=== PATIENT | female | born 2005 ===

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

== ENCOUNTER 2025-06-18 17:18 | Emergency (ER) | payer BC, SELFPAY ==
--- OUTSIDE RECORDS SUMMARY | 2025-05-19 18:18 | XMS_ITS | Encounter Summary ---
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 Name Role Phone Elsewhere, Pcp Primary Care Provider Unavailabl e Reason for Visit * Reason Comments Abnormal Lab Hx of high triglycer ides and needing admission for insulin, [place] [address] today, was called by primary provider to come in for admission * Auth/Cert (Routine) Specialty Diagnoses / Procedures Referred By Contac t Referred To Contact Diagnoses Hypertriglyceridemia Abdominal Pain Procedures INPT Referral ID Status Reason Start Date Expiration Date Visits Re quested Visits Authorized [id number] 1 1 Encounter Details Date Type Department Care Team (Latest Contact Info) Description 05/19/2025 6:18 PM CDT - 05/26/2025 3:56 PM CDT Hospital Encounter [facility], Fourth Floor [address] [place] [address] Howard Corona M.D. [address] [place] [address] Leela Downey M.D. [address] [place] [address] Howard Valdivia M.D. [address] [place] [address] Chris Haynes M.B.BTeshaSTesha, MAbram [address] [place] [address] Abdominal Pain (Primary Dx); Hypertriglyceridemi a Discharge Disposition: Home or Self Care Social History Tobacco Use Types Packs/Day Years Used Date Smoking Tobacco: Never Humiliation, Afraid, Rape, and Kick questionnair e Answer Date Recorded Within the last year, have y ou been afraid of your partner or ex-partner? No 05/19/2025 Within the last year, have y ou been humiliated or emotionally abused in other ways by your partner or ex-partner? No Within the last year, have y ou been kicked, hit, slapped, or otherwise physically hurt by your partner or ex-partner? No 05/19/2025 Within the last year, have y ou been raped or forced to have any kind of sexual activity by your partner or ex-partner? No 05/19/2025 Hunger Vital Sign Answer Date Recorded Within the past 12 months, y ou worried that your food would run out before you got the money to buy more. Never true 05/19/20 25 Within the past 12 months, t he food you bought just didn't last and you didn't have money to get more. Never true 05/19/2025 PRAPARE - Transportation Answer Date Re corded In the past 12 months, has l ack of transportation kept you from medical appointments or from getting medications? No 04/29 In the past 12 months, has l ack of transportation kept you from meetings, work, or from getting things needed for daily living? No 05/19/2025 [facility] Utilities Answer Date Recorded In the past 12 months has [facility] [employer], gas, oil, or water [employer] threatened to shut off services in your home? No 05/19/2025 Housing Stability Answer Date Recorded What is your living situation today? [facility] 05/19/2025 Comments No Sex and Gender Information Value Date Recorded Sex Assigned at Female 10/12/2024 3:01 AM FINANCIAL SERVICES ASSOCIATE Legal Sex Female 7:17 AM FINANCIAL SERVICES ASSOCIATE Gender Identity Female 10/12/2024 3:01 AM FINANCIAL SERVICES ASSOCIATE Sexual Orientation Not on file documented as of this encounter Last Filed Vital Signs Vital Sign Reading Time Taken Comments Blood Pressure 133/91 05/26/2025 2:14 PM CDT Pulse 79 05/23/2025 10:27 AM CDT Temperature 36.2 C (97.2 F) 05/26/2025 2:14 PM CDT Respiratory Rate 17 05/26/2025 2:14 PM CDT Oxygen Saturation 100% 05/26/2025 2:14 PM CDT Inhaled Oxygen Concentration - - Weight 85.2 kg (187 lb 13.3 oz) 05/24/2025 5:23 AM CDT Height 157.5 cm (5' 2.01) 05/19/2025 1 0:41 PM CDT Body Mass Index 34.35 05/19/2025 10:41 PM CDT documented in this encounter Discharge Summaries * Chris Haynes M.B.B.S. MAnselmo. - 05/26/2025 12:02 PM CDT DISCHARGE SUMMARY BRIEF OVERVIEW Hospital: [facility] Discharge Provider: Chris Haynes M.B.B.S. Primary Team: BRET Garcia Primary Care Providers: Elsewhere, Pcp (General) No address on file Primary Care Provider Phone Number: None Primary Care Provider Fax Number: None Other Providers: None Admission Date: 05/19/2025 Discharge Date: 05/26/2025 PRINCIPAL DIAGNOSIS Abdominal Pain SECONDARY DIAGNOSES Principal Problem: Abdominal Pain Resolved Problems: * No resolved hospital problems. * DISCHARGE DISPOSITION Home or Self Care [1] ACTIVE ISSUES REQUIRING FOLLOW UP OUTPATIENT FOLLOW UP For appointment details refer to your Patient Appointment Guide. TEST RESULTS PENDING AT DISCHARGE Pending Labs None DETAILS OF HOSPITAL STAY REASON FOR ADMISSION Hypertriglyceridemia Abdominal Pain HOSPITAL COURSE Patient is 20-year-old female past medical history significant for familial hypertriglyceridemia, type 1 diabetes, HLD, history of recurrent pancreatitis who presented to the ED on 05/19/2025 with abdominal pain. Patient was admitted earlier in March to [facility] due to pancreatitis induced by hypertriglyceridemia. Since discharge patient reported being compliant with medications, however, she had noticed elevated blood glucose levels. Patient had continuous glucose monitor and insulin pump. Recently her meal dose insulin was switched (switched from 1u carb count to 5u due to concern of high dose of insulin). Prior to admission her blood glucose had been in the 300s for the last week. She had her triglycerides checked at her PCPs office on 05/13/2025 and was elevated to 10 thousands. Patient had intermittent epigastric discomfort. PCP instructed her to present to the emergency department for further evaluation. Patient was noted to have high anion gap metabolic acidosis. Patient was admitted to the PCU. Patient was started on insulin drip. Patient's triglycerides were closely monitored and although initially it lowered, triglycerides have now plateaued around 1600 despite being on IV insulin along with high-intensity atorvastatin, fenofibrate and fish oil. Patient's abdominal pain gradually improved and she was initially started on cl ear liquid diet. Diet was slowly advanced and patient is not tolerating solid food. I discussed in detail with patient and she stated that she recently saw her tyre retreader and has all of her diabetic medication supplies including insulin pump. certified adaptive physical educator also met with patient. CONSULTS ORDERED DURING THIS ADMISSION IP CONSULT TO CONCRETING SUPERVISOR IP CONSULT TO DIETITIAN CONDITION AT DISCHARGE stable Discharge instructions were provided to the patient and caregiver(s). Total time spent in discharge services today: 56 minutes. documented in this encounter Discharge Instructions * Attachments The following attachments cannot be sent through Care Everywhere. * Abdominal Wall Pain documented in this encounter Medications at Time of Discharge acetaminophen (TylenoL) 500 mg tablet Take 1,000 mg by mouth every 6 (six) hours as needed for pain. atorvastatin (Lipitor) 80 mg tablet Take 80 mg by mouth daily. 12/20/2016 fenofibrate (Lofibra) 160 mg tablet Take 160 mg by mouth daily. 12/23/2022 hydrOXYzine (Atarax) 25 mg tablet Take 1 tablet by mouth every 6 (six) hours as needed for anxiety. 05/07/2025 insulin aspart U-100 (NovoLOG FlexPen) 100 unit/mL (3 mL) pen Inject 12 Units under the skin 3 (three) times a day with meals. + correction scale (when NOT using pump) insulin aspart U-100 (NovoLOG) 100 unit/mL injection Inject up to 80 units into pump per day 01/03/2024 insulin glargine (Lantus Solostar U-100 Insulin) 100 unit/mL (3 mL) pen Inject 40 Units under the skin at bedtime. 05/13/2025 levothyroxine 100 mcg tablet Take 100 mcg by mouth daily before morning meal. omega-3 acid ethyl esters (Lovaza) 1 gram capsule Take 2 g by mouth 2 (two) times a day. 01/10/2025 omeprazole (PriLOSEC) [address] capsule Take 40 mg by mouth daily. before a meal 10/13/2024 pioglitazone (Actos) 15 mg tablet Take 15 mg by mouth daily. 09/04/2024 polyethylene glycol (Miralax) 17 gram powder packet Take 17 g by mouth daily as needed for constipation. Dissolve each 17 g dose in 240 mLs (8 ounces) of beverage. cholecalciferol (Vitamin D3) 125 mcg (5,000 Unit) tablet Take 1 tablet (125 mcg total) by mouth daily. 30 each 2 04/20/2025 ferrous sulfate 325 mg (65 mg iron) DR tablet Take 1 tablet (65 mg of iron total) by mouth every other day. 15 tablet 2 03/24/2025 glucagon (Gvoke Hypopen) 1 mg/0.2 mL auto-injector injection Inject 0.2 mL under the skin at bedtime as needed. 02/23/2024 traZODone (DesyreL) 50 mg tablet Take 50 mg by mouth at bedtime as needed for sleep. documented as of this encounter Progress Notes * Chris Haynes M.B.BTeshaSTesha, MAbram - 05/25/2025 2:28 PM CDT REASON FOR ADMISSION: Hypertriglyceridemia, chronic pancreatitis SUBJECTIVE Patient seen and examined at bedside today during morning rounds. Last night patient noted to have episode of emesis after eating daytime. This morning patient reports improvement in her abdominal pain and is no longer experiencing nausea/vomiting. CURRENT INPATIENT MEDICATIONS Current Medications[1] OBJECTIVE VITAL SIGNS Vitals: 05/25/25 1410 BP: 101/65 Pulse: Resp: 16 Temp: 36 ??C SpO2: 99% . PHYSICAL EXAMINATION General: Alert, awake, resting in bed Eyes: No scleral icterus Neck: Supple HENT: Normocephalic, moist mucous membranes Cardiac: Normal rate, regular rhythm Respiratory: Clear breath sounds bilaterally, nonlabored respiration Abdomen: Soft, mildly tender to deep palpation, no rigidity or guarding Neurological: Alert and oriented, following commands Extremities: No lower extremity edema present bilaterally Skin: Warm and dry Psych: Cooperative, appropriate mood and affect DIAGNOSTIC DATA LABS: Recent Results (from the past 24 hours) Glucose, POCT Collection Time: 05/24/25 4:01 PM Result Value Glucose, POCT, B 85 Basic Metabolic Panel Collection Time: 05/24/25 4:21 PM Result Value Potassium, P 3.9 Sodium, P 135 Chloride, P 104 Bicarbonate, P 21 (L) Anion Gap, P 10 BUN (Blood Urea Nitrogen), P <2 (L) Creatinine 0.38 (L) Estimated GFR (eGFR) >90 Calcium, Total, P 8.9 Glucose, P 95 Glucose, POCT Collection Time: 05/24/25 5:57 PM Result Value Glucose, POCT, B 101 Glucose, POCT Collection Time: 05/24/25 7:50 PM Result Value Glucose, POCT, B 113 Basic Metabolic Panel Collection Time: 05/24/25 7:51 PM Result Value Potassium, P 4.0 Sodium, P 136 Chloride, P 102 Bicarbonate, P 23 Anion Gap, P 11 BUN (Blood Urea Nitrogen), P <2 (L) Creatinine 0.49 (L) Estimated GFR (eGFR) >90 Calcium, Total, P 8.9 Glucose, P 112 Glucose, POCT Collection Time: 05/24/25 10:03 PM Result Value Glucose, POCT, B 98 Glucose, POCT Collection Time: 05/24/25 11:55 PM Result Value Glucose, POCT, B 117 Basic Metabolic Panel Collection Time: 05/25/25 12:50 AM Result Value Potassium, P 3.6 Sodium, P 135 Chloride, P 100 Bicarbonate, P 23 Anion Gap, P 12 BUN (Blood Urea Nitrogen), P <2 (L) Creatinine 0.49 (L) Estimated GFR (eGFR) >90 Calcium, Total, P 9.2 Glucose, P 98 Glucose, POCT Collection Time: 05/25/25 1:54 AM Result Value Glucose, POCT, B 112 Glucose, POCT Collection Time: 05/25/25 4:02 AM Result Value Glucose, POCT, B 121 Basic Metabolic Panel Collection Time: 05/25/25 4:50 AM Result Value Potassium, P 3.7 Sodium, P 136 Chloride, P 101 Bicarbonate, P 23 Anion Gap, P 12 BUN (Blood Urea Nitrogen), P <2 (L) Creatinine 0.52 (L) Estimated GFR (eGFR) >90 Calcium, Total, P 9.6 Glucose, P 102 Triglycerides Collection Time: 05/25/25 4:50 AM Result Value Triglycerides 1693 (H) Fasting (8 HR or more) Unknown Glucose, POCT Collection Time: 05/25/25 5:52 AM Result Value Glucose, POCT, B 114 Glucose, POCT Collection Time: 05/25/25 8:08 AM Result Value Glucose, POCT, B 94 Basic Metabolic Panel Collection Time: 05/25/25 9:04 AM Result Value Potassium, P 3.7 Sodium, P 137 Chloride, P 104 Bicarbonate, P 23 Anion Gap, P 10 BUN (Blood Urea Nitrogen), P <2 (L) Creatinine 0.45 (L) Estimated GFR (eGFR) >90 Calcium, Total, P 8.7 Glucose, P 110 Glucose, POCT Collection Time: 05/25/25 10:10 AM Result Value Glucose, POCT, B 121 Glucose, POCT Collection Time: 05/25/25 11:58 AM Result Value Glucose, POCT, B 124 Basic Metabolic Panel Collection Time: 05/25/25 12:01 PM Result Value Potassium, P SEE COMMENT Sodium, P 136 Chloride, P 103 Bicarbonate, P 19 (L) Anion Gap, P 14 BUN (Blood Urea Nitrogen), P <2 (L) Creatinine 0.41 (L) Estimated GFR (eGFR) >90 Calcium, Total, P 8.9 Glucose, P 125 Potassium Collection Time: 05/25/25 1:45 PM Result Value Potassium, P 4.0 IMAGING: No results found. ASSESSMENT / PLAN # Familial Hypertriglyceridemia # Presumed chronic pancreatitis # Uncontrolled type 1 diabetes mellitus with hyperglycemia # HAGMA, resolved # Hypokalemia # Hypomagnesemia - patient presented with abdominal pain, likely related to chronic pancreatitis, lipase normal - TG >4000 on presentation; appears to be plateauing and level this morning is 1693 - this episode could be triggered by uncontrolled DM; - due to risk of developing worsening pancreatitis, insulin drip was started - She recently ran out of CGM supply and took off insulin pump on Monday. Educated on importance ofmedication compliance Plan: - Continue with insulin drip for HyperTG until TG<1000 - Home medication resumed: Lovaza 2g bid, fenofibrate, atorvastatin - closely monitor serum triglyceride level - Diet advanced to regular yesterday - Trend BMP -closely monitor serum electrolytes and replace as indicated - Continue with pioglitazone - clinical systems educator consult done # Nausea/vomiting # Abdominal pain During hospitalization patient has had nausea and episode of emesis, noted to be improved this morning. - P.r.n. Zofran and Compazine - Abdominal pain has also improved - Currently on p.r.n. Tylenol, IV Dilaudid and IV Toradol, also added p.r.n. oxycodone - Capnography ordered # Hypothyroidism - TSH 1.58 one week ago - Continue with levothyroxine 100mcg daily Deep venous thrombosis prophylaxis: Subcu Lovenox. Code status: Full Code DISPOSITION PLAN Pending further evaluation and improvement. Pending improvement in triglyceride levels. Pending tolerance of oral intake. It is unsafe for Ms. Josemanuel Chauhan to be discharged from the hospital at this time. Potential risks and complications include incomplete treatment of acute on chronic pancreatitis, hypertriglyceridemia. Hoa Banks M.D. [1] Current Facility-Administered Medications: acetaminophen tablet 1,000 mg (TylenoL), 1,000 mg, oral, Q6H PRN, Leela Downey M.D., 1,000 mg at 05/21/25 2000 atorvastatin tablet 80 mg (Lipitor), 80 mg, oral, Daily, Leela Downey M.D., 80 mg at 05/25/25 0811 insulin regular 1 Unit/mL in NaCl 0.9% 100 mL infusion, 0-0.1 Units/kg/hr (Dosing Weight), intravenous, Continuous, Last Rate: 8.7 mL/hr at 05/25/25 1409, 0.1 Units/kg/hr at 05/25/25 1409 AND D10W infusion, 0-250 mL/hr, intravenous, As Directed PRN, Leela Downey M.D., Last Rate: 150 mL/hr at 05/25/25 1409, 150 mL/hr at 05/25/25 1409 enoxaparin injection 40 mg (Lovenox), 40 mg, subcutaneous, Q24H ZENIA, Leela Downey M.D. fenofibrate nanocrystallized tablet 145 mg (Tricor), 145 mg, oral, Daily, Leela Downey M.D., 145 mg at 05/25/25 0810 fish oil capsule 2,000 mg, 2,000 mg, oral, BID, Howard Valdivia M.D., 2,000 mg at 05/25/25 0810 HYDROmorphone injection 0.2 mg (Dilaudid), 0.2 mg, intravenous, Q4H PRN, Chris Haynes M.B.BCynthia Nowak, 0.2 mg at 05/24/25 0057 hydrOXYzine tablet 25 mg (Atarax), 25 mg, oral, Q6H PRN, Leela Downey M.D., 25 mg at 05/25/25 0129 Influenza trivalent (PF) (6 months & older) Vaccine 0.5 mL (Fluzone/Flulaval), 0.5 mL, intramuscular, Once, Epi Jaime P.A.-C., M.S. levothyroxine tablet 100 mcg, 100 mcg, oral, Daily before morning meal, Leela Downey M.D., 100 mcg at 05/25/25 0600 NaCl 0.9% infusion, 75 mL/hr, intravenous, Continuous, Leela Downey M.D., Last Rate: 75 mL/hr at 05/25/25 1202, 75 mL/hr at 05/25/25 1202 naloxone injection 0.2 mg, 0.2 mg, intravenous, PRN, Leela Downey M.D. omega-3 acid ethyl esters capsule 2 g (Lovaza), 2 g, oral, BID, Patricia Gomez Pharm.D., R.Ph. ondansetron (PF) injection 4 mg (Zofran), 4 mg, intravenous, Q8H PRN, Leela Downey M.D., 4 mg at 05/24/25 2300 oxyCODONE IR tablet 5 mg (Roxicodone), 5 mg, oral, Q4H PRN, IvyChris parada M.B.B.S., M.D., 5 mg at05/25/[address] tablet 40 mg (Protonix), 40 mg, oral, Daily before morning meal, Leela Downey M.D., 40 mg at 05/25/25 0600 pioglitazone tablet 15 mg (Actos), 15 mg, oral, Daily, Leela Downey M.D., 15 mg at 05/25/25 0811 prochlorperazine injection 5 mg (Compazine), 5 mg, intravenous, Q6H PRN, Chris Haynes M.B.B.S., M.D., 5 mg at 05/25/25 0109 sodium chloride 0.9 % injection 10 mL, 10 mL, intravenous, PRN, Leela Downey M.D. sodium chloride 0.9 % injection 3 mL, 3 mL, intravenous, PRN, Leela Downey M.D. sodium chloride 0.9 % injection 3 mL, 3 mL, intravenous, Q12H ZENIA, Leela Downey M.D., 3 mL at 05/25/25 0811 traZODone tablet 50 mg (DesyreL), 50 mg, oral, At bedtime PRN, Leela Downey M.D., 50 mg at 05/24/25 0057 * Chris Haynes M.B.B.S., M.D. - 05/24/2025 1:03 PM CDT REASON FOR ADMISSION: Hypertriglyceridemia, chronic pancreatitis SUBJECTIVE Patient seen and examined at bedside today during morning rounds.Patient denies any nausea or vomiting. Patient does report reduced appetite, is requesting solid food. CURRENT INPATIENT MEDICATIONS Current Medications[1] OBJECTIVE VITAL SIGNS Vitals: 05/24/25 1048 BP: (!) 115/93 Pulse: Resp: 15 Temp: 36.6 ??C SpO2: 99% . PHYSICAL EXAMINATION General: Alert, awake, resting in bed Eyes: No scleral icterus Neck: Supple HENT: Normocephalic, moist mucous membranes Cardiac: Normal rate, regular rhythm Respiratory: Clear breath sounds bilaterally, nonlabored respiration Abdomen: Soft, mildly tender to deep palpation, no rigidity or guarding Neurological: Alert and oriented, following commands Extremities: No lower extremity edema present bilaterally Skin: Warm and dry Psych: Cooperative, appropriate mood and affect DIAGNOSTIC DATA LABS: Recent Results (from the past 24 hours) Glucose, POCT Collection Time: 05/23/25 2:02 PM Result Value Glucose, POCT, B 124 Glucose, POCT Collection Time: 05/23/25 4:01 PM Result Value Glucose, POCT, B 108 Basic Metabolic Panel Collection Time: 05/23/25 4:12 PM Result Value Potassium, P 4.1 Sodium, P 136 Chloride, P 103 Bicarbonate, P 23 Anion Gap, P 10 BUN (Blood Urea Nitrogen), P <2 (L) Creatinine 0.39 (L) Estimated GFR (eGFR) >90 Calcium, Total, P 9.0 Glucose, P 96 Glucose, POCT Collection Time: 05/23/25 6:04 PM Result Value Glucose, POCT, B 84 Basic Metabolic Panel Collection Time: 05/23/25 7:46 PM Result Value Potassium, P SEE COMMENT Sodium, P 135 Chloride, P 102 Bicarbonate, P 22 Anion Gap, P 11 BUN (Blood Urea Nitrogen), P <2 (L) Creatinine 0.37 (L) Estimated GFR (eGFR) >90 Calcium, Total, P 8.9 Glucose, P 147 (H) Glucose, POCT Collection Time: 05/23/25 8:08 PM Result Value Glucose, POCT, B 158 (H) Glucose, POCT Collection Time: 05/23/25 10:12 PM Result Value Glucose, POCT, B 85 Glucose, POCT Collection Time: 05/24/25 12:26 AM Result Value Glucose, POCT, B 133 Glucose, POCT Collection Time: 05/24/25 2:04 AM Result Value Glucose, POCT, B 110 Glucose, POCT Collection Time: 05/24/25 4:08 AM Result Value Glucose, POCT, B 100 Triglycerides Collection Time: 05/24/25 6:15 AM Result Value Triglycerides 1449 (H) Fasting (8 HR or more) Unknown Basic Metabolic Panel Collection Time: 05/24/25 6:15 AM Result Value Potassium, P 3.5 (L) Sodium, P 136 Chloride, P 104 Bicarbonate, P 22 Anion Gap, P 10 BUN (Blood Urea Nitrogen), P <2 (L) Creatinine 0.37 (L) Estimated GFR (eGFR) >90 Calcium, Total, P 8.9 Glucose, P 86 Glucose, POCT Collection Time: 05/24/25 6:17 AM Result Value Glucose, POCT, B 84 Glucose, POCT Collection Time: 05/24/25 8:08 AM Result Value Glucose, POCT, B 127 Glucose, POCT Collection Time: 05/24/25 10:14 AM Result Value Glucose, POCT, B 89 Basic Metabolic Panel Collection Time: 05/24/25 11:48 AM Result Value Potassium, P 4.3 Sodium, P 137 Chloride, P 104 Bicarbonate, P 23 Anion Gap, P 10 BUN (Blood Urea Nitrogen), P <2 (L) Creatinine 0.44 (L) Estimated GFR (eGFR) >90 Calcium, Total, P 8.7 Glucose, P 114 Glucose, POCT Collection Time: 05/24/25 12:04 PM Result Value Glucose, POCT, B 124 IMAGING: No results found. ASSESSMENT / PLAN # Familial Hypertriglyceridemia # Presumed chronic pancreatitis # Uncontrolled type 1 diabetes mellitus with hyperglycemia # HAGMA, resolved # Hypokalemia # Hypomagnesemia - patient presented with abdominal pain, likely related to chronic pancreatitis, lipase normal - TG >4000 on presentation; continues to downtrended and level is 1449 this morning - this episode could be triggered by uncontrolled DM; - due to risk of developing worsening pancreatitis, insulin drip was started - She recently ran out of CGM supply and took off insulin pump on Monday. Educated on importance ofmedication compliance Plan: - Continue with insulin drip for HyperTG until TG<1000 - Home medication resumed: Lovaza 2g bid, fenofibrate, atorvastatin - closely monitor serum triglyceride level - Currently on 4 liquid diet, advance to regular - Trend BMP -closely monitor serum electrolytes and replace as indicated - Continue with pioglitazone - clinical systems educator consult # Nausea/vomiting # Abdominal pain During hospitalization patient has had nausea and episode of emesis, noted to be improved this morning. - P.r.n. Zofran and Compazine - Patient complaints of ongoing abdominal pain but says that it has improved - Currently on p.r.n. Tylenol, IV Dilaudid and IV Toradol, also added p.r.n. oxycodone - Capnography ordered # Hypothyroidism - TSH 1.58 one week ago - Continue with levothyroxine 100mcg daily Deep venous thrombosis prophylaxis: Subcu Lovenox. Code status: Full Code DISPOSITION PLAN Pending further evaluation and improvement. Pending improvement in triglyceride levels. Pending tolerance of oral intake. It is unsafe for Ms. Josemanuel Chauhan to be discharged from the hospital at this time. Potential risks and complications include incomplete treatment of acute on chronic pancreatitis, hypertriglyceridemia. Hoa Banks M.D. [1] Current Facility-Administered Medications: acetaminophen tablet 1,000 mg (TylenoL), 1,000 mg, oral, Q6H PRN, Leela Downey M.D., 1,000 mg at 05/21/251999 atorvastatin tablet 80 mg (Lipitor), 80 mg, oral, Daily, Leela Downey M.D., 80 mg at 05/24/25 08 insulin regular 1 Unit/mL in NaCl 0.9% 100 mL infusion, 0-0.1 Units/kg/hr (Dosing Weight), intravenous, Continuous, Last Rate: 8.7 mL/hr at 05/24/25 1204, 0.1 Units/kg/hr at 05/24/25 1204 AND D10W infusion, 0-250 mL/hr, intravenous, As Directed PRN, Leela Downey M.D., Last Rate: 150 mL/hr at 05/24/25 1204, 150 mL/hr at 05/24/25 1204 enoxaparin injection 40 mg (Lovenox), 40 mg, subcutaneous, Q24H ZENIA, Leela Downey M.D. fenofibrate nanocrystallized tablet 145 mg (Tricor), 145 mg, oral, Daily, Leela Downey M.D., 145 mg at 05/24/25 0811 fish oil capsule 2,000 mg, 2,000 mg, oral, BID, ValdiviaHoward reynoso M.D., 2,000 mg at 05/24/25 0811 HYDROmorphone injection 0.2 mg (Dilaudid), 0.2 mg, intravenous, Q4H PRN, Chris Haynes M.B.B.SCynthia Parkinson, 0.2 mg at 05/24/25 0057 hydrOXYzine tablet 25 mg (Atarax), 25 mg, oral, Q6H PRN, Leela Downey M.D., 25 mg at 05/21/25 2151 Influenza trivalent (PF) (6 months & older) Vaccine 0.5 mL (Fluzone/Flulaval), 0.5 mL, intramuscular, Once, Epi Jaime P.A.-C., M.S. levothyroxine tablet 100 mcg, 100 mcg, oral, Daily before morning meal, Leela Downey M.D., 100 mcg at 05/24/25 0620 NaCl 0.9% infusion, 75 mL/hr, intravenous, Continuous, Leela Downey M.D., Last Rate: 75 mL/hr at 05/24/25 1015, 75 mL/hr at 05/24/25 1015 naloxone injection 0.2 mg, 0.2 mg, intravenous, PRN, Leela Downey M.D. omega-3 acid ethyl esters capsule 2 g (Lovaza), 2 g, oral, BID, Patricia Gomez Pharm.D., R.Ph. ondansetron (PF) injection 4 mg (Zofran), 4 mg, intravenous, Q8H PRN, Leela Downey M.D., 4 mg at 05/22/25 1029 oxyCODONE IR tablet 5 mg (Roxicodone), 5 mg, oral, Q4H PRN, Chris Haynes M.B.B.SCynthia Parkinson, 5 mg at05/23/[address] tablet 40 mg (Protonix), 40 mg, oral, Daily before morning meal, Leela Downey M.D., 40 mg at 05/24/25 0620 pioglitazone tablet 15 mg (Actos), 15 mg, oral, Daily, Leela Downey M.D., 15 mg at 05/24/25 0811 prochlorperazine injection 5 mg (Compazine), 5 mg, intravenous, Q6H PRN, IvyChris M.B.B.S., M.D., 5 mg at 05/21/25 1316 sodium chloride 0.9 % injection 10 mL, 10 mL, intravenous, PRNShayan Bolun, M.D. sodium chloride 0.9 % injection 3 mL, 3 mL, intravenous, PRNShayan Bolun, M.D. sodium chloride 0.9 % injection 3 mL, 3 mL, intravenous, Q12H ZENIA, Leela Downey M.D., 3 mL at 05/24/25 0812 traZODone tablet 50 mg (DesyreL), 50 mg, oral, At bedtime PRNShayan Bolun, M.D., 50 mg at 05/24/25 0057 * Chris Haynes M.B.B.S., M.D. - 05/23/2025 12:17 PM CDT REASON FOR ADMISSION: Hypertriglyceridemia, chronic pancreatitis SUBJECTIVE Patient seen and examined at bedside today during morning rounds. Patient still reports some abdominal pain but states that it has improved. She denies any nausea or vomiting. Patient does report reduced appetite. CURRENT INPATIENT MEDICATIONS Current Medications[1] OBJECTIVE VITAL SIGNS Vitals: 05/23/25 1027 BP: 115/71 Pulse: 79 Resp: 20 Temp: 36.5 ??C SpO2: 100% . PHYSICAL EXAMINATION General: Alert, awake, resting in bed Eyes: No scleral icterus Neck: Supple HENT: Normocephalic, moist mucous membranes Cardiac: Normal rate, regular rhythm Respiratory: Clear breath sounds bilaterally, nonlabored respiration Abdomen: Soft, mildly tender to deep palpation, no rigidity or guarding Neurological: Alert and oriented, following commands Extremities: No lower extremity edema present bilaterally Skin: Warm and dry Psych: Cooperative, appropriate mood and affect DIAGNOSTIC DATA LABS: Recent Results (from the past 24 hours) Glucose, POCT Collection Time: 05/22/25 1:46 PM Result Value Glucose, POCT, B 107 Glucose, POCT Collection Time: 05/22/25 3:25 PM Result Value Glucose, POCT, B 99 Basic Metabolic Panel Collection Time: 05/22/25 3:53 PM Result Value Potassium, P 3.9 Sodium, P 136 Chloride, P 105 Bicarbonate, P 22 Anion Gap, P 9 BUN (Blood Urea Nitrogen), P <2 (L) Creatinine 0.39 (L) Estimated GFR (eGFR) >90 Calcium, Total, P 8.5 (L) Glucose, P 98 Triglycerides Collection Time: 05/22/25 3:53 PM Result Value Triglycerides 2031 (H) Fasting (8 HR or more) No Glucose, POCT Collection Time: 05/22/25 5:31 PM Result Value Glucose, POCT, B 147 (H) Glucose, POCT Collection Time: 05/22/25 7:33 PM Result Value Glucose, POCT, B 104 Basic Metabolic Panel Collection Time: 05/22/25 7:56 PM Result Value Potassium, P 4.2 Sodium, P 136 Chloride, P 104 Bicarbonate, P 22 Anion Gap, P 10 BUN (Blood Urea Nitrogen), P <2 (L) Creatinine 0.42 (L) Estimated GFR (eGFR) >90 Calcium, Total, P 8.8 Glucose, P 109 Glucose, POCT Collection Time: 05/22/25 9:44 PM Result Value Glucose, POCT, B 104 Basic Metabolic Panel Collection Time: 05/22/25 11:58 PM Result Value Potassium, P SEE COMMENT Sodium, P 137 Chloride, P 104 Bicarbonate, P 23 Anion Gap, P 10 BUN (Blood Urea Nitrogen), P <2 (L) Creatinine 0.42 (L) Estimated GFR (eGFR) >90 Calcium, Total, P 8.9 Glucose, P 93 Glucose, POCT Collection Time: 05/23/25 12:00 AM Result Value Glucose, POCT, B 94 Glucose, POCT Collection Time: 05/23/25 2:02 AM Result Value Glucose, POCT, B 120 Magnesium Collection Time: 05/23/25 4:04 AM Result Value Magnesium, P 1.7 Phosphorus Inorganic Collection Time: 05/23/25 4:04 AM Result Value Phosphorus (Inorganic), P 3.7 Basic Metabolic Panel Collection Time: 05/23/25 4:04 AM Result Value Potassium, P SEE COMMENT Sodium, P 135 Chloride, P 103 Bicarbonate, P 21 (L) Anion Gap, P 11 BUN (Blood Urea Nitrogen), P <2 (L) Creatinine 0.40 (L) Estimated GFR (eGFR) >90 Calcium, Total, P 8.9 Glucose, P 91 Glucose, POCT Collection Time: 05/23/25 4:05 AM Result Value Glucose, POCT, B 89 Potassium Collection Time: 05/23/25 4:57 AM Result Value Potassium, P 3.9 Triglycerides Collection Time: 05/23/25 4:57 AM Result Value Triglycerides 1752 (H) Fasting (8 HR or more) Unknown Glucose, POCT Collection Time: 05/23/25 6:11 AM Result Value Glucose, POCT, B 192 (H) Basic Metabolic Panel Collection Time: 05/23/25 7:57 AM Result Value Potassium, P 3.8 Sodium, P 135 Chloride, P 102 Bicarbonate, P 23 Anion Gap, P 10 BUN (Blood Urea Nitrogen), P <2 (L) Creatinine 0.36 (L) Estimated GFR (eGFR) >90 Calcium, Total, P 8.7 Glucose, P 120 Glucose, POCT Collection Time: 05/23/25 7:57 AM Result Value Glucose, POCT, B 114 Glucose, POCT Collection Time: 05/23/25 10:02 AM Result Value Glucose, POCT, B 108 Glucose, POCT Collection Time: 05/23/25 11:59 AM Result Value Glucose, POCT, B 93 IMAGING: No results found. ASSESSMENT / PLAN # Familial Hypertriglyceridemia # Presumed chronic pancreatitis # Uncontrolled type 1 diabetes mellitus with hyperglycemia # HAGMA, resolved # Hypokalemia # Hypomagnesemia - patient presented with abdominal pain, likely related to chronic pancreatitis, lipase normal - TG >4000 on presentation; continues to downtrended and level is 1752 this morning - this episode could be triggered by uncontrolled DM; - due to risk of developing worsening pancreatitis, insulin drip was started - She recently ran out of CGM supply and took off insulin pump on Monday. Educated on importance ofmedication compliance Plan: - Continue with insulin drip for HyperTG until TG<1000 - Home medication resumed: Lovaza 2g bid, fenofibrate, atorvastatin - closely monitor serum triglyceride level - Currently on clear liquid diet, advanced to full liquids - Trend BMP -closely monitor serum electrolytes and replace as indicated - Continue with pioglitazone - clinical systems educator consult # Nausea/vomiting # Abdominal pain During hospitalization patient has had nausea and episode of emesis, noted to be improved this morning. - P.r.n. Zofran and Compazine - Patient complaints of ongoing abdominal pain but says that it has improved - Currently on p.r.n. Tylenol, IV Dilaudid and IV Toradol, also added p.r.n. oxycodone - Capnography ordered # Hypothyroidism - TSH 1.58 one week ago - Continue with levothyroxine 100mcg daily Deep venous thrombosis prophylaxis: Subcu Lovenox. Code status: Full Code DISPOSITION PLAN Pending further evaluation and improvement. Pending improvement in triglyceride levels. Pending tolerance of oral intake. It is unsafe for Ms. Josemanuel Chauhan to be discharged from the hospital at this time. Potential risks and complications include incomplete treatment of acute on chronic pancreatitis, hypertriglyceridemia. Hoa Banks M.D. [1] Current Facility-Administered Medications: acetaminophen tablet 1,000 mg (TylenoL), 1,000 mg, oral, Q6H PRN, Leela Downey M.D., 1,000 mg at 05/21/251999 atorvastatin tablet 80 mg (Lipitor), 80 mg, oral, Daily, Leela oDwney M.D., 80 mg at 05/23/25 0824 insulin regular 1 Unit/mL in NaCl 0.9% 100 mL infusion, 0-0.1 Units/kg/hr (Dosing Weight), intravenous, Continuous, Last Rate: 4.35 mL/hr at 05/23/25 1159, 0.05 Units/kg/hr at 05/23/25 1159 AND D10W infusion, 0-250 mL/hr, intravenous, As Directed PRN, Leela Downey M.D., Last Rate: 200 mL/hr at 05/23/25 1200, 200 mL/hr at 05/23/25 1200 enoxaparin injection 40 mg (Lovenox), 40 mg, subcutaneous, Q24H ZENIA, Leela Downey M.D. fenofibrate nanocrystallized tablet 145 mg (Tricor), 145 mg, oral, Daily, Leela Downey M.D., 145 mg at 05/23/25 0824 fish oil capsule 2,000 mg, 2,000 mg, oral, BID, Howard Valdivia M.D., 2,000 mg at 05/23/25 0824 HYDROmorphone injection 0.4 mg (Dilaudid), 0.4 mg, intravenous, Q3H PRN, Chris Haynes M.B.B.S., M.D., 0.4 mg at 05/23/25 0636 hydrOXYzine tablet 25 mg (Atarax), 25 mg, oral, Q6H PRN, Leela Downey M.D., 25 mg at 05/21/25 2151 Influenza trivalent (PF) (6 months & older) Vaccine 0.5 mL (Fluzone/Flulaval), 0.5 mL, intramuscular, Once, Epi Jaime P.A.-Evon, M.STesha ketorolac injection 15 mg (ToradoL), 15 mg, intravenous, Q6H PRN, Leela Downey M.D. levothyroxine tablet 100 mcg, 100 mcg, oral, Daily before morning meal, Leela Downey M.D., 100 mcg at 05/23/25 0612 NaCl 0.9% infusion, 75 mL/hr, intravenous, Continuous, Leela Downey M.D., Last Rate: 75 mL/hr at 05/23/25 0716, 75 mL/hr at 05/23/25 0716 naloxone injection 0.2 mg, 0.2 mg, intravenous, PRN, Leela Downey M.D. omega-3 acid ethyl esters capsule 2 g (Lovaza), 2 g, oral, BID, Patricia Gomez Pharm.DTesha, R.Ph. ondansetron (PF) injection 4 mg (Zofran), 4 mg, intravenous, Q8H PRN, Leela Downey M.D., 4 mg at 05/22/25 1029 oxyCODONE IR tablet 5 mg (Roxicodone), 5 mg, oral, Q4H PRN, Chris Haynes M.B.B.S., M.D., 5 mg at05/22/[address] tablet 40 mg (Protonix), 40 mg, oral, Daily before morning meal, Leela Downey M.D., 40 mg at 05/23/25 0612 pioglitazone tablet 15 mg (Actos), 15 mg, oral, Daily, Leela Downey M.D., 15 mg at 05/23/25 0824 prochlorperazine injection 5 mg (Compazine), 5 mg, intravenous, Q6H PRN, Chris Haynes M.B.B.S., M.D., 5 mg at 05/21/25 1316 sodium chloride 0.9 % injection 10 mL, 10 mL, intravenous, PRN, Leela Downey M.D. sodium chloride 0.9 % injection 3 mL, 3 mL, intravenous, PRN, Leela Downey M.D. sodium chloride 0.9 % injection 3 mL, 3 mL, intravenous, Q12H ZENIA, Leela Downey M.D., 3 mL at 05/23/25 0825 traZODone tablet 50 mg (DesyreL), 50 mg, oral, At bedtime PRN, Leela Downey M.D., 50 mg at 05/22/25 2207 * Chris Haynes M.B.B.S., M.D. - 05/22/2025 12:42 PM CDT REASON FOR ADMISSION: Hypertriglyceridemia, chronic pancreatitis SUBJECTIVE Patient seen and examined at bedside today during morning rounds. This morning patient reports improvement in her abdominal pain compared to yesterday. Patient also had a bowel movement yesterday. CURRENT INPATIENT MEDICATIONS Current Medications[1] OBJECTIVE VITAL SIGNS Vitals: 05/22/25 1200 BP: 96/60 Pulse: Resp: Temp: 36.5 ??C SpO2: . PHYSICAL EXAMINATION General: Alert, awake, resting in bed Eyes: No scleral icterus Neck: Supple HENT: Normocephalic, moist mucous membranes Cardiac: Normal rate, regular rhythm Respiratory: Clear breath sounds bilaterally, nonlabored respiration Abdomen: Soft, mildly tender to deep palpation, no rigidity or guarding Neurological: Alert and oriented, following commands Extremities: No lower extremity edema present bilaterally Skin: Warm and dry Psych: Cooperative, appropriate mood and affect DIAGNOSTIC DATA LABS: Recent Results (from the past 24 hours) Glucose, POCT Collection Time: 05/21/25 3:02 PM Result Value Glucose, POCT, B 193 (H) Basic Metabolic Panel Collection Time: 05/21/25 4:01 PM Result Value Potassium, P 4.2 Sodium, P 133 (L) Chloride, P 102 Bicarbonate, P 18 (L) Anion Gap, P 13 BUN (Blood Urea Nitrogen), P <2 (L) Creatinine 0.37 (L) Estimated GFR (eGFR) >90 Calcium, Total, P 8.5 (L) Glucose, P 162 (H) Triglycerides Collection Time: 05/21/25 4:01 PM Result Value Triglycerides 2903 (H) Fasting (8 HR or more) No Glucose, POCT Collection Time: 05/21/25 4:20 PM Result Value Glucose, POCT, B 151 (H) Glucose, POCT Collection Time: 05/21/25 5:31 PM Result Value Glucose, POCT, B 130 Glucose, POCT Collection Time: 05/21/25 6:29 PM Result Value Glucose, POCT, B 140 Glucose, POCT Collection Time: 05/21/25 7:37 PM Result Value Glucose, POCT, B 104 Basic Metabolic Panel Collection Time: 05/21/25 8:21 PM Result Value Potassium, P 3.8 Sodium, P 132 (L) Chloride, P 101 Bicarbonate, P 20 (L) Anion Gap, P 11 BUN (Blood Urea Nitrogen), P <2 (L) Creatinine 0.38 (L) Estimated GFR (eGFR) >90 Calcium, Total, P 8.6 Glucose, P 112 Glucose, POCT Collection Time: 05/21/25 8:31 PM Result Value Glucose, POCT, B 115 Glucose, POCT Collection Time: 05/21/25 9:39 PM Result Value Glucose, POCT, B 119 Glucose, POCT Collection Time: 05/21/25 10:36 PM Result Value Glucose, POCT, B 144 (H) Glucose, POCT Collection Time: 05/21/25 11:22 PM Result Value Glucose, POCT, B 126 Glucose, POCT Collection Time: 05/22/25 12:27 AM Result Value Glucose, POCT, B 116 Basic Metabolic Panel Collection Time: 05/22/25 12:39 AM Result Value Potassium, P SEE COMMENT Sodium, P 133 (L) Chloride, P 103 Bicarbonate, P 20 (L) Anion Gap, P 10 BUN (Blood Urea Nitrogen), P <2 (L) Creatinine 0.34 (L) Estimated GFR (eGFR) >90 Calcium, Total, P 8.5 (L) Glucose, P 114 Glucose, POCT Collection Time: 05/22/25 1:29 AM Result Value Glucose, POCT, B 115 Glucose, POCT Collection Time: 05/22/25 2:40 AM Result Value Glucose, POCT, B 114 Glucose, POCT Collection Time: 05/22/25 3:35 AM Result Value Glucose, POCT, B 112 Basic Metabolic Panel Collection Time: 05/22/25 3:57 AM Result Value Potassium, P SEE COMMENT Sodium, P 135 Chloride, P 105 Bicarbonate, P 19 (L) Anion Gap, P 11 BUN (Blood Urea Nitrogen), P <2 (L) Creatinine 0.35 (L) Estimated GFR (eGFR) >90 Calcium, Total, P 8.4 (L) Glucose, P 109 Triglycerides Collection Time: 05/22/25 3:57 AM Result Value Triglycerides 2144 (H) Fasting (8 HR or more) Unknown Glucose, POCT Collection Time: 05/22/25 4:49 AM Result Value Glucose, POCT, B 107 Potassium Collection Time: 05/22/25 5:13 AM Result Value Potassium, P 3.5 (L) Glucose, POCT Collection Time: 05/22/25 5:25 AM Result Value Glucose, POCT, B 105 Glucose, POCT Collection Time: 05/22/25 6:47 AM Result Value Glucose, POCT, B 108 Glucose, POCT Collection Time: 05/22/25 7:53 AM Result Value Glucose, POCT, B 106 Basic Metabolic Panel Collection Time: 05/22/25 8:15 AM Result Value Potassium, P 3.6 Sodium, P 135 Chloride, P 104 Bicarbonate, P 19 (L) Anion Gap, P 12 BUN (Blood Urea Nitrogen), P <2 (L) Creatinine 0.38 (L) Estimated GFR (eGFR) >90 Calcium, Total, P 8.4 (L) Glucose, P 101 Glucose, POCT Collection Time: 05/22/25 9:22 AM Result Value Glucose, POCT, B 114 Glucose, POCT Collection Time: 05/22/25 11:19 AM Result Value Glucose, POCT, B 120 IMAGING: No results found. ASSESSMENT / PLAN # Familial Hypertriglyceridemia # Presumed chronic pancreatitis # Uncontrolled type 1 diabetes mellitus with hyperglycemia # HAGMA, resolved # Hypokalemia # Hypomagnesemia - patient presented with abdominal pain, likely related to chronic pancreatitis, lipase normal - TG >4000 on presentation; have decreased to 2144 this morning - this episode could be triggered by uncontrolled DM; - due to risk of developing worsening pancreatitis, insulin drip was started - She recently ran out of CGM supply and took off insulin pump on Monday. Educated on importance ofmedication compliance Plan: - Continue with insulin drip for HyperTG until TG<1000 - Home medication resumed: Lovaza 2g bid, fenofibrate, atorvastatin - closely monitor serum triglyceride level - Currently on clear liquid diet - Trend BMP -closely monitor serum electrolytes and replace as indicated - Continue with pioglitazone - clinical systems educator consult # Nausea/vomiting # Abdominal pain During hospitalization patient has had nausea and episode of emesis, noted to be improved this morning. - P.r.n. Zofran and Compazine - Patient complaints of ongoing abdominal pain but says that it has improved - Currently on p.r.n. Tylenol, IV Dilaudid and IV Toradol, also added p.r.n. oxycodone - Capnography ordered # Hypothyroidism - TSH 1.58 one week ago - Continue with levothyroxine 100mcg daily Deep venous thrombosis prophylaxis: Subcu Lovenox. Code status: Full Code DISPOSITION PLAN Pending further evaluation and improvement. Pending improvement in triglyceride levels. Pending tolerance of oral intake. It is unsafe for Ms. Josemanuel Chauhan to be discharged from the hospital at this time. Potential risks and complications include incomplete treatment of acute on chronic pancreatitis, hypertriglyceridemia. Hoa Banks M.D. [1] Current Facility-Administered Medications: acetaminophen tablet 1,000 mg (TylenoL), 1,000 mg, oral, Q6H PRN, Leela Downey M.D., 1,000 mg at 05/21/251999 atorvastatin tablet 80 mg (Lipitor), 80 mg, oral, Daily, Leela Downey M.D., 80 mg at 05/22/25 0937 insulin regular 1 Unit/mL in NaCl 0.9% 100 mL infusion, 0-0.1 Units/kg/hr (Dosing Weight), intravenous, Continuous, Last Rate: 8.7 mL/hr at 05/22/25 1121, 0.1 Units/kg/hr at 05/22/25 1121 AND D10W infusion, 0-250 mL/hr, intravenous, As Directed PRN, Leela Downey M.D., Last Rate: 150 mL/hr at 05/22/25 112, 150 mL/hr at 05/22/25 1121 enoxaparin injection 40 mg (Lovenox), 40 mg, subcutaneous, Q24H ZENIA, Leela Downey M.D. fenofibrate nanocrystallized tablet 145 mg (Tricor), 145 mg, oral, Daily, Leela Downey M.D., 145 mg at 05/22/25 0936 fish oil capsule 2,000 mg, 2,000 mg, oral, BID, Howard Valdivia M.D., 2,000 mg at 05/22/25 0937 HYDROmorphone injection 0.4 mg (Dilaudid), 0.4 mg, intravenous, Q3H PRN, Chris Haynes M.B.B.S., M.D. hydrOXYzine tablet 25 mg (Atarax), 25 mg, oral, Q6H PRN, Leela Downey M.D., 25 mg at 05/21/251 Influenza trivalent (PF) (6 months & older) Vaccine 0.5 mL (Fluzone/Flulaval), 0.5 mL, intramuscular, Once, Epi Jaime P.A.-C., M.STesha ketorolac injection 15 mg (ToradoL), 15 mg, intravenous, Q6H PRN, Leela Downey M.D. levothyroxine tablet 100 mcg, 100 mcg, oral, Daily before morning meal, Leela Downey M.D., 100 mcg at 05/22/25 0632 NaCl 0.9% infusion, 75 mL/hr, intravenous, Continuous, Leela Downey M.D., Last Rate: 75 mL/hr at 05/22/25 0651, 75 mL/hr at 05/22/25 0651 naloxone injection 0.2 mg, 0.2 mg, intravenous, PRN, Leela Downey M.D. omega-3 acid ethyl esters capsule 2 g (Lovaza), 2 g, oral, BID, Patricia Gomez Pharm.D., R.Ph. ondansetron (PF) injection 4 mg (Zofran), 4 mg, intravenous, Q8H PRN, Leela Downey M.D., 4 mg at 05/22/25 1029 oxyCODONE IR tablet 5 mg (Roxicodone), 5 mg, oral, Q4H PRN, Chris Haynes M.B.B.S., M.D., 5 mg at05/21/[address] tablet 40 mg (Protonix), 40 mg, oral, Daily before morning meal, Leela Downey M.D., 40 mg at 05/22/25 0632 pioglitazone tablet 15 mg (Actos), 15 mg, oral, Daily, Leela Downey M.D., 15 mg at 05/22/25 0937 prochlorperazine injection 5 mg (Compazine), 5 mg, intravenous, Q6H PRN, Chris Haynes M.B.B.S., M.D., 5 mg at 05/21/25 1316 sodium chloride 0.9 % injection 10 mL, 10 mL, intravenous, PRN, Leela Downey M.D. sodium chloride 0.9 % injection 3 mL, 3 mL, intravenous, PRN, Leela Downey M.D. sodium chloride 0.9 % injection 3 mL, 3 mL, intravenous, Q12H ZENIA, Leela Downey M.D., 3 mL at 05/22/25 1026 traZODone tablet 50 mg (DesyreL), 50 mg, oral, At bedtime PRN, Leela Downey M.D., 50 mg at 05/21/25 2151 * Ivy, ChrisHoa Hassan M.D. - 05/21/2025 1:38 PM CDT REASON FOR ADMISSION: Hypertriglyceridemia, chronic pancreatitis SUBJECTIVE Patient seen and examined at bedside today during morning rounds. She continues to complain of abdominal pain requiring frequent IV medication. Patient also endorses feeling nauseous. She does reports some improvement in her pain compared to yesterday CURRENT INPATIENT MEDICATIONS Current Medications[1] OBJECTIVE VITAL SIGNS Vitals: 05/21/25 0959 BP: (!) 97/53 Pulse: 81 Resp: 13 Temp: 36.3 ??C SpO2: 96% . PHYSICAL EXAMINATION General: Alert, awake, resting in bed Eyes: No scleral icterus Neck: Supple HENT: Normocephalic, moist mucous membranes Cardiac: Normal rate, regular rhythm Respiratory: Clear breath sounds bilaterally, nonlabored respiration Abdomen: Soft, mildly tender to deep palpation, no rigidity or guarding Neurological: Alert and oriented, following commands Extremities: No lower extremity edema present bilaterally Skin: Warm and dry Psych: Cooperative, appropriate mood and affect DIAGNOSTIC DATA LABS: Recent Results (from the past 24 hours) Glucose, POCT Collection Time: 05/20/25 1:59 PM Result Value Glucose, POCT, B 149 (H) Glucose, POCT Collection Time: 05/20/25 3:11 PM Result Value Glucose, POCT, B 154 (H) Glucose, POCT Collection Time: 05/20/25 3:58 PM Result Value Glucose, POCT, B 138 Basic Metabolic Panel Collection Time: 05/20/25 4:20 PM Result Value Potassium, P 3.8 Sodium, P 138 Chloride, P 106 Bicarbonate, P 20 (L) Anion Gap, P 12 BUN (Blood Urea Nitrogen), P 3 (L) Creatinine 0.38 (L) Estimated GFR (eGFR) >90 Calcium, Total, P 9.0 Glucose, P 145 (H) Triglycerides Collection Time: 05/20/25 4:21 PM Result Value Triglycerides >4425 (H) Fasting (8 HR or more) No Glucose, POCT Collection Time: 05/20/25 5:15 PM Result Value Glucose, POCT, B 145 (H) Glucose, POCT Collection Time: 05/20/25 5:33 PM Result Value Glucose, POCT, B 145 (H) Glucose, POCT Collection Time: 05/20/25 6:16 PM Result Value Glucose, POCT, B 145 (H) Glucose, POCT Collection Time: 05/20/25 7:01 PM Result Value Glucose, POCT, B 139 Basic Metabolic Panel Collection Time: 05/20/25 8:01 PM Result Value Potassium, P 3.8 Sodium, P 137 Chloride, P 104 Bicarbonate, P 19 (L) Anion Gap, P 14 BUN (Blood Urea Nitrogen), P 2 (L) Creatinine 0.38 (L) Estimated GFR (eGFR) >90 Calcium, Total, P 9.0 Glucose, P 149 (H) Glucose, POCT Collection Time: 05/20/25 8:16 PM Result Value Glucose, POCT, B 144 (H) Glucose, POCT Collection Time: 05/20/25 9:26 PM Result Value Glucose, POCT, B 147 (H) Glucose, POCT Collection Time: 05/20/25 10:15 PM Result Value Glucose, POCT, B 154 (H) Glucose, POCT Collection Time: 05/20/25 11:16 PM Result Value Glucose, POCT, B 135 Glucose, POCT Collection Time: 05/21/25 12:08 AM Result Value Glucose, POCT, B 146 (H) Basic Metabolic Panel Collection Time: 05/21/25 12:15 AM Result Value Potassium, P 4.0 Sodium, P 139 Chloride, P 107 Bicarbonate, P 18 (L) Anion Gap, P 14 BUN (Blood Urea Nitrogen), P 2 (L) Creatinine 0.37 (L) Estimated GFR (eGFR) >90 Calcium, Total, P 8.9 Glucose, P 151 (H) Glucose, POCT Collection Time: 05/21/25 1:20 AM Result Value Glucose, POCT, B 128 Glucose, POCT Collection Time: 05/21/25 2:22 AM Result Value Glucose, POCT, B 123 Glucose, POCT Collection Time: 05/21/25 3:11 AM Result Value Glucose, POCT, B 119 Glucose, POCT Collection Time: 05/21/25 4:25 AM Result Value Glucose, POCT, B 107 Basic Metabolic Panel Collection Time: 05/21/25 4:26 AM Result Value Potassium, P 3.6 Sodium, P 137 Chloride, P 105 Bicarbonate, P 19 (L) Anion Gap, P 13 BUN (Blood Urea Nitrogen), P <2 (L) Creatinine 0.39 (L) Estimated GFR (eGFR) >90 Calcium, Total, P 8.7 Glucose, P 121 Triglycerides Collection Time: 05/21/25 4:26 AM Result Value Triglycerides >4425 (H) Fasting (8 HR or more) Unknown Magnesium Collection Time: 05/21/25 4:26 AM Result Value Magnesium, P 1.6 (L) Glucose, POCT Collection Time: 05/21/25 5:23 AM Result Value Glucose, POCT, B 118 CBC with Differential, Blood Collection Time: 05/21/25 5:46 AM Result Value Hemoglobin 12.3 Hematocrit 31.0 (L) Erythrocytes 4.51 MCV 68.7 (L) RBC Distrib Width 16.7 (H) Platelet Count 248 Leukocytes 6.4 Neutrophils 3.54 Lymphocytes 2.12 Monocytes 0.47 Eosinophils 0.23 Basophils 0.05 Morphology Evaluation Collection Time: 05/21/25 5:46 AM Result Value RBC Morphology See Specific Findings PLT Morphology See Specific Findings PLT Estimate Adequate Anisocytosis Slight (A) Large PLT Present (A) Glucose, POCT Collection Time: 05/21/25 6:24 AM Result Value Glucose, POCT, B 119 Glucose, POCT Collection Time: 05/21/25 7:43 AM Result Value Glucose, POCT, B 140 Basic Metabolic Panel Collection Time: 05/21/25 8:19 AM Result Value Potassium, P 3.3 (L) Sodium, P 134 (L) Chloride, P 99 Bicarbonate, P 23 Anion Gap, P 12 BUN (Blood Urea Nitrogen), P <2 (L) Creatinine 0.32 (L) Estimated GFR (eGFR) >90 Calcium, Total, P 8.7 Glucose, P 95 Glucose, POCT Collection Time: 05/21/25 8:37 AM Result Value Glucose, POCT, B 119 Glucose, POCT Collection Time: 05/21/25 9:44 AM Result Value Glucose, POCT, B 122 Glucose, POCT Collection Time: 05/21/25 10:49 AM Result Value Glucose, POCT, B 120 Basic Metabolic Panel Collection Time: 05/21/25 11:42 AM Result Value Potassium, P 3.4 (L) Sodium, P 133 (L) Chloride, P 100 Bicarbonate, P 11 (L) Anion Gap, P 22 (H) BUN (Blood Urea Nitrogen), P <2 (L) Creatinine 0.42 (L) Estimated GFR (eGFR) >90 Calcium, Total, P 8.5 (L) Glucose, P 97 *Note: Due to a large number of results and/or encounters for the requested time period, some results have not been displayed. A complete set of results can be found in Results Review. IMAGING: No results found. ASSESSMENT / PLAN # Familial Hypertriglyceridemia # Presumed chronic pancreatitis # Uncontrolled type 1 diabetes mellitus with hyperglycemia # HAGMA, resolved # Hypokalemia # Hypomagnesemia - patient presented with abdominal pain, likely related to chronic pancreatitis, lipase normal - TG >4000; - this episode could be triggered by uncontrolled DM; - due to risk of developing worsening pancreatitis, insulin drip was started - She recently ran out of CGM supply and took off insulin pump on Monday. Educated on importance ofmedication compliance Plan: - Continue with insulin drip for HyperTG until TG<1000 - Home medication resumed: Lovaza 2g bid, fenofibrate, atorvastatin - closely monitor serum triglyceride level - Currently on clear liquid diet - Trend BMP - replace K, Mg - Continue with pioglitazone - Follow with endocrinology # Nausea/vomiting # Abdominal pain Patient complaining of nausea this morning and also had episode of emesis later. - P.r.n. Zofran and Compazine - Patient complaints of ongoing abdominal pain but stated that it is better compared to yesterday - Currently on p.r.n. Tylenol, IV Dilaudid and IV Toradol, also will add p.r.n. oxycodone - Capnography ordered # Hypothyroidism - TSH 1.58 one week ago - Continue with levothyroxine 100mcg daily Deep venous thrombosis prophylaxis: Subcu Lovenox. Code status: Full Code DISPOSITION PLAN Pending further evaluation and improvement. Pending improvement in triglyceride levels. Pending tolerance of oral intake. It is unsafe for Ms. Josemanuel Chauhan to be discharged from the hospital at this time. Potential risks and complications include incomplete treatment of acute on chronic pancreatitis, hypertriglyceridemia. Hoa Banks M.D. [1] Current Facility-Administered Medications: acetaminophen tablet 1,000 mg (TylenoL), 1,000 mg, oral, Q6H PRN, Leela Downey M.D., 1,000 mg at 05/20/252012 atorvastatin tablet 80 mg (Lipitor), 80 mg, oral, Daily, Leela Downey M.D., 80 mg at 05/21/25 0814 insulin regular 1 Unit/mL in NaCl 0.9% 100 mL infusion, 0-0.1 Units/kg/hr (Dosing Weight), intravenous, Continuous, Last Rate: 4.35 mL/hr at 05/21/25 1223, 0.05 Units/kg/hr at 05/21/25 1223 AND D10W infusion, 0-250 mL/hr, intravenous, As Directed PRN, Leela Downey M.D., Last Rate: 200 mL/hr at 05/21/25 1223, 200 mL/hr at 05/21/25 1223 enoxaparin injection 40 mg (Lovenox), 40 mg, subcutaneous, Q24H ZENIA, Leela Downey M.D. fenofibrate nanocrystallized tablet 145 mg (Tricor), 145 mg, oral, Daily, Leela Downey M.D., 145 mg at 05/21/25 0814 fish oil capsule 2,000 mg, 2,000 mg, oral, BID, Howard Valdivia M.D., 2,000 mg at 05/21/25 0813 HYDROmorphone injection 0.5 mg (Dilaudid), 0.5 mg, intravenous, Q1H PRN, Leela Downey M.D., 0.5 mg at 05/21/25 1237 hydrOXYzine tablet 25 mg (Atarax), 25 mg, oral, Q6H PRN, Leela Downey M.D., 25 mg at 05/20/25 0007 Influenza trivalent (PF) (6 months & older) Vaccine 0.5 mL (Fluzone/Flulaval), 0.5 mL, intramuscular, Once, Epi Jaime P.A.-C., M.S. ketorolac injection 15 mg (ToradoL), 15 mg, intravenous, Q6H PRN, Leela Downey M.D. levothyroxine tablet 100 mcg, 100 mcg, oral, Daily before morning meal, Leela Downey M.D., 100 mcg at 09/24/25 0645 NaCl 0.9% infusion, 75 mL/hr, intravenous, Continuous, Leela Downey M.D., Last Rate: 75 mL/hr at 05/21/25 1223, 75 mL/hr at 05/21/25 1223 naloxone injection 0.2 mg, 0.2 mg, intravenous, PRN, Leela Downey M.D. omega-3 acid ethyl esters capsule 2 g (Lovaza), 2 g, oral, BID, Patricia Gomez Pharm.D., R.Ph. ondansetron (PF) injection 4 mg (Zofran), 4 mg, intravenous, Q8H PRN, Leela Downey M.D., 4 mg at 05/20/25 1906 oxyCODONE IR tablet 5 mg (Roxicodone), 5 mg, oral, Q4H PRN, Chris Haynes M.B.B.SCynthia Parkinson pantoprazole DR tablet 40 mg (Protonix), 40 mg, oral, Daily before morning meal, Leela Downey M.D., 40 mg at 05/21/25 0645 pioglitazone tablet 15 mg (Actos), 15 mg, oral, Daily, Leela Downey M.D., 15 mg at 05/21/25 0815 prochlorperazine injection 5 mg (Compazine), 5 mg, intravenous, Q6H PRN, Chris Haynes M.B.B.SCynthia Parkinson, 5 mg at 05/21/25 1316 sodium chloride 0.9 % injection 10 mL, 10 mL, intravenous, PRN, Leela Downey M.D. sodium chloride 0.9 % injection 3 mL, 3 mL, intravenous, PRN, Leela Downey M.D. sodium chloride 0.9 % injection 3 mL, 3 mL, intravenous, Q12H ZENIA, Leela Downey M.D., 3 mL at 05/21/25 0816 traZODone tablet 50 mg (DesyreL), 50 mg, oral, At bedtime PRN, Leela Downey M.D., 50 mg at 05/20/25 0007 * Nelia Arambula R.N. - 05/21/2025 12:13 PM CDT SUBJECTIVE Case Managment met with patient during multidisciplinary bedside team rounding. Nurse provided clinical summary, identified any safety concerns, and reviewed plan of care. Case Managment facilitated further discussion on discharge plan and assessed for any discharge needs. Based on assessment by multidisciplinary team, there are no care management needs indicated at this time. Patient plans is to return to home once medically ready for discharge. Patient denied any concerns regarding the plan of care. Nursing will contact care management if any service needs arise. OBJECTIVE Patient is a 20 y.o. female who was admitted to 05/19/2025 due to Hypertriglyceridemia [E78.1] Abdominal Pain [R10.9]. ASSESSMENT / PLAN ASSESSMENT Patient was alert and oriented. They were actively engaged in the discussion and appear to be planning appropriately for discharge. Patient denies any questions or concerns regarding the plan of care. PLAN 1) Patient plans to discharge to home once medically ready for discharge. 2) Case Managment will continue to follow patient during multidisciplinary bedside team rounding. Please place Care Management consult order if additional needs are identified. Nelia Arambula R.N. 05/21/25 * Howard Valdivia M.D. - 05/20/2025 11:42 AM CDT REASON FOR ADMISSION: Hypertriglyceridemia, chronic pancreatitis SUBJECTIVE Kathleen Santosuirre was seen and examined today. Seen this morning. Patient states that abdominal pain is somewhat improved however still there. Denies any nausea or vomiting. Patient does feellike she could tolerate clear liquid diet. Otherwise no new symptoms. CURRENT INPATIENT MEDICATIONS Current Medications[1] OBJECTIVE VITAL SIGNS Vitals: 05/20/25 1131 BP: Pulse: Resp: Temp: SpO2: 100% . PHYSICAL EXAMINATION Physical Exam Constitutional: AAOx4, NAD HEENT: Normocephalic, normal eye movements, pupils equal, round, and reactive bilaterally, normal hearing Cardiovascular: Normal heart sounds, no appreciated murmurs, no appreciated JVD, Respiratory: Clear breath sounds bilaterally, no appreciated wheezing, no appreciated crackles Abdomen and Pelvis: +BS, Not distended, soft, mildly tender tender, no guarding Neuro: CN II-XII intact, moving all extremities, no focal neurological deficits, follows commands Extremities: no lower extremity edema, 2+ pulses in dorsalis pedis and radial arteries b/l Skin: Normal color, warm, no sweating Psych: Normal mood and affect. DIAGNOSTIC DATA LABS: Recent Results (from the past 24 hours) CBC with Differential, Blood Collection Time: 05/19/25 6:40 PM Result Value Hemoglobin 10.8 (L) Hematocrit 32.6 (L) Erythrocytes 4.76 MCV 68.5 (L) RBC Distrib Width 16.7 (H) Platelet Count 256 Leukocytes 7.2 Neutrophils 4.23 Lymphocytes 2.24 Monocytes 0.44 Eosinophils 0.22 Basophils 0.04 Triglycerides Collection Time: 05/19/25 6:40 PM Result Value Triglycerides CANCELED Fasting (8 HR or more) CANCELED Lipase Collection Time: 05/19/25 7:31 PM Result Value Lipase, P 41 Triglycerides Collection Time: 05/19/25 7:31 PM Result Value Triglycerides >4425 (H) Fasting (8 HR or more) Yes Comprehensive Metabolic Panel Collection Time: 05/19/25 7:31 PM Result Value Potassium, P 4.2 Sodium, P 131 (L) Chloride, P 97 (L) Bicarbonate, P 17 (L) Anion Gap, P 17 (H) BUN (Blood Urea Nitrogen), P 9 Creatinine 0.38 (L) Estimated GFR (eGFR) >90 Calcium, Total, P 9.1 Glucose, P 367 (H) Protein, Total, P 7.1 Albumin, P 4.2 Aspartate Aminotransferase (AST), P 20 Alkaline Phosphatase, P 74 Alanine Aminotransferase (ALT), P 18 Bilirubin, Total, P <0.2 Glucose, POCT Collection Time: 05/19/25 11:02 PM Result Value Glucose, POCT, B 275 (H) Glucose, POCT Collection Time: 05/20/25 12:03 AM Result Value Glucose, POCT, B 212 (H) Glucose, POCT Collection Time: 05/20/25 1:07 AM Result Value Glucose, POCT, B 163 (H) Basic Metabolic Panel Collection Time: 05/20/25 1:29 AM Result Value Potassium, P 3.4 (L) Sodium, P 137 Chloride, P 105 Bicarbonate, P 19 (L) Anion Gap, P 13 BUN (Blood Urea Nitrogen), P 8 Creatinine 0.34 (L) Estimated GFR (eGFR) >90 Calcium, Total, P 8.6 Glucose, P 161 (H) Glucose, POCT Collection Time: 05/20/25 2:12 AM Result Value Glucose, POCT, B 140 Glucose, POCT Collection Time: 05/20/25 3:06 AM Result Value Glucose, POCT, B 160 (H) Glucose, POCT Collection Time: 05/20/25 4:06 AM Result Value Glucose, POCT, B 152 (H) Basic Metabolic Panel Collection Time: 05/20/25 4:07 AM Result Value Potassium, P 3.3 (L) Sodium, P 137 Chloride, P 105 Bicarbonate, P 20 (L) Anion Gap, P 12 BUN (Blood Urea Nitrogen), P 7 Creatinine 0.34 (L) Estimated GFR (eGFR) >90 Calcium, Total, P 8.3 (L) Glucose, P 160 (H) Triglycerides Collection Time: 05/20/25 4:07 AM Result Value Triglycerides >4425 (H) Fasting (8 HR or more) Unknown Glucose, POCT Collection Time: 05/20/25 5:11 AM Result Value Glucose, POCT, B 130 Glucose, POCT Collection Time: 05/20/25 6:17 AM Result Value Glucose, POCT, B 148 (H) Glucose, POCT Collection Time: 05/20/25 7:11 AM Result Value Glucose, POCT, B 147 (H) Basic Metabolic Panel Collection Time: 05/20/25 8:03 AM Result Value Potassium, P 4.0 Sodium, P 137 Chloride, P 105 Bicarbonate, P 22 Anion Gap, P 10 BUN (Blood Urea Nitrogen), P 6 Creatinine 0.35 (L) Estimated GFR (eGFR) >90 Calcium, Total, P 8.4 (L) Glucose, P 161 (H) Glucose, POCT Collection Time: 05/20/25 8:03 AM Result Value Glucose, POCT, B 145 (H) Glucose, POCT Collection Time: 05/20/25 9:25 AM Result Value Glucose, POCT, B 155 (H) Glucose, POCT Collection Time: 05/20/25 10:08 AM Result Value Glucose, POCT, B 137 Glucose, POCT Collection Time: 05/20/25 11:12 AM Result Value Glucose, POCT, B 167 (H) IMAGING: No results found. ASSESSMENT / PLAN ASSESSMENT/PLAN # Familial Hypertriglyceridemia # Presumed chronic pancreatitis # Uncontrolled type 1 diabetes mellitus with hyperglycemia # HAGMA, resolved - patient presented with abdominal pain, likely related to chronic pancreatitis, lipase normal - TG >4000; - this episode could be triggered by uncontrolled DM; - due to risk of developing worsening pancreatitis, insulin drip was started - She recently ran out of CGM supply and took off insulin pump on Monday. Educated on importance ofmedication compliance Plan: - Continue with insulin drip for HyperTG until TG<1000 - Resume home meds: Lovaza 2g bid, fenofibrate, atorvastatin - Monitor TG level bid - Trend BMP - replace K, Mg - Continue with pioglitazone - Follow with endocrinology # Hypothyroidism - TSH 1.58 one week ago - Continue with levothyroxine 100mcg daily Deep venous thrombosis prophylaxis: Subcu Lovenox. Code status: Full Code DISPOSITION PLAN Pending further evaluation and improvement. Pending improvement in triglyceride levels. Pending tolerance of oral intake. ADMINISTRATIVE BILLING Total time spent 55 minutes, 30 minutes spent in counseling and coordination of care. It is unsafe for Ms. Josemanuel Chauhan to be discharged from the hospital at this time. Potential risks and complications include incomplete treatment of acute on chronic pancreatitis, hypertriglyceridemia. [1] Current Facility-Administered Medications: acetaminophen tablet 1,000 mg (TylenoL), 1,000 mg, oral, Q6H PRN, Leela Downey M.D. atorvastatin tablet 80 mg (Lipitor), 80 mg, oral, Daily, Leela Downey M.D., 80 mg at 05/20/25 0929 insulin regular 1 Unit/mL in NaCl 0.9% 100 mL infusion, 0-0.1 Units/kg/hr (Dosing Weight), intravenous, Continuous, Last Rate: 8.7 mL/hr at 05/20/25 1114, 0.1 Units/kg/hr at 05/20/25 1114 AND D10W infusion, 0-250 mL/hr, intravenous, As Directed PRN, Leela Downey M.D., Last Rate: 100 mL/hr at 05/20/25 1114, 100 mL/hr at 05/20/25 1114 enoxaparin injection 40 mg (Lovenox), 40 mg, subcutaneous, Q24H ZENIA, Leela Downey M.D. fenofibrate nanocrystallized tablet 145 mg (Tricor), 145 mg, oral, Daily, Leela Downey M.D., 145 mg at 05/20/25 0930 fish oil capsule 2,000 mg, 2,000 mg, oral, BID, Patricia Gomez Pharm.D., R.Ph., 2,000 mg at 05/20/25 1010 HYDROmorphone injection 0.5 mg (Dilaudid), 0.5 mg, intravenous, Q1H PRN, Leela Downey M.D., 0.5 mg at 05/20/25 0946 hydrOXYzine tablet 25 mg (Atarax), 25 mg, oral, Q6H PRN, Leela Downey M.D., 25 mg at 05/20/25 0007 ketorolac injection 15 mg (ToradoL), 15 mg, intravenous, Q6H PRN, Leela Downey M.D. levothyroxine tablet 100 mcg, 100 mcg, oral, Daily before morning meal, Leela Downey M.D., 100 mcg at 05/20/25 0618 NaCl 0.9% infusion, 75 mL/hr, intravenous, Continuous, Leela Downey M.D., Last Rate: 20 mL/hr at 05/20/25 0737, 20 mL/hr at 05/20/25 0737 naloxone injection 0.2 mg, 0.2 mg, intravenous, PRN, Leela Downey M.D. ondansetron (PF) injection 4 mg (Zofran), 4 mg, intravenous, Q8H PRN, Leela Downey M.D., 4 mg at 05/20/[address] tablet 40 mg (Protonix), 40 mg, oral, Daily before morning meal, Leela Downey M.D., 40 mg at 05/20/25 0618 pioglitazone tablet 15 mg (Actos), 15 mg, oral, Daily, Leela Downye M.D., 15 mg at 05/20/25 0930 sodium chloride 0.9 % injection 10 mL, 10 mL, intravenous, PRN, Leela Downey M.D. sodium chloride 0.9 % injection 3 mL, 3 mL, intravenous, PRN, Leela Downey M.D. sodium chloride 0.9 % injection 3 mL, 3 mL, intravenous, Q12H ZENIA, Leela Downey M.D. traZODone tablet 50 mg (DesyreL), 50 mg, oral, At bedtime PRN, Leela Downey M.D., 50 mg at 05/20/25 0007 * Javier Clark Pharm.D., R.Ph. - 05/19/2025 7:34 PM CDT Images from the original note were not included. Admission Medication History Note Adherence issues: Reports missing a few doses a month Medication list source: Patient Medication related information: reports recently restarting levothyroxine d/t elevated TSH. Needs refills of trazodone and hydroxyzine. Prior to Admission Medications Med List Status: Pharmacy Complete Set By: Javier Clark Pharm.D., R.Ph. at 05/19/2025 7:27 PM Taking? Last Dose Informant Start Date End Date LT acetaminophen (TylenoL) 500 mg tablet Past Week -- -- -- Take 1,000 mg by mouth every 6 (six) hours as needed for pain. atorvastatin (Lipitor) 80 mg tablet 05/19/2025 -- 12/20/16 -- Take 80 mg by mouth daily. cholecalciferol (Vitamin D3) 125 mcg (5,000 Unit) tablet -- -- 04/20/25 -- Take 1 tablet (125 mcg total) by mouth daily. Notes: Has not started fenofibrate (Lofibra) 160 mg tablet 05/19/2025 -- 12/23/22 -- Take 160 mg by mouth daily. ferrous sulfate 325 mg (65 mg iron) DR tablet More than a month -- 03/24/25 06/22/25 Take 1 tablet (65 mg of iron total) by mouth every other day. glucagon (Gvoke Hypopen) 1 mg/0.2 mL auto-injector injection -- -- 02/23/24 -- Inject 0.2 mL under the skin at bedtime as needed. Notes: Pt has never had to use hydrOXYzine (Atarax) 25 mg tablet 05/19/2025 at Morning -- 05/07/25 -- Take 1 tablet by mouth every 6 (six) hours as needed for anxiety. insulin aspart U-100 (NovoLOG FlexPen) 100 unit/mL (3 mL) pen Past Month -- -- -- Inject 12 Units under the skin 3 (three) times a day with meals. + correction scale (when NOT usingpump) insulin aspart U-100 (NovoLOG) 100 unit/mL injection 05/19/2025 at Morning -- 01/03/24 -- Inject up to 80 units into pump per day insulin glargine (Lantus Solostar U-100 Insulin) 100 unit/mL (3 mL) pen Past Month -- 05/13/25 -- Inject 40 Units under the skin at bedtime. levothyroxine 100 mcg tablet 05/19/2025 at Morning -- -- -- Take 100 mcg by mouth daily before morning meal. omega-3 acid ethyl esters (Lovaza) 1 gram capsule 05/19/2025 at Morning -- 01/10/25 -- Take 2 g by mouth 2 (two) times a day. omeprazole (PriLOSEC) [address] capsule 05/19/2025 at Morning -- 10/13/24 -- Take 40 mg by mouth daily. before a meal pioglitazone (Actos) 15 mg tablet 05/19/2025 at Morning -- 09/04/24 -- Take 15 mg by mouth daily. polyethylene glycol (Miralax) 17 gram powder packet Past Month -- -- -- Take 17 g by mouth daily as needed for constipation. Dissolve each 17 g dose in 240 mLs (8 ounces) of beverage. traZODone (DesyreL) 50 mg tablet More than a month -- -- -- Take 50 mg by mouth at bedtime as needed for sleep. documented in this encounter H&P Notes * Leela Downey M.D. - 05/19/2025 7:27 PM CDT Date of Admission: 05/19/2025 LOS: 0 days Primary Care Physician: ELSEWHERE, PCP SUBJECTIVE REASON FOR ADMISSION Abdominal pain HISTORY OF PRESENT ILLNESS Kathleen Chauhan is a 20 y.o. female with PMH of familial hypertriglyceridemia, type 1 diabetes mellitus, hyperlipidemia, history of recurrent pancreatitis who presents with abdominal pain Patient was recently admitted to [facility] in 03/2025 due to pancreatitis induced by hypertriglyceridemia. She received IV insulin drip and was discharged in stable condition. Since discharge. Patient had been compliant with medications. However, she had noticed elevated BG level. She has CGM andinsulin pump. Recently her meal dose insulin was switched from 1u carb count to 5u due to concern of high dose of insulin. Her BG had been running in 300s in the past 1 week. She also ran out of CGM supply on Monday. She did not received any insulin over pump or SQ injection over the weekends. She had TG checked at PCP clinic on 05/13/2025 and TG [place] [id number]. She had intermittent epigastric discomfort, fluctuating 3-7/10. Patient followed with PCP clinic today and was instructed to present to ER for further evaluation. In the ER, vitals were stable. lipase was normal. TG was > 4000s. BG on BMP was elevated as wellto 300s. Patient was then started on insulin drip. Admitted to PCU for further management REVIEW OF SYSTEMS Constitutional: No fever/chills/night sweats. Weight stable. Ears, nose, mouth, throat, and face: No sore throat, nasal discharge. Respiratory: No shortness of breath/wheezing/cough. Cardiovascular: No chest pain/palpitations/orthopnea/PND. Gastrointestinal: No nausea, vomiting, diarrhea, constipation, melena, hematochezia. Positive for abdominal pain Genitourinary: No dysuria or changes in normal urinary habits. Integument: No rashes or easy bruising. Musculoskeletal: No joint or muscle pain Neurological: No dizziness, SANDS, LOC, focal weakness, numbness/tingling. ALLERGIES/CONTRAINDICATIONS Allergies[1] CURRENT MEDICATIONS Active Home Medications Medication Sig Taking acetaminophen (TylenoL) 500 mg tablet Take 1,000 mg by mouth every 6 (six) hours as needed for pain. Yes atorvastatin (Lipitor) 80 mg tablet Take 80 mg by mouth daily. Yes fenofibrate (Lofibra) 160 mg tablet Take 160 mg by mouth daily. Yes hydrOXYzine (Atarax) 25 mg tablet Take 1 tablet by mouth every 6 (six) hours as needed for anxiety.Yes insulin aspart U-100 (NovoLOG FlexPen) 100 unit/mL (3 mL) pen Inject 12 Units under the skin 3 (three) times a day with meals. + correction scale (when NOT using pump) Yes insulin aspart U-100 (NovoLOG) 100 unit/mL injection Inject up to 80 units into pump per day Yes insulin glargine (Lantus Solostar U-100 Insulin) 100 unit/mL (3 mL) pen Inject 40 Units under the skin at bedtime. Yes levothyroxine 100 mcg tablet Take 100 mcg by mouth daily before morning meal. Yes omega-3 acid ethyl esters (Lovaza) 1 gram capsule Take 2 g by mouth 2 (two) times a day. Yes omeprazole (PriLOSEC) [address] capsule Take 40 mg by mouth daily. before a meal Yes pioglitazone (Actos) 15 mg tablet Take 15 mg by mouth daily. Yes polyethylene glycol (Miralax) 17 gram powder packet Take 17 g by mouth daily as needed for constipation. Dissolve each 17 g dose in 240 mLs (8 ounces) of beverage. Yes cholecalciferol (Vitamin D3) 125 mcg (5,000 Unit) tablet Take 1 tablet (125 mcg total) by mouth daily. ferrous sulfate 325 mg (65 mg iron) DR tablet Take 1 tablet (65 mg of iron total) by mouth every other day. glucagon (Gvoke Hypopen) 1 mg/0.2 mL auto-injector injection Inject 0.2 mL under the skin at bedtime as needed. traZODone (DesyreL) 50 mg tablet Take 50 mg by mouth at bedtime as needed for sleep. Patient History MEDICAL HISTORY Problem List[2] Medical History[3] SURGICAL HISTORY Surgical History[4] FAMILY HISTORY Family History[5] SOCIAL HISTORY Social History Tobacco Use Smoking status: Never Smokeless tobacco: Not on file Substance Use Topics Alcohol use: Not on file OBJECTIVE VITAL SIGNS BP (!) 132/95 Pulse 104 Temp 36 ??C Resp 16 SpO2 98% PHYSICAL EXAMINATION General: Alert and Oriented HEENT: Normocephalic, atraumatic. No scleral icterus. Oral mucosa moist. Neck: Supple. No lymphadenopathy. Cardiovascular: Normal S1/S2. No murmurs. Lungs: Clear to Auscultation Abdomen: Soft, nontender, nondistended. Positive bowel sounds. Extremities: No bilateral lower extremity edema. Neurological: Grossly intact. No intake or output data in the 24 hours ending 05/19/251926 DIAGNOSTICS Data Review CBC: BMP: Coagulation: Cardiac Markers: Liver Panel: Microbiology: No results found for this visit on 05/19/25 (from the past 72 hours). EKG: Radiology: No orders to display ASSESSMENT / PLAN #1 Familial Hypertriglyceridemia #2 Presumed chronic pancreatitis #3 Uncontrolled type 1 diabetes mellitus with hyperglycemia #4 HAGMA - patient presented with abdominal pain, likely related to chronic pancreatitis, lipase normal - TG >4000; this episode could be triggered by uncontrolled DM; due to risk of developing worsening pancreatitis, insulin drip was started - She recently ran out of CGM supply and took off insulin pump on Monday. Educated on importance ofmedication compliance - Bicarb 17, with AG 17, could be related to metabolic syndrome from hyperTG vs DKA; regardless, this shall improve with insulin drip Plan: - Continue with insulin drip for HyperTG protocol - Resume home meds: Lovaza 2g bid, fenofibrate, atorvastatin - Monitor TG level bid - Trend BMP - replace K, Mg - Continue with pioglitazone - Follow with endocrinology #5 Hypothyroidism - TSH 1.58 one week ago - Continue with levothyroxine 100mcg daily ANTICOAGULANTS/DVT PROPHYLAXIS: DIET: Current Diet None INFUSIONS: No current facility-administered medications for this encounter. LDA: Hunter Catheter Present?: No. CODE STATUS: Prior Anticipated discharge date and discharge in 2 days. After consideration of Ms. Josemanuel Chauhan's initial clinical presentation, including benefits and risks inpatient hospital care relative to alternative care settings the patient will be admitted to hospital care. It is not feasible or medically appropriate to implement the plan of care at home or asubacute care facility and no such care setting is immediately available to the patient. It is unsafe for Ms. Josemanuel Chauhan to be discharged from the hospital at this time. Potential risks and complications include incomplete treatment of severe hypertriglyceridemia. Based upon the limited information available at the time admission, it is likely she will require hospital-only care spanning two midnights. Referral to Care Management team is necessary for assessment, evaluation, recommendations, and consultation regarding post-hospital discharge plan. Ms. Villa will require inpatient nursing care while hospitalized. Observation status is not medicallyappropriate, the initial plan of care is established. Total time spent 80 minutes. Leela Downey M.D. 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 [5] Family History Problem Relation Name Age of Onset Depression Mother Ofe Diabetes Grandmother Paternal Diabetes Grandmother Maternal Leukemia Grandfather Maternal Obesity Mother Ofe documented in this encounter Consult Notes * Krissy Ayers RDN, LD - 05/25/2025 9:44 AM CDTAssociated Order(s): Dietitian consult (hospital) Dietitian consult (hospital) Referring Provider: Practiceadvisory, Automatedrequest Patient screened at nutrition risk for [facility]. Chart review indicates that patient is Nutritional Risk: low risk due to no significant weight loss prior to admission and patient was NPO/CL prior to yesterday when diet advanced and she consumed 100% of a meals Patient has recently refused nutrition education on low fat diet and diabetes education. Has had previous education earlier in year. Follow patient per nutrition assessment guidelines. * Valerie Oconnor RDN, LD - 05/23/2025 11:05 AM CDTAssociated Order(s): peer educator consult (hospital) peer educator consult (hospital) Referring Provider: Chris Haynes M.B.B.S., M.D. SUBJECTIVE CHIEF COMPLAINT / REASON FOR VISIT Diabetes Education for Insulin Pump, Type 2 HISTORY OF PRESENT ILLNESS The patient is admitted on 05/19/2025 for Abdominal Pain. DIABETES HISTORY History of diabetes mellitus, type 2. Diagnosed at age 12 PREADMISSION THERAPY Per Endocrinology note from 05/13 'On Lantus insulin 35 units daily and NovoLog insulin via carb ratio of 1:1. She has not been taking pioglitazone as prescribed. Jardiance was discontinued after recent hospitalization for acute pancreatitis. At that visit, [facility] changed insulin to Lantus 40 units daily and NovoLog insulin via carb ratio of 2 units for every 5 g of carbs DIABETES COMPLICATIONS Hypertriglyceridemia, and Pancreatitis Hypertriglyceridemic (HCC). DIET: Unsure how patient usually eats. WEIGHT: Wt Readings from Last 10 Encounters: 05/22/25 84.5 kg 04/20/25 87 kg 03/24/25 86.1 kg 02/13/24 86.4 kg (97%, Z= 1.81)* 01/16/24 83.7 kg (96%, Z= 1.72)* * Growth percentiles are based on CDC (Girls, 2-20 Years) data. GLUCOSE MONITORING: Dexcom G7 HYPOGLYCEMIA: unknown FAMILY HISTORY: unknown HOSPITAL COURSE: Currently Receiving: insulin drip Past 24 hour blood glucose readings: Recent Labs 05/23/25 0757 05/23/25 0404 05/22/25 2358 05/22/25 1956 05/22/25 1553 05/22/25 1156 GLUCOSE 120 91 93 109 98 101 Current Diet Adult Diet Full Liquid starting at 05/23 1039 LABS Lab Results Component Value Date HGBA1C 8.6 (H) 03/22/2025 Estimated Creatinine Clearance: 251.5 mL/min (A) (by C-G formula based on SCr of 0.36 mg/dL (L)). Lab Results Component Value Date CREATININE 0.36 (L) 05/23/2025 ASSESSMENT / PLAN Patient Education provided? No Kathleen reports she was diagnosed with diabetes at age 12. She sees an Aquaculture Farmer in [place] and her last visit was a week ago Monday (05/13). She has a Dexcom G7 CGM and an Omnipod 5 insulin pump. She notes that she ran out of her CGM and pump supplies on Monday. She did not received any insulin via pump or SQ injection over the weekend. She had TG checked at PCP clinic on 05/13/2025 [place] [address]. She had intermittent epigastric discomfort, fluctuating 3-7/10. She came to the ER on 05/19 and vitals were stable, lipase was normal and TG was > 4000s. BG on BMP was elevated as well to 300s. She has been on an insulin drip with plans to keep that running until TG less than 1000. She stated she does not have her insulin pump here and there is nobody that can bring it. Then she stopped talking with adjusto writer operator and just closed her eyes. PLAN - Blood glucose monitoring: hourly while on insulin drip, then ACHS when transitioned to sub Q - discharge insulin needs to be determined base on hospital needs documented in this encounter Nursing Notes * Moon Francis R.N., CCRN - 05/26/2025 3:54 PM CDT INPATIENT NURSING DISCHARGE SUMMARY Discharge Provider: Chris Haynes M.B.B.S., M.D. Admission Date: 05/19/2025 Discharge Date: 05/26/2025 05/26/2025 DISCHARGE DISPOSITION Home/Self Care CONDITION AT DISCHARGE stable TREATMENTS None DEVICES/EQUIPMENT None PROFESSIONAL SKILLED SERVICES None MODE OF DISCHARGE Ambulatory TRANSPORTATION Private Vehicle ACCOMPANIED BY Friend: All belongings sent home with patient. * Aliza Akers R.N. - 05/26/2025 2:23 PM CDT Shift Goals: Clinical Goals for the Shift: VSS, titrate gtts, remain safe Identify possible barriers to meeting goals/advancing plan of care: acuity of illness End of Shift Summary: Patient is A/O x 3, remains on insulin drip- titrated with Q2h BS, patient uses call light appropriately and plans to discharge today home. Patient has been sleepy, uninterestedin care planning, remains safe. * Nik Armstrong R.N. - 05/26/2025 3:30 AM CDT INPATIENT SHIFT SUMMARY Shift Goals: Clinical Goals for the Shift: VSS, titrate gtts, remain safe ORIENTATION: A&Ox3 SAFETY MEASURES: Hourly Rounding ASSISTED MOBILITY: Independent and Stand by assist VITALS: Vitals assessed and stable this shift INTAKE: Adequate for solids and Adequate for liquids OUTPUT: Patient has been urinating adequately. PAIN: Patient continues to complain of pain uncontrolled by medications PRN MEDICATIONS UTILIZED THIS SHIFT: Oxycodone, Trazodone, and Atarax. DVT PROPHYLAXIS: Lovenox injections CHG/HUNTER CARE NEEDS: None needed SHIFT EVENTS: Reported 3-6/10 abdominal pain, given two doses of PRN Oxycodone. Continued insulin, D10 and NS gtts. BS checks resulted 95-191, titrated gtts accordingly. BMP checks Q4H, no replacement needed. Patient eating well, no reports of nausea this shift. Patient had trouble sleeping, given dose of PRN Trazodone at 0003. Patient reported increased anxiety levels, given Atarax at 0415. Patient able to rest after. EDUCATION: Educated Patient on lab results. UPCOMING PLAN OF CARE: Manage gtts. Manage pain. Monitor labs. Problem: PAIN - ADULT Goal: PT VERBALIZES/DEMONSTRATES ADEQUATE COMFORT LEVEL OR BASELINE Outcome: Progressing Note: Required PRN Oxycodone this shift. Problem: SAFETY ADULT Goal: Maintain a safe environment Outcome: Progressing Problem: GASTROINTESTINAL - ADULT Goal: Minimal or absence of nausea and vomiting Outcome: Progressing Problem: METABOLIC/FLUID AND ELECTROLYTES - ADULT Goal: Electrolytes maintained within normal limits Outcome: Progressing Goal: Glucose maintained within prescribed range Outcome: Progressing * Rubio Salas R.N. - 05/25/2025 10:07 AM CDT Shift Goals: Clinical Goals for the Shift: VSS, titrate gtts, remain safe Shift Events: insulin D10 and NS gtts remained on this shift, pt eating well with no c/o of N/V, requiring PRN oxy for abd pain 24 HR Vitals: Temperature: [36 ??C-36.8 ??C] 36.1 ??C Heart Rate: [81-113] 108 Resp Rate: [16-25] 25 Blood Pressure: (101-134)/(59-99) 120/95 SpO2: [98 %-100 %] 100 % Flow Rate (L/min): [0 L/min] 0 L/min I/O this shift: In: 4102.4 [P.O.:240] Out: 3000 [Urine:3000] Mobility: SBA AO: x 3 Hunter/CL: no hunter no CL DVT: Lovenox Integument: see LDA BG: see results q2h checks Problem: SAFETY ADULT Goal: Maintain a safe environment Outcome: Progressing Note: Call light WAR. Problem: METABOLIC/FLUID AND ELECTROLYTES - ADULT Goal: Electrolytes maintained within normal limits Outcome: Progressing Note: Q4h BMP. Goal: Glucose maintained within prescribed range Outcome: Progressing Note: Titrate gtts as indicated. * Nik Armstrong RTeshaNTesha - 05/25/2025 2:48 AM CDT INPATIENT SHIFT SUMMARY Shift Goals: Clinical Goals for the Shift: VSS, monitor BG and gtts, remain safe ORIENTATION: A&Ox3 SAFETY MEASURES: Hourly Rounding ASSISTED MOBILITY: Independent and Stand by assist VITALS: Vitals assessed and stable this shift. SR to ST, HR can elevate to 130-140s with activity. INTAKE: Adequate for liquids, Inadequate for solids, but improving, and Maintenance IV fluids OUTPUT: Patient has been urinating adequately. Not tracking output. PAIN: Patient continues to complain of pain uncontrolled by medications PRN MEDICATIONS UTILIZED THIS SHIFT: Oxycodone, Atarax, Zofran, and Compazine DVT PROPHYLAXIS: Lovenox injections CHG/HUNTER CARE NEEDS: None needed SHIFT EVENTS: Continued insulin gtt with D10 gtt, and NS at 75 ml/hr. Q2H BS checks remained stable between 98-121. Patient reported pain 4-6/10 in the LUQ this shift, given two doses of PRN Oxycodone, refused PRNTylenol stating it does not do anything for her pain. Patient also had two episodes of nausea and vomiting, given one dose of PRN Zofran and one dose of PRN Compazine, tolerated well with good relief. Patient also had period of increased anxiety this shift around 0200. Attempted breathing techniques, called the patients mother, ambulating the halls and talking through her thoughts and feelings, utilized one dose of PRN Atarax. Increased anxiety levels lasted for about 1.5 hours and resolved with patient being able to fall asleep around 0330. Continued Q4H BMP checks to trend potassium, no replacement needed this shift. Triglycerides resulted at 1693 this AM. EDUCATION: Educated Patient on breathing techniques to reduce anxiety levels. UPCOMING PLAN OF CARE: Manage insulin drip with IVF. Pain management. Manage anxiety. Promote safety. Problem: SAFETY ADULT Goal: Maintain a safe environment Outcome: Progressing Problem: METABOLIC/FLUID AND ELECTROLYTES - ADULT Goal: Glucose maintained within prescribed range Outcome: Progressing Problem: Risk for Compromised Skin Integrity-Gianni Activity Score 3 Goal: Achieve optimal activity to maintain or improve skin integrity. Outcome: Progressing Note: Independent/SBA in room. Problem: PAIN - ADULT Goal: PT VERBALIZES/DEMONSTRATES ADEQUATE COMFORT LEVEL OR BASELINE Outcome: Not Progressing Note: Reported 4-8/10 LUQ pain, utilized PRN pain meds. Problem: GASTROINTESTINAL - ADULT Goal: Minimal or absence of nausea and vomiting Outcome: Not Progressing Note: Patient had multiple episodes of nausea and vomiting this shift. * Rubio Salas RTeshaN. - 05/24/2025 10:21 AM CDT Shift Goals: Clinical Goals for the Shift: VSS, monitor BG and gtts, remain safe Shift Events: ambulatory in room, voiding, insulin D10 and IVF running, prn oxy x 1, pt did have a full evening meal, tolerated well 24 HR Vitals: Temperature: [36 ??C-36.7 ??C] 36.7 ??C Heart Rate: [87-123] 115 Resp Rate: [13-28] 22 Blood Pressure: (94-125)/(55-93) 125/73 SpO2: [94 %-100 %] 99 % Flow Rate (L/min): [0 L/min] 0 L/min I/O this shift: In: 3582.6 [P.O.:475] Out: - Mobility: SBA AO: x 3 Hunter/CL: no hunter no CL DVT: Lovenox Integument: see LDA BG: see results q2h checks Problem: SAFETY ADULT Goal: Maintain a safe environment Outcome: Progressing Note: Call light WAR. Problem: METABOLIC/FLUID AND ELECTROLYTES - ADULT Goal: Glucose maintained within prescribed range Outcome: Progressing Note: Titrate gtts per orders. * Heri Baker RTehsaN. - 05/24/2025 3:33 AM CDT Shift Goals: Clinical Goals for the Shift: VSS, monitor BG, adequate pain management, promote comfort and safety Identify possible barriers to meeting goals/advancing plan of care: Acuity of illness INPATIENT SHIFT SUMMARY ORIENTATION: A&Ox3 SAFETY MEASURES: Q2h rounding and WAR ASSISTED MOBILITY: Stand by assist VITALS: Vitals: 05/24/25 0103 05/24/25 0523 BP: 123/80 116/75 BP Location: Right arm;Upper Patient Position: Semi-recumbent Semi-recumbent Pulse: Resp: 13 14 Temp: 36.2 ??C 36 ??C TempSrc: Temporal Temporal SpO2: 97% 100% Weight: 85.2 kg INTAKE: Adequate for liquids and Maintenance IV fluids OUTPUT: Patient has been urinating adequately. NO BM. PAIN: Patient continues to complain of pain uncontrolled by medications PRN MEDICATIONS UTILIZED THIS SHIFT: Dilaudid and Oxycodone DVT PROPHYLAXIS: Lovenox injections CHG/HUNTER CARE NEEDS: None needed SHIFT EVENTS: Insulin gtt, D10W gtt, and Normal Saline gtt continues to run. Blood sugars monitored q2h and fluids titrated as indicated. Sugars ranging 85-158. Continues to c/o abdominal pain 3-7/10 uncontrolled via PRN Dilaudid and PRN Oxycodone. Patient refused PRN Tylenol and PRN Toradol. Potassium replaced.No other acute events overnight. Care Plan: Problem: METABOLIC/FLUID AND ELECTROLYTES - ADULT Goal: Electrolytes maintained within normal limits 05/24/2025329 by Heri Baker, R.N. Outcome: Progressing Goal: Glucose maintained within prescribed range 05/24/2025329 by Heri Baker, R.N. Outcome: Progressing Problem: GASTROINTESTINAL - ADULT Goal: Minimal or absence of nausea and vomiting 05/24/2025329 by Heri Baker, R.N. Outcome: Progressing Problem: PAIN - ADULT Goal: PT VERBALIZES/DEMONSTRATES ADEQUATE COMFORT LEVEL OR BASELINE 05/24/2025329 by Heri Baker, R.N. Outcome: Not Progressing * Rubio Salas RTeshaN. - 05/23/2025 3:46 PM CDT Shift Goals: Clinical Goals for the Shift: VSS, monitor BG, remain safe Shift Events: assumed care at 1500, insulin gtt D10 and NS running and titrated per orders, pt did have sugar free popsicles for intake 24 HR Vitals: Temperature: [36.1 ??C-36.7 ??C] 36.2 ??C Heart Rate: [84-109] 92 Resp Rate: [12-29] 20 Blood Pressure: (103-133)/(57-85) 112/71 SpO2: [97 %-100 %] 98 % Flow Rate (L/min): [0 L/min] 0 L/min Pulse Rate: [79-92] 79 I/O this shift: In: 2887 [P.O.:100] Out: - Mobility: SBA AO: x 3 Hunter/CL: no hunter no CL DVT: Lovenox Integument: see LDA BG: see results q2h checks Problem: SAFETY ADULT Goal: Maintain a safe environment Outcome: Progressing Note: Call light WAR. Problem: METABOLIC/FLUID AND ELECTROLYTES - ADULT Goal: Glucose maintained within prescribed range Outcome: Progressing Note: Monitor BG, titrate gtts and indicated. * Celeste Ogedn R.N. - 05/23/2025 1:00 PM CDT [id number] Pt remained on Insulin gtt, D10, and NS @ 75 mL/hr. Attempted to assess pt multiple times during shift and pt refused to interact or answer questions. * Heri Baker RTeshaNTesha - 05/23/2025 5:59 AM CDT Shift Goals: Clinical Goals for the Shift: VSS, monitor BG, adequate pain management, promote comfort and safety Identify possible barriers to meeting goals/advancing plan of care: Acuity of illness INPATIENT SHIFT SUMMARY ORIENTATION: A&Ox3 SAFETY MEASURES: Q2h rounding and WAR ASSISTED MOBILITY: Stand by assist VITALS: Vitals: 05/22/25 2220 05/23/25 0204 05/23/25 0621 BP: 129/72 103/57 117/85 BP Location: Right arm;Upper Right arm;Upper Right arm;Upper Patient Position: Semi-recumbent Semi-recumbent Semi-recumbent Pulse: 92 92 Resp: Temp: 36.5 ??C 36.6 ??C 36.2 ??C TempSrc: Temporal Temporal Temporal SpO2: 100% 97% 99% INTAKE: Adequate for liquids and Maintenance IV fluids OUTPUT: Patient has been urinating adequately. NO BM. PAIN: Patient continues to complain of pain uncontrolled by medications PRN MEDICATIONS UTILIZED THIS SHIFT: Dilaudid and Oxycodone DVT PROPHYLAXIS: Lovenox injections CHG/HUNTER CARE NEEDS: None needed SHIFT EVENTS: Insulin gtt, D10W gtt, and Normal Saline gtt continues to run. Blood sugars monitored q2h and fluids titrated as indicated. Sugars ranging 94-192. Continues to c/o abdominal pain 3-7/10 uncontrolled via PRN Dilaudid and PRN Oxycodone. Patient refused PRN Tylenol and PRN Toradol. No other acute events overnight. Care Plan: Problem: METABOLIC/FLUID AND ELECTROLYTES - ADULT Goal: Electrolytes maintained within normal limits 05/23/2025 0559 by Heri Baker, R.N. Outcome: Progressing Goal: Glucose maintained within prescribed range 05/23/2025 0559 by Heri Baker, R.N. Outcome: Progressing Problem: GASTROINTESTINAL - ADULT Goal: Minimal or absence of nausea and vomiting 05/23/2025 0559 by Heri Baker, R.N. Outcome: Progressing Problem: PAIN - ADULT Goal: PT VERBALIZES/DEMONSTRATES ADEQUATE COMFORT LEVEL OR BASELINE 05/23/2025 0559 by Heri Baker, R.N. Outcome: Not Progressing * Trish Berg R.N. - 05/22/2025 5:50 PM CDT Shift Goals: Clinical Goals for the Shift: pain control, stable vitals, monitor BG. INPATIENT SHIFT SUMMARY ORIENTATION: A&Ox3 SAFETY MEASURES: Hourly Rounding and Met by Routine ASSISTED MOBILITY: Stand by assist VITALS: Vitals assessed and stable this shift INTAKE: Inadequate for liquids, but improving and Maintenance IV fluids OUTPUT: Patient has been urinating adequately. PAIN: Pain has been well controlled with PRN medications PRN MEDICATIONS UTILIZED THIS SHIFT: Dilaudid and Zofran DVT PROPHYLAXIS: Lovenox injections and Pt refused injection this AM. CHG/HUNTER CARE NEEDS: None needed SHIFT EVENTS: No acute events this shift. Patient's triglycerides came down to 2032 this afternoon, checks every 12 hours. Pt remains on the insulin drip and D10 infusion, titrated as ordered, BG checks every 2 hours. Pain managed with IV Dilaudid, pain is in the LUQ and some in the right hip this afternoon. Notmuch of an appetite, on clear liquid diet. Did order some broth and juice this evening. Potassium replaced today. Pt reports she is very tired, took a nap this afternoon. EDUCATION: Educated Patient on meds, plan of care. UPCOMING PLAN OF CARE: Discharge home once labs stabilize. Monitor vitals and BG. Continue with plan of care. * Geraldine Serna R.N. - 05/22/2025 4:55 AM CDT INPATIENT SHIFT SUMMARY ORIENTATION: A&Ox3 SAFETY MEASURES: Q2h Rounding ASSISTED MOBILITY: Stand by assist VITALS: Vitals assessed and stable this shift Most recent: BP 115/62 (05/22/25238) Temp 36.3 ??C (05/22/25238) Pulse 92 (05/22/25238) Resp 17 (05/22/25238) SpO2 99 % (05/22/25238) INTAKE: Adequate for solids, Adequate for liquids, and Maintenance IV fluids OUTPUT: Patient has been urinating adequately. PAIN: Patient continues to complain of pain uncontrolled by medications PRN MEDICATIONS UTILIZED THIS SHIFT: Tylenol, Dilaudid, and Oxycodone DVT PROPHYLAXIS: Lovenox injections CHG/HUNTER CARE NEEDS: None needed SHIFT EVENTS: Insulin gtt continues. Patient c/o of 7/10 LUQ pain through the night. Utilized PRNs for pain management. UOP good. UPCOMING PLAN OF CARE: Monitor electrolytes, blood sugar, and triglycerides. Problem: PAIN - ADULT Goal: PT VERBALIZES/DEMONSTRATES ADEQUATE COMFORT LEVEL OR BASELINE Outcome: Progressing Note: Patient pain uncontrolled, utilized PRN oxy and dilaudid. Problem: METABOLIC/FLUID AND ELECTROLYTES - ADULT Goal: Electrolytes maintained within normal limits Outcome: Progressing Note: Awaiting triglycerides results. Goal: Glucose maintained within prescribed range Outcome: Progressing Note: Blood sugars ranged from 100-120. Insulin gtt continues. * Bhavna Cooper M.S.N., R.N. - 05/21/2025 6:10 PM CDT INPATIENT SHIFT SUMMARY ORIENTATION: A&Ox3 SAFETY MEASURES: Bed Alarm, Chair Alarm, and Hourly Rounding ASSISTED MOBILITY: Stand by assist VITALS: Vitals assessed and stable this shift INTAKE: Maintenance IV fluids OUTPUT: Patient has been urinating adequately. PAIN: Pain has been well controlled with PRN medications PRN MEDICATIONS UTILIZED THIS SHIFT: Dilaudid DVT PROPHYLAXIS: SCDs CHG/HUNTER CARE NEEDS: None needed SHIFT EVENTS: No acute events this shift. EDUCATION: Educated Patient on rationale for admission and medications UPCOMING PLAN OF CARE: Continue to monitor tryglyceride levels. Shift Goals: Maintain on the insulin gtt, manage pain Identify possible barriers to meeting goals/advancing plan of care: Pain, IV fluids/pain medication End of Shift Summary: Problem: METABOLIC/FLUID AND ELECTROLYTES - ADULT Goal: Glucose maintained within prescribed range Outcome: Progressing Note: Patient was maintaining at a consistent rate for her insulin gtt this morning. Nursing adjusted to every 2 hour checks per provider. She began requiring changes to the gtt so nursing went back to checking her hourly. She currently maintains at 0.1 for the insulin and 150 mL/hr for the D 10. Problem: METABOLIC/FLUID AND ELECTROLYTES - ADULT Goal: Electrolytes maintained within normal limits Outcome: Progressing Note: Electrolytes of Magnesium and Potassium were replaced for the patient. Triglyceride levels continue to be high - will continue to monitor these. Problem: GASTROINTESTINAL - ADULT Goal: Minimal or absence of nausea and vomiting Outcome: Progressing Note: Patient became nauseous this afternoon which subsided after a dose of compazine. Orin Argueta, R.N. * Amado Brownlee R.N. - 05/21/2025 6:01 AM CDT INPATIENT SHIFT SUMMARY-PCU ORIENTATION: A&Ox3 SAFETY MEASURES: Hourly Rounding and Met by Routine ASSISTED MOBILITY: Independent VITALS: Vitals assessed and stable this shift INTAKE: Adequate for liquids OUTPUT: Patient has been urinating adequately. Pt reports BM during shift PAIN: Pain has been well controlled with PRN medications PRN MEDICATIONS UTILIZED THIS SHIFT: Dilaudid DVT PROPHYLAXIS: Lovenox injections CHG/HUNTER CARE NEEDS: None needed SHIFT EVENTS: Patient slept well through the night. UPCOMING PLAN OF CARE: Pt to DC home when medically ready Pt remained safe and free from falls. Pt given compazine for N/V. Insulin gtt and D10 gtt remain running. NS @20 Ml/HR TKO. Tele running NSR. No further concerns at this time. Will continue to followthe patient's plan of care. BP 111/65 (BP Location: Right arm;Upper, Patient Position: Semi-recumbent) Pulse 85 Temp 36.2 ??C (Temporal) Resp 19 Ht 157.5 cm Wt 85 kg SpO2 99% BMI 34.25 kg/m?? Problem: SAFETY ADULT Goal: Maintain a safe environment Outcome: Progressing Problem: DISCHARGE PLANNING Goal: Patient discharge needs identified Outcome: Progressing Problem: KNOWLEDGE DEFICIT Goal: Patient/family/caregiver demonstrates understanding of disease process, treatment plan, medications, and discharge instructions Outcome: Progressing Electronically signed by: Amado Brownlee R.N. 05/21/25 6:48 AM CDT * Oanh Choudhury R.N. - 05/20/2025 2:17 PM CDT INPATIENT SHIFT SUMMARY ORIENTATION: A&Ox3 SAFETY MEASURES: Hourly Rounding and Met by Routine ASSISTED MOBILITY: x1 and Stand by assist VITALS: Vitals assessed and stable this shift INTAKE: Patient started on clear liquid diet this afternoon. Only drank 4 oz apple juice so far. OUTPUT: Patient has been urinating adequately. PAIN: Pain has been well controlled with PRN medications PRN MEDICATIONS UTILIZED THIS SHIFT: Dilaudid DVT PROPHYLAXIS: Refused Lovenox injection, education provided CHG/HUNTER CARE NEEDS: None needed SHIFT EVENTS: PRN IV dilaudid given once for abdominal pain. Patient started on clear liquid diet in the afternoon. Continues on insulin gtt and D10. EDUCATION: Educated Patient on plan of care UPCOMING PLAN OF CARE: Continue to monitor labs, continue IV insulin gtt with hourly glucose checks, monitor tolerance of diet. Oanh Choudhury R.N. Problem: GASTROINTESTINAL - ADULT Goal: Nutrient intake appropriate for improving, restoring or maintaining nutritional needs Outcome: Progressing Note: Patient started on clear liquid diet. Will monitor for tolerance. Problem: METABOLIC/FLUID AND ELECTROLYTES - ADULT Goal: Electrolytes maintained within normal limits Outcome: Progressing Note: Potassium replaced this morning, most recent potassium 4.0. Goal: Glucose maintained within prescribed range Outcome: Progressing Note: Patient remains on insulin gtt with hourly glucose checks * Amado Brownlee R.N. - 05/20/2025 5:02 AM CDT INPATIENT SHIFT SUMMARY-PCU ORIENTATION: A&Ox3 SAFETY MEASURES: Bed Alarm and Hourly Rounding ASSISTED MOBILITY: Stand by assist VITALS: Vitals assessed and stable this shift INTAKE: Patient NPO (ice chips) OUTPUT: Patient has been urinating adequately. PAIN: Pain has been well controlled with PRN medications PRN MEDICATIONS UTILIZED THIS SHIFT: Dilaudid DVT PROPHYLAXIS: Lovenox injections CHG/HUNTER CARE NEEDS: None needed SHIFT EVENTS: Patient slept well through the night. EDUCATION: Educated Patient on pain control UPCOMING PLAN OF CARE: Maintain and monitor BG and insulin gtt Pt arrived from ED to PCU at 2240 accompanied by her mother. Pt remained safe and free from falls.Pt started on insulin gtt and D10W gtt at 2315. 500 ml NS bolus given. NS running continually at 75 ml/hr. Tele running NSR. RA. K+ 3.3 (replaced po and IV). No acute events. Will continue to follow the patient's plan of care. Problem: PAIN - ADULT Goal: PT VERBALIZES/DEMONSTRATES ADEQUATE COMFORT LEVEL OR BASELINE Outcome: Progressing Problem: KNOWLEDGE DEFICIT Goal: Patient/family/caregiver demonstrates understanding of disease process, treatment plan, medications, and discharge instructions Outcome: Progressing Problem: SAFETY ADULT Goal: Maintain a safe environment Outcome: Progressing BP 103/63 Pulse (!) 112 Temp 36 ??C (Temporal) Resp 13 Ht 157.5 cm Wt 84.3 kg SpO2 98% BMI 33.98 kg/m?? Electronically signed by: Amado Brownlee R.N. 05/20/25 6:40 AM CDT documented in this encounter ED Notes * Howard Corona M.D. - 05/19/2025 6:21 PM CDT SUBJECTIVE: CHIEF COMPLAINT/REASON FOR VISIT: Abnormal Lab (Hx of high triglycerides and needing admission for insulin, [place] [id number] today, was called by primary provider to come in for admission) HISTORY OF PRESENT ILLNESS: This is a 20-year-old female history hypertriglyceridemia pancreatitis who presents emergency department with approximately 1 week history of mild upper abdominal pain perhaps little more left upper quadrant. Who is seen by her primary doctor last week and had labs drawn 10 triglycerides greater than 10,000. She called for follow up today as she continued to have some pain in her primary doctor recommended presenting to the emergency department for evaluation and possible admission. Patient hada little bit nausea and vomiting last week and then today. She has been able to eat and drink pretty normally however has been eating less 0 quickly. No changes in urination or bowel movements. No fevers. She has not been taking anything for pain. She continues to take her home medications. REVIEW OF SYSTEMS: Constitutional: Negative. HENT: Negative. Eyes: Negative. Respiratory: Negative. Cardiovascular: Negative. Gastrointestinal: Negative. Musculoskeletal: Negative. Skin: Negative. Neurological: Negative. Psychiatric/Behavioral: Negative. ALLERGIES/MEDICATIONS: Reviewed in medical record PAST MEDICAL/FAMILY/SOCIAL HISTORY: Medical History: Medical History[1] Patient Active Problem List Diagnosis Date Noted Abdominal Pain 05/19/2025 Pancreatitis Hypertriglyceridemic (HCC) 04/16/2025 Thrombocytopenia 04/16/2025 Obesity Body Mass Index 30-39.9 Adult 04/16/2025 Core Mounter Use Of Insulin Active (HCC) 03/31/2025 Pancreatitis Chronic (HCC) 11/03/2024 Hypothyroidism 01/30/2024 Pancreatitis Acute (HCC) 01/15/2024 Fatty Liver 12/24/2023 Diabetes Mellitus Type 2 Neuropathy Autonomic (HCC) 12/17/2023 Noncompliance With Treatment 12/17/2023 Depression Major Recurrent In Remission 12/17/2023 Steatohepatitis Non Alcoholic 12/17/2023 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 Hypertriglyceridemia 05/30/2023 Other Specified Anxiety Disorders 05/29/2023 Deficiency Vitamin D 04/30/2020 Insomnia Psychophysiologic 09/02/2018 Other Constipation 10/20/2016 Surgical History: Surgical History[2] Family History: Reviewed in chart Social History: Social History[3] Social History Substance and Sexual Activity Alcohol Use None Social History Substance and Sexual Activity Drug Use Not on file OBJECTIVE: INITIAL VITAL SIGNS: Initial Vitals [05/19/25 1748] Temperature 36 ??C Pulse Rate 109 Heart Rate Resp Rate 16 Blood Pressure 122/80 SpO2 98 % Pain Score 0 - No pain PHYSICAL EXAMINATION: Constitutional: Nursing note and vitals reviewed. No distress. HENT: Head: Normocephalic and atraumatic. Nose: Nose normal. Mouth/Throat: Oropharynx is clear and moist. Mucous membranes are moist. Eyes: Conjunctivae and EOM are normal. Neck: Neck supple. Cardiovascular: Normal rate, regular rhythm and normal heart sounds. Pulses are strong and palpable. Capillary refill: takes less than 3 seconds Pulmonary/Chest: Effort normal and breath sounds normal. Abdominal: Soft. There is no abdominal tenderness. There is no rebound and no guarding. Musculoskeletal: General: Normal range of motion. Cervical back: Neck supple. Neurological: Alert and oriented to person, place, and time. Skin: Skin is warm and dry. Psychiatric: She has a normal mood and affect. INTERVENTIONS: Medications sodium chloride 0.9 % injection 3 mL (has no administration in time range) sodium chloride 0.9 % injection 10 mL (has no administration in time range) sodium chloride 0.9 % injection 3 mL (has no administration in time range) insulin regular 1 Unit/mL in NaCl 0.9% 100 mL infusion (has no administration in time range) And D10W infusion (has no administration in time range) morphine injection 4 mg (4 mg intravenous Given 05/19/251913) ondansetron (PF) injection 4 mg (Zofran) (4 mg intravenous Given 05/19/251913) LABS: Labs Reviewed CBC WITH DIFFERENTIAL, B - Abnormal Result Value Hemoglobin 10.8 (*) Hematocrit 32.6 (*) Erythrocytes 4.76 MCV 68.5 (*) RBC Distrib Width 16.7 (*) Platelet Count 256 Leukocytes 7.2 Neutrophils 4.23 Lymphocytes 2.24 Monocytes 0.44 Eosinophils 0.22 Basophils 0.04 COMPREHENSIVE METABOLIC PANEL, S/P - Abnormal Potassium, P 4.2 Sodium, P 131 (*) Chloride, P 97 (*) Bicarbonate, P 17 (*) Anion Gap, P 17 (*) BUN (Blood Urea Nitrogen), P 9 Creatinine 0.38 (*) Estimated GFR (eGFR) >90 Calcium, Total, P 9.1 Glucose, P 367 (*) Protein, Total, P 7.1 Albumin, P 4.2 Aspartate Aminotransferase (AST), P 20 Alkaline Phosphatase, P 74 Alanine Aminotransferase (ALT), P 18 Bilirubin, Total, P <0.2 TRIGLYCERIDES, S Triglycerides CANCELED Fasting (8 HR or more) CANCELED Narrative: Triglycerides, P was cancelled on 05/19/2025 at 19:26; Specimen was hemolyzed. Specimen was lipemic. Reordered LIPASE, S/P Lipase, P 41 TRIGLYCERIDES, S Fasting (8 HR or more) Yes BASIC METABOLIC PANEL, S/P BASIC METABOLIC PANEL, S/P BASIC METABOLIC PANEL, S/P TRIGLYCERIDES, S GLUCOSE POCT, B GLUCOSE POCT, B GLUCOSE POCT, B ECG: RADIOLOGY: No orders to display ASSESSMENT AND PLAN: IMPRESSION AND PLAN Mild upper abdominal pain in the setting of hypertriglyceridemia with triglycerides radiating over 10,000 last week. She arrives nontoxic interactive appropriate. I suspect her symptoms are related to the triglycerides unclear if she has got pancreatitis today. Will repeat labs. We will discuss with Internal Medicine. Internal medicine agrees pt will benefit from admission. Pt admitted. I reviewed previous medical records including documentation from previous visits and lab results. I personally reviewed the lab result(s) and my interpretation is abnormal. ED COURSE: Final Diagnoses: as of 05/19/25 2219 Abdominal Pain Hypertriglyceridemia DIAGNOSIS: Final diagnoses: [R10.9] Abdominal Pain [E78.1] Hypertriglyceridemia ED DISCHARGE MEDS: ED Prescriptions None DISPOSITION: Admit [1] Past Medical History: Diagnosis Date Diabetes Mellitus Type 2 (HCC) Hypertriglyceridemia Pancreatitis Hypertriglyceridemic (HCC) [2] No past surgical history on file. [3] Social History Socioeconomic History Marital status: Single Tobacco Use Smoking status: Never Social IDINCU Insecurity: No Food Insecurity (04/16/2025) Hunger Vital Sign Worried About Running Out of Food in the Last Year: Never true Ran Out of Food in the Last Year: Never true Transportation Needs: No Transportation Needs (04/16/2025) PRAPARE - Transportation Lack of Transportation (Medical): No Lack of Transportation (Non-Medical): No Intimate Partner Violence: Not At Risk (04/16/2025) Humiliation, Afraid, Rape, and Kick questionnaire Fear of Current or Ex-Partner: No Emotionally Abused: No Physically Abused: No Sexually Abused: No Housing Stability: Low Risk (04/16/2025) Housing Stability Housing: Living Situation: I have a steady place to live Howard Corona M.D. 05/19/252218 documented in this encounter Miscellaneous Notes * Hospital Course - Howard Valdivia M.D. - 05/20/2025 11:51 AM CDT Patient is 20-year-old female past medical history significant for familial hypertriglyceridemia, type 1 diabetes, HLD, history of recurrent pancreatitis who presented with abdominal pain. Patient was admitted earlier in March to [facility] due to pancreatitis induced by hypertriglyceridemia. Since discharge patient has been compliant with medications however she had noticed elevated blood glucose levels. Patient had continuous glucose monitor and insulin pump. Recently her meal dose insulin was switched (see admission note for further detail). Prior to admission her blood glucose had been in the 300s for the last week. Patient unfortunately ran out of CGM supply on Monday prior to admission. Patient did not receive any insulin over the weekend. She had her triglycerides checkedat her PCPs office on 05/13/2025 and was elevated to 10 thousands. Patient had intermittent epigastric discomfort. PCP instructed her to present to the emergency department for further evaluation. Patient was noted to have high anion gap metabolic acidosis. Patient was admitted to the PCU. Patient was started on insulin drip. documented in this encounter Plan of Treatment Not on file documented as of this encounter Procedures Procedure Name Priority Date/Time Associated Diagnosis Comments GLUCOSE POCT, B Routine 05/26/2025 12:49 PM CDT GLUCOSE POCT, B Routine 05/26/2025 10:08 AM CDT GLUCOSE POCT, B Routine 05/26/2025 8:18 AM CDT BASIC METABOLIC PANEL, S/P Timed 05/26/2025 8:13 AM CDT GLUCOSE POCT, B Routine 05/26/2025 7:56 AM CDT GLUCOSE POCT, B Routine 05/26/2025 5:47 AM CDT TRIGLYCERIDES, S Timed 05/26/2025 4:10 AM CDT BASIC METABOLIC PANEL, S/P Timed 05/26/2025 4:10 AM CDT GLUCOSE POCT, B Routine 05/26/2025 3:56 AM CDT GLUCOSE POCT, B Routine 05/26/2025 1:52 AM CDT GLUCOSE POCT, B Routine 05/26/2025 12:06 AM CDT BASIC METABOLIC PANEL, S/P Timed 05/25/2025 11:56 PM CDT GLUCOSE POCT, B Routine 05/25/2025 10:04 PM CDT GLUCOSE POCT, B Routine 05/25/2025 7:58 PM CDT BASIC METABOLIC PANEL, S/P Timed 05/25/2025 7:58 PM CDT GLUCOSE POCT, B Routine 05/25/2025 5:58 PM CDT BASIC METABOLIC PANEL, S/P Timed 05/25/2025 3:54 PM CDT GLUCOSE POCT, B Routine 05/25/2025 3:53 PM CDT GLUCOSE POCT, B Routine 05/25/2025 2:09 PM CDT POTASSIUM, S/P Routine 05/25/2025 1:45 PM CDT BASIC METABOLIC PANEL, S/P Timed 05/25/2025 12:01 PM CDT GLUCOSE POCT, B Routine 05/25/2025 11:58 AM CDT GLUCOSE POCT, B Routine 05/25/2025 10:10 AM CDT BASIC METABOLIC PANEL, S/P Timed 05/25/2025 9:04 AM CDT GLUCOSE POCT, B Routine 05/25/2025 8:08 AM CDT GLUCOSE POCT, B Routine 05/25/2025 5:52 AM CDT TRIGLYCERIDES, S Timed 05/25/2025 4:50 AM CDT BASIC METABOLIC PANEL, S/P Timed 05/25/2025 4:50 AM CDT GLUCOSE POCT, B Routine 05/25/2025 4:02 AM CDT GLUCOSE POCT, B Routine 05/25/2025 1:54 AM CDT BASIC METABOLIC PANEL, S/P Routine 05/25/2025 12:50 AM CDT GLUCOSE POCT, B Routine 05/24/2025 11:55 PM CDT GLUCOSE POCT, B Routine 05/24/2025 10:03 PM CDT BASIC METABOLIC PANEL, S/P Timed 05/24/2025 7:51 PM CDT GLUCOSE POCT, B Routine 05/24/2025 7:50 PM CDT GLUCOSE POCT, B Routine 05/24/2025 5:57 PM CDT BASIC METABOLIC PANEL, S/P Timed 05/24/2025 4:21 PM CDT GLUCOSE POCT, B Routine 05/24/2025 4:01 PM CDT GLUCOSE POCT, B Routine 05/24/2025 2:20 PM CDT GLUCOSE POCT, B Routine 05/24/2025 12:04 PM CDT BASIC METABOLIC PANEL, S/P Timed 05/24/2025 11:48 AM CDT GLUCOSE POCT, B Routine 05/24/2025 10:14 AM CDT GLUCOSE POCT, B Routine 05/24/2025 8:08 AM CDT GLUCOSE POCT, B Routine 05/24/2025 6:17 AM CDT TRIGLYCERIDES, S Routine 05/24/2025 6:15 AM CDT BASIC METABOLIC PANEL, S/P Routine 05/24/2025 6:15 AM CDT GLUCOSE POCT, B Routine 05/24/2025 4:08 AM CDT GLUCOSE POCT, B Routine 05/24/2025 2:04 AM CDT GLUCOSE POCT, B Routine 05/24/2025 12:26 AM CDT GLUCOSE POCT, B Routine 05/23/2025 10:12 PM CDT GLUCOSE POCT, B Routine 05/23/2025 8:08 PM CDT BASIC METABOLIC PANEL, S/P Timed 05/23/2025 7:46 PM CDT GLUCOSE POCT, B Routine 05/23/2025 6:04 PM CDT BASIC METABOLIC PANEL, S/P Timed 05/23/2025 4:12 PM CDT GLUCOSE POCT, B Routine 05/23/2025 4:01 PM CDT GLUCOSE POCT, B Routine 05/23/2025 2:02 PM CDT GLUCOSE POCT, B Routine 05/23/2025 11:59 AM CDT BASIC METABOLIC PANEL, S/P Timed 05/23/2025 11:56 AM CDT GLUCOSE POCT, B Routine 05/23/2025 10:02 AM CDT GLUCOSE POCT, B Routine 05/23/2025 7:57 AM CDT BASIC METABOLIC PANEL, S/P Timed 05/23/2025 7:57 AM CDT GLUCOSE POCT, B Routine 05/23/2025 6:11 AM CDT TRIGLYCERIDES, S STAT 05/23/2025 4:57 AM CDT POTASSIUM, S/P STAT 05/23/2025 4:57 AM CDT GLUCOSE POCT, B Routine 05/23/2025 4:05 AM CDT PHOSPHORUS (INORGANIC), S Timed 05/23/2025 4:04 AM CDT MAGNESIUM, S Timed 05/23/2025 4:04 AM CDT BASIC METABOLIC PANEL, S/P Timed 05/23/2025 4:04 AM CDT GLUCOSE POCT, B Routine 05/23/2025 2:02 AM CDT GLUCOSE POCT, B Routine 05/23/2025 12:00 AM CDT BASIC METABOLIC PANEL, S/P Timed 05/22/2025 11:58 PM CDT GLUCOSE POCT, B Routine 05/22/2025 9:44 PM CDT BASIC METABOLIC PANEL, S/P Timed 05/22/2025 7:56 PM CDT GLUCOSE POCT, B Routine 05/22/2025 7:33 PM CDT GLUCOSE POCT, B Routine 05/22/2025 5:31 PM CDT TRIGLYCERIDES, S Timed 05/22/2025 3:53 PM CDT BASIC METABOLIC PANEL, S/P Timed 05/22/2025 3:53 PM CDT GLUCOSE POCT, B Routine 05/22/2025 3:25 PM CDT GLUCOSE POCT, B Routine 05/22/2025 1:46 PM CDT BASIC METABOLIC PANEL, S/P Timed 05/22/2025 11:56 AM CDT GLUCOSE POCT, B Routine 05/22/2025 11:19 AM CDT GLUCOSE POCT, B Routine 05/22/2025 9:22 AM CDT BASIC METABOLIC PANEL, S/P Timed 05/22/2025 8:15 AM CDT GLUCOSE POCT, B Routine 05/22/2025 7:53 AM CDT GLUCOSE POCT, B Routine 05/22/2025 6:47 AM CDT GLUCOSE POCT, B Routine 05/22/2025 5:25 AM CDT POTASSIUM, S/P STAT 05/22/2025 5:13 AM CDT GLUCOSE POCT, B Routine 05/22/2025 4:49 AM CDT TRIGLYCERIDES, S Timed 05/22/2025 3:57 AM CDT BASIC METABOLIC PANEL, S/P Timed 05/22/2025 3:57 AM CDT GLUCOSE POCT, B Routine 05/22/2025 3:35 AM CDT GLUCOSE POCT, B Routine 05/22/2025 2:40 AM CDT GLUCOSE POCT, B Routine 05/22/2025 1:29 AM CDT BASIC METABOLIC PANEL, S/P Timed 05/22/2025 12:39 AM CDT GLUCOSE POCT, B Routine 05/22/2025 12:27 AM CDT GLUCOSE POCT, B Routine 05/21/2025 11:22 PM CDT GLUCOSE POCT, B Routine 05/21/2025 10:36 PM CDT GLUCOSE POCT, B Routine 05/21/2025 9:39 PM CDT GLUCOSE POCT, B Routine 05/21/2025 8:31 PM CDT BASIC METABOLIC PANEL, S/P Timed 05/21/2025 8:21 PM CDT GLUCOSE POCT, B Routine 05/21/2025 7:37 PM CDT GLUCOSE POCT, B Routine 05/21/2025 6:29 PM CDT GLUCOSE POCT, B Routine 05/21/2025 5:31 PM CDT GLUCOSE POCT, B Routine 05/21/2025 4:20 PM CDT TRIGLYCERIDES, S Timed 05/21/2025 4:01 PM CDT BASIC METABOLIC PANEL, S/P Timed 05/21/2025 4:01 PM CDT GLUCOSE POCT, B Routine 05/21/2025 3:02 PM CDT GLUCOSE POCT, B Routine 05/21/2025 12:22 PM CDT BASIC METABOLIC PANEL, S/P Timed 05/21/2025 11:42 AM CDT GLUCOSE POCT, B Routine 05/21/2025 10:49 AM CDT GLUCOSE POCT, B Routine 05/21/2025 9:44 AM CDT GLUCOSE POCT, B Routine 05/21/2025 8:37 AM CDT BASIC METABOLIC PANEL, S/P Timed 05/21/2025 8:19 AM CDT GLUCOSE POCT, B Routine 05/21/2025 7:43 AM CDT GLUCOSE POCT, B Routine 05/21/2025 6:24 AM CDT MORPHOLOGY EVALUATION Timed 05/21/2025 5:46 AM CDT CBC WITH DIFFERENTIAL, B Timed 05/21/2025 5:46 AM CDT GLUCOSE POCT, B Routine 05/21/2025 5:23 AM CDT TRIGLYCERIDES, S Timed 05/21/2025 4:26 AM CDT MAGNESIUM, S Timed 05/21/2025 4:26 AM CDT BASIC METABOLIC PANEL, S/P Timed 05/21/2025 4:26 AM CDT GLUCOSE POCT, B Routine 05/21/2025 4:25 AM CDT GLUCOSE POCT, B Routine 05/21/2025 3:11 AM CDT GLUCOSE POCT, B Routine 05/21/2025 2:22 AM CDT GLUCOSE POCT, B Routine 05/21/2025 1:20 AM CDT BASIC METABOLIC PANEL, S/P Timed 05/21/2025 12:15 AM CDT GLUCOSE POCT, B Routine 05/21/2025 12:08 AM CDT GLUCOSE POCT, B Routine 05/20/2025 11:16 PM CDT GLUCOSE POCT, B Routine 05/20/2025 10:15 PM CDT GLUCOSE POCT, B Routine 05/20/2025 9:26 PM CDT GLUCOSE POCT, B Routine 05/20/2025 8:16 PM CDT BASIC METABOLIC PANEL, S/P Timed 05/20/2025 8:01 PM CDT GLUCOSE POCT, B Routine 05/20/2025 7:01 PM CDT GLUCOSE POCT, B Routine 05/20/2025 6:16 PM CDT GLUCOSE POCT, B Routine 05/20/2025 5:33 PM CDT GLUCOSE POCT, B Routine 05/20/2025 5:15 PM CDT TRIGLYCERIDES, S Routine 05/20/2025 4:21 PM CDT BASIC METABOLIC PANEL, S/P Timed 05/20/2025 4:20 PM CDT GLUCOSE POCT, B Routine 05/20/2025 3:58 PM CDT GLUCOSE POCT, B Routine 05/20/2025 3:11 PM CDT GLUCOSE POCT, B Routine 05/20/2025 1:59 PM CDT GLUCOSE POCT, B Routine 05/20/2025 1:06 PM CDT GLUCOSE POCT, B Routine 05/20/2025 12:09 PM CDT BASIC METABOLIC PANEL, S/P Timed 05/20/2025 12:02 PM CDT GLUCOSE POCT, B Routine 05/20/2025 11:12 AM CDT GLUCOSE POCT, B Routine 05/20/2025 10:08 AM CDT GLUCOSE POCT, B Routine 05/20/2025 9:25 AM CDT GLUCOSE POCT, B Routine 05/20/2025 8:03 AM CDT BASIC METABOLIC PANEL, S/P Timed 05/20/2025 8:03 AM CDT GLUCOSE POCT, B Routine 05/20/2025 7:11 AM CDT GLUCOSE POCT, B Routine 05/20/2025 6:17 AM CDT GLUCOSE POCT, B Routine 05/20/2025 5:11 AM CDT TRIGLYCERIDES, S Timed 05/20/2025 4:07 AM CDT BASIC METABOLIC PANEL, S/P Timed 05/20/2025 4:07 AM CDT GLUCOSE POCT, B Routine 05/20/2025 4:06 AM CDT GLUCOSE POCT, B Routine 05/20/2025 3:06 AM CDT GLUCOSE POCT, B Routine 05/20/2025 2:12 AM CDT BASIC METABOLIC PANEL, S/P Timed 05/20/2025 1:29 AM CDT GLUCOSE POCT, B Routine 05/20/2025 1:07 AM CDT GLUCOSE POCT, B Routine 05/20/2025 12:03 AM CDT GLUCOSE POCT, B Routine 05/19/2025 11:02 PM CDT TRIGLYCERIDES, S STAT 05/19/2025 7:31 PM CDT LIPASE, S/P STAT 05/19/2025 7:31 PM CDT COMPREHENSIVE METABOLIC PANEL, S/P STAT 05/19/2025 7:31 PM CDT CBC WITH DIFFERENTIAL, B STAT 05/19/2025 6:40 PM CDT TRIGLYCERIDES, S STAT 05/19/2025 6:40 PM CDT documented in this encounter Results * Glucose, POCT (05/26/2025 12:49 PM CDT) Glucose, POCT, B 93 70 - 140 mg/dL 05/26/2025 12:49 PM CDT [facility] Blood 05/26/2025 12:4 9 PM CDT 05/26/2025 12:59 PM CDT us Generic [facility] POCT ORDERABLES-MANUAL Final Result Performing Organization Address City/[facility]/ZIP Co de Phone Number [facility] [address] [place] [address] * Glucose, POCT (05/26/2025 10:08 AM CDT) Glucose, POCT, B 113 70 - 140 mg/dL 05/26/2025 10:08 AM CDT [facility] Blood 05/26/2025 10:0 8 AM CDT 05/26/2025 10:18 AM CDT us Generic [facility] POCT ORDERABLES-MANUAL Final Result [facility] [address] [place] [address], [place] [address] * Glucose, POCT (05/26/2025 8:18 AM CDT) Glucose, POCT, B 108 70 - 140 mg/dL 05/26/2025 8:18 AM CDT [facility]TO Blood 05/26/2025 8:18 AM CDT 05/26/2025 9:23 AM CDT us Generic [facility] POCT ORDERABLES-MANUAL Final Result [facility] [address] [place] [id number], [facility] in [place] [address] [place] [address] * (ABNORMAL) Basic Metabolic Panel (05/26/2025 8:13 AM CDT) Potassium, P 3.5(L) 3.6 - 5.2 mmol/L 05/26/2025 8:54 AM CDT [facility] Sodium, P 137 135 - 145 mmol/L 05/26/2025 8:54 AM CDT [facility] Chloride, P 103 98 - 107 mmol/L 05/26/2025 8:54 AM CDT [facility] Bicarbonate, P 24 22 - 29 mmol/L 05/26/2025 8:54 AM CDT [facility] Anion Gap, P 10 7 - 15 05/26/2025 8:54 AM CDT [facility] BUN (Blood Urea Nitrogen), P 5(L) 6 - 21 mg/dL 05/26/2025 8:54 AM CDT [facility] Creatinine 0.54(L) 0.59 - 1.04 mg/dL 05/26/2025 8:54 AM CDT [facility] Estimated GFR (eGFR) >90 >=60 mL/min/BSA 05/26/2025 8:54 AM CDT [facility] Comment: Estimated GFR calculated using the 2020 CKD_EPI creatinine equation. Calcium, Total, P 8.6 8.6 - 10.0 mg/dL 05/26/2025 8:54 AM CDT [facility] Glucose, P 119 70 - 140 mg/dL 05/26/2025 8:54 AM CDT [facility] Blood (Blood, Venous) 05/26/2025 8:13 AM CDT 05/26/2025 8:32 AM CDT us Chris Camara M.D. LAB BLOOD ADD-ON Fi nal Result [facility] [address] [place] [address], [address] [address] * Glucose, POCT (05/26/2025 7:56 AM CDT) Glucose, POCT, B 128 70 - 140 mg/dL 05/26/2025 7:56 AM CDT [facility] Blood 05/26/2025 7:56 AM CDT 05/26/2025 8:04 AM CDT us Generic [facility] POCT ORDERABLES-MANUAL Final Result [facility] [address] [place] [address], [address] [address] * Glucose, POCT (05/26/2025 5:47 AM CDT) Glucose, POCT, B 111 70 - 140 mg/dL 05/26/2025 5:47 AM CDT TO Blood 05/26/2025 5:47 AM CDT 05/26/2025 5:57 AM CDT us Generic [facility] POCT ORDERABLES-MANUAL Final Result [facility] [address] [place] [address], [address] [address] * (ABNORMAL) Triglycerides (05/26/2025 4:10 AM CDT) Triglycerides 1644(H) mg/dL 05/26/2025 4:47 AM CDT [facility] Comment: ----REFERENCE VALUE---- Normal: <150 mg/dL Borderline High: 150-199 mg/dL High: 200-499 mg/dL Very High: > or =500 mg/dL Fasting (8 HR or more) No 05/26/2025 4:10 AM CDT [facility] Blood (Blood, Venous) 05/26/2025 4:10 AM CDT 05/26/2025 4:14 AM CDT Chris Camara M.D. LAB BLOOD ADD-ON Fi nal Result [facility] [address] [place] [address], [facility] in [place] [address] [place] [address] * (ABNORMAL) Basic Metabolic Panel (05/26/2025 4:10 AM CDT) Potassium, P 3.6 3.6 - 5.2 mmol/L 05/26/2025 4:34 AM CDT [facility] Sodium, P 137 135 - 145 mmol/L 05/26/2025 4:34 AM CDT [facility] Chloride, P 103 98 - 107 mmol/L 05/26/2025 4:34 AM CDT [facility] Bicarbonate, P 21(L) 22 - 29 mmol/L 05/26/2025 4:34 AM CDT [facility] Anion Gap, P 13 7 - 15 05/26/2025 4:34 AM CDT [facility] BUN (Blood Urea Nitrogen), P 5(L) 6 - 21 mg/dL 05/26/2025 4:34 AM CDT [facility] Creatinine 0.56(L) 0.59 - 1.04 mg/dL 05/26/2025 4:34 AM CDT [facility] Estimated GFR (eGFR) >90 >=60 mL/min/BSA 05/26/2025 4:34 AM CDT [facility] Comment: Estimated GFR calculated using the 2020 CKD_EPI creatinine equation. Calcium, Total, P 8.8 8.6 - 10.0 mg/dL 05/26/2025 4:34 AM CDT [facility] Glucose, P 135 70 - 140 mg/dL 05/26/2025 4:34 AM CDT [facility] Blood (Blood, Venous) 05/26/2025 4:10 AM CDT 05/26/2025 4:14 AM CDT us Chris Camara M.D. LAB BLOOD ADD-ON Fi nal Result Performing Organization Address City/[facility]/ZIP Co de Phone Number [facility] [address] [place] [address], [address] [address] * (ABNORMAL) Glucose, POCT (05/26/2025 3:56 AM CDT) Glucose, POCT, B 155(H) 70 - 140 mg/dL 05/26/2025 3:56 AM CDT [facility] Blood 05/26/2025 3:56 AM CDT 05/26/2025 4:06 AM CDT us Generic [facility] POCT ORDERABLES-MANUAL Final Result Performing Organization Address [facility] Co de Phone Number [facility] [address] [place] [address], [address] [address] * (ABNORMAL) Glucose, POCT (05/26/2025 1:52 AM CDT) Glucose, POCT, B 191(H) 70 - 140 mg/dL 05/26/2025 1:52 AM CDT [facility] Blood 05/26/2025 1:52 AM CDT 05/26/2025 2:03 AM CDT us Generic [facility] POCT ORDERABLES-MANUAL Final Result Performing Organization Address City/[facility]/ZIP Co de Phone Number [facility] [address] [place] [address], [address] [address] * Glucose, POCT (05/26/2025 12:06 AM CDT) Glucose, POCT, B 95 70 - 140 mg/dL 05/26/2025 12:06 AM CDT MKTO Blood 05/26/2025 12:0 6 AM CDT 05/26/2025 12:19 AM CDT us Generic [facility] POCT ORDERABLES-MANUAL Final Result [facility] [address] [place] [address], [facility] in [place] [address] [place] [address] * (ABNORMAL) Basic Metabolic Panel (05/25/2025 11:56 PM CDT) Potassium, P 3.9 3.6 - 5.2 mmol/L 05/26/2025 12:39 AM CDT [facility] Sodium, P 137 135 - 145 mmol/L 05/26/2025 12:39 AM CDT [facility] Chloride, P 102 98 - 107 mmol/L 05/26/2025 12:39 AM CDT [facility] Bicarbonate, P 22 22 - 29 mmol/L 05/26/2025 12:39 AM CDT [facility] Anion Gap, P 13 7 - 15 05/26/2025 12:39 AM CDT [facility] BUN (Blood Urea Nitrogen), P 4(L) 6 - 21 mg/dL 05/26/2025 12:39 AM CDT [facility] Creatinine 0.45(L) 0.59 - 1.04 mg/dL 05/26/2025 12:39 AM CDT [facility] Estimated GFR (eGFR) >90 >=60 mL/min/BSA 05/26/2025 12:39 AM CDT [facility] Comment: Estimated GFR calculated using the 2020 CKD_EPI creatinine equation. Calcium, Total, P 9.3 8.6 - 10.0 mg/dL 05/26/2025 12:39 AM CDT [facility] Glucose, P 95 70 - 140 mg/dL 05/26/2025 12:39 AM CDT [facility] Blood (Blood, Venous) 05/25/2025 11:56 PM CDT 05/26/2025 12:11 AM CDT us Chris Camara M.D. LAB BLOOD ADD-ON Fi nal Result [facility] [address] [place] [address], [facility] [address] [place] [id number] * (ABNORMAL) Glucose, POCT (05/25/2025 10:04 PM CDT) Glucose, POCT, B 157(H) 70 - 140 mg/dL 05/25/2025 10:04 PM CDT [facility] Blood 05/25/2025 10:0 4 PM CDT 05/25/2025 10:16 PM CDT us Generic [facility] LAB POCT ORDERABLES-MANUAL Final Result Performing Organization Address City/[facility]/ZIP Co de Phone Number [facility] [address] [place] [address], [facility] in [place] [address] [place] [phone] * Glucose, POCT (05/25/2025 7:58 PM CDT) Glucose, POCT, B 140 70 - 140 mg/dL 05/25/2025 7:58 PM CDT [facility] Blood 05/25/2025 7:58 PM CDT 05/25/2025 8:13 PM CDT us Generic [facility] POCT ORDERABLES-MANUAL Final Result [facility] [address] [place] [id number], [address] [id number] * (ABNORMAL) Basic Metabolic Panel (05/25/2025 7:58 PM CDT) Potassium, P 4.0 3.6 - 5.2 mmol/L 05/25/2025 8:22 PM CDT [facility] Sodium, P 136 135 - 145 mmol/L 05/25/2025 8:22 PM CDT [facility] Chloride, P 102 98 - 107 mmol/L 05/25/2025 8:22 PM CDT [facility] Bicarbonate, P 22 22 - 29 mmol/L 05/25/2025 8:22 PM CDT [facility] Anion Gap, P 12 7 - 15 05/25/2025 8:22 PM CDT [facility] BUN (Blood Urea Nitrogen), P 3(L) 6 - 21 mg/dL 05/25/2025 8:22 PM CDT [facility] Creatinine 0.41(L) 0.59 - 1.04 mg/dL 05/25/2025 8:22 PM CDT [facility] Estimated GFR (eGFR) >90 >=60 mL/min/BSA 05/25/2025 8:22 PM CDT [facility] Comment: Estimated GFR calculated using the 2020 CKD_EPI creatinine equation. Calcium, Total, P 9.1 8.6 - 10.0 mg/dL 05/25/2025 8:22 PM CDT [facility] Glucose, P 144(H) 70 - 140 mg/dL 05/25/2025 8:22 PM CDT [facility] Blood (Blood, Venous) 05/25/2025 7:58 PM CDT 05/25/2025 8:03 PM CDT Chris Camara M.D. LAB BLOOD ADD-ON Fi nal Result [facility] [address] [place] [address], [facility] [place] [address] * (ABNORMAL) Glucose, POCT (05/25/2025 5:58 PM CDT) Glucose, POCT, B 146(H) 70 - 140 mg/dL 05/25/2025 5:58 PM CDT [facility] Blood 05/25/2025 5:58 PM CDT 05/25/2025 6:06 PM CDT us Generic Rals LAB POCT ORDERABLES-MANUAL Final Result [facility] [address] [place] [address], [place] [facility] in [place] [address] [place] [address] * (ABNORMAL) Basic Metabolic Panel (05/25/2025 3:54 PM CDT) Potassium, P 3.8 3.6 - 5.2 mmol/L 05/25/2025 4:15 PM CDT [facility] Sodium, P 136 135 - 145 mmol/L 05/25/2025 4:15 PM CDT [facility] Chloride, P 103 98 - 107 mmol/L 05/25/2025 4:15 PM CDT [facility] Bicarbonate, P 22 22 - 29 mmol/L 05/25/2025 4:15 PM CDT [facility] Anion Gap, P 11 7 - 15 05/25/2025 4:15 PM CDT [facility] BUN (Blood Urea Nitrogen), P <2(L) 6 - 21 mg/dL 05/25/2025 4:22 PM CDT [facility] Creatinine 0.46(L) 0.59 - 1.04 mg/dL 05/25/2025 4:15 PM CDT [facility] Estimated GFR (eGFR) >90 >=60 mL/min/BSA 05/25/2025 4:15 PM CDT [facility] Comment: Estimated GFR calculated using the 2020 CKD_EPI creatinine equation. Calcium, Total, P 8.6 8.6 - 10.0 mg/dL 05/25/2025 4:15 PM CDT [facility] Glucose, P 146(H) 70 - 140 mg/dL 05/25/2025 4:15 PM CDT [facility] Blood (Blood, Venous) 05/25/2025 3:54 PM CDT 05/25/2025 3:57 PM CDT Chris S Ivy M.B.B.S., M.D. LAB BLOOD ADD-ON Fi nal Result Performing Organization Address City/[facility]/ZIP Co de Phone Number [facility] [address] [place] [address], [address] [address] * (ABNORMAL) Glucose, POCT (05/25/2025 3:53 PM CDT) Glucose, POCT, B 148(H) 70 - 140 mg/dL 05/25/2025 3:53 PM CDT [facility] Blood 05/25/2025 3:53 PM CDT 05/25/2025 4:02 PM CDT us Generic [facility]als LAB POCT ORDERABLES-MANUAL Final Result Performing Organization Address City/[facility]/ZIP Co de Phone Number [facility] [address] [place] [address], [address] [address] * Glucose, POCT (05/25/2025 2:09 PM CDT) Glucose, POCT, B 105 70 - 140 mg/dL 05/25/2025 2:09 PM CDT [facility] Blood 05/25/2025 2:09 PM CDT 05/25/2025 2:45 PM CDT us Generic [facility] LAB POCT ORDERABLES-MANUAL Final Result Performing Organization Address City/[facility]/ZIP Co de Phone Number [facility] [address] [place] [address], [address] [address] * Potassium (05/25/2025 1:45 PM CDT) Potassium, P 4.0 3.6 - 5.2 mmol/L 05/25/2025 2:07 PM CDT [facility] Blood 05/25/2025 1:45 PM CDT 05/25/2025 1:49 PM CDT Chris Camara M.D. LAB BLOOD ADD-ON Fi nal Result [facility] [address] [place] [address], [facility] in [place] [address] [place] [address] * (ABNORMAL) Basic Metabolic Panel (05/25/2025 12:01 PM CDT) Potassium, P SEE COMMENT 3.6 - 5.2 mmol/L 05/25/2025 1:02 PM CDT [facility] Comment:Specimen was hemolyz ed. Sodium, P 136 135 - 145 mmol/L 05/25/2025 12:51 PM CDT [facility] Chloride, P 103 98 - 107 mmol/L 05/25/2025 12:51 PM CDT [facility] Bicarbonate, P 19(L) 22 - 29 mmol/L 05/25/2025 12:51 PM CDT [facility] Anion Gap, P 14 7 - 15 05/25/2025 12:51 PM CDT [facility] BUN (Blood Urea Nitrogen), P <2(L) 6 - 21 mg/dL 05/25/2025 1:02 PM CDT [facility] Creatinine 0.41(L) 0.59 - 1.04 mg/dL 05/25/2025 12:51 PM CDT [facility] Estimated GFR (eGFR) >90 >=60 mL/min/BS A 05/25/2025 12:51 PM CDT [facility] Comment: Estimated GFR calculated using the 2020 CKD_EPI creatinine equation. Calcium, Total, P 8.9 8.6 - 10.0 mg/dL 05/25/2025 12:51 PM CDT [facility] Glucose, P 125 70 - 140 mg/dL 05/25/2025 12:51 PM CDT [facility] Blood (Blood, Venous) 05/25/2025 12:01 PM CDT 05/25/2025 12:21 PM CDT Chris Gale Camara M.D. LAB BLOOD ADD-ON Fi nal Result [facility] [address] [place] [address] * Glucose, POCT (05/25/2025 11:58 AM CDT) Glucose, POCT, B 124 70 - 140 mg/dL 05/25/2025 11:58 AM CDT [facility] Blood 05/25/2025 11:5 8 AM CDT 05/25/2025 12:11 PM CDT us Generic [facility]als LAB POCT ORDERABLES-MANUAL Final Result Performing Organization Address [facility] Co de Phone Number [facility] [address] [place] [address] * Glucose, POCT (05/25/2025 10:10 AM CDT) Glucose, POCT, B 121 70 - 140 mg/dL 05/25/2025 10:10 AM CDT [facility] Blood 05/25/2025 10:1 0 AM CDT 05/25/2025 11:04 AM CDT us Generic [facility] LAB POCT ORDERABLES-MANUAL Final Result [facility] [address] [place] [address], [place] [address] * (ABNORMAL) Basic Metabolic Panel (05/25/2025 9:04 AM CDT) Potassium, P 3.7 3.6 - 5.2 mmol/L 05/25/2025 9:39 AM CDT [facility] Sodium, P 137 135 - 145 mmol/L 05/25/2025 9:39 AM CDT [facility] Chloride, P 104 98 - 107 mmol/L 05/25/2025 9:39 AM CDT [facility] Bicarbonate, P 23 22 - 29 mmol/L 05/25/2025 9:39 AM CDT [facility] Anion Gap, P 10 7 - 15 05/25/2025 9:39 AM CDT [facility] BUN (Blood Urea Nitrogen), P <2(L) 6 - 21 mg/dL 05/25/2025 9:41 AM CDT [facility] Creatinine 0.45(L) 0.59 - 1.04 mg/dL 05/25/2025 9:39 AM CDT [facility] Estimated GFR (eGFR) >90 >=60 mL/min/BSA 05/25/2025 9:39 AM CDT MK[facility] Comment: Estimated GFR calculated using the 2020 CKD_EPI creatinine equation. Calcium, Total, P 8.7 8.6 - 10.0 mg/dL 05/25/2025 9:39 AM CDT [facility] Glucose, P 110 70 - 140 mg/dL 05/25/2025 9:39 AM CDT [facility] Blood (Blood, Venous) 05/25/2025 9:04 AM CDT 05/25/2025 9:18 AM CDT us Chris Camara M.D. LAB BLOOD ADD-ON Fi nal Result [facility] [address] [place] [address], [facility] [place] [address] * Glucose, POCT (05/25/2025 8:08 AM CDT) Glucose, POCT, B 94 70 - 140 mg/dL 05/25/2025 8:08 AM CDT [facility] Blood 05/25/2025 8:08 AM CDT 05/25/2025 8:21 AM CDT us Generic [facility] LAB POCT ORDERABLES-MANUAL Final Result Performing Organization Address City/[facility]/ZIP Co de Phone Number [facility] [address] [place] [address] * Glucose, POCT (05/25/2025 5:52 AM CDT) Glucose, POCT, B 114 70 - 140 mg/dL 05/25/2025 5:52 AM CDT [facility] Blood 05/25/2025 5:52 AM CDT 05/25/2025 6:02 AM CDT us Generic [facility] LAB POCT ORDERABLES-MANUAL Final Result Performing Organization Address [facility] Co de Phone Number [facility] [address] [place] [address] * (ABNORMAL) Triglycerides (05/25/2025 4:50 AM CDT) Triglycerides 1693(H) mg/dL 05/25/2025 5:38 AM CDT [facility] Comment: ----REFERENCE VALUE---- Normal: <150 mg/dL Borderline High: 150-199 mg/dL High: 200-499 mg/dL Very High: > or =500 mg/dL Fasting (8 HR or more) Unknown 05/25/2025 4:50 AM CDT TO Blood (Blood, Venous) 05/25/2025 4:50 AM CDT 05/25/2025 4:53 AM CDT Chris Camara M.D. LAB BLOOD ADD-ON Fi nal Result Performing Organization Address City/[facility]/ZIP Co de Phone Number [facility] [address] [place] [address], [place] [address] * (ABNORMAL) Basic Metabolic Panel (05/25/2025 4:50 AM CDT) Potassium, P 3.7 3.6 - 5.2 mmol/L 05/25/2025 5:14 AM CDT [facility] Sodium, P 136 135 - 145 mmol/L 05/25/2025 5:14 AM CDT [facility] Chloride, P 101 98 - 107 mmol/L 05/25/2025 5:14 AM CDT [facility] Bicarbonate, P 23 22 - 29 mmol/L 05/25/2025 5:14 AM CDT [facility] Anion Gap, P 12 7 - 15 05/25/2025 5:14 AM CDT [facility] BUN (Blood Urea Nitrogen), P <2(L) 6 - 21 mg/dL 05/25/2025 5:17 AM CDT [facility] Creatinine 0.52(L) 0.59 - 1.04 mg/dL 05/25/2025 5:14 AM CDT [facility] Estimated GFR (eGFR) >90 >=60 mL/min/BSA 05/25/2025 5:14 AM CDT [facility] Comment: Estimated GFR calculated using the 2020 CKD_EPI creatinine equation. Calcium, Total, P 9.6 8.6 - 10.0 mg/dL 05/25/2025 5:14 AM CDT [facility] Glucose, P 102 70 - 140 mg/dL 05/25/2025 5:14 AM CDT [facility] Blood (Blood, Venous) 05/25/2025 4:50 AM CDT 05/25/2025 4:53 AM CDT us Chris Camara M.D. LAB BLOOD ADD-ON Fi nal Result [facility] [place] [address], [facility] [place] [address] [place] [address] * Glucose, POCT (05/25/2025 4:02 AM CDT) Glucose, POCT, B 121 70 - 140 mg/dL 05/25/2025 4:02 AM CDT [facility] Blood 05/25/2025 4:02 AM CDT 05/25/2025 4:22 AM CDT us Generic [facility]als LAB POCT ORDERABLES-MANUAL Final Result Performing Organization Address City/[facility]/ZIP Co de Phone Number [facility] [address] [place] [address], [address] [address] * Glucose, POCT (05/25/2025 1:54 AM CDT) Glucose, POCT, B 112 70 - 140 mg/dL 05/25/2025 1:54 AM CDT [facility] Blood 05/25/2025 1:54 AM CDT 05/25/2025 2:15 AM CDT Generic [facility] LAB POCT ORDERABLES-MANUAL Final Result Performing Organization Address City/[facility] Co de Phone Number [facility] [address] [place] [address], [address] [address] * (ABNORMAL) Basic Metabolic Panel (05/25/2025 12:50 AM CDT) Potassium, P 3.6 3.6 - 5.2 mmol/L 05/25/2025 1:13 AM CDT [facility] Sodium, P 135 135 - 145 mmol/L 05/25/2025 1:13 AM CDT [facility] Chloride, P 100 98 - 107 mmol/L 05/25/2025 1:13 AM CDT [facility] Bicarbonate, P 23 22 - 29 mmol/L 05/25/2025 1:13 AM CDT [facility] Anion Gap, P 12 7 - 15 05/25/2025 1:13 AM CDT [facility] BUN (Blood Urea Nitrogen), P <2(L) 6 - 21 mg/dL 05/25/2025 1:16 AM CDT [facility] Creatinine 0.49(L) 0.59 - 1.04 mg/dL 05/25/2025 1:13 AM CDT [facility] Estimated GFR (eGFR) >90 >=60 mL/min/BSA 05/25/2025 1:13 AM CDT MKTO Comment: Estimated GFR calculated using the 2020 CKD_EPI creatinine equation. Calcium, Total, P 9.2 8.6 - 10.0 mg/dL 05/25/2025 1:13 AM CDT [facility] Glucose, P 98 70 - 140 mg/dL 05/25/2025 1:13 AM CDT [facility] Blood (Blood, Venous) 05/25/2025 12:50 AM CDT 05/25/2025 12:54 AM CDT Chris Camara M.D. LAB BLOOD ADD-ON Fi nal Result [facility] [address] [place] [address], [place] [address] * Glucose, POCT (05/24/2025 11:55 PM CDT) Glucose, POCT, B 117 70 - 140 mg/dL 05/24/2025 11:55 PM CDT [facility] Blood 05/24/2025 11:5 5 PM CDT 05/25/2025 12:11 AM CDT us Generic [facility] LAB POCT ORDERABLES-MANUAL Final Result [facility] [address] [place] [address], [place] [address] * Glucose, POCT (05/24/2025 10:03 PM CDT) Glucose, POCT, B 98 70 - 140 mg/dL 05/24/2025 10:03 PM CDT [facility] Blood 05/24/2025 10:0 3 PM CDT 05/24/2025 10:22 PM CDT us Generic [facility] LAB POCT ORDERABLES-MANUAL Final Result [facility] [address] [place] [address], [facility] in [place] [address] [place] [address] * (ABNORMAL) Basic Metabolic Panel (05/24/2025 7:51 PM CDT) Potassium, P 4.0 3.6 - 5.2 mmol/L 05/24/2025 8:16 PM CDT MK[facility] Sodium, P 136 135 - 145 mmol/L 05/24/2025 8:16 PM CDT [facility] Chloride, P 102 98 - 107 mmol/L 05/24/2025 8:16 PM CDT [facility] Bicarbonate, P 23 22 - 29 mmol/L 05/24/2025 8:16 PM CDT MK[facility] Anion Gap, P 11 7 - 15 05/24/2025 8:16 PM CDT [facility] BUN (Blood Urea Nitrogen), P <2(L) 6 - 21 mg/dL 05/24/2025 8:16 PM CDT [facility] Creatinine 0.49(L) 0.59 - 1.04 mg/dL 05/24/2025 8:16 PM CDT [facility] Estimated GFR (eGFR) >90 >=60 mL/min/BSA 05/24/2025 8:16 PM CDT MKTO Comment: Estimated GFR calculated using the 2020 CKD_EPI creatinine equation. Calcium, Total, P 8.9 8.6 - 10.0 mg/dL 05/24/2025 8:16 PM CDT MK[facility] Glucose, P 112 70 - 140 mg/dL 05/24/2025 8:16 PM CDT [facility] Blood (Blood, Venous) 05/24/2025 7:51 PM CDT 05/24/2025 7:53 PM CDT us Chris Camara, M.D. LAB BLOOD ADD-ON Fi nal Result Performing Organization Address [facility]/ZIP Co de Phone Number [facility] [address] [place] [address], [place] [address] * Glucose, POCT (05/24/2025 7:50 PM CDT) Glucose, POCT, B 113 70 - 140 mg/dL 05/24/2025 7:50 PM CDT MK[facility] Blood 05/24/2025 7:50 PM CDT 05/24/2025 8:16 PM CDT us Generic [facility] LAB POCT ORDERABLES-MANUAL Final Result Performing Organization Address [facility] Co de Phone Number [facility] [address] [place] [address], [place] [address] * Glucose, POCT (05/24/2025 5:57 PM CDT) Glucose, POCT, B 101 70 - 140 mg/dL 05/24/2025 5:57 PM CDT MKTO Blood 05/24/2025 5:57 PM CDT 05/24/2025 6:08 PM CDT us Generic [facility] POCT ORDERABLES-MANUAL Final Result Performing Organization Address [facility]/ZIP Co de Phone Number [facility] [address] [place] [address], [place] [address] * (ABNORMAL) Basic Metabolic Panel (05/24/2025 4:21 PM CDT) Potassium, P 3.9 3.6 - 5.2 mmol/L 05/24/2025 4:46 PM CDT MK[facility] Sodium, P 135 135 - 145 mmol/L 05/24/2025 4:46 PM CDT [facility] Chloride, P 104 98 - 107 mmol/L 05/24/2025 4:46 PM CDT [facility] Bicarbonate, P 21(L) 22 - 29 mmol/L 05/24/2025 4:46 PM CDT [facility] Anion Gap, P 10 7 - 15 05/24/2025 4:46 PM CDT [facility] BUN (Blood Urea Nitrogen), P <2(L) 6 - 21 mg/dL 05/24/2025 4:47 PM CDT [facility] Creatinine 0.38(L) 0.59 - 1.04 mg/dL 05/24/2025 4:46 PM CDT [facility] Estimated GFR (eGFR) >90 >=60 mL/min/BSA 05/24/2025 4:46 PM CDT MKTO Comment: Estimated GFR calculated using the 2020 CKD_EPI creatinine equation. Calcium, Total, P 8.9 8.6 - 10.0 mg/dL 05/24/2025 4:46 PM CDT MK[facility] Glucose, P 95 70 - 140 mg/dL 05/24/2025 4:46 PM CDT [facility] Blood (Blood, Venous) 05/24/2025 4:21 PM CDT 05/24/2025 4:26 PM CDT us Chris Caamra M.D. LAB BLOOD ADD-ON Fi nal Result Performing Organization Address [facility]/State/ZIP Co de Phone Number [facility] [address] [place] [address], [facility] [place] [address] * Glucose, POCT (05/24/2025 4:01 PM CDT) Glucose, POCT, B 85 70 - 140 mg/dL 05/24/2025 4:01 PM CDT [facility] Blood 05/24/2025 4:01 PM CDT 05/24/2025 4:18 PM CDT us Generic [facility] POCT ORDERABLES-MANUAL Final Result [facility] [address] [place] [address], [address] [address] * Glucose, POCT (05/24/2025 2:20 PM CDT) Glucose, POCT, B 100 70 - 140 mg/dL 05/24/2025 2:20 PM CDT MKTO Blood 05/24/2025 2:20 PM CDT 05/24/2025 2:32 PM CDT us Generic [facility] POCT ORDERABLES-MANUAL Final Result Performing Organization Address City/[facility]/ZIP Co de Phone Number [facility] [address] [place] [address], [address] [address] * Glucose, POCT (05/24/2025 12:04 PM CDT) Glucose, POCT, B 124 70 - 140 mg/dL 05/24/2025 12:04 PM CDT MK[facility] Blood 05/24/2025 12:0 4 PM CDT 05/24/2025 12:13 PM CDT us Generic [facility] POCT ORDERABLES-MANUAL Final Result Performing Organization Address City/[facility]/ZIP Co de Phone Number [facility] [address] [place] [address], [address] [address] * (ABNORMAL) Basic Metabolic Panel (05/24/2025 11:48 AM CDT) Potassium, P 4.3 3.6 - 5.2 mmol/L 05/24/2025 12:27 PM CDT MKTO Sodium, P 137 135 - 145 mmol/L 05/24/2025 12:27 PM CDT MK[facility] Chloride, P 104 98 - 107 mmol/L 05/24/2025 12:27 PM CDT MK[facility] Bicarbonate, P 23 22 - 29 mmol/L 05/24/2025 12:27 PM CDT [facility] Anion Gap, P 10 7 - 15 05/24/2025 12:27 PM CDT [facility] BUN (Blood Urea Nitrogen), P <2(L) 6 - 21 mg/dL 05/24/2025 12:30 PM CDT [facility] Creatinine 0.44(L) 0.59 - 1.04 mg/dL 05/24/2025 12:27 PM CDT [facility] Estimated GFR (eGFR) >90 >=60 mL/min/BSA 05/24/2025 12:27 PM CDT MKTO Comment: Estimated GFR calculated using the 2020 CKD_EPI creatinine equation. Calcium, Total, P 8.7 8.6 - 10.0 mg/dL 05/24/2025 12:27 PM CDT MKTO Glucose, P 114 70 - 140 mg/dL 05/24/2025 12:27 PM CDT MK[facility] Blood (Blood, Venous) 05/24/2025 11:48 AM CDT 05/24/2025 12:07 PM CDT us Chris Camara M.D. LAB BLOOD ADD-ON Fi nal Result [facility] [address] [place] [address], [facility] [place] [address] * Glucose, POCT (05/24/2025 10:14 AM CDT) Glucose, POCT, B 89 70 - 140 mg/dL 05/24/2025 10:14 AM CDT MKTO Blood 05/24/2025 10:1 4 AM CDT 05/24/2025 10:22 AM CDT us Generic [facility] POCT ORDERABLES-MANUAL Final Result [facility] [address] [place] [address], [address] [address] * Glucose, POCT (05/24/2025 8:08 AM CDT) Glucose, POCT, B 127 70 - 140 mg/dL 05/24/2025 8:08 AM CDT MKTO Blood 05/24/2025 8:08 AM CDT 05/24/2025 8:23 AM CDT us Generic [facility] POCT ORDERABLES-MANUAL Final Result [facility] [address] [place] [address], [address] [address] * Glucose, POCT (05/24/2025 6:17 AM CDT) Glucose, POCT, B 84 70 - 140 mg/dL 05/24/2025 6:17 AM CDT MKTO Blood 05/24/2025 6:17 AM CDT 05/24/2025 6:34 AM CDT us Generic [facility] POCT ORDERABLES-MANUAL Final Result [facility] [address] [place] [address], [address] [address] * (ABNORMAL) Basic Metabolic Panel (05/24/2025 6:15 AM CDT) Potassium, P 3.5(L) 3.6 - 5.2 mmol/L 05/24/2025 6:47 AM CDT MKTO Sodium, P 136 135 - 145 mmol/L 05/24/2025 6:47 AM CDT MKTO Chloride, P 104 98 - 107 mmol/L 05/24/2025 6:47 AM CDT MKTO Bicarbonate, P 22 22 - 29 mmol/L 05/24/2025 6:47 AM CDT MKTO Anion Gap, P 10 7 - 15 05/24/2025 6:47 AM CDT [facility] BUN (Blood Urea Nitrogen), P <2(L) 6 - 21 mg/dL 05/24/2025 6:58 AM CDT MKTO Creatinine 0.37(L) 0.59 - 1.04 mg/dL 05/24/2025 6:47 AM CDT MKTO Estimated GFR (eGFR) >90 >=60 mL/min/BSA 05/24/2025 6:47 AM CDT MKTO Comment: Estimated GFR calculated using the 2020 CKD_EPI creatinine equation. Calcium, Total, P 8.9 8.6 - 10.0 mg/dL 05/24/2025 6:47 AM CDT MKTO Glucose, P 86 70 - 140 mg/dL 05/24/2025 6:47 AM CDT MK[facility] Blood (Blood, Venous) 05/24/2025 6:15 AM CDT 05/24/2025 6:22 AM CDT us Chris Camara M.D. LAB BLOOD ADD-ON Fi nal Result [facility] [address] [place] [address], [facility] [place] [address] * (ABNORMAL) Triglycerides (05/24/2025 6:15 AM CDT) Triglycerides 1449(H) mg/dL 05/24/2025 7:06 AM CDT MKTO Comment: ----REFERENCE VALUE---- Normal: <150 mg/dL Borderline High: 150-199 mg/dL High: 200-499 mg/dL Very High: > or =500 mg/dL Fasting (8 HR or more) Unknown 05/24/2025 6:16 AM CDT MK[facility] Blood (Blood, Venous) 05/24/2025 6:15 AM CDT 05/24/2025 6:22 AM CDT us Chris Camara M.D. LAB BLOOD ADD-ON Fi nal Result [facility] [address] [place] [address], [address] [address] * Glucose, POCT (05/24/2025 4:08 AM CDT) Glucose, POCT, B 100 70 - 140 mg/dL 05/24/2025 4:08 AM CDT MKTO Blood 05/24/2025 4:08 AM CDT 05/24/2025 4:20 AM CDT us Generic [facility] POCT ORDERABLES-MANUAL Final Result Performing Organization Address City/[facility]/ZIP Co de Phone Number [facility] [address] [place] [address], [address] [address] * Glucose, POCT (05/24/2025 2:04 AM CDT) Glucose, POCT, B 110 70 - 140 mg/dL 05/24/2025 2:04 AM CDT MKTO Blood 05/24/2025 2:04 AM CDT 05/24/2025 2:13 AM CDT us Generic [facility] POCT ORDERABLES-MANUAL Final Result Performing Organization Address City/[facility]/ZIP Co de Phone Number [facility] [address] [place] [address], [address] [address] * Glucose, POCT (05/24/2025 12:26 AM CDT) Glucose, POCT, B 133 70 - 140 mg/dL 05/24/2025 12:26 AM CDT MK[facility] Blood 05/24/2025 12:2 6 AM CDT 05/24/2025 12:37 AM CDT us Generic [facility] POCT ORDERABLES-MANUAL Final Result [facility] [address] [place] [address], [place] [address] * Glucose, POCT (05/23/2025 10:12 PM CDT) Glucose, POCT, B 85 70 - 140 mg/dL 05/23/2025 10:12 PM CDT MK[facility] Blood 05/23/2025 10:1 2 PM CDT 05/23/2025 10:21 PM CDT us Generic [facility] POCT ORDERABLES-MANUAL Final Result [facility] [address] [place] [address], [address] [address] * (ABNORMAL) Glucose, POCT (05/23/2025 8:08 PM CDT) Glucose, POCT, B 158(H) 70 - 140 mg/dL 05/23/2025 8:08 PM CDT MK[facility] Blood 05/23/2025 8:08 PM CDT 05/23/2025 8:38 PM CDT us Generic [facility] POCT ORDERABLES-MANUAL Final Result [facility] [address] [place] [address], [address] [address] * (ABNORMAL) Basic Metabolic Panel (05/23/2025 7:46 PM CDT) Potassium, P SEE COMMENT 3.6 - 5.2 mmol/L 05/23/2025 8:23 PM CDT MKTO Comment:Specimen was hemolyz ed. Sodium, P 135 135 - 145 mmol/L 05/23/2025 8:21 PM CDT [facility] Chloride, P 102 98 - 107 mmol/L 05/23/2025 8:21 PM CDT [facility] Bicarbonate, P 22 22 - 29 mmol/L 05/23/2025 8:21 PM CDT [facility] Anion Gap, P 11 7 - 15 05/23/2025 8:21 PM CDT [facility] BUN (Blood Urea Nitrogen), P <2(L) 6 - 21 mg/dL 05/23/2025 8:23 PM CDT [facility] Creatinine 0.37(L) 0.59 - 1.04 mg/dL 05/23/2025 8:21 PM CDT [facility] Estimated GFR (eGFR) >90 >=60 mL/min/BS A 05/23/2025 8:21 PM CDT MKTO Comment: Estimated GFR calculated using the 2020 CKD_EPI creatinine equation. Calcium, Total, P 8.9 8.6 - 10.0 mg/dL 05/23/2025 8:21 PM CDT MK[facility] Glucose, P 147(H) 70 - 140 mg/dL 05/23/2025 8:21 PM CDT [facility] Blood (Blood, Venous) 05/23/2025 7:46 PM CDT 05/23/2025 7:56 PM CDT us Epi Jaime P.A.-C., M.S. LAB BLOOD ADD- ON Final Result [facility] [address] [place] [address], [facility] [place] [address] [place] [address] * Glucose, POCT (05/23/2025 6:04 PM CDT) Glucose, POCT, B 84 70 - 140 mg/dL 05/23/2025 6:04 PM CDT [facility] Blood 05/23/2025 6:04 PM CDT 05/23/2025 6:23 PM CDT us Generic Rals LAB POCT ORDERABLES-MANUAL Final Result [facility] [address] [place] [address], [facility] in [place] [address] [place] [id number] * (ABNORMAL) Basic Metabolic Panel (05/23/2025 4:12 PM CDT) Potassium, P 4.1 3.6 - 5.2 mmol/L 05/23/2025 4:42 PM CDT [facility] Sodium, P 136 135 - 145 mmol/L 05/23/2025 4:42 PM CDT [facility] Chloride, P 103 98 - 107 mmol/L 05/23/2025 4:42 PM CDT [facility] Bicarbonate, P 23 22 - 29 mmol/L 05/23/2025 4:42 PM CDT [facility] Anion Gap, P 10 7 - 15 05/23/2025 4:42 PM CDT [facility] BUN (Blood Urea Nitrogen), P <2(L) 6 - 21 mg/dL 05/23/2025 4:43 PM CDT [facility] Creatinine 0.39(L) 0.59 - 1.04 mg/dL 05/23/2025 4:42 PM CDT [facility] Estimated GFR (eGFR) >90 >=60 mL/min/BSA 05/23/2025 4:42 PM CDT [facility] Comment: Estimated GFR calculated using the 2020 CKD_EPI creatinine equation. Calcium, Total, P 9.0 8.6 - 10.0 mg/dL 05/23/2025 4:42 PM CDT [facility] Glucose, P 96 70 - 140 mg/dL 05/23/2025 4:42 PM CDT [facility] Blood (Blood, Venous) 05/23/2025 4:12 PM CDT 05/23/2025 4:15 PM CDT us Epi Jaime P.A.-C., M.S. LAB BLOOD ADD- ON Final Result Performing Organization Address City/[facility]/ZIP Co de Phone Number [facility] [address] [place] [address], [address] [address] * Glucose, POCT (05/23/2025 4:01 PM CDT) Glucose, POCT, B 108 70 - 140 mg/dL 05/23/2025 4:01 PM CDT [facility] Blood 05/23/2025 4:01 PM CDT 05/23/2025 4:13 PM CDT us Generic [facility] LAB POCT ORDERABLES-MANUAL Final Result Performing Organization Address [facility]/ZIP Co de Phone Number [facility] [address] [place] [address], [address] [id number] * Glucose, POCT (05/23/2025 2:02 PM CDT) Glucose, POCT, B 124 70 - 140 mg/dL 05/23/2025 2:02 PM CDT [facility] Blood 05/23/2025 2:02 PM CDT 05/23/2025 2:10 PM CDT us Generic [facility] LAB POCT ORDERABLES-MANUAL Final Result Performing Organization Address City/[facility]/ZIP Co de Phone Number [facility] [address] [place] [address], [address] [address] * Glucose, POCT (05/23/2025 11:59 AM CDT) Glucose, POCT, B 93 70 - 140 mg/dL 05/23/2025 11:59 AM CDT [facility] Blood 05/23/2025 11:5 9 AM CDT 05/23/2025 12:07 PM CDT us Generic [facility] LAB POCT ORDERABLES-MANUAL Final Result [facility] [address] [place] [id number], [facility] in [place] [address] [place] [phone] * (ABNORMAL) Basic Metabolic Panel (05/23/2025 11:56 AM CDT) Potassium, P 3.5(L) 3.6 - 5.2 mmol/L 05/23/2025 12:21 PM CDT [facility] Sodium, P 136 135 - 145 mmol/L 05/23/2025 12:21 PM CDT [facility] Chloride, P 102 98 - 107 mmol/L 05/23/2025 12:21 PM CDT [facility] Bicarbonate, P 24 22 - 29 mmol/L 05/23/2025 12:21 PM CDT [facility] Anion Gap, P 10 7 - 15 05/23/2025 12:21 PM CDT [facility] BUN (Blood Urea Nitrogen), P <2(L) 6 - 21 mg/dL 05/23/2025 12:30 PM CDT [facility] Creatinine 0.41(L) 0.59 - 1.04 mg/dL 05/23/2025 12:21 PM CDT [facility] Estimated GFR (eGFR) >90 >=60 mL/min/BSA 05/23/2025 12:21 PM CDT [facility] Comment: Estimated GFR calculated using the 2020 CKD_EPI creatinine equation. Calcium, Total, P 8.7 8.6 - 10.0 mg/dL 05/23/2025 12:21 PM CDT [facility] Glucose, P 93 70 - 140 mg/dL 05/23/2025 12:21 PM CDT [facility] Blood (Blood, Venous) 05/23/2025 11:56 AM CDT 05/23/2025 12:00 PM CDT us Epi Jaime P.A.-C., M.S. LAB BLOOD ADD- ON Final Result [facility] [address] [place] [address] * Glucose, POCT (05/23/2025 10:02 AM CDT) Glucose, POCT, B 108 70 - 140 mg/dL 05/23/2025 10:02 AM CDT [facility] Blood 05/23/2025 10:0 2 AM CDT 05/23/2025 10:10 AM CDT us Generic Rals LAB POCT ORDERABLES-MANUAL Final Result Performing Organization Address [facility]/ZIP Co de Phone Number [facility] [address] [place] [address], [place] [address] * Glucose, POCT (05/23/2025 7:57 AM CDT) Glucose, POCT, B 114 70 - 140 mg/dL 05/23/2025 7:57 AM CDT [facility] Blood 05/23/2025 7:57 AM CDT 05/23/2025 10:10 AM CDT us Generic Rals LAB POCT ORDERABLES-MANUAL Final Result [facility] [address] [place] [address], [place] [address] * (ABNORMAL) Basic Metabolic Panel (05/23/2025 7:57 AM CDT) Potassium, P 3.8 3.6 - 5.2 mmol/L 05/23/2025 8:54 AM CDT [facility] Sodium, P 135 135 - 145 mmol/L 05/23/2025 8:54 AM CDT [facility] Chloride, P 102 98 - 107 mmol/L 05/23/2025 8:54 AM CDT [facility] Bicarbonate, P 23 22 - 29 mmol/L 05/23/2025 8:54 AM CDT [facility] Anion Gap, P 10 7 - 15 05/23/2025 8:54 AM CDT [facility] BUN (Blood Urea Nitrogen), P <2(L) 6 - 21 mg/dL 05/23/2025 9:22 AM CDT [facility] Creatinine 0.36(L) 0.59 - 1.04 mg/dL 05/23/2025 8:54 AM CDT [facility] Estimated GFR (eGFR) >90 >=60 mL/min/BSA 05/23/2025 8:54 AM CDT [facility] Comment: Estimated GFR calculated using the 2020 CKD_EPI creatinine equation. Calcium, Total, P 8.7 8.6 - 10.0 mg/dL 05/23/2025 8:54 AM CDT [facility] Glucose, P 120 70 - 140 mg/dL 05/23/2025 8:54 AM CDT [facility] Blood (Blood, Venous) 05/23/2025 7:57 AM CDT 05/23/2025 8:34 AM CDT us Epi Jaime P.A.-C., M.S. LAB BLOOD ADD- ON Final Result [facility] [address] [place] [address], [facility] [place] [address] * (ABNORMAL) Glucose, POCT (05/23/2025 6:11 AM CDT) Glucose, POCT, B 192(H) 70 - 140 mg/dL 05/23/2025 6:11 AM CDT [facility] Blood 05/23/2025 6:11 AM CDT 05/23/2025 6:45 AM CDT us Generic Rals LAB POCT ORDERABLES-MANUAL Final Result Performing Organization Address City/[facility]/ZIP Co de Phone Number [facility] [address] [place] [address] * (ABNORMAL) Triglycerides (05/23/2025 4:57 AM CDT) Triglycerides 1752(H) mg/dL 05/23/2025 6:04 AM CDT [facility] Comment: ----REFERENCE VALUE---- Normal: <150 mg/dL Borderline High: 150-199 mg/dL High: 200-499 mg/dL Very High: > or =500 mg/dL Fasting (8 HR or more) Unknown 05/23/2025 4:59 AM CDT [facility] Blood (Blood, Venous) 05/23/2025 4:57 AM CDT 05/23/2025 5:07 AM CDT Epi Jaime P.A.-C., M.S. LAB BLOOD ADD- ON Final Result Performing Organization Address City/[facility]/ZIP Co de Phone Number [facility] [address] [place] [address] * Potassium (05/23/2025 4:57 AM CDT) Potassium, P 3.9 3.6 - 5.2 mmol/L 05/23/2025 5:30 AM CDT [facility] Blood 05/23/2025 4:57 AM CDT 05/23/2025 5:07 AM CDT Chris Camara M.D. LAB BLOOD ADD-ON Fi nal Result Performing Organization Address City/[facility]/ZIP Co de Phone Number [facility] [address] [place] [address] [place] [address] * Glucose, POCT (05/23/2025 4:05 AM CDT) Glucose, POCT, B 89 70 - 140 mg/dL 05/23/2025 4:05 AM CDT [facility] Blood 05/23/2025 4:05 AM CDT 05/23/2025 6:45 AM CDT us Generic Rals LAB POCT ORDERABLES-MANUAL Final Result [facility] [address] [place] [address], [facility] [place] [address] * (ABNORMAL) Basic Metabolic Panel (05/23/2025 4:04 AM CDT) Potassium, P SEE COMMENT 3.6 - 5.2 mmol/L 05/23/2025 4:29 AM CDT [facility] Comment:Specimen was hemolyz ed. Sodium, P 135 135 - 145 mmol/L 05/23/2025 4:36 AM CDT [facility] Chloride, P 103 98 - 107 mmol/L 05/23/2025 4:36 AM CDT [facility] Bicarbonate, P 21(L) 22 - 29 mmol/L 05/23/2025 4:36 AM CDT [facility] Anion Gap, P 11 7 - 15 05/23/2025 4:36 AM CDT [facility] BUN (Blood Urea Nitrogen), P <2(L) 6 - 21 mg/dL 05/23/2025 4:49 AM CDT [facility] Creatinine 0.40(L) 0.59 - 1.04 mg/dL 05/23/2025 4:36 AM CDT [facility] Estimated GFR (eGFR) >90 >=60 mL/min/BS A 05/23/2025 4:36 AM CDT [facility] Comment: Estimated GFR calculated using the 2020 CKD_EPI creatinine equation. Calcium, Total, P 8.9 8.6 - 10.0 mg/dL 05/23/2025 4:36 AM CDT [facility] Glucose, P 91 70 - 140 mg/dL 05/23/2025 4:36 AM CDT [facility] Blood (Blood, Venous) 05/23/2025 4:04 AM CDT 05/23/2025 4:15 AM CDT Epi Jaime P.A.-C., M.S. LAB BLOOD ADD- ON Final Result Performing Organization Address City/[facility]/ZIP Co de Phone Number [facility] [address] [place] [address], [address] [address] * Phosphorus Inorganic (05/23/2025 4:04 AM CDT) Phosphorus (Inorganic), P 3.7 2.5 - 4.5 mg/dL 05/23/2025 4:36 AM CDT [facility] Blood (Blood, Venous) 05/23/2025 4:04 AM CDT 05/23/2025 4:15 AM CDT Chris Camara M.D. LAB BLOOD ADD-ON Fi nal Result Performing Organization Address [facility] Co de Phone Number [facility] [address] [place] [address], [address] [address] * Magnesium (05/23/2025 4:04 AM CDT) Magnesium, P 1.7 1.7 - 2.3 mg/dL 05/23/2025 4:36 AM CDT [facility] Blood (Blood, Venous) 05/23/2025 4:04 AM CDT 05/23/2025 4:15 AM CDT Chris Camara M.D. LAB BLOOD ADD-ON Fi nal Result Performing Organization Address City/[facility] Co de Phone Number [facility] [address] [place] [address], [address] [address] * Glucose, POCT (05/23/2025 2:02 AM CDT) Glucose, POCT, B 120 70 - 140 mg/dL 05/23/2025 2:02 AM CDT [facility] Blood 05/23/2025 2:02 AM CDT 05/23/2025 2:09 AM CDT us Generic Rals LAB POCT ORDERABLES-MANUAL Final Result Performing Organization Address [facility]/ZIP Co de Phone Number [facility] [address] [place] [address], [address] [address] * Glucose, POCT (05/23/2025 12:00 AM CDT) Glucose, POCT, B 94 70 - 140 mg/dL 05/23/2025 12:00 AM CDT [facility] Blood 05/23/2025 05/23/2025 12: 10 AM CDT us Generic Rals LAB POCT ORDERABLES-MANUAL Final Result Performing Organization Address City/[facility]/ZIP Co de Phone Number [facility] [address] [place] [address], [address] [address] * (ABNORMAL) Basic Metabolic Panel (05/22/2025 11:58 PM CDT) Potassium, P SEE COMMENT 3.6 - 5.2 mmol/L 05/23/2025 12:45 AM CDT [facility] Comment:Specimen was icteric . Sodium, P 137 135 - 145 mmol/L 05/23/2025 12:24 AM CDT [facility] Chloride, P 104 98 - 107 mmol/L 05/23/2025 12:24 AM CDT [facility] Bicarbonate, P 23 22 - 29 mmol/L 05/23/2025 12:24 AM CDT [facility] Anion Gap, P 10 7 - 15 05/23/2025 12:24 AM CDT [facility] BUN (Blood Urea Nitrogen), P <2(L) 6 - 21 mg/dL 05/23/2025 12:45 AM CDT [facility] Creatinine 0.42(L) 0.59 - 1.04 mg/dL 05/23/2025 12:24 AM CDT [facility] Estimated GFR (eGFR) >90 >=60 mL/min/BS A 05/23/2025 12:24 AM CDT [facility] Comment: Estimated GFR calculated using the 2020 CKD_EPI creatinine equation. Calcium, Total, P 8.9 8.6 - 10.0 mg/dL 05/23/2025 12:24 AM CDT [facility] Glucose, P 93 70 - 140 mg/dL 05/23/2025 12:24 AM CDT [facility] Blood (Blood, Venous) 05/22/2025 11:58 PM CDT 05/23/2025 12:04 AM CDT us Epi Jaime P.A.-C., M.S. LAB BLOOD ADD- ON Final Result [facility] [address] [place] [address], [facility] [place] [address] * Glucose, POCT (05/22/2025 9:44 PM CDT) Glucose, POCT, B 104 70 - 140 mg/dL 05/22/2025 9:44 PM CDT [facility] Blood 05/22/2025 9:44 PM CDT 05/22/2025 9:50 PM CDT us Generic Rals LAB POCT ORDERABLES-MANUAL Final Result [facility] [address] [place] [address], [place] [address], [facility] in [place] [address] [place] [address] * (ABNORMAL) Basic Metabolic Panel (05/22/2025 7:56 PM CDT) Potassium, P 4.2 3.6 - 5.2 mmol/L 05/22/2025 8:19 PM CDT [facility] Sodium, P 136 135 - 145 mmol/L 05/22/2025 8:19 PM CDT [facility] Chloride, P 104 98 - 107 mmol/L 05/22/2025 8:19 PM CDT [facility] Bicarbonate, P 22 22 - 29 mmol/L 05/22/2025 8:19 PM CDT [facility] Anion Gap, P 10 7 - 15 05/22/2025 8:19 PM CDT [facility] BUN (Blood Urea Nitrogen), P <2(L) 6 - 21 mg/dL 05/22/2025 8:27 PM CDT [facility] Creatinine 0.42(L) 0.59 - 1.04 mg/dL 05/22/2025 8:19 PM CDT [facility] Estimated GFR (eGFR) >90 >=60 mL/min/BSA 05/22/2025 8:19 PM CDT [facility] Comment: Estimated GFR calculated using the 2020 CKD_EPI creatinine equation. Calcium, Total, P 8.8 8.6 - 10.0 mg/dL 05/22/2025 8:19 PM CDT [facility] Glucose, P 109 70 - 140 mg/dL 05/22/2025 8:19 PM CDT [facility] Blood (Blood, Venous) 05/22/2025 7:56 PM CDT 05/22/2025 7:59 PM CDT us Leela Downey M.D. LAB BLOOD ADD-ON Final Result [facility] [address] [place] [address], [place] in [address] [address] * Glucose, POCT (05/22/2025 7:33 PM CDT) Glucose, POCT, B 104 70 - 140 mg/dL 05/22/2025 7:33 PM CDT [facility] Blood 05/22/2025 7:33 PM CDT 05/22/2025 7:50 PM CDT Generic Rals LAB POCT ORDERABLES-MANUAL Final Result Performing Organization Address City/[facility]/ZIP Co de Phone Number [facility] [address] [place] [address], [place] [address] * (ABNORMAL) Glucose, POCT (05/22/2025 5:31 PM CDT) Glucose, POCT, B 147(H) 70 - 140 mg/dL 05/22/2025 5:31 PM CDT [facility] Blood 05/22/2025 5:31 PM CDT 05/22/2025 5:40 PM CDT [facility] LAB POCT ORDERABLES-MANUAL Final Result Performing Organization Address City/[facility] Co de Phone Number [facility] [address] [place] [address], [address] [address] * (ABNORMAL) Triglycerides (05/22/2025 3:53 PM CDT) Triglycerides 2031(H) mg/dL 05/22/2025 4:49 PM CDT [facility] Comment: ----REFERENCE VALUE---- Normal: <150 mg/dL Borderline High: 150-199 mg/dL High: 200-499 mg/dL Very High: > or =500 mg/dL Fasting (8 HR or more) No 05/22/2025 3:53 PM CDT [facility] Blood (Blood, Venous) 05/22/2025 3:53 PM CDT 05/22/2025 3:56 PM CDT us Leela Downey M.D. LAB BLOOD ADD-ON Final Result [facility] [address] [place] [address], [facility] in [place] [address] [place] [address] * (ABNORMAL) Basic Metabolic Panel (05/22/2025 3:53 PM CDT) Potassium, P 3.9 3.6 - 5.2 mmol/L 05/22/2025 4:22 PM CDT [facility] Sodium, P 136 135 - 145 mmol/L 05/22/2025 4:22 PM CDT [facility] Chloride, P 105 98 - 107 mmol/L 05/22/2025 4:22 PM CDT [facility] Bicarbonate, P 22 22 - 29 mmol/L 05/22/2025 4:22 PM CDT [facility] Anion Gap, P 9 7 - 15 05/22/2025 4:22 PM CDT [facility] BUN (Blood Urea Nitrogen), P <2(L) 6 - 21 mg/dL 05/22/2025 4:30 PM CDT [facility] Creatinine 0.39(L) 0.59 - 1.04 mg/dL 05/22/2025 4:22 PM CDT [facility] Estimated GFR (eGFR) >90 >=60 mL/min/BSA 05/22/2025 4:22 PM CDT [facility] Comment: Estimated GFR calculated using the 2020 CKD_EPI creatinine equation. Calcium, Total, P 8.5(L) 8.6 - 10.0 mg/dL 05/22/2025 4:22 PM CDT [facility] Glucose, P 98 70 - 140 mg/dL 05/22/2025 4:22 PM CDT [facility] Blood (Blood, Venous) 05/22/2025 3:53 PM CDT 05/22/2025 3:56 PM CDT us Leela Downey M.D. LAB BLOOD ADD-ON Final Result [facility] [address] [place] [address], [address] [address] * Glucose, POCT (05/22/2025 3:25 PM CDT) Glucose, POCT, B 99 70 - 140 mg/dL 05/22/2025 3:25 PM CDT [facility] Blood 05/22/2025 3:25 PM CDT 05/22/2025 3:42 PM CDT us Generic Rals LAB POCT ORDERABLES-MANUAL Final Result [facility] [address] [place] [address], [address] [address] * Glucose, POCT (05/22/2025 1:46 PM CDT) Glucose, POCT, B 107 70 - 140 mg/dL 05/22/2025 1:46 PM CDT [facility] Blood 05/22/2025 1:46 PM CDT 05/22/2025 1:59 PM CDT Generic [facility]als LAB POCT ORDERABLES-MANUAL Final Result [facility] [address] [place] [address], [place] [address] * (ABNORMAL) Basic Metabolic Panel (05/22/2025 11:56 AM CDT) Potassium, P 3.4(L) 3.6 - 5.2 mmol/L 05/22/2025 12:51 PM CDT [facility] Sodium, P 136 135 - 145 mmol/L 05/22/2025 12:51 PM CDT [facility] Chloride, P 104 98 - 107 mmol/L 05/22/2025 12:51 PM CDT [facility] Bicarbonate, P 20(L) 22 - 29 mmol/L 05/22/2025 12:51 PM CDT [facility] Anion Gap, P 12 7 - 15 05/22/2025 12:51 PM CDT [facility] BUN (Blood Urea Nitrogen), P <2(L) 6 - 21 mg/dL 05/22/2025 1:14 PM CDT [facility] Creatinine 0.36(L) 0.59 - 1.04 mg/dL 05/22/2025 12:51 PM CDT [facility] Estimated GFR (eGFR) >90 >=60 mL/min/BSA 05/22/2025 12:51 PM CDT [facility] Comment: Estimated GFR calculated using the 2020 CKD_EPI creatinine equation. Calcium, Total, P 8.4(L) 8.6 - 10.0 mg/dL 05/22/2025 12:51 PM CDT [facility] Glucose, P 101 70 - 140 mg/dL 05/22/2025 12:51 PM CDT [facility] Blood (Blood, Venous) 05/22/2025 11:56 AM CDT 05/22/2025 12:27 PM CDT us Leela Downey M.D. LAB BLOOD ADD-ON Final Result Performing Organization Address City/[facility]/ZIP Co de Phone Number [facility] [address] [place] [address] * Glucose, POCT (05/22/2025 11:19 AM CDT) Glucose, POCT, B 120 70 - 140 mg/dL 05/22/2025 11:19 AM CDT [facility] Blood 05/22/2025 11:1 9 AM CDT 05/22/2025 11:29 AM CDT us Generic [facility]als LAB POCT ORDERABLES-MANUAL Final Result [facility] [address] [place] [address], [address] [address] * Glucose, POCT (05/22/2025 9:22 AM CDT) Glucose, POCT, B 114 70 - 140 mg/dL 05/22/2025 9:22 AM CDT [facility] Blood 05/22/2025 9:22 AM CDT 05/22/2025 9:45 AM CDT us Generic [facility]als LAB POCT ORDERABLES-MANUAL Final Result [facility] [address] [place] [address], [facility] in [address] [address] * (ABNORMAL) Basic Metabolic Panel (05/22/2025 8:15 AM CDT) Potassium, P 3.6 3.6 - 5.2 mmol/L 05/22/2025 8:50 AM CDT [facility] Sodium, P 135 135 - 145 mmol/L 05/22/2025 8:50 AM CDT [facility] Chloride, P 104 98 - 107 mmol/L 05/22/2025 8:50 AM CDT [facility] Bicarbonate, P 19(L) 22 - 29 mmol/L 05/22/2025 8:50 AM CDT [facility] Anion Gap, P 12 7 - 15 05/22/2025 8:50 AM CDT [facility] BUN (Blood Urea Nitrogen), P <2(L) 6 - 21 mg/dL 05/22/2025 9:06 AM CDT [facility] Creatinine 0.38(L) 0.59 - 1.04 mg/dL 05/22/2025 8:50 AM CDT [facility] Estimated GFR (eGFR) >90 >=60 mL/min/BSA 05/22/2025 8:50 AM CDT [facility] Comment: Estimated GFR calculated using the 2020 CKD_EPI creatinine equation. Calcium, Total, P 8.4(L) 8.6 - 10.0 mg/dL 05/22/2025 8:50 AM CDT [facility] Glucose, P 101 70 - 140 mg/dL 05/22/2025 8:50 AM CDT [facility] Blood (Blood, Venous) 05/22/2025 8:15 AM CDT 05/22/2025 8:22 AM CDT us Leela Downey M.D. LAB BLOOD ADD-ON Final Result Performing Organization Address City/[facility]/ZIP Co de Phone Number [facility] [address] [place] [address], [address] [address] * Glucose, POCT (05/22/2025 7:53 AM CDT) Glucose, POCT, B 106 70 - 140 mg/dL 05/22/2025 7:53 AM CDT [facility] Blood 05/22/2025 7:53 AM CDT 05/22/2025 8:01 AM CDT us Generic [facility] LAB POCT ORDERABLES-MANUAL Final Result Performing Organization Address [facility]/ZIP Co de Phone Number [facility] [address] [place] [address], [address] [address] * Glucose, POCT (05/22/2025 6:47 AM CDT) Glucose, POCT, B 108 70 - 140 mg/dL 05/22/2025 6:47 AM CDT [facility] Blood 05/22/2025 6:47 AM CDT 05/22/2025 6:56 AM CDT us Generic [facility] LAB POCT ORDERABLES-MANUAL Final Result [facility] [address] [place] [address], [address] [address] * Glucose, POCT (05/22/2025 5:25 AM CDT) Glucose, POCT, B 105 70 - 140 mg/dL 05/22/2025 5:25 AM CDT [facility] Blood 05/22/2025 5:25 AM CDT 05/22/2025 5:33 AM CDT us Generic [facility] LAB POCT ORDERABLES-MANUAL Final Result [facility] [address] [place] [address], [facility] [address] [place] [address] * (ABNORMAL) Potassium (05/22/2025 5:13 AM CDT) Potassium, P 3.5(L) 3.6 - 5.2 mmol/L 05/22/2025 5:34 AM CDT [facility] Blood 05/22/2025 5:13 AM CDT 05/22/2025 5:16 AM CDT us Leela Downey M.D. LAB BLOOD ADD-ON Final Result [facility] [address] [place] [address], [facility] [address] [place] [address] * Glucose, POCT (05/22/2025 4:49 AM CDT) Glucose, POCT, B 107 70 - 140 mg/dL 05/22/2025 4:49 AM CDT [facility] Blood 05/22/2025 4:49 AM CDT 05/22/2025 4:56 AM CDT us Generic [facility] LAB POCT ORDERABLES-MANUAL Final Result [facility] [address] [place] [address], [place] [address] [address] * (ABNORMAL) Triglycerides (05/22/2025 3:57 AM CDT) Triglycerides 2144(H) mg/dL 05/22/2025 4:58 AM CDT MK Comment: ----REFERENCE VALUE---- Normal: <150 mg/dL Borderline High: 150-199 mg/dL High: 200-499 mg/dL Very High: > or =500 mg/dL Fasting (8 HR or more) Unknown 05/22/2025 4:00 AM CDT [facility] Blood (Blood, Venous) 05/22/2025 3:57 AM CDT 05/22/2025 4:19 AM CDT Leela Downey M.D. LAB BLOOD ADD-ON Final Result [facility] [address] [place] [address], [place] [address] * (ABNORMAL) Basic Metabolic Panel (05/22/2025 3:57 AM CDT) Pathologist [facility] Potassium, P SEE COMMENT 3.6 - 5.2 mmol/L 05/22/2025 4:57 AM CDT MKTO Comment:Specimen was hemolyz ed. Sodium, P 135 135 - 145 mmol/L 05/22/2025 4:40 AM CDT [facility] Chloride, P 105 98 - 107 mmol/L 05/22/2025 4:40 AM CDT [facility] Bicarbonate, P 19(L) 22 - 29 mmol/L 05/22/2025 4:40 AM CDT [facility] Anion Gap, P 11 7 - 15 05/22/2025 4:40 AM CDT [facility] BUN (Blood Urea Nitrogen), P <2(L) 6 - 21 mg/dL 05/22/2025 4:58 AM CDT [facility] Creatinine 0.35(L) 0.59 - 1.04 mg/dL 05/22/2025 4:40 AM CDT [facility] Estimated GFR (eGFR) >90 >=60 mL/min/BS A 05/22/2025 4:40 AM CDT MKTO Comment: Estimated GFR calculated using the 2020 CKD_EPI creatinine equation. Calcium, Total, P 8.4(L) 8.6 - 10.0 mg/dL 05/22/2025 4:40 AM CDT [facility] Glucose, P 109 70 - 140 mg/dL 05/22/2025 4:40 AM CDT [facility] Blood (Blood, Venous) 05/22/2025 3:57 AM CDT 05/22/2025 4:19 AM CDT us Leela Downey M.D. LAB BLOOD ADD-ON Final Result [facility] [address] [place] [address] * Glucose, POCT (05/22/2025 3:35 AM CDT) Glucose, POCT, B 112 70 - 140 mg/dL 05/22/2025 3:35 AM CDT [facility] Blood 05/22/2025 3:35 AM CDT 05/22/2025 3:41 AM CDT us Generic [facility] LAB POCT ORDERABLES-MANUAL Final Result Performing Organization Address City/[facility]/ZIP Co de Phone Number [facility] [address] [place] [address], [place] [address] * Glucose, POCT (05/22/2025 2:40 AM CDT) Glucose, POCT, B 114 70 - 140 mg/dL 05/22/2025 2:40 AM CDT [facility] Blood 05/22/2025 2:40 AM CDT 05/22/2025 2:53 AM CDT us Generic [facility] LAB POCT ORDERABLES-MANUAL Final Result Performing Organization Address City/[facility]/ZIP Co de Phone Number [facility] [address] [place] [address] * Glucose, POCT (05/22/2025 1:29 AM CDT) Glucose, POCT, B 115 70 - 140 mg/dL 05/22/2025 1:29 AM CDT [facility] Blood 05/22/2025 1:29 AM CDT 05/22/2025 1:39 AM CDT Generic [facility] LAB POCT ORDERABLES-MANUAL Final Result Performing Organization Address [facility] Co de Phone Number [facility] [address] [place] [address], [place] [address] * (ABNORMAL) Basic Metabolic Panel (05/22/2025 12:39 AM CDT) Potassium, P SEE COMMENT 3.6 - 5.2 mmol/L 05/22/2025 1:09 AM CDT MKTO Comment:Specimen was hemolyz ed. Sodium, P 133(L) 135 - 145 mmol/L 05/22/2025 1:14 AM CDT [facility] Chloride, P 103 98 - 107 mmol/L 05/22/2025 1:14 AM CDT [facility] Bicarbonate, P 20(L) 22 - 29 mmol/L 05/22/2025 1:14 AM CDT [facility] Anion Gap, P 10 7 - 15 05/22/2025 1:14 AM CDT [facility] BUN (Blood Urea Nitrogen), P <2(L) 6 - 21 mg/dL 05/22/2025 1:34 AM CDT [facility] Creatinine 0.34(L) 0.59 - 1.04 mg/dL 05/22/2025 1:14 AM CDT [facility] Estimated GFR (eGFR) >90 >=60 mL/min/BS A 05/22/2025 1:14 AM CDT MK[facility] Comment: Estimated GFR calculated using the 2020 CKD_EPI creatinine equation. Calcium, Total, P 8.5(L) 8.6 - 10.0 mg/dL 05/22/2025 1:14 AM CDT [facility] Glucose, P 114 70 - 140 mg/dL 05/22/2025 1:14 AM CDT [facility] Blood (Blood, Venous) 05/22/2025 12:39 AM CDT 05/22/2025 12:47 AM CDT us Leela Downey M.D. LAB BLOOD ADD-ON Final Result [facility] [address] [place] [address] * Glucose, POCT (05/22/2025 12:27 AM CDT) Glucose, POCT, B 116 70 - 140 mg/dL 05/22/2025 12:27 AM CDT [facility] Blood 05/22/2025 12:2 7 AM CDT 05/22/2025 12:34 AM CDT us Generic [facility] LAB POCT ORDERABLES-MANUAL Final Result [facility] [address] [place] [address], [place] [address] * Glucose, POCT (05/21/2025 11:22 PM CDT) Glucose, POCT, B 126 70 - 140 mg/dL 05/21/2025 11:22 PM CDT [facility] Blood 05/21/2025 11:2 2 PM CDT 05/21/2025 11:32 PM CDT us Generic [facility] LAB POCT ORDERABLES-MANUAL Final Result Performing Organization Address [facility]/ZIP Co de Phone Number [facility] [address] [place] [id number], [address] [address] * (ABNORMAL) Glucose, POCT (05/21/2025 10:36 PM CDT) Glucose, POCT, B 144(H) 70 - 140 mg/dL 05/21/2025 10:36 PM CDT MKTO Blood 05/21/2025 10:3 6 PM CDT 05/21/2025 11:32 PM CDT us Generic Rals LAB POCT ORDERABLES-MANUAL Final Result Performing Organization Address [facility]/ZIP Co de Phone Number [facility] [address] [place] [id number], [address] [address] * Glucose, POCT (05/21/2025 9:39 PM CDT) Glucose, POCT, B 119 70 - 140 mg/dL 05/21/2025 9:39 PM CDT MKTO Blood 05/21/2025 9:39 PM CDT 05/21/2025 9:49 PM CDT us Generic Rals LAB POCT ORDERABLES-MANUAL Final Result Performing Organization Address City/[facility]/ZIP Co de Phone Number [facility] [address] [place] [phone], [address] [id number] * Glucose, POCT (05/21/2025 8:31 PM CDT) Glucose, POCT, B 115 70 - 140 mg/dL 05/21/2025 8:31 PM CDT [facility] Blood 05/21/2025 8:31 PM CDT 05/21/2025 8:38 PM CDT us Generic [facility]als LAB POCT ORDERABLES-MANUAL Final Result [facility] [address] [place] [address], [place] [facility] in [place] [address] [place] [address] * (ABNORMAL) Basic Metabolic Panel (05/21/2025 8:21 PM CDT) Potassium, P 3.8 3.6 - 5.2 mmol/L 05/21/2025 8:49 PM CDT [facility] Sodium, P 132(L) 135 - 145 mmol/L 05/21/2025 8:49 PM CDT [facility] Chloride, P 101 98 - 107 mmol/L 05/21/2025 8:49 PM CDT [facility] Bicarbonate, P 20(L) 22 - 29 mmol/L 05/21/2025 8:49 PM CDT [facility] Anion Gap, P 11 7 - 15 05/21/2025 8:49 PM CDT [facility] BUN (Blood Urea Nitrogen), P <2(L) 6 - 21 mg/dL 05/21/2025 8:54 PM CDT [facility] Creatinine 0.38(L) 0.59 - 1.04 mg/dL 05/21/2025 8:49 PM CDT [facility] Estimated GFR (eGFR) >90 >=60 mL/min/BSA 05/21/2025 8:49 PM CDT [facility] Comment: Estimated GFR calculated using the 2020 CKD_EPI creatinine equation. Calcium, Total, P 8.6 8.6 - 10.0 mg/dL 05/21/2025 8:49 PM CDT [facility] Glucose, P 112 70 - 140 mg/dL 05/21/2025 8:49 PM CDT [facility] Blood (Blood, Venous) 05/21/2025 8:21 PM CDT 05/21/2025 8:24 PM CDT us Leela Downey M.D. LAB BLOOD ADD-ON Final Result [facility] [address] [place] [phone], [facility] [address] [place] [id number] * Glucose, POCT (05/21/2025 7:37 PM CDT) Glucose, POCT, B 104 70 - 140 mg/dL 05/21/2025 7:37 PM CDT MKTO Blood 05/21/2025 7:37 PM CDT 05/21/2025 7:44 PM CDT us Generic Rals LAB POCT ORDERABLES-MANUAL Final Result [facility] [address] [place] [phone], [address] [id number] * Glucose, POCT (05/21/2025 6:29 PM CDT) Glucose, POCT, B 140 70 - 140 mg/dL 05/21/2025 6:29 PM CDT [facility]TO Blood 05/21/2025 6:29 PM CDT 05/21/2025 6:39 PM CDT us Generic Rals LAB POCT ORDERABLES-MANUAL Final Result [facility] [address] [place] [id number], [address] [id number] * Glucose, POCT (05/21/2025 5:31 PM CDT) Glucose, POCT, B 130 70 - 140 mg/dL 05/21/2025 5:31 PM CDT MKTO Blood 05/21/2025 5:31 PM CDT 05/21/2025 6:39 PM CDT us Generic [facility] POCT ORDERABLES-MANUAL Final Result Performing Organization Address [facility]/ZIP Co de Phone Number [facility] [address] [place] [address], [place] [address] * (ABNORMAL) Glucose, POCT (05/21/2025 4:20 PM CDT) Glucose, POCT, B 151(H) 70 - 140 mg/dL 05/21/2025 4:20 PM CDT MKTO Blood 05/21/2025 4:20 PM CDT 05/21/2025 6:39 PM CDT us Generic [facility] POCT ORDERABLES-MANUAL Final Result Performing Organization Address [facility] Co de Phone Number [facility] [address] [place] [address], [place] [address] * (ABNORMAL) Triglycerides (05/21/2025 4:01 PM CDT) Triglycerides 2903(H) mg/dL 05/21/2025 4:56 PM CDT MKTO Comment: ----REFERENCE VALUE---- Normal: <150 mg/dL Borderline High: 150-199 mg/dL High: 200-499 mg/dL Very High: > or =500 mg/dL Fasting (8 HR or more) No 05/21/2025 4:02 PM CDT TO Blood (Blood, Venous) 05/21/2025 4:01 PM CDT 05/21/2025 4:18 PM CDT us Leela Downey M.D. LAB BLOOD ADD-ON Final Result Performing Organization Address City/[facility]/ZIP Co de Phone Number [facility] [address] [place] [address], [place] [address] * (ABNORMAL) Basic Metabolic Panel (05/21/2025 4:01 PM CDT) Potassium, P 4.2 3.6 - 5.2 mmol/L 05/21/2025 4:56 PM CDT MKTO Sodium, P 133(L) 135 - 145 mmol/L 05/21/2025 4:56 PM CDT MKTO Chloride, P 102 98 - 107 mmol/L 05/21/2025 4:56 PM CDT [facility] Bicarbonate, P 18(L) 22 - 29 mmol/L 05/21/2025 4:56 PM CDT MKTO Anion Gap, P 13 7 - 15 05/21/2025 4:56 PM CDT [facility] BUN (Blood Urea Nitrogen), P <2(L) 6 - 21 mg/dL 05/21/2025 4:56 PM CDT MKTO Creatinine 0.37(L) 0.59 - 1.04 mg/dL 05/21/2025 4:56 PM CDT MKTO Estimated GFR (eGFR) >90 >=60 mL/min/BSA 05/21/2025 4:56 PM CDT MKTO Comment: Estimated GFR calculated using the 2020 CKD_EPI creatinine equation. Calcium, Total, P 8.5(L) 8.6 - 10.0 mg/dL 05/21/2025 4:56 PM CDT MKTO Glucose, P 162(H) 70 - 140 mg/dL 05/21/2025 4:56 PM CDT MKTO Blood (Blood, Venous) 05/21/2025 4:01 PM CDT 05/21/2025 4:18 PM CDT us Leela Downey M.D. LAB BLOOD ADD-ON Final Result [facility] [address] [place] [address], [facility] in [place] [address] [place] [address] * (ABNORMAL) Glucose, POCT (05/21/2025 3:02 PM CDT) Glucose, POCT, B 193(H) 70 - 140 mg/dL 05/21/2025 3:02 PM CDT MKTO Blood 05/21/2025 3:02 PM CDT 05/21/2025 6:39 PM CDT Generic [facility] POCT ORDERABLES-MANUAL Final Result Performing Organization Address City/[facility]/ZIP Co de Phone Number [facility] [address] [place] [phone], [address] [address] * Glucose, POCT (05/21/2025 12:22 PM CDT) Glucose, POCT, B 95 70 - 140 mg/dL 05/21/2025 12:22 PM CDT MKTO Blood 05/21/2025 12:2 2 PM CDT 05/21/2025 12:42 PM CDT Generic [facility] LAB POCT ORDERABLES-MANUAL Final Result Performing Organization Address City/[facility]/ZIP Co de Phone Number [facility] [address] [place] [address], [address] [address] * (ABNORMAL) Basic Metabolic Panel (05/21/2025 11:42 AM CDT) Potassium, P 3.4(L) 3.6 - 5.2 mmol/L 05/21/2025 12:25 PM CDT MKTO Sodium, P 133(L) 135 - 145 mmol/L 05/21/2025 12:25 PM CDT MK[facility] Chloride, P 100 98 - 107 mmol/L 05/21/2025 12:25 PM CDT MK[facility] Bicarbonate, P 11(L) 22 - 29 mmol/L 05/21/2025 12:26 PM CDT MKTO Anion Gap, P 22(H) 7 - 15 05/21/2025 12:26 PM CDT [facility] BUN (Blood Urea Nitrogen), P <2(L) 6 - 21 mg/dL 05/21/2025 12:26 PM CDT MK[facility] Creatinine 0.42(L) 0.59 - 1.04 mg/dL 05/21/2025 12:25 PM CDT MKTO Estimated GFR (eGFR) >90 >=60 mL/min/BSA 05/21/2025 12:25 PM CDT MKTO Comment: Estimated GFR calculated using the 2020 CKD_EPI creatinine equation. Calcium, Total, P 8.5(L) 8.6 - 10.0 mg/dL 05/21/2025 12:25 PM CDT MK[facility] Glucose, P 97 70 - 140 mg/dL 05/21/2025 12:25 PM CDT MKTO Blood (Blood, Venous) 05/21/2025 11:42 AM CDT 05/21/2025 11:56 AM CDT us Leela Downey M.D. LAB BLOOD ADD-ON Final Result Performing Organization Address City/[facility]/ZIP Co de Phone Number [facility] [address] [place] [address] * Glucose, POCT (05/21/2025 10:49 AM CDT) Glucose, POCT, B 120 70 - 140 mg/dL 05/21/2025 10:49 AM CDT TO Blood 05/21/2025 10:4 9 AM CDT 05/21/2025 12:42 PM CDT us Generic [facility] POCT ORDERABLES-MANUAL Final Result [facility] [address] [place] [address] * Glucose, POCT (05/21/2025 9:44 AM CDT) Glucose, POCT, B 122 70 - 140 mg/dL 05/21/2025 9:44 AM CDT MKTO Blood 05/21/2025 9:44 AM CDT 05/21/2025 12:42 PM CDT us Generic [facility] POCT ORDERABLES-MANUAL Final Result Performing Organization Address City/[facility]/ZIP Co de Phone Number [facility] [address] [place] [address], [address] [address] * Glucose, POCT (05/21/2025 8:37 AM CDT) Glucose, POCT, B 119 70 - 140 mg/dL 05/21/2025 8:37 AM CDT MKTO Blood 05/21/2025 8:37 AM CDT 05/21/2025 8:44 AM CDT us Generic [facility] POCT ORDERABLES-MANUAL Final Result Performing Organization Address City/[facility]/ZIP Co de Phone Number [facility] [address] [place] [address], [address] [address] * (ABNORMAL) Basic Metabolic Panel (05/21/2025 8:19 AM CDT) Potassium, P 3.3(L) 3.6 - 5.2 mmol/L 05/21/2025 9:21 AM CDT MKTO Sodium, P 134(L) 135 - 145 mmol/L 05/21/2025 9:21 AM CDT MKTO Chloride, P 99 98 - 107 mmol/L 05/21/2025 9:21 AM CDT MK[facility] Bicarbonate, P 23 22 - 29 mmol/L 05/21/2025 9:21 AM CDT MKTO Anion Gap, P 12 7 - 15 05/21/2025 9:21 AM CDT [facility] BUN (Blood Urea Nitrogen), P <2(L) 6 - 21 mg/dL 05/21/2025 9:22 AM CDT MKTO Creatinine 0.32(L) 0.59 - 1.04 mg/dL 05/21/2025 9:21 AM CDT MKTO Estimated GFR (eGFR) >90 >=60 mL/min/BSA 05/21/2025 9:21 AM CDT MKTO Comment: Estimated GFR calculated using the 2020 CKD_EPI creatinine equation. Calcium, Total, P 8.7 8.6 - 10.0 mg/dL 05/21/2025 9:21 AM CDT MKTO Glucose, P 95 70 - 140 mg/dL 05/21/2025 9:21 AM CDT MKTO Blood (Blood, Venous) 05/21/2025 8:19 AM CDT 05/21/2025 8:37 AM CDT us Leela Downey M.D. LAB BLOOD ADD-ON Final Result Performing Organization Address City/[facility]/ZIP Co de Phone Number [facility] [address] [place] [address] * Glucose, POCT (05/21/2025 7:43 AM CDT) Glucose, POCT, B 140 70 - 140 mg/dL 05/21/2025 7:43 AM CDT MKTO Blood 05/21/2025 7:43 AM CDT 05/21/2025 12:42 PM CDT us Generic [facility] POCT ORDERABLES-MANUAL Final Result [facility] [address] [place] [address] * Glucose, POCT (05/21/2025 6:24 AM CDT) Glucose, POCT, B 119 70 - 140 mg/dL 05/21/2025 6:24 AM CDT MKTO Blood 05/21/2025 6:24 AM CDT 05/21/2025 6:34 AM CDT us Generic [facility] POCT ORDERABLES-MANUAL Final Result Performing Organization Address [facility] Co de Phone Number [facility] [place] [address], [facility] [address] [place] [phone] * (ABNORMAL) Morphology Evaluation (05/21/2025 5:46 AM CDT) RBC Morphology See Specific Findings 05/21/2025 7:06 AM CDT MKTO PLT Morphology See Specific Findings 05/21/2025 7:06 AM CDT MKTO PLT Estimate Adequate Adequate 05/21/2025 7:06 AM CDT MKTO Anisocytosis Slight(A) 05/21/2025 7:06 AM CDT MKTO Large PLT Present(A) Not Seen 05/21/2025 7:06 AM CDT MKTO Blood 05/21/2025 5:46 AM CDT 05/21/2025 5:50 AM CDT us Leela Downey M.D. LAB BLOOD ADD-ON Final Result Performing Organization Address [facility] Co de Phone Number [facility] [address] [place] [address], [facility] [address] [place] [address] * (ABNORMAL) CBC with Differential, Blood (05/21/2025 5:46 AM CDT) Hemoglobin 12.3 11.6 - 15.0 g/dL 05/21/2025 7:05 AM CDT MKTO Comment:Count approximate, i nterfering substance present. Hematocrit 31.0(L) 35.5 - 44.9 % 05/21/2025 7:05 AM CDT MKTO Erythrocytes 4.51 3.92 - 5.13 x10(12)/L 05/21/2025 7:05 AM CDT MKTO Comment:Count approximate, i nterfering substance present. MCV 68.7(L) 78.2 - 97.9 fL 05/21/2025 7:05 AM CDT MKTO RBC Distrib Width 16.7(H) 12.2 - 16.1 % 05/21/2025 7:05 AM CDT MKTO Platelet Count 248 157 - 371 x10(9)/L 05/21/2025 7:05 AM CDT MKTO Leukocytes 6.4 3.4 - 9.6 x10(9)/L 05/21/2025 7:05 AM CDT MKTO Neutrophils 3.54 1.56 - 6.45 x10(9)/L 05/21/2025 7:05 AM CDT MKTO Lymphocytes 2.12 0.95 - 3.07 x10(9)/L 05/21/2025 7:05 AM CDT MKTO Monocytes 0.47 0.26 - 0.81 x10(9)/L 05/21/2025 7:05 AM CDT MKTO Eosinophils 0.23 0.03 - 0.48 x10(9)/L 05/21/2025 7:05 AM CDT MKTO Basophils 0.05 0.01 - 0.08 x10(9)/L 05/21/2025 7:05 AM CDT MKTO Blood 05/21/2025 5:46 AM CDT 05/21/2025 5:50 AM CDT us Leela Downey M.D. LAB BLOOD ADD-ON Final Result [facility] [address] [place] [address], [facility] [address] * Glucose, POCT (05/21/2025 5:23 AM CDT) Glucose, POCT, B 118 70 - 140 mg/dL 05/21/2025 5:23 AM CDT MKTO Blood 05/21/2025 5:23 AM CDT 05/21/2025 5:31 AM CDT us Generic [facility] POCT ORDERABLES-MANUAL Final Result Performing Organization Address City/[facility]/ZIP Co de Phone Number [facility] [address] [place] [address], [place] [address] * (ABNORMAL) Magnesium (05/21/2025 4:26 AM CDT) Magnesium, P 1.6(L) 1.7 - 2.3 mg/dL 05/21/2025 6:05 AM CDT [facility] Comment:Visible lipemia, arely trifuged prior to analysis Blood (Blood, Venous) 05/21/2025 4:26 AM CDT 05/21/2025 4:38 AM CDT us Howard Valdivia M.D. LAB BLOOD ADD-ON Final Result Performing Organization Address City/[facility]/ZIP Co de Phone Number [facility] [address] [place] [address], [address] [address] * (ABNORMAL) Triglycerides (05/21/2025 4:26 AM CDT) Triglycerides >4425(H) mg/dL 05/21/2025 6:05 AM CDT [facility] Comment: ----REFERENCE VALUE---- Normal: <150 mg/dL Borderline High: 150-199 mg/dL High: 200-499 mg/dL Very High: > or =500 mg/dL Fasting (8 HR or more) Unknown 05/21/2025 4:27 AM CDT [facility] Blood (Blood, Venous) 05/21/2025 4:26 AM CDT 05/21/2025 4:38 AM CDT us Leela Downey M.D. LAB BLOOD ADD-ON Final Result Performing Organization Address City/[facility]/ZIP Co de Phone Number [facility] [address] [place] [address], [facility] [place] [address] [place] [phone] * (ABNORMAL) Basic Metabolic Panel (05/21/2025 4:26 AM CDT) Potassium, P 3.6 3.6 - 5.2 mmol/L 05/21/2025 6:05 AM CDT MKTO Comment:Visible lipemia, arely trifuged prior to analysis Sodium, P 137 135 - 145 mmol/L 05/21/2025 6:05 AM CDT [facility]TO Comment:Visible lipemia, arely trifuged prior to analysis Chloride, P 105 98 - 107 mmol/L 05/21/2025 6:05 AM CDT MKTO Comment:Visible lipemia, arely trifuged prior to analysis Bicarbonate, P 19(L) 22 - 29 mmol/L 05/21/2025 6:05 AM CDT [facility]TO Comment:Visible lipemia, arely trifuged prior to analysis Anion Gap, P 13 7 - 15 05/21/2025 6:05 AM CDT MK BUN (Blood Urea Nitrogen), P <2(L) 6 - 21 mg/dL 05/21/2025 6:05 AM CDT MKTO Comment:Visible lipemia, arely trifuged prior to analysis Creatinine 0.39(L) 0.59 - 1.04 mg/dL 05/21/2025 6:05 AM CDT [facility] Comment:Visible lipemia, raely trifuged prior to analysis Estimated GFR (eGFR) >90 >=60 mL/min/BSA 05/21/2025 6:05 AM CDT MKTO Comment: Estimated GFR calculated using the 2020 CKD_EPI creatinine equation. Calcium, Total, P 8.7 8.6 - 10.0 mg/dL 05/21/2025 6:05 AM CDT MKTO Comment:Visible lipemia, arely trifuged prior to analysis Glucose, P 121 70 - 140 mg/dL 05/21/2025 6:05 AM CDT [facility] Comment:Visible lipemia, arely trifuged prior to analysis Blood (Blood, Venous) 05/21/2025 4:26 AM CDT 05/21/2025 4:38 AM CDT Leela Downey M.D. LAB BLOOD ADD-ON Final Result Performing Organization Address [facility]/ZIP Co de Phone Number [facility] [address] [place] [address], [place] [address] * Glucose, POCT (05/21/2025 4:25 AM CDT) Glucose, POCT, B 107 70 - 140 mg/dL 05/21/2025 4:25 AM CDT MKTO Blood 05/21/2025 4:25 AM CDT 05/21/2025 4:50 AM CDT us Generic [facility] POCT ORDERABLES-MANUAL Final Result Performing Organization Address [facility] Co de Phone Number [facility] [address] [place] [address], [place] [address] * Glucose, POCT (05/21/2025 3:11 AM CDT) Glucose, POCT, B 119 70 - 140 mg/dL 05/21/2025 3:11 AM CDT MKTO Blood 05/21/2025 3:11 AM CDT 05/21/2025 3:29 AM CDT us Generic [facility] POCT ORDERABLES-MANUAL Final Result Performing Organization Address City/[facility]/ZIP Co de Phone Number [facility] [address] [place] [address], [place] [address] * Glucose, POCT (05/21/2025 2:22 AM CDT) Glucose, POCT, B 123 70 - 140 mg/dL 05/21/2025 2:22 AM CDT MKTO Blood 05/21/2025 2:22 AM CDT 05/21/2025 2:45 AM CDT us Generic [facility] POCT ORDERABLES-MANUAL Final Result Performing Organization Address City/[facility]/ZIP Co de Phone Number [facility] [address] [place] [address], [place] [address] * Glucose, POCT (05/21/2025 1:20 AM CDT) Pathologist [facility] Glucose, POCT, B 128 70 - 140 mg/dL 05/21/2025 1:20 AM CDT MKTO Blood 05/21/2025 1:20 AM CDT 05/21/2025 1:28 AM CDT us Generic [facility] POCT ORDERABLES-MANUAL Final Result Performing Organization Address [facility] de Phone Number [facility] [address] [place] [address], [place] [address] * (ABNORMAL) Basic Metabolic Panel (05/21/2025 12:15 AM CDT) [facility] Potassium, P 4.0 3.6 - 5.2 mmol/L 05/21/2025 2:21 AM CDT MKTO Comment: REVISED RESULTS Visible lipemia, centrifuged prior to analysis ----PREVIOUSLY REPORTED ---- 4.0 mmol/L Flagged as: Normal (Reported 05/21/2025 02:14) Sodium, P 139 135 - 145 mmol/L 05/21/2025 2:21 AM CDT MKTO Comment: REVISED RESULTS Visible lipemia, centrifuged prior to analysis ----PREVIOUSLY REPORTED ---- 139 mmol/L Flagged as: Normal (Reported 05/21/2025 02:14) Chloride, P 107 98 - 107 mmol/L 05/21/2025 2:21 AM CDT MKTO Comment: REVISED RESULTS Visible lipemia, centrifuged prior to analysis ----PREVIOUSLY REPORTED ---- 107 mmol/L Flagged as: Normal (Reported 05/21/2025 02:14) Bicarbonate, P 18(L) 22 - 29 mmol/L 05/21/2025 2:21 AM CDT MKTO Comment: REVISED RESULTS Visible lipemia, centrifuged prior to analysis ----PREVIOUSLY REPORTED ---- 18 mmol/L Flagged as: Abnormal_Low (Reported 05/21/2025 02:14) Anion Gap, P 14 7 - 15 05/21/2025 2:14 AM CDT MK[facility] BUN (Blood Urea Nitrogen), P 2(L) 6 - 21 mg/dL 05/21/2025 2:21 AM CDT MKTO Comment: REVISED RESULTS Visible lipemia, centrifuged prior to analysis ----PREVIOUSLY REPORTED ---- 2 mg/dL Flagged as: Abnormal_Low (Reported 05/21/2025 02:14) Creatinine 0.37(L) 0.59 - 1.04 mg/dL 05/21/2025 2:21 AM CDT [facility] Comment: REVISED RESULTS Visible lipemia, centrifuged prior to analysis ----PREVIOUSLY REPORTED ---- 0.37 mg/dL Flagged as: Abnormal_Low (Reported 05/21/2025 02:14) Estimated GFR (eGFR) >90 >=60 mL/min/BSA 05/21/2025 2:14 AM CDT TO Comment: Estimated GFR calculated using the 2020 CKD_EPI creatinine equation. Calcium, Total, P 8.9 8.6 - 10.0 mg/dL 05/21/2025 2:21 AM CDT MKTO Comment: REVISED RESULTS Visible lipemia, centrifuged prior to analysis ----PREVIOUSLY REPORTED ---- 8.9 mg/dL Flagged as: Normal (Reported 05/21/2025 02:14) Glucose, P 151(H) 70 - 140 mg/dL 05/21/2025 2:21 AM CDT MKTO Comment: REVISED RESULTS Visible lipemia, centrifuged prior to analysis ----PREVIOUSLY REPORTED ---- 151 mg/dL Flagged as: Abnormal_High (Reported 05/21/2025 02:14) Blood (Blood, Venous) 05/21/2025 12:15 AM CDT 05/21/2025 12:31 AM CDT us Leela Downey M.D. LAB BLOOD ADD-ON Edited Result - Final [facility] [address] [place] [address], [facility] [address] [place] [address] * (ABNORMAL) Glucose, POCT (05/21/2025 12:08 AM CDT) Glucose, POCT, B 146(H) 70 - 140 mg/dL 05/21/2025 12:08 AM CDT MKTO Blood 05/21/2025 12:0 8 AM CDT 05/21/2025 12:15 AM CDT us Generic [facility] POCT ORDERABLES-MANUAL Final Result Performing Organization Address City/[facility]/ZIP Co de Phone Number [facility] [address] [place] [address], [facility] [address] [place] [address] * Glucose, POCT (05/20/2025 11:16 PM CDT) Glucose, POCT, B 135 70 - 140 mg/dL 05/20/2025 11:16 PM CDT MKTO Blood 05/20/2025 11:1 6 PM CDT 05/21/2025 12:04 AM CDT us Generic [facility] POCT ORDERABLES-MANUAL Final Result [facility] [address] [place] [address], [facility] [address] [place] [address] * (ABNORMAL) Glucose, POCT (05/20/2025 10:15 PM CDT) Glucose, POCT, B 154(H) 70 - 140 mg/dL 05/20/2025 10:15 PM CDT MKTO Blood 05/20/2025 10:1 5 PM CDT 05/20/2025 10:55 PM CDT us Generic [facility] POCT ORDERABLES-MANUAL Final Result [facility] [address] [place] [address], [address] [address] * (ABNORMAL) Glucose, POCT (05/20/2025 9:26 PM CDT) Glucose, POCT, B 147(H) 70 - 140 mg/dL 05/20/2025 9:26 PM CDT [facility] Blood 05/20/2025 9:26 PM CDT 05/20/2025 9:36 PM CDT us Generic [facility] POCT ORDERABLES-MANUAL Final Result Performing Organization Address City/[facility]/ZIP Co de Phone Number [facility] [address] [place] [address], [address] [address] * (ABNORMAL) Glucose, POCT (05/20/2025 8:16 PM CDT) Glucose, POCT, B 144(H) 70 - 140 mg/dL 05/20/2025 8:16 PM CDT [facility]TO Blood 05/20/2025 8:16 PM CDT 05/20/2025 8:37 PM CDT us Generic [facility] POCT ORDERABLES-MANUAL Final Result [facility] [address] [place] [address], [address] [address] * (ABNORMAL) Basic Metabolic Panel (05/20/2025 8:01 PM CDT) Potassium, P 3.8 3.6 - 5.2 mmol/L 05/20/2025 9:17 PM CDT MKTO Sodium, P 137 135 - 145 mmol/L 05/20/2025 9:17 PM CDT [facility] Chloride, P 104 98 - 107 mmol/L 05/20/2025 9:17 PM CDT [facility] Bicarbonate, P 19(L) 22 - 29 mmol/L 05/20/2025 9:17 PM CDT MK[facility] Anion Gap, P 14 7 - 15 05/20/2025 9:17 PM CDT [facility] BUN (Blood Urea Nitrogen), P 2(L) 6 - 21 mg/dL 05/20/2025 9:17 PM CDT [facility] Creatinine 0.38(L) 0.59 - 1.04 mg/dL 05/20/2025 9:17 PM CDT MK[facility] Estimated GFR (eGFR) >90 >=60 mL/min/BSA 05/20/2025 9:17 PM CDT [facility] Comment: Estimated GFR calculated using the 2020 CKD_EPI creatinine equation. Calcium, Total, P 9.0 8.6 - 10.0 mg/dL 05/20/2025 9:17 PM CDT [facility] Glucose, P 149(H) 70 - 140 mg/dL 05/20/2025 9:17 PM CDT [facility] Blood (Blood, Venous) 05/20/2025 8:01 PM CDT 05/20/2025 8:12 PM CDT Leela Downey M.D. LAB BLOOD ADD-ON Final Result [facility] [address] [place] [address], [facility] [place] [address] [place] [address] * Glucose, POCT (05/20/2025 7:01 PM CDT) Glucose, POCT, B 139 70 - 140 mg/dL 05/20/2025 7:01 PM CDT MK[facility] Blood 05/20/2025 7:01 PM CDT 05/20/2025 7:08 PM CDT us Generic [facility] POCT ORDERABLES-MANUAL Final Result [facility] [address] [place] [address], [address] [address] * (ABNORMAL) Glucose, POCT (05/20/2025 6:16 PM CDT) Glucose, POCT, B 145(H) 70 - 140 mg/dL 05/20/2025 6:16 PM CDT [facility] Blood 05/20/2025 6:16 PM CDT 05/20/2025 6:29 PM CDT us Generic [facility] POCT ORDERABLES-MANUAL Final Result [facility] [address] [place] [address], [address] [address] * (ABNORMAL) Glucose, POCT (05/20/2025 5:33 PM CDT) Glucose, POCT, B 145(H) 70 - 140 mg/dL 05/20/2025 5:33 PM CDT [facility] Blood 05/20/2025 5:33 PM CDT 05/20/2025 5:44 PM CDT us Generic [facility] POCT ORDERABLES-MANUAL Final Result [facility] [address] [place] [address], [address] [address] * (ABNORMAL) Glucose, POCT (05/20/2025 5:15 PM CDT) Glucose, POCT, B 145(H) 70 - 140 mg/dL 05/20/2025 5:15 PM CDT [facility] Blood 05/20/2025 5:15 PM CDT 05/20/2025 5:26 PM CDT Generic [facility] POCT ORDERABLES-MANUAL Final Result [facility] [address] [place] [address], [facility] [address] [place] [address] * (ABNORMAL) Triglycerides (05/20/2025 4:21 PM CDT) Pathologist [facility] Triglycerides >4425(H) mg/dL 05/20/2025 5:22 PM CDT [facility] Comment: ----REFERENCE VALUE---- Normal: <150 mg/dL Borderline High: 150-199 mg/dL High: 200-499 mg/dL Very High: > or =500 mg/dL Fasting (8 HR or more) No 05/20/2025 4:21 PM CDT [facility] Blood 05/20/2025 4:21 PM CDT 05/20/2025 4:24 PM CDT Leela Downey M.D. LAB BLOOD ADD-ON Final Result [facility] [address] [place] [address], [facility] [address] [place] [address] * (ABNORMAL) Basic Metabolic Panel (05/20/2025 4:20 PM CDT) Potassium, P 3.8 3.6 - 5.2 mmol/L 05/20/2025 5:08 PM CDT [facility] Sodium, P 138 135 - 145 mmol/L 05/20/2025 5:08 PM CDT [facility] Chloride, P 106 98 - 107 mmol/L 05/20/2025 5:08 PM CDT [facility] Bicarbonate, P 20(L) 22 - 29 mmol/L 05/20/2025 5:08 PM CDT [facility] Anion Gap, P 12 7 - 15 05/20/2025 5:08 PM CDT [facility] BUN (Blood Urea Nitrogen), P 3(L) 6 - 21 mg/dL 05/20/2025 5:08 PM CDT [facility] Creatinine 0.38(L) 0.59 - 1.04 mg/dL 05/20/2025 5:08 PM CDT [facility] Estimated GFR (eGFR) >90 >=60 mL/min/BSA 05/20/2025 5:08 PM CDT [facility] Comment: Estimated GFR calculated using the 2020 CKD_EPI creatinine equation. Calcium, Total, P 9.0 8.6 - 10.0 mg/dL 05/20/2025 5:08 PM CDT [facility] Glucose, P 145(H) 70 - 140 mg/dL 05/20/2025 5:08 PM CDT [facility] Blood (Blood, Venous) 05/20/2025 4:20 PM CDT 05/20/2025 4:24 PM CDT us Leela Downey M.D. LAB BLOOD ADD-ON Final Result [facility] [address] [place] [address], [place] [address] * Glucose, POCT (05/20/2025 3:58 PM CDT) Glucose, POCT, B 138 70 - 140 mg/dL 05/20/2025 3:58 PM CDT [facility] Blood 05/20/2025 3:58 PM CDT 05/20/2025 6:29 PM CDT us Generic [facility] LAB POCT ORDERABLES-MANUAL Final Result [facility] [address] [place] [address], [facility] [address] [place] [id number] * (ABNORMAL) Glucose, POCT (05/20/2025 3:11 PM CDT) Glucose, POCT, B 154(H) 70 - 140 mg/dL 05/20/2025 3:11 PM CDT [facility] Blood 05/20/2025 3:11 PM CDT 05/20/2025 3:20 PM CDT us Generic [facility] POCT ORDERABLES-MANUAL Final Result [facility] [address] [place] [id number], [address] [id number] * (ABNORMAL) Glucose, POCT (05/20/2025 1:59 PM CDT) Glucose, POCT, B 149(H) 70 - 140 mg/dL 05/20/2025 1:59 PM CDT [facility] Blood 05/20/2025 1:59 PM CDT 05/20/2025 2:09 PM CDT us Generic [facility] POCT ORDERABLES-MANUAL Final Result [facility] [address] [place] [id number], [address] [address] * Glucose, POCT (05/20/2025 1:06 PM CDT) Glucose, POCT, B 124 70 - 140 mg/dL 05/20/2025 1:06 PM CDT [facility] Blood 05/20/2025 1:06 PM CDT 05/20/2025 1:16 PM CDT us Generic [facility] POCT ORDERABLES-MANUAL Final Result Performing Organization Address City/[facility]/ZIP Co de Phone Number [facility] [address] [place] [address], [place] [address] * (ABNORMAL) Glucose, POCT (05/20/2025 12:09 PM CDT) Glucose, POCT, B 162(H) 70 - 140 mg/dL 05/20/2025 12:09 PM CDT [facility] Blood 05/20/2025 12:0 9 PM CDT 05/20/2025 12:28 PM CDT us Generic [facility] LAB POCT ORDERABLES-MANUAL Final Result Performing Organization Address [facility] Co de Phone Number [facility] [address] [place], [place] [address], [place] [address] * (ABNORMAL) Basic Metabolic Panel (05/20/2025 12:02 PM CDT) Potassium, P 4.1 3.6 - 5.2 mmol/L 05/20/2025 12:49 PM CDT [facility] Comment:Visible lipemia, arely trifuged prior to analysis Sodium, P 137 135 - 145 mmol/L 05/20/2025 12:49 PM CDT [facility] Comment:Visible lipemia, arely trifuged prior to analysis Chloride, P 105 98 - 107 mmol/L 05/20/2025 12:49 PM CDT [facility] Comment:Visible lipemia, arely trifuged prior to analysis Bicarbonate, P 22 22 - 29 mmol/L 05/20/2025 12:49 PM CDT [facility] Comment:Visible lipemia, arely trifuged prior to analysis Anion Gap, P 10 7 - 15 05/20/2025 12:49 PM CDT [facility] BUN (Blood Urea Nitrogen), P 4(L) 6 - 21 mg/dL 05/20/2025 12:49 PM CDT MKTO Comment:Visible lipemia, arely trifuged prior to analysis Creatinine 0.41(L) 0.59 - 1.04 mg/dL 05/20/2025 12:49 PM CDT MKTO Comment:Visible lipemia, arely trifuged prior to analysis Estimated GFR (eGFR) >90 >=60 mL/min/BSA 05/20/2025 12:49 PM CDT MKTO Comment: Estimated GFR calculated using the 2020 CKD_EPI creatinine equation. Calcium, Total, P 8.7 8.6 - 10.0 mg/dL 05/20/2025 12:49 PM CDT MKTO Comment:Visible lipemia, arely trifuged prior to analysis Glucose, P 150(H) 70 - 140 mg/dL 05/20/2025 12:49 PM CDT [facility] Comment:Visible lipemia, arely trifuged prior to analysis Blood (Blood, Venous) 05/20/2025 12:02 PM CDT 05/20/2025 12:07 PM CDT us eLela Downey M.D. LAB BLOOD ADD-ON Final Result [facility] [address] [place] [address], [place] [address] * (ABNORMAL) Glucose, POCT (05/20/2025 11:12 AM CDT) Glucose, POCT, B 167(H) 70 - 140 mg/dL 05/20/2025 11:12 AM CDT [facility] Blood 05/20/2025 11:1 2 AM CDT 05/20/2025 11:21 AM CDT us Generic Rals LAB POCT ORDERABLES-MANUAL Final Result Performing Organization Address City/[facility]/ZIP Co de Phone Number [facility] [address] [place] [address], [place] [address] * Glucose, POCT (05/20/2025 10:08 AM CDT) Glucose, POCT, B 137 70 - 140 mg/dL 05/20/2025 10:08 AM CDT [facility] Blood 05/20/2025 10:0 8 AM CDT 05/20/2025 11:21 AM CDT us Generic [facility] LAB POCT ORDERABLES-MANUAL Final Result [facility] [address] [place] [address], [facility] [address] [place] [address] * (ABNORMAL) Glucose, POCT (05/20/2025 9:25 AM CDT) Glucose, POCT, B 155(H) 70 - 140 mg/dL 05/20/2025 9:25 AM CDT [facility] Blood 05/20/2025 9:25 AM CDT 05/20/2025 9:48 AM CDT us Generic [facility] LAB POCT ORDERABLES-MANUAL Final Result Performing Organization Address City/[facility]/ZIP Co de Phone Number [facility] [address] [place] [address], [address] [address] * (ABNORMAL) Glucose, POCT (05/20/2025 8:03 AM CDT) Glucose, POCT, B 145(H) 70 - 140 mg/dL 05/20/2025 8:03 AM CDT [facility] Blood 05/20/2025 8:03 AM CDT 05/20/2025 8:15 AM CDT us Generic [facility] POCT ORDERABLES-MANUAL Final Result [facility] [address] [place] [address], [facility] [address] [place] [address] * (ABNORMAL) Basic Metabolic Panel (05/20/2025 8:03 AM CDT) Potassium, P 4.0 3.6 - 5.2 mmol/L 05/20/2025 9:16 AM CDT MKTO Comment:Visible lipemia, arely trifuged prior to analysis Sodium, P 137 135 - 145 mmol/L 05/20/2025 9:25 AM CDT [facility]TO Comment: REVISED RESULTS Visible lipemia, centrifuged prior to analysis ----PREVIOUSLY REPORTED ---- 124 mmol/L Flagged as: Abnormal_Low (Reported 05/20/2025 08:34) Chloride, P 105 98 - 107 mmol/L 05/20/2025 9:25 AM CDT [facility]TO Comment: REVISED RESULTS Visible lipemia, centrifuged prior to analysis ----PREVIOUSLY REPORTED ---- 94 mmol/L Flagged as: Abnormal_Low (Reported 05/20/2025 08:34) Bicarbonate, P 22 22 - 29 mmol/L 05/20/2025 9:16 AM CDT MKTO Comment:Visible lipemia, arely trifuged prior to analysis Anion Gap, P 10 7 - 15 05/20/2025 9:25 AM CDT [facility] Comment: REVISED RESULTS ----PREVIOUSLY REPORTED ---- 8 Flagged as: Normal (Reported 05/20/2025 09:16) BUN (Blood Urea Nitrogen), P 6 6 - 21 mg/dL 05/20/2025 9:16 AM CDT [facility]TO Comment:Visible lipemia, arely trifuged prior to analysis Creatinine 0.35(L) 0.59 - 1.04 mg/dL 05/20/2025 9:25 AM CDT [facility] Comment: REVISED RESULTS Visible lipemia, centrifuged prior to analysis ----PREVIOUSLY REPORTED ---- 0.59 mg/dL Flagged as: Normal (Reported 05/20/2025 08:34) Estimated GFR (eGFR) >90 >=60 mL/min/BSA 05/20/2025 8:34 AM CDT [facility]TO Comment: Estimated GFR calculated using the 2020 CKD_EPI creatinine equation. Calcium, Total, P 8.4(L) 8.6 - 10.0 mg/dL 05/20/2025 9:16 AM CDT [facility]TO Comment:Visible lipemia, arely trifuged prior to analysis Glucose, P 161(H) 70 - 140 mg/dL 05/20/2025 9:16 AM CDT [facility]TO Comment:Visible lipemia, arely trifuged prior to analysis Blood (Blood, Venous) 05/20/2025 8:03 AM CDT 05/20/2025 8:09 AM CDT us Leela Downey M.D. LAB BLOOD ADD-ON Edited Result - Final [facility] [address] [place] [address], [address] [address] * (ABNORMAL) Glucose, POCT (05/20/2025 7:11 AM CDT) Glucose, POCT, B 147(H) 70 - 140 mg/dL 05/20/2025 7:11 AM CDT MK Blood 05/20/2025 7:11 AM CDT 05/20/2025 7:19 AM CDT us Generic [facility] LAB POCT ORDERABLES-MANUAL Final Result Performing Organization Address City/[facility]/ZIP Co de Phone Number [facility] [address] [place] [address], [address] [address] * (ABNORMAL) Glucose, POCT (05/20/2025 6:17 AM CDT) Glucose, POCT, B 148(H) 70 - 140 mg/dL 05/20/2025 6:17 AM CDT [facility] Blood 05/20/2025 6:17 AM CDT 05/20/2025 6:27 AM CDT us Generic [facility] LAB POCT ORDERABLES-MANUAL Final Result Performing Organization Address [facility] Co de Phone Number [facility] [address] [place] [address] * Glucose, POCT (05/20/2025 5:11 AM CDT) Glucose, POCT, B 130 70 - 140 mg/dL 05/20/2025 5:11 AM CDT [facility] Blood 05/20/2025 5:11 AM CDT 05/20/2025 5:20 AM CDT Generic [facility] POCT ORDERABLES-MANUAL Final Result Performing Organization Address [facility] Co de Phone Number [facility] [address] [place] [address] * (ABNORMAL) Triglycerides (05/20/2025 4:07 AM CDT) Triglycerides >4425(H) mg/dL 05/20/2025 5:13 AM CDT [facility]TO Comment: ----REFERENCE VALUE---- Normal: <150 mg/dL Borderline High: 150-199 mg/dL High: 200-499 mg/dL Very High: > or =500 mg/dL Fasting (8 HR or more) Unknown 05/20/2025 4:07 AM CDT [facility] Blood (Blood, Venous) 05/20/2025 4:07 AM CDT 05/20/2025 4:13 AM CDT Leela Downey M.D. LAB BLOOD ADD-ON Final Result Performing Organization Address [facility]/ZIP Co de Phone Number [facility] [address] [place] [address] * (ABNORMAL) Basic Metabolic Panel (05/20/2025 4:07 AM CDT) Potassium, P 3.3(L) 3.6 - 5.2 mmol/L 05/20/2025 5:23 AM CDT MKTO Comment:Visible lipemia, arely trifuged prior to analysis Sodium, P 137 135 - 145 mmol/L 05/20/2025 5:23 AM CDT [facility]TO Comment:Visible lipemia, arely trifuged prior to analysis Chloride, P 105 98 - 107 mmol/L 05/20/2025 5:23 AM CDT [facility]TO Comment:Visible lipemia, arely trifuged prior to analysis Bicarbonate, P 20(L) 22 - 29 mmol/L 05/20/2025 5:23 AM CDT MKTO Comment:Visible lipemia, arely trifuged prior to analysis Anion Gap, P 12 7 - 15 05/20/2025 5:23 AM CDT [facility] BUN (Blood Urea Nitrogen), P 7 6 - 21 mg/dL 05/20/2025 5:23 AM CDT [facility]TO Comment:Visible lipemia, arely trifuged prior to analysis Creatinine 0.34(L) 0.59 - 1.04 mg/dL 05/20/2025 5:23 AM CDT MKTO Comment:Visible lipemia, arely trifuged prior to analysis Estimated GFR (eGFR) >90 >=60 mL/min/BSA 05/20/2025 5:23 AM CDT [facility] Comment: Estimated GFR calculated using the 2020 CKD_EPI creatinine equation. Calcium, Total, P 8.3(L) 8.6 - 10.0 mg/dL 05/20/2025 5:23 AM CDT [facility]TO Comment:Visible lipemia, arely trifuged prior to analysis Glucose, P 160(H) 70 - 140 mg/dL 05/20/2025 5:23 AM CDT [facility] Comment:Visible lipemia, arely trifuged prior to analysis Blood (Blood, Venous) 05/20/2025 4:07 AM CDT 05/20/2025 4:13 AM CDT Leela Downey M.D. LAB BLOOD ADD-ON Final Result [facility] [address] [place] [id number], [facility] [address] [place] [address] * (ABNORMAL) Glucose, POCT (05/20/2025 4:06 AM CDT) Glucose, POCT, B 152(H) 70 - 140 mg/dL 05/20/2025 4:06 AM CDT [facility] Blood 05/20/2025 4:06 AM CDT 05/20/2025 4:17 AM CDT us Generic [facility] POCT ORDERABLES-MANUAL Final Result [facility] [address] [place] [address], [address] [address] * (ABNORMAL) Glucose, POCT (05/20/2025 3:06 AM CDT) Glucose, POCT, B 160(H) 70 - 140 mg/dL 05/20/2025 3:06 AM CDT [facility] Blood 05/20/2025 3:06 AM CDT 05/20/2025 3:16 AM CDT us Generic [facility] POCT ORDERABLES-MANUAL Final Result [facility] [address] [place] [address], [address] [address] * Glucose, POCT (05/20/2025 2:12 AM CDT) Glucose, POCT, B 140 70 - 140 mg/dL 05/20/2025 2:12 AM CDT [facility] Blood 05/20/2025 2:12 AM CDT 05/20/2025 2:24 AM CDT us Generic [facility] POCT ORDERABLES-MANUAL Final Result [facility] [address] [place] [address], [place] [facility] in [place] [address] [place] [address] * (ABNORMAL) Basic Metabolic Panel (05/20/2025 1:29 AM CDT) Potassium, P 3.4(L) 3.6 - 5.2 mmol/L 05/20/2025 2:52 AM CDT MKTO Comment:Visible lipemia, arely trifuged prior to analysis Sodium, P 137 135 - 145 mmol/L 05/20/2025 2:52 AM CDT [facility]TO Comment:Visible lipemia, arely trifuged prior to analysis Chloride, P 105 98 - 107 mmol/L 05/20/2025 2:52 AM CDT [facility]TO Comment:Visible lipemia, arely trifuged prior to analysis Bicarbonate, P 19(L) 22 - 29 mmol/L 05/20/2025 2:52 AM CDT [facility] Comment:Visible lipemia, arely trifuged prior to analysis Anion Gap, P 13 7 - 15 05/20/2025 2:52 AM CDT [facility] BUN (Blood Urea Nitrogen), P 8 6 - 21 mg/dL 05/20/2025 2:52 AM CDT [facility]TO Comment:Visible lipemia, arely trifuged prior to analysis Creatinine 0.34(L) 0.59 - 1.04 mg/dL 05/20/2025 2:52 AM CDT [facility] Comment:Visible lipemia, arely trifuged prior to analysis Estimated GFR (eGFR) >90 >=60 mL/min/BSA 05/20/2025 2:52 AM CDT [facility]TO Comment: Estimated GFR calculated using the 2020 CKD_EPI creatinine equation. Calcium, Total, P 8.6 8.6 - 10.0 mg/dL 05/20/2025 2:52 AM CDT [facility]TO Comment:Visible lipemia, arely trifuged prior to analysis Glucose, P 161(H) 70 - 140 mg/dL 05/20/2025 2:52 AM CDT [facility] Comment:Visible lipemia, arely trifuged prior to analysis Blood (Blood, Venous) 05/20/2025 1:29 AM CDT 05/20/2025 1:32 AM CDT us Leela Downey M.D. LAB BLOOD ADD-ON Final Result [facility] [address] [place] [address], [address] [address] * (ABNORMAL) Glucose, POCT (05/20/2025 1:07 AM CDT) Glucose, POCT, B 163(H) 70 - 140 mg/dL 05/20/2025 1:07 AM CDT [facility] Blood 05/20/2025 1:07 AM CDT 05/20/2025 1:15 AM CDT us Generic [facility] POCT ORDERABLES-MANUAL Final Result Performing Organization Address City/[facility]/ZIP Co de Phone Number [facility] [address] [place] [address], [address] [address] * (ABNORMAL) Glucose, POCT (05/20/2025 12:03 AM CDT) Glucose, POCT, B 212(H) 70 - 140 mg/dL 05/20/2025 12:03 AM CDT [facility] Blood 05/20/2025 12:0 3 AM CDT 05/20/2025 12:18 AM CDT us Generic [facility] POCT ORDERABLES-MANUAL Final Result [facility] [address] [place] [address], [address] [address] * (ABNORMAL) Glucose, POCT (05/19/2025 11:02 PM CDT) Glucose, POCT, B 275(H) 70 - 140 mg/dL 05/19/2025 11:02 PM CDT MK Blood 05/19/2025 11:0 2 PM CDT 05/19/2025 11:51 PM CDT us Generic [facility] POCT ORDERABLES-MANUAL Final Result [facility] [address] [place] [address], [facility] [place] [address] * (ABNORMAL) Comprehensive Metabolic Panel (05/19/2025 7:31 PM CDT) Pathologist [facility] Potassium, P 4.2 3.6 - 5.2 mmol/L 05/19/2025 9:16 PM CDT MKTO Comment:Visible lipemia, arely trifuged prior to analysis Sodium, P 131(L) 135 - 145 mmol/L 05/19/2025 9:16 PM CDT MKTO Comment:Visible lipemia, arely trifuged prior to analysis Chloride, P 97(L) 98 - 107 mmol/L 05/19/2025 9:16 PM CDT MKTO Comment:Visible lipemia, arely trifuged prior to analysis Bicarbonate, P 17(L) 22 - 29 mmol/L 05/19/2025 9:16 PM CDT MKTO Comment:Visible lipemia, arely trifuged prior to analysis Anion Gap, P 17(H) 7 - 15 05/19/2025 9:16 PM CDT [facility]TO Comment:Visible lipemia, arely trifuged prior to analysis BUN (Blood Urea Nitrogen), P 9 6 - 21 mg/dL 05/19/2025 9:16 PM CDT [facility]TO Comment:Visible lipemia, arely trifuged prior to analysis Creatinine 0.38(L) 0.59 - 1.04 mg/dL 05/19/2025 9:16 PM CDT [facility]TO Comment:Visible lipemia, arely trifuged prior to analysis Estimated GFR (eGFR) >90 >=60 mL/min/BS A 05/19/2025 9:16 PM CDT MKTO Comment: Estimated GFR calculated using the 2020 CKD_EPI creatinine equation. Calcium, Total, P 9.1 8.6 - 10.0 mg/dL 05/19/2025 9:16 PM CDT MKTO Comment:Visible lipemia, arely trifuged prior to analysis Glucose, P 367(H) 70 - 140 mg/dL 05/19/2025 9:16 PM CDT [facility]TO Comment:Visible lipemia, arely trifuged prior to analysis Protein, Total, P 7.1 6.3 - 7.9 g/dL 05/19/2025 9:16 PM CDT [facility]TO Comment:Visible lipemia, arely trifuged prior to analysis Albumin, P 4.2 3.5 - 5.0 g/dL 05/19/2025 9:16 PM CDT [facility] Comment:Visible lipemia, arely trifuged prior to analysis Aspartate Aminotransferase (AST), P 20 8 - 43 U/L 05/19/2025 9:16 PM CDT [facility] Comment:Visible lipemia, arely trifuged prior to analysis Alkaline Phosphatase, P 74 35 - 104 U/L 05/19/2025 9:16 PM CDT [facility] Comment:Visible lipemia, arely trifuged prior to analysis Alanine Aminotransferase (ALT), P 18 7 - 45 U/L 05/19/2025 9:16 PM CDT [facility] Comment:Visible lipemia, arely trifuged prior to analysis Bilirubin, Total, P <0.2 0.0 - 1.2 mg/dL 05/19/2025 9:16 PM CDT MKTO Comment:Visible lipemia, arely trifuged prior to analysis Blood 05/19/2025 7:31 PM CDT 05/19/2025 7:34 PM CDT us Howard Corona M.D. LAB BLOOD ADD-ON Final Res ult [facility] [address] [place] [address], [facility] in [place] [address] [place] [address] * (ABNORMAL) Triglycerides (05/19/2025 7:31 PM CDT) Triglycerides >4425(H) mg/dL 05/19/2025 10:43 PM CDT MKTO Comment: ----REFERENCE VALUE---- Normal: <150 mg/dL Borderline High: 150-199 mg/dL High: 200-499 mg/dL Very High: > or =500 mg/dL Fasting (8 HR or more) Yes 05/19/2025 8:35 PM CDT [facility] Blood 05/19/2025 7:31 PM CDT 05/19/2025 7:34 PM CDT us Howard Corona M.D. LAB BLOOD ADD-ON Final Res ult Performing Organization Address City/[facility]/ZIP Co de Phone Number [facility] [address] [place] [address], [place] [address] * Lipase (05/19/2025 7:31 PM CDT) Lipase, P 41 13 - 60 U/L 05/19/2025 8:49 PM CDT MKTO Comment:Visible lipemia, arely trifuged prior to analysis Blood 05/19/2025 7:31 PM CDT 05/19/2025 7:34 PM CDT us Howard Corona M.D. LAB BLOOD ADD-ON Final Res ult Performing Organization Address City/[facility]/ZIP Co de Phone Number [facility] [address] [place] [address], [place] [address] * Triglycerides (05/19/2025 6:40 PM CDT) Triglycerides CANCELED 05/19/2025 7:26 PM CDT MKTO Comment:Result canceled by kim seo. Fasting (8 HR or more) CANCELED 05/19/2025 7:26 PM CDT MKTO Comment: REVISED RESULTS ----PREVIOUSLY REPORTED ---- No Flagged as: N/A (Reported 05/19/2025 18:40) Blood (Blood, Venous) 05/19/2025 6:40 PM CDT 05/19/2025 6:52 PM CDT Narrative [facility] - 05/19/2025 7:26 PM CDT Triglycerides, P was cancelled on 05/19/2025 at 19:26; Specimen was hemolyzed. Specimen was lipemic. Reordered us Howard Corona M.D. LAB BLOOD ADD-ON Edited Re sult - Final [facility] [address] [place] [address], [facility] [address] * (ABNORMAL) CBC with Differential, Blood (05/19/2025 6:40 PM CDT) Hemoglobin 10.8(L) 11.6 - 15.0 g/dL 05/19/2025 7:55 PM CDT [facility] Hematocrit 32.6(L) 35.5 - 44.9 % 05/19/2025 7:55 PM CDT [facility] Erythrocytes 4.76 3.92 - 5.13 x10(12)/L 05/19/2025 7:55 PM CDT [facility] MCV 68.5(L) 78.2 - 97.9 fL 05/19/2025 7:55 PM CDT [facility] RBC Distrib Width 16.7(H) 12.2 - 16.1 % 05/19/2025 7:55 PM CDT [facility] Platelet Count 256 157 - 371 x10(9)/L 05/19/2025 7:55 PM CDT [facility] Leukocytes 7.2 3.4 - 9.6 x10(9)/L 05/19/2025 7:55 PM CDT [facility] Neutrophils 4.23 1.56 - 6.45 x10(9)/L 05/19/2025 7:55 PM CDT [facility] Lymphocytes 2.24 0.95 - 3.07 x10(9)/L 05/19/2025 7:55 PM CDT [facility] Monocytes 0.44 0.26 - 0.81 x10(9)/L 05/19/2025 7:55 PM CDT [facility] Eosinophils 0.22 0.03 - 0.48 x10(9)/L 05/19/2025 7:55 PM CDT [facility] Basophils 0.04 0.01 - 0.08 x10(9)/L 05/19/2025 7:55 PM CDT [facility] Blood (Blood, Venous) 05/19/2025 6:40 PM CDT 05/19/2025 6:51 PM CDT us Howard Corona M.D. LAB BLOOD ADD-ON Final Res ult Performing Organization Address City/State/[facility] Co de Phone Number [facility] [address] [place] [address], [facility] [address] documented in this encounter Visit Diagnoses Diagnosis Abdominal Pain- Primary Abdominal Pain Hypertriglyceridemia documented in this encounter Admitting Diagnoses Diagnosis Abdominal Pain documented in this encounter Administered Medications Inactive Administered Medications - up to 3 most recent administrations Medication Order MAR Action Action Date Dose Rate Site acetaminophen tablet 1,000 mg (TylenoL) 1,000 mg, oral, Every 6 hours PRN, mild pain or score 1-3 of 10, Starting on Mon05/19/25 at 2239 Given 05/21/2025 8:00 PM CDT 1,000 mg Given 05/20/2025 8:13 PM CDT 1,000 mg atorvastatin tablet 80 mg (Lipitor) 80 mg, oral, Daily, First dose on Mon05/20/25 at 0900 Given 05/26/2025 8:16 AM CDT 80 mg Given 05/25/2025 8:11 AM CDT 80 mg Given 05/24/2025 8:11 AM CDT 80 mg D10W infusion 0-250 mL/hr, intravenous, Continuous Infusion: Per Instructions PRN, Start when glucose </= 200 mg/dL and titrate based on glucose results. See Admin Instructions.a, Starting on Mon05/19/25 at 2141, Check blood glucose (BG) every hour, and adjust infusion rates. Start when glucose </= 200 mg/dL and titrate based on glucose results. Stop other maintenance fluids., BG Less than 70 mg/dL: Infuse at 250 ml/hr, BG 70-99 mg/dL: Infuse at 200 ml/hr, BG 100-149 mg/dL: Infuse at 150 ml/hr, BG 150-200 mg/dL: Infuse at 100 ml/hr, BG Greater than 200 mg/dL: Infuse at 0 ml/hr Rate/Dose Change 05/26/2025 12:50 PM CDT 200 mL/hr 200 mL/hr New Bag 05/26/2025 12:09 PM CDT 150 mL/hr 150 mL/hr Rate/Dose Change 05/26/2025 5:49 AM CDT 150 mL/hr 150 mL/ hr fenofibrate nanocrystallized tablet 145 mg (Tricor) 145 mg, oral, Daily, First dose on Mon05/20/25 at 0900, fenofibrate nanocrystallized 145 mg was interchanged for fenofibrate >= 120 mg oral daily Given 05/26/2025 8:16 AM CDT 145 mg Given 05/25/2025 8:10 AM CDT 145 mg Given 05/24/2025 8:11 AM CDT 145 mg fish oil capsule 2,000 mg 2,000 mg, oral, 2 times daily, First dose on Mon05/20/25 at 1000, See tube feeding guidelines for tube feeding administration instructions. Given 05/20/2025 10:10 AM CDT 2,000 mg fish oil capsule 2,000 mg 2,000 mg, oral, 2 times daily, First dose (after last reorder) on Mon05/20/25 at 2100, See tube feeding guidelines for tube feeding administration instructions. Given 05/26/2025 8:16 AM CDT 2,000 m g Given 05/25/2025 8:04 PM CDT 2,000 mg Given 05/25/2025 8:10 AM CDT 2,000 mg HYDROmorphone injection 0.2 mg (Dilaudid) 0.2 mg, intravenous, Every 4 hours PRN, severe pain or score 7-10 of 10, Starting on Mon05/23/25 at 1511 Given 05/24/2025 12:57 AM CDT 0.2 mg Given 05/23/2025 8:10 PM CDT 0.2 mg Given 05/23/2025 3:37 PM CDT 0.2 mg HYDROmorphone injection 0.4 mg (Dilaudid) 0.4 mg, intravenous, Every 3 hours PRN, severe pain or score 7-10 of 10, Starting on Nazia 05/22/25 at 1240 Given 05/23/2025 6:36 AM CDT 0.4 mg Given 05/23/2025 3:32 AM CDT 0.4 mg Given 05/23/2025 12:22 AM CDT 0.4 mg HYDROmorphone injection 0.5 mg (Dilaudid) 0.5 mg, intravenous, Every 1 hour PRN, severe pain or score 7-10 of 10, Starting on Mon05/19/25 at 2302 Given 05/22/2025 10:26 AM CDT 0.5 mg Given 05/22/2025 8:00 AM CDT 0.5 mg Given 05/22/2025 6:32 AM CDT 0.5 mg hydrOXYzine tablet 25 mg (Atarax) 25 mg, oral, Every 6 hours PRN, anxiety, Starting on Mon05/19/25 at 2239 Given 05/26/2025 4:15 AM CDT 25 mg Given 05/25/2025 1:29 AM CDT 25 mg Given 05/21/2025 9:51 PM CDT 25 mg insulin regular 1 Unit/mL in NaCl 0.9% 100 mL infusion 0-0.1 Units/kg/hr 87 kg Dosing weight (0-8.7 mL/hr), intravenous, Continuous, Starting on Mon05/19/25 at 2143, No insulin calculator needed. Follow titration orders below. 100 Units in 100 mL, BG Less than 70 mg/dL: Infuse at 0 units/kg/hr, BG 70-99 mg/dL: Infuse at 0.05 units/kg/hr, BG 100-149 mg/dL: Infuse at 0.1 units/kg/hr, BG 150-200 mg/dL: Infuse at 0.1 units/kg/hr, BG Greater than 200 mg/dL: Infuse at 0.1 units/kg/hr New Bag 05/26/2025 12:49 PM CDT 0.05 Units/kg/hr 4.35 mL/hr Rate/Dose Change 05/26/2025 10:10 AM CDT 0.1 Units/kg/hr 8 .7 mL/hr Rate/Dose Change 05/26/2025 8:23 AM CDT 0.1 Units/kg/hr 8. 7 mL/hr levothyroxine tablet 100 mcg 100 mcg, oral, Daily before morning meal, First dose on Mon05/20/25 at 0700 Given 05/26/2025 6:00 AM CDT 100 mcg Given 05/25/2025 6:00 AM CDT 100 mcg Given 05/24/2025 6:20 AM CDT 100 mcg magnesium oxide tablet 800 mg (Mag-Ox) 800 mg, oral, Once, On Mon05/21/25 at 1145, For 1 dose Given 05/21/2025 12:22 PM CDT 800 mg morphine injection 4 mg 4 mg, intravenous, Once, On Mon05/19/25 at 1853, For 1 dose Given 05/19/2025 7:14 PM CDT 4 mg NaCl 0.9 % bolus 500 mL 500 mL, intravenous, at 500 mL/hr, Administer over 1 Hours, Once, On Mon05/19/25 at 2231, For 1 dose New Bag 05/19/2025 10:53 PM CDT 500 mL 500 mL/hr NaCl 0.9% infusion 75 mL/hr, intravenous, Continuous, Starting on Mon05/19/25 at 2231 New Bag 05/26/2025 5:49 AM CDT 75 mL/hr 75 mL/hr Rate/Dose Verify 05/25/2025 6:29 PM CDT 75 mL/hr 75 mL/h r Rate/Dose Verify 05/25/2025 6:07 PM CDT 75 mL/hr 75 mL/h r naloxone injection 0.2 mg 0.2 mg, intravenous, As needed, respiratory depression, Starting on Mon05/19/25 at 2302, For RASS Score -4 or less, respiratory rate of less than 8 breaths/min. Notify provider/service and rapid response team (if available at institution). ondansetron (PF) injection 4 mg (Zofran) 4 mg, intravenous, Once, On Mon05/19/25 at 1913, For 1 dose Given 05/19/2025 7:14 PM CDT 4 mg ondansetron (PF) injection 4 mg (Zofran) 4 mg, intravenous, Every 8 hours PRN, vomiting, nausea, Starting on Mon05/20/25 at 0156 Given 05/24/2025 11:00 PM CDT 4 mg Given 05/22/2025 10:29 AM CDT 4 mg Given 05/20/2025 7:06 PM CDT 4 mg oxyCODONE IR tablet 5 mg (Roxicodone) 5 mg, oral, Every 4 hours PRN, moderate pain or score 4-6 of 10, severe pain or score 7-10 of 10, Starting on Mon05/21/25 at 1208 Given 05/26/2025 2:29 AM CDT 5 mg Given 05/25/2025 10:05 PM CDT 5 mg Given 05/25/2025 5:21 PM CDT [address] tablet 40 mg (Protonix) 40 mg, oral, Daily before morning meal, First dose on Mon05/20/25 at 0700, pantoprazole 40 mg oral daily was interchanged for omeprazole 20 or 40 mg oral daily Swallow whole. Do NOT crush, chew, or split tablet. Given 05/26/2025 6:00 AM CDT 40 mg Given 05/25/2025 6:00 AM CDT 40 mg Given 05/24/2025 6:20 AM CDT 40 mg pioglitazone tablet 15 mg (Actos) 15 mg, oral, Daily, First dose on Mon05/20/25 at 0900 Given 05/26/2025 8:16 AM CDT 15 mg Given 05/25/2025 8:11 AM CDT 15 mg Given 05/24/2025 8:11 AM CDT 15 mg potassium chloride ER tablet 40 mEq 40 mEq, oral, Once, On Mon05/20/25 at 0545, For 1 dose, Swallow whole. Do NOT crush, chew, or split tablet. Given 05/20/2025 5:40 AM CDT 40 mEq potassium chloride ER tablet 40 mEq 40 mEq, oral, Once, On Mon05/23/25 at 1315, For 1 dose, Swallow whole. Do NOT crush, chew, or split tablet. Given 05/23/2025 1:37 PM CDT 40 mEq potassium chloride ER tablet 40 mEq 40 mEq, oral, Once, On 05/24/25 at 0715, For 1 dose, Swallow whole. Do NOT crush, chew, or split tablet. Given 05/24/2025 8:12 AM CDT 40 mEq potassium chloride ER tablet 40 mEq 40 mEq, oral, Once, On 05/26/25 at 0915, For 1 dose, Swallow whole. Do NOT crush, chew, or split tablet. Given 05/26/2025 10:58 AM CDT 40 mEq potassium chloride ER tablet 60 mEq 60 mEq, oral, Once, On Mon05/21/25 at 1145, For 1 dose, Swallow whole. Do NOT crush, chew, or split tablet. Given 05/21/2025 12:21 PM CDT 60 mEq potassium chloride ER tablet 60 mEq 60 mEq, oral, Once, On Nazia 05/22/25 at 1515, For 1 dose, Swallow whole. Do NOT crush, chew, or split tablet. Given 05/22/2025 3:26 PM CDT 60 mEq potassium chloride IVPB 10 mEq 10 mEq, intravenous, at 100 mL/hr, Administer over 60 Minutes, Every 1 hour, First dose on Mon05/20/25 at 0545, For 4 doses, Peripheral Line: 10 mEq per bag over 1 hour each. New Bag 05/20/2025 8:46 AM CDT 10 mEq 100 mL/hr New Bag 05/20/2025 7:38 AM CDT 10 mEq 100 mL/hr New Bag 05/20/2025 6:34 AM CDT 10 mEq 100 mL/hr prochlorperazine injection 5 mg (Compazine) 5 mg, intravenous, Once, On Mon05/20/25 at 2200, For 1 dose Given 05/20/2025 9:50 PM CDT 5 mg prochlorperazine injection 5 mg (Compazine) 5 mg, intravenous, Every 6 hours PRN, nausea, vomiting, Starting on Mon05/21/25 at 1310 Given 05/25/2025 1:09 AM CDT 5 mg Given 05/21/2025 1:16 PM CDT 5 mg sodium chloride 0.9 % injection 10 mL 10 mL, intravenous, As needed, line care, Starting on Mon05/19/25 at 2141, Peripheral Intravenous Catheter and Rapid Infusion Catheter, prior to blood sampling, post blood transfusion or post blood sampling sodium chloride 0.9 % injection 3 mL 3 mL, intravenous, As needed, line care, Starting on Mon05/19/25 at 2141, Prior to and following infusion and between multiple consecutive infusions: sodium chloride 0.9 % injection sodium chloride 0.9 % injection 3 mL 3 mL, intravenous, Every 12 hours scheduled, First dose on Mon05/20/25 at 0900, Peripheral Intravenous Catheter and Rapid Infusion Catheter, when no infusion to maintain patency Given 05/25/2025 8: 11 AM CDT 3 mL Given 05/24/2025 8:12 AM CDT 3 mL Given 05/23/2025 8:10 PM CDT 3 mL traZODone tablet 50 mg (DesyreL) 50 mg, oral, Bedtime PRN, sleep, Starting on Mon05/19/25 at 2304 Given 05/26/2025 12:03 AM CDT 50 mg Given 05/24/2025 12:57 AM CDT 50 mg Given 05/22/2025 10:07 PM CDT 50 mg documented in this encounter Active and Recently Administered Medications Times are shown in CDT. Scheduled Medication Order 05/24/2025 05/25/2025 05/26/2025 atorvastatin tablet 80 mg (Lipitor) 80 mg, oral, Daily, First dose on Mon05/20/25 at 0900 0811 (Given - Provider: Rubio Salas R.N.) 0811 (Given - Provider: Rubio Salas R.N.) 0816 (Given - Provider: Aliza Akers R.N.) enoxaparin injection 40 mg (Lovenox) 40 mg, subcutaneous, Every 24 hours scheduled, First dose on Mon05/20/25 at 0900 0812 (Not Given - Provider: Rubio Salas R.N. - Reason: Patient/family refused) 0811 (Not Given - Provider: Rubio Salas R.N. - Reason: Patient/family refused) 0816 (Not Given - Provider: Aliza Akers R.N. - Reason: Patient/family refused) fenofibrate nanocrystallized tablet 145 mg (Tricor) 145 mg, oral, Daily, First dose on Mon05/20/25 at 0900, fenofibrate nanocrystallized 145 mg was interchanged for fenofibrate >= 120 mg oral daily 0811 (Given - Provider: Rubio Salas R.N.) 0810 (Given - Provider: Rubio Salas R.N.) 0816 (Given - Provider: Aliza Akers R.N.) fish oil capsule 2,000 mg 2,000 mg, oral, 2 times daily, First dose (after last reorder) on Mon05/20/25 at 2100, See tube feeding guidelines for tube feeding administration instructions. 08 (Given - Provider: Rubio Salas R.N.)2004 (Given - Provider: Nik Armstrong R.N.) 0810 (Given - Provider: Rubio Salas R.N.)2003 (Given - Provider: Nik Armstrong R.N.) 0816 (Given - Provider: Aliza Akers R.N.) Influenza trivalent (PF) (6 months & older) Vaccine 0.5 mL (Fluzone/Flulaval) 0.5 mL, intramuscular, Once, On Mon05/21/25 at 0900, For 1 dose levothyroxine tablet 100 mcg 100 mcg, oral, Daily before morning meal, First dose on Mon05/20/25 at 0700 0620 (Given - Provider: Heri Baker R.N.) 0600 (Given - Provider: Nik Armstrong R.N.) 0600 (Given - Provider: Nik Armstrong R.N.) pantoprazole DR tablet 40 mg (Protonix) 40 mg, oral, Daily before morning meal, First dose on Mon05/20/25 at 0700, pantoprazole 40 mg oral daily was interchanged for omeprazole 20 or 40 mg oral daily Swallow whole. Do NOT crush, chew, or split tablet. 0620 (Given - Provider: Heri Baker R.N.) 0600 (Given - Provider: Nik Armstrong R.N.) 0600 (Given - Provider: Nik Armstrong R.N.) pioglitazone tablet 15 mg (Actos) 15 mg, oral, Daily, First dose on Mon05/20/25 at 0900 0811 (Given - Provider: Rubio Salas R.N.) 0811 (Given - Provider: Rubio Salas R.N.) 0816 (Given - Provider: Aliza Akers R.N.) potassium chloride ER tablet 40 mEq (COMPLETED) 40 mEq, oral, Once, On Mon05/24/25 at 0715, For 1 dose, Swallow whole. Do NOT crush, chew, or split tablet. 0812 (Given - Provider: Rubio Salas R.N.) potassium chloride ER tablet 40 mEq (COMPLETED) 40 mEq, oral, Once, On Mon05/26/25 at 0915, For 1 dose, Swallow whole. Do NOT crush, chew, or split tablet. 1058 (Given - Provider: Aliza Akers R.N. - Comment: ptt wanted to sleep, declined till now) sodium chloride 0.9 % injection 3 mL 3 mL, intravenous, Every 12 hours scheduled, First dose on Mon05/20/25 at 0900, Peripheral Intravenous Catheter and Rapid Infusion Catheter, when no infusion to maintain patency 0812 (Given - Provider: Rubio Salas R.N.)2002 (Not Given - Provider: Nik Armstrong R.N. - Reason: Other) 0811 (Given - Provider: Rubio Salas R.N.)2000 (Not Given - Provider: Nik Armstrong R.N. - Reason: Other) 0817 (Not Given - Provider: Aliza Akers R.N. - Reason: Other - Comment: IV fluids running) Continuous Medication Order 05/24/2025 05/25/2025 05/26/2025 insulin regular 1 Unit/mL in NaCl 0.9% 100 mL infusion (CANCELED)(Linked Group 1) 0-0.1 Units/kg/hr 87 kg Dosing weight (0-8.7 mL/hr), intravenous, Continuous, Starting on Mon05/19/25 at 2143, No insulin calculator needed. Follow titration orders below. 100 Units in 100 mL, BG Less than 70 mg/dL: Infuse at 0 units/kg/hr, BG 70-99 mg/dL: Infuse at 0.05 units/kg/hr, BG 100-149 mg/dL: Infuse at 0.1 units/kg/hr, BG 150-200 mg/dL: Infuse at 0.1 units/kg/hr, BG Greater than 200 mg/dL: Infuse at 0.1 units/kg/hr 0026 (Rate/Dose Change - Provider: Heri Baker R.N. - Comment: Blood sugar 133;[id number])0028 (Rate/Dose Verify - Provider: Heri Baker R.N.)0206 (Rate/Dose Change - Provider: Heri Baker R.N. - Comment: Blood sugar 110,[id number])0213 (Rate/Dose Verify - Provider: Heri Baker R.N.)0409 (New Bag - Provider: Heri Baker R.N. - Comment: [id number])0618 (Rate/Dose Change - Provider: Heri Baker R.N. - Comment: [id number])0621 (Rate/Dose Verify - Provider: Heri Baker R.N.)0809 (Rate/Dose Change - Provider: Rubio Salas R.N. - Comment: bg 127 [id number])1015 (Rate/Dose Change - Provider: Rubio Salas R.N. - Comment: [id number])1204 (Rate/Dose Change - Provider: Rubio Salas R.N. - Comment: BG 124 [id number])1421 (Rate/Dose Change - Provider: Rubio Salas R.N. - Comment: BG 100-[id number])1602 (New Bag - Provider: Rubio Salas R.N. - Comment: [id number])1758 (Rate/Dose Change - Provider: Rubio Salas R.N. - Comment: bg 101 [id number])1834 (Rate/Dose Verify - Provider: Rubio Salas R.N.)1914 (Handoff - Provider: Rubio Salas R.N.)1955 (Rate/Dose Change - Provider: Nik Armstrong R.N. - Comment: [id number])2203 (Rate/Dose Change - Provider: Nik Armstrong R.N. - Comment: [id number]) 0002 (Rate/Dose Change - Provider: Nik Armstrong R.N. - Comment: [id number])0155 (New Bag - Provider: Nik Armstrong R.N. - Comment: [id number])0408 (Rate/Dose Change - Provider: Nik Armstrong R.N. - Comment: [id number])0412 (New Bag - Provider: Nik Armstrong R.N. - Comment: [id number])0602 (Rate/Dose Change - Provider: Nik Armstrong R.N. - Comment: [id number])0808 (Rate/Dose Change - Provider: Rubio Salas R.N. - Comment: [id number])1010 (Rate/Dose Change - Provider: Rubio Salas R.N. - Comment: [id number])1158 (Rate/Dose Change - Provider: Rubio Salas R.N. - Comment: 124 [id number])1202 (Rate/Dose Verify - Provider: Rubio Salas R.N.)1409 (Rate/Dose Change - Provider: Rubio Salas R.N. - Comment: bg 105 [id number])1432 (New Bag - Provider: Rubio Salas R.N.)1435 (Rate/Dose Verify - Provider: Rubio Salas R.N.)1554 (Rate/Dose Change - Provider: Rubio Salas R.N. - Comment: bg 148 [id number])1759 (Rate/Dose Change - Provider: Rubio Salas R.N. - Comment: bg 146 [id number])1807 (Rate/Dose Verify - Provider: Rubio Salas R.N.)1829 (Rate/Dose Verify - Provider: Rubio Salas R.N.)2001 (Rate/Dose Change - Provider: Nik Armstrong R.N. - Comment: bg 140 [id number])2206 (Rate/Dose Change - Provider: Nik Armstrong R.N. - Comment: BS 157 [id number]) 0006 (Rate/Dose Change - Provider: Nik Armstrong R.N. - Comment: BS 95 [id number])0152 (New Bag - Provider: Nik Armstrong R.N. - Comment: BS 191 [id number])0357 (Rate/Dose Change - Provider: Nik Armstrong R.N. - Comment: BS 155 m [id number])0549 (Rate/Dose Change - Provider: Nik Armstrong R.N. - Comment: BS 111 [id number])0823 (Rate/Dose Change - Provider: Aliza Akers R.N. - Comment: [id number])1010 (Rate/Dose Change - Provider: Aliza Akers R.N. - Comment: [id number])1249 (New Bag - Provider: Radha Bradford R.N., CCRN - Comment: [id number])1523 (Stopped - Provider: Aliza Akers R.N.) NaCl 0.9% infusion (CANCELED) 75 mL/hr, intravenous, Continuous, Starting on Mon05/19/25 at 2231 0028 (Rate/Dose Verify - Provider: Heri Baker R.N.)0213 (Rate/Dose Verify - Provider: Heri Baker R.N.)0448 (New Bag - Provider: Zack Little R.N.)0621 (Rate/Dose Verify - Provider: Heri Baker R.N.)1015 (Rate/Dose Verify - Provider: Rubio Salas R.N.)1604 (New Bag - Provider: Rubio Salas R.N.)1834 (Rate/Dose Verify - Provider: Rubio Salas R.N.) 0411 (New Bag - Provider: Nik Armstrong R.N.)1202 (Rate/Dose Verify - Provider: Rubio Salas R.N.)1435 (Rate/Dose Verify - Provider: Rubio Salas R.N.)1721 (New Bag - Provider: Rubio Salas R.N.)1807 (Rate/Dose Verify - Provider: Rubio Salas R.N.)1829 (Rate/Dose Verify - Provider: Rubio Salas R.N.) 0549 (New Bag - Provider: Nik Armstrong R.N.)1523 (Stopped - Provider: Aliza Akers R.N.) PRN Medication Order 05/24/2025 05/25/2025 05/26/2025 acetaminophen tablet 1,000 mg (TylenoL) 1,000 mg, oral, Every 6 hours PRN, mild pain or score 1-3 of 10, Starting on Mon05/19/25 at 2239 D10W infusion (CANCELED)(Linked Group 1) 0-250 mL/hr, intravenous, Continuous Infusion: Per Instructions PRN, Start when glucose </= 200 mg/dL and titrate based on glucose results. See Admin Instructions.a, Starting on Mon05/19/25 at 2141, Check blood glucose (BG) every hour, and adjust infusion rates. Start when glucose </= 200 mg/dL and titrate based on glucose results. Stop other maintenance fluids., BG Less than 70 mg/dL: Infuse at 250 ml/hr, BG 70-99 mg/dL: Infuse at 200 ml/hr, BG 100-149 mg/dL: Infuse at 150 ml/hr, BG 150-200 mg/dL: Infuse at 100 ml/hr, BG Greater than 200 mg/dL: Infuse at 0 ml/hr 0026 (Rate/Dose Change - Provider: Heri Baker R.N. - Comment: Blood sugar 133;[id number])0028 (Rate/Dose Verify - Provider: Heri Baker R.N.)0207 (Rate/Dose Change - Provider: Heri Baker R.N. - Comment: Blood sugar 110,[id number])0213 (Rate/Dose Verify - Provider: Heri Baker R.N.)0409 (Rate/Dose Change - Provider: Heri Baker R.N. - Comment: [id number])0549 (New Bag - Provider: Heri Baker R.N.)0619 (Rate/Dose Change - Provider: Heri Baker R.N. - Comment: bs 84)0621 (Rate/Dose Verify - Provider: Heri Baker R.N.)0809 (Rate/Dose Change - Provider: Rubio Salas R.N. - Comment: bg 127 [id number])1015 (Rate/Dose Change - Provider: Rubio Salas R.N. - Comment: [id number])1135 (New Bag - Provider: Rubio Salas R.N.)1204 (Rate/Dose Change - Provider: Rubio Salas R.N. - Comment: BG 124 [id number])1421 (Rate/Dose Change - Provider: Rubio Salas R.N. - Comment: BG 100-[id number])1603 (Rate/Dose Change - Provider: Rubio Salas R.N. - Comment: [id number])1758 (New Bag - Provider: Rubio Salas R.N. - Comment: 101 [id number])1834 (Rate/Dose Verify - Provider: Rubio Salas R.N.)1914 (Handoff - Provider: Rubio Salas R.N.)1955 (Rate/Dose Change - Provider: Nik Armstrong R.N. - Comment: [id number])2203 (Rate/Dose Change - Provider: Nik Armstrong R.N.) 0002 (Rate/Dose Change - Provider: Nik Armstrong R.N. - Comment: [id number])0109 (New Bag - Provider: Nik Armstrong R.N.)0155 (New Bag - Provider: Nik Armstrong R.N.)0408 (Rate/Dose Change - Provider: Nik Armstrong R.N. - Comment: [id number])0602 (Rate/Dose Change - Provider: Nik Armstrong R.N. - Comment: [id number])0730 (New Bag - Provider: Nik Armstrong R.N.)0808 (Rate/Dose Change - Provider: Rubio Salas R.N. - Comment: [id number])1010 (Rate/Dose Change - Provider: Rubio Salas R.N. - Comment: [id number])1158 (Rate/Dose Change - Provider: Rubio Salas R.N. - Comment: 124 [id number])1202 (Rate/Dose Verify - Provider: Rubio Salas R.N.)1331 (New Bag - Provider: Rubio Salas R.N.)1409 (Rate/Dose Change - Provider: Rubio Salas R.N. - Comment: bg 105 [id number])1435 (Rate/Dose Verify - Provider: Rubio aSlas R.N.)1554 (Rate/Dose Change - Provider: Rubio Salas R.N. - Comment: bg 148 [id number])1759 (Rate/Dose Change - Provider: Rubio Salas R.N. - Comment: bg 146 [id number])1807 (Rate/Dose Verify - Provider: Rubio Salas R.N.)1829 (Rate/Dose Verify - Provider: Rubio Salas R.N.)2001 (Rate/Dose Change - Provider: Nik Armstrong R.N. - Comment: 140 [id number])2051 (New Bag - Provider: Nik Armstrong R.N.)2206 (Rate/Dose Change - Provider: Nik Armstrong R.N. - Comment: BS 157 [id number]) 0006 (Rate/Dose Change - Provider: Nik Armstrong R.N. - Comment: BS 95 [id number])0152 (Rate/Dose Change - Provider: Nik Armstrong R.N. - Comment: BS 191 [id number])0357 (New Bag - Provider: Nik Armstrong R.N. - Comment: BS 155 [id number])0549 (Rate/Dose Change - Provider: Nik Armstrong R.N. - Comment: BS 111 [id number])1209 (New Bag - Provider: Trevin Zaragoza R.N.)1250 (Rate/Dose Change - Provider: Radha Bradford R.N., CCRN)1523 (Stopped - Provider: Aliza Akers R.N.) HYDROmorphone injection 0.2 mg (Dilaudid) 0.2 mg, intravenous, Every 4 hours PRN, severe pain or score 7-10 of 10, Starting on Mon05/23/25 at 1511 0057 (Given - Provider: Heri Baker RTeshaNTesha) hydrOXYzine tablet 25 mg (Atarax) 25 mg, oral, Every 6 hours PRN, anxiety, Starting on Mon05/19/25 at 2239 0129 (Given - Provider: Nik Armstrong R.N.) 0415 (Given - Provider: Nik Armstrong R.N.) naloxone injection 0.2 mg 0.2 mg, intravenous, As needed, respiratory depression, Starting on Mon05/19/25 at 2302, For RASS Score -4 or less, respiratory rate of less than 8 breaths/min. Notify provider/service and rapid response team (if available at institution). ondansetron (PF) injection 4 mg (Zofran) 4 mg, intravenous, Every 8 hours PRN, vomiting, nausea, Starting on Mon05/20/25 at 0156 2300 (Given - Provider: Nik Armstrong R.N.) oxyCODONE IR tablet 5 mg (Roxicodone) 5 mg, oral, Every 4 hours PRN, moderate pain or score 4-6 of 10, severe pain or score 7-10 of 10, Starting on Mon05/21/25 at 1208 1545 (Given - Provider: Cheri Lenz R.N.)2005 (Given - Provider: Nik Armstrong R.N.) 0204 (Given - Provider: Nik Armstrong R.N.)1200 (Given - Provider: Rubio Salas R.N.)1721 (Given - Provider: Rubio Salas R.N.)2205 (Given - Provider: Nik Armstrong R.N.) 0229 (Given - Provider: Nik Armstrong R.N.) prochlorperazine injection 5 mg (Compazine) 5 mg, intravenous, Every 6 hours PRN, nausea, vomiting, Starting on Mon05/21/25 at 1310 0109 (Given - Provider: Nik Armstrong R.N.) sodium chloride 0.9 % injection 10 mL 10 mL, intravenous, As needed, line care, Starting on Mon05/19/25 at 2141, Peripheral Intravenous Catheter and Rapid Infusion Catheter, prior to blood sampling, post blood transfusion or post blood sampling sodium chloride 0.9 % injection 3 mL 3 mL, intravenous, As needed, line care, Starting on Mon05/19/25 at 2141, Prior to and following infusion and between multiple consecutive infusions: sodium chloride 0.9 % injection traZODone tablet 50 mg (DesyreL) 50 mg, oral, Bedtime PRN, sleep, Starting on Mon05/19/25 at 2304 0057 (Given - Provider: Heri Baker R.N.) 0003 (Given - Provider: Nik Armstrong R.N.) Linked Groups Order Group 1: insulin regular 1 Unit/mL in NaCl 0.9% 100 mL infusion (CANCELED)Jump to med 0-0.1 Units/kg/hr 87 kg Dosing weight (0-8.7 mL/hr), intravenous, Continuous, Starting on Mon05/19/25 at 2143, No insulin calculator needed. Follow titration orders below. 100 Units in 100 mL, BG Less than 70 mg/dL: Infuse at 0 units/kg/hr, BG 70-99 mg/dL: Infuse at 0.05 units/kg/hr, BG 100-149 mg/dL: Infuse at 0.1 units/kg/hr, BG 150-200 mg/dL: Infuse at 0.1 units/kg/hr, BG Greater than 200 mg/dL: Infuse at 0.1 units/kg/hr And D10W infusion (CANCELED)Jump to med 0-250 mL/hr, intravenous, Continuous Infusion: Per Instructions PRN, Start when glucose </= 200 mg/dL and titrate based on glucose results. See Admin Instructions.a, Starting on Mon05/19/25 at 2141, Check blood glucose (BG) every hour, and adjust infusion rates. Start when glucose </= 200 mg/dL and titrate based on glucose results. Stop other maintenance fluids., BG Less than 70 mg/dL: Infuse at 250 ml/hr, BG 70-99 mg/dL: Infuse at 200 ml/hr, BG 100-149 mg/dL: Infuse at 150 ml/hr, BG 150-200 mg/dL: Infuse at 100 ml/hr, BG Greater than 200 mg/dL: Infuse at 0 ml/hr documented in this encounter Additional Health Concerns Assessment Noted Time PHQ-9 Depression Total Score: 10 12/16/ 017 4:06 PM CDT documented as of this encounter Care Teams Low Pressure Kettle Operator Relationship Specialty Start Date End Date Elsewhere, Pcp PCP - General 09/16/19 documented as of this encounter
--- OUTSIDE RECORDS SUMMARY | 2025-06-18 17:21 | XMS_ITS | Encounter Summary ---
Author Organization [facility] Address [address] [place] [address] Care Team Providers Care Heatset Winder Operator Name Role Phone Helen Weston MD Unavailable [phone] Aracelis Lindquist MD Primary Care Provider [phone] Etta Lao MD Unavailable Trish Cedeno MD Unavailable [phone] Trish Cedeno MD Unavailable [phone] Andressa Mauricio SFDC CONSULTANT Unavailable Jazz Stewart MD Unavailable Andressa Mauricio SFDC CONSULTANT Unavailable Encounter Details Date Type Department Care Team (Late st Contact Info) Description 02/16/2023 [facility] [address] [place] [id number] Rossy Haas, RN Social History Tobacco Use Types Packs/Day Years Used Date Smoking Tobacco: Never Smokeless Tobacco: Never PHQ-2 Answer Date Recorded PHQ-2 Score 4 12/23/2022 Comments Unknown Sex and Gender Information Value Date Recorded Sex Assigned at Female 10/23/2021 10:13 PM ENVIRONMENTAL SPECIALIST Legal Sex Female 2:01 PM CDT Gender Identity Female 10/23/2021 10:13 PM ENVIRONMENTAL SPECIALIST Sexual Orientation Straight 10/23/2021 10 :13 PM ENVIRONMENTAL SPECIALIST documented as of this encounter Plan of Treatment Not on file documented as of this encounter Visit Diagnoses Not on filedocumented in this encounter Additional Health Concerns Assessment Noted Time PHQ-9 Depression Total Score: 13 023 2:07 PM CDT documented as of this encounter Care Teams Heatset Winder Operator Relationship Specialty Start Date End Date Aracelis Lindquist MD PCP - General Family Practice 05/26/20 Helen Weston MD Pediatric Endocrinology 05/26/20 Etta Lao MD [address] [place] [address] Assigned PCP 07/02/21 09/20/23 Trish Cedeno MD [facility] [address] [address] Pediatric Endocrinology 12/23/21 Trish Cedeno MD [address] [place] [address] Assigned Pediatric Specialist Provider 01/02/22 Andressa Mauricio LSW Clinic Paint Roller Covers Supervisor Endocrinology, Diabetes, and Metabolism 07/05/22 04/07/23 Jazz Stewart MD [address] [place] [address] Pediatric Nephrology 11/07/22 Andressa Mauricio LSW Lead Paint Roller Covers Supervisor Endocrinology, Diabetes, and Metabolism 08/27/24 10/03/24 documented as of this encounter
--- OUTSIDE RECORDS SUMMARY | 2025-06-18 17:21 | XMS_ITS | Encounter Summary ---
Author Organization [facility] Address [address] [place] [address] Care Team Providers Care Toolroom Checker Name Role Phone Helen Weston MD Unavailable [phone] Aracelis Lindquist MD Primary Care Provider [phone] Etta Lao MD Unavailable [phone] Trish Cedeno MD Unavailable [phone] Trish Cedeno MD Unavailable [phone] Andressa Mauricio LEAD CARGO MOVER Unavailable [phone] Jazz Stewart MD Unavailable Andressa Mauricio LEAD CARGO MOVER Unavailable Encounter Details Date Type Department Care Team (Late st Contact Info) Description 02/17/2023 [facility] Advice [facility]ty [facility] [address] [place] [id number] Rossy Haas, RN Social History Tobacco Use Types Packs/Day Years Used Date Smoking Tobacco: Never Smokeless Tobacco: Never PHQ-2 Answer Date Recorded PHQ-2 Score 4 12/23/2022 Comments Unknown Sex and Gender Information Value Date Recorded Sex Assigned at Female 10/23/2021 10:13 PM PREPRESS PROOFER Legal Sex Female 2:01 PM CDT Gender Identity Female 10/23/2021 10:13 PM PREPRESS PROOFER Sexual Orientation Straight 10/23/2021 10 :13 PM PREPRESS PROOFER documented as of this encounter Plan of Treatment Not on file documented as of this encounter Visit Diagnoses Not on filedocumented in this encounter Additional Health Concerns Assessment Noted Time PHQ-9 Depression Total Score: 13 023 2:07 PM CDT documented as of this encounter Care Teams Toolroom Checker Relationship Specialty Start Date End Date Aracelis Lindquist MD PCP - General Family Practice 05/26/20 Helen Weston MD Pediatric Endocrinology 05/26/20 Etta Lao MD [address] [place] [address] Assigned PCP 07/02/21 09/20/23 Trish Cedeno MD [facility] [address] [address] Pediatric Endocrinology 12/23/21 Trish Cedeno MD [address] [place] [address] Assigned Pediatric Specialist Provider 01/02/22 Andressa Mauricio LSW Clinic Cellophane Worker Endocrinology, Diabetes, and Metabolism 07/05/22 04/07/23 Jazz Stewart MD [address] [place] [address] Pediatric Nephrology 11/07/22 Andressa Mauricio LSW Lead Cellophane Worker Endocrinology, Diabetes, and Metabolism 08/27/24 10/03/24 documented as of this encounter
--- OUTSIDE RECORDS SUMMARY | 2025-06-18 17:21 | XMS_ITS | Encounter Summary ---
Author Organization [place] Address [address] [place] [address] 08243 Care Team Providers Care Maintenance Repairman Name Role Phone Helen Weston MD Unavailable [phone] Aracelis Lindquist MD Primary Care Provider Etta Lao MD Unavailable [phone] Trish Cedeno MD Unavailable [phone] Trish Cedeno MD Unavailable [phone] Jazz Stewart MD Unavailable Andressa Mauricio [facility] Unavailable [phone] Encounter Details Date Type Department Care Team (Late st Contact Info) Description 07/05/2023 MyC Medical Advice [facility] 1st [place] [address] Alanis Gayle Social History Tobacco Use Types Packs/Day Years Used Date Smoking Tobacco: Never Smokeless Tobacco: Never PHQ-2 Answer Date Recorded PHQ-2 Score 0 03/24/2023 Adolescent Education Answer Date Record ed Getting School Help Needed Not on file 05/20 Comments Unknown Sex and Gender Information Value Date Recorded Sex Assigned at Female 10/23/2021 10:13 PM GUIDE EXCURSION Legal Sex Female 2:01 PM CDT Gender Identity Female 10/23/2021 10:13 PM GUIDE EXCURSION Sexual Orientation Straight 10/23/2021 10 :13 PM GUIDE EXCURSION documented as of this encounter Plan of Treatment Not on file documented as of this encounter Visit Diagnoses Not on filedocumented in this encounter Additional Health Concerns Assessment Noted Time PHQ-9 Depression Total Score: 13 12/23/ 023 2:07 PM CDT documented as of this encounter Care Teams Maintenance Repairman Relationship Specialty Start Date End Date Aracelis Lindquist MD PCP - General Family Practice 05/26/20 Helen Weston MD Pediatric Endocrinology 05/26/20 Etta Lao MD [facility] [address] [place] [address] Assigned PCP 07/02/21 09/20/23 Trish Cedeno MD [address] 560344 Pediatric Endocrinology 12/23/21 Trish Cedeno MD [address] [address] Assigned Pediatric Specialist Provider 01/02/22 Jazz Stewart MD [facility] [place] [address] Pediatric Nephrology 11/07/22 Andressa Mauricio, DIRECTOR OF HOUSING AND ENERGY SERVICES Lead Motion Picture Narrator Endocrinology, Diabetes, and Metabolism 08/27/24 10/03/24 documented as of this encounter
--- OUTSIDE RECORDS SUMMARY | 2025-06-18 17:21 | XMS_ITS | Encounter Summary ---
Author Organization [place] Address [address] [place] [address] 11478 Care Team Providers Care Assembler Mechanical Ordnance Name Role Phone Helen Weston MD Unavailable Aracelis Lindquist MD Primary Care Provider Etta Lao MD Unavailable Trish Cedeno MD Unavailable [phone] Trish Cedeno MD Unavailable [phone] Andressa Mauricio CHANNEL MARKETING SPECIALIST Unavailable Jazz Stewart MD Unavailable Andressa Mauricio CHANNEL MARKETING SPECIALIST Unavailable [phone] Encounter Details Date Type Department Care Team (Late st Contact Info) Description 03/30/2023 [facility] Medical Advice [facility]ty [facility] [address] 3rd Flr [address] [place] [address] Katt Patel, RN Social History Tobacco Use Types Packs/Day Years Used Date Smoking Tobacco: Never Smokeless Tobacco: Never PHQ-2 Answer Date Recorded PHQ-2 Score 0 03/24/2023 Comments Unknown Sex and Gender Information Value Date Recorded Sex Assigned at Female 10/23/2021 10:13 PM VOICER Legal Sex Female 2:01 PM CDT Gender Identity Female 10/23/2021 10:13 PM VOICER Sexual Orientation Straight 10/23/2021 10 :13 PM VOICER COVID-19 Exposure Response Date Recorded In the last 10 days, have yo u been in contact with someone who was confirmed or suspected to have Coronavirus/COVID-19? No / Unsure 03/24/2023 1:46 PM CDT documented as of this encounter Plan of Treatment Not on file documented as of this encounter Visit Diagnoses Not on filedocumented in this encounter Additional Health Concerns Assessment Noted Time PHQ-9 Depression Total Score: 13 023 2:07 PM CDT documented as of this encounter Care Teams Assembler Mechanical Ordnance Relationship Specialty Start Date End Date Aracelis Lindquist MD PCP - General Family Practice 05/26/20 Helen Weston MD Pediatric Endocrinology 05/26/20 Etta Lao MD [address] [place] [address] 748304 Assigned PCP 07/02/21 09/20/23 Trish Cedeno MD [facility] [address] 457394 Pediatric Endocrinology 12/23/21 Trish Cedeno MD [address] 278674 Assigned Pediatric Specialist Provider 01/02/22 Andressa Mauricio, CHANNEL MARKETING SPECIALIST Clinic Message Broker Developer Endocrinology, Diabetes, and Metabolism 07/05/22 04/07/23 Jazz Stewart MD [address] [place] [address] Pediatric Nephrology 11/07/22 Andressa Mauricio, LACHO Lead Message Broker Developer Endocrinology, Diabetes, and Metabolism 08/27/24 10/03/24 documented as of this encounter
--- OUTSIDE RECORDS SUMMARY | 2025-06-18 17:21 | XMS_ITS | Encounter Summary ---
Author Organization [place] Address [address] [place] [address] Care Team Providers Care Rehanger Name Role Phone Helen Weston MD Unavailable Aracelis Lindquist MD Primary Care Provider Etta Lao MD Unavailable Trish Cedeno MD Unavailable [phone] Trish Cedeno MD Unavailable [phone] Andressa Mauricio COSTUME DIRECTOR Unavailable Jazz Stewart MD Unavailable Andressa Mauricio COSTUME DIRECTOR Unavailable Encounter Details Date Type Department Care Team (Late st Contact Info) Description 03/10/2023 [facility] Advice [facility]ty Clinic [facility] [address], 3rd Flr [address] [place] [phone] Carin Pereira, RN Social History Tobacco Use Types Packs/Day Years Used Date Smoking Tobacco: Never Smokeless Tobacco: Never PHQ-2 Answer Date Recorded PHQ-2 Score 4 12/23/2022 Comments Unknown Sex and Gender Information Value Date Recorded Sex Assigned at Female 10/23/2021 10:13 PM FOOD BEVERAGE SUPERVISOR Legal Sex Female 2:01 PM CDT Gender Identity Female 10/23/2021 10:13 PM FOOD BEVERAGE SUPERVISOR Sexual Orientation Straight 10/23/2021 10 :13 PM FOOD BEVERAGE SUPERVISOR documented as of this encounter Plan of Treatment Not on file documented as of this encounter Visit Diagnoses Not on filedocumented in this encounter Additional Health Concerns Assessment Noted Time PHQ-9 Depression Total Score: 13 023 2:07 PM CDT documented as of this encounter Care Teams Rehanger Relationship Specialty Start Date End Date Aracelis Lindquist MD PCP - General Family Practice 05/26/20 Helen Weston MD Pediatric Endocrinology 05/26/20 Etta Lao MD [address] [place] [address] 28675 Assigned PCP 07/02/21 09/20/23 Trish Cedeno MD [address] [place] [address] Pediatric Endocrinology 12/23/21 Trish Cedeno MD [address] [place] [address] 39657 Assigned Pediatric Specialist Provider 01/02/22 Andressa Mauricio LSW Clinic Composer Teaching Artist Endocrinology, Diabetes, and Metabolism 07/05/22 04/07/23 Jazz Stewart MD [address] [place] [address] Pediatric Nephrology 11/07/22 Andressa Mauricio LSW Lead Composer Teaching Artist Endocrinology, Diabetes, and Metabolism 08/27/24 10/03/24 documented as of this encounter
--- OUTSIDE RECORDS SUMMARY | 2025-06-18 17:21 | XMS_ITS | Encounter Summary ---
Author Organization [place] Address [address] [place] [address] 22181 Care Team Providers Care Medical Claims Analyst Name Role Phone Helen Weston MD Unavailable [phone] Aracelis Lindquist MD Primary Care Provider [phone] Etta Lao MD Unavailable Trish Cedeno MD Unavailable Trish Cedeno MD Unavailable Andressa Mauricio [facility] Unavailable [phone] Jazz Stewart MD Unavailable Andressa Mauricio DIRECTOR PROFESSIONAL SERVICES Unavailable Encounter Details Date Type Department Care Team (Late st Contact Info) Description 02/14/2023 [facility] Medical [facility] Pediatric Specialty Clinic [facility] 3rd Flr [address] [place] [phone] Trish Cedeno MD [address] [place] [address] 378454 Social History Tobacco Use Types Packs/Day Years Used Date Smoking Tobacco: Never Smokeless Tobacco: Never PHQ-2 Answer Date Recorded PHQ-2 Score 4 12/23/2022 Comments Unknown Sex and Gender Information Value Date Recorded Sex Assigned at Female 10/23/2021 10:13 PM ALUMINUM SIDING INSTALLER Legal Sex Female 2:01 PM CDT Gender Identity Female 10/23/2021 10:13 PM ALUMINUM SIDING INSTALLER Sexual Orientation Straight 10/23/2021 10 :13 PM ALUMINUM SIDING INSTALLER documented as of this encounter Plan of Treatment Not on file documented as of this encounter Visit Diagnoses Not on filedocumented in this encounter Additional Health Concerns Assessment Noted Time PHQ-9 Depression Total Score: 13 023 2:07 PM CDT documented as of this encounter Care Teams Medical Claims Analyst Relationship Specialty Start Date End Date Aracelis Lindquist MD PCP - General Family Practice 05/26/20 Helen Weston MD Pediatric Endocrinology 05/26/20 Etta Lao MD [address] [place] [address] [phone] Assigned PCP 07/02/21 09/20/23 Trish Cedeno MD [facility] [address] 156514 Pediatric Endocrinology 12/23/21 Trish Cedeon MD [address] [place] [address] Assigned Pediatric Specialist Provider 01/02/22 Andressa Mauricio, DIRECTOR PROFESSIONAL SERVICES Clinic University Controller Endocrinology, Diabetes, and Metabolism 07/05/22 04/07/23 Jazz Stewart MD [facility] [place], [place] 9617[address] Pediatric Nephrology 11/07/22 Andressa Mauricio, DIRECTOR PROFESSIONAL SERVICES Lead University Controller Endocrinology, Diabetes, and Metabolism 08/27/24 10/03/24 documented as of this encounter
--- OUTSIDE RECORDS SUMMARY | 2025-06-18 17:21 | XMS_ITS | Encounter Summary ---
Author Organization [place] Address [address] [place] [address] Care Team Providers Care Rag Baler Name Role Phone Helen Weston MD Unavailable Aracelis Lindquist MD Primary Care Provider [phone] Etta Lao MD Unavailable Trish Cedeno MD Unavailable Trish Cedeno MD Unavailable [phone] Andressa Mauricio FUR MACHINE OPERATOR Unavailable Jazz Stewart MD Unavailable Andressa Mauricio FUR MACHINE OPERATOR Unavailable [phone] Encounter Details Date Type Department Care Team (Late st Contact Info) Description 03/07/2023 [facility] Medical [facility] Pediatric Specialty Clinic [facility] 3rd Flr [address] [place] [address] [phone] Trish Cedeno MD [address] [place] [address] [phone] Social History Tobacco Use Types Packs/Day Years Used Date Smoking Tobacco: Never Smokeless Tobacco: Never PHQ-2 Answer Date Recorded PHQ-2 Score 4 12/23/2022 Comments Unknown Sex and Gender Information Value Date Recorded Sex Assigned at Female 10/23/2021 10:13 PM CARDIOVASCULAR PHYSICIAN ASSISTANT Legal Sex Female 2:01 PM CDT Gender Identity Female 10/23/2021 10:13 PM CARDIOVASCULAR PHYSICIAN ASSISTANT Sexual Orientation Straight 10/23/2021 10 :13 PM CARDIOVASCULAR PHYSICIAN ASSISTANT documented as of this encounter Plan of Treatment Not on file documented as of this encounter Visit Diagnoses Not on filedocumented in this encounter Additional Health Concerns Assessment Noted Time PHQ-9 Depression Total Score: 13 023 2:07 PM CDT documented as of this encounter Care Teams Rag Baler Relationship Specialty Start Date End Date Aracelis Lindquist MD PCP - General Family Practice 05/26/20 Helen Weston MD Pediatric Endocrinology 05/26/20 Etta Lao MD [address] [place] [address] [phone] Assigned PCP 07/02/21 09/20/23 Trish Cedeno MD [facility] [address] 059564 Pediatric Endocrinology 12/23/21 Trish Cedeno MD [address] [place] [address] 85748 Assigned Pediatric Specialist Provider 01/02/22 Andressa Mauricio, FUR MACHINE OPERATOR Clinic Hospitality Job Titles Endocrinology, Diabetes, and Metabolism 07/05/22 04/07/23 Jazz Stewart MD [facility] [place], [place] 363604 Pediatric Nephrology 11/07/22 Andressa Mauricio, FUR MACHINE OPERATOR Lead Hospitality Job Titles Endocrinology, Diabetes, and Metabolism 08/27/24 10/03/24 documented as of this encounter
--- OUTSIDE RECORDS SUMMARY | 2025-06-18 17:21 | XMS_ITS | Encounter Summary ---
Author Organization [place] Address [address] [place] [address] 24548 Care Team Providers Care Lockstitch Front Maker Name Role Phone Helen Weston MD Unavailable [phone] Aracelis Lindquist MD Primary Care Provider Etta Lao MD Unavailable Trish Cedeno MD Unavailable [phone] Trish Cedeno MD Unavailable [phone] Jazz Stewart MD Unavailable Andressa Mauricio [facility] Unavailable Encounter Details Date Type Department Care Team (Late st Contact Info) Description 04/21/2023 [facility]ty Clinic [facility] 3rd Flr [address] [place] [phone] Trish Cedeno MD [address] [place] [address] Social History Tobacco Use Types Packs/Day Years Used Date Smoking Tobacco: Never Smokeless Tobacco: Never PHQ-2 Answer Date Recorded PHQ-2 Score 0 03/24/2023 Comments Unknown Sex and Gender Information Value Date Recorded Sex Assigned at Female 10/23/2021 10:13 PM OR ASSISTANT Legal Sex Female 2:01 PM CDT Gender Identity Female 10/23/2021 10:13 PM OR ASSISTANT Sexual Orientation Straight 10/23/2021 10 :13 PM OR ASSISTANT COVID-19 Exposure Response Date Recorded In the [...] documented as of this encounter Care Teams Lockstitch Front Maker Relationship Specialty Start Date End Date Aracelis Lindquist MD PCP - General Family Practice 05/26/20 Helen Weston MD Pediatric Endocrinology 05/26/20 Etta Lao MD [address] [place] [address]39 Assigned PCP 07/02/21 09/20/23 Trish Cedeno MD [facility] [address] 394534 Pediatric Endocrinology 12/23/21 Trish Cedeno MD [facility] [address] 055374 Assigned Pediatric Specialist Provider 01/02/22 Jazz Stewart MD [facility] [place] [address] Pediatric Nephrology 11/07/22 Andressa Mauricio, ECONOMIC DEVELOPER Lead Brand Specialist Endocrinology, Diabetes, and Metabolism 08/27/24 10/03/24 documented as of this encounter
--- OUTSIDE RECORDS SUMMARY | 2025-06-18 17:23 | XMS_ITS | Encounter Summary ---
Author Organization [place] Address [address] [place] [address]507 Care Team Providers Care Epic Beacon Analyst Name Role Phone Helen Weston MD Unavailable [phone] Aracelis Lindquist MD Primary Care Provider Trish Cedeno MD Unavailable [phone] Trish Cedeno MD Unavailable [phone] Jazz Stewart MD Unavailable Andressa Mauricio [facility] Unavailable [phone] Encounter Details Date Type Department Care Team (Late st Contact Info) Description 08/06/2024 MyC Medical Advice [facility] [address] [place] [phone] Randal Fisher Social History Tobacco Use Types Packs/Day Years Used Date Smoking Tobacco: Never Passive Smoke Exposure: Never Smokeless Tobacco: Never PHQ-2 Answer Date Recorded PHQ-2 Score 0 12/01/2023 Adolescent Education Answer Date Record ed Getting School Help Needed Not on file 05/20 Comments Unknown Sex and Gender Information Value Date Recorded Sex Assigned at Female 10/23/2021 10:13 PM PHYSIOTHERAPIST'S ASSISTANT Legal Sex Female 2:01 PM CDT Gender Identity Female 10/23/2021 10:13 PM PHYSIOTHERAPIST'S ASSISTANT Sexual Orientation Straight 10/23/2021 10 :13 PM PHYSIOTHERAPIST'S ASSISTANT documented as of this encounter Plan of Treatment Not on file documented as of this encounter Visit Diagnoses Not on filedocumented in this encounter Additional Health Concerns Assessment Noted Time PHQ-9 Depression Total Score: 13 023 2:07 PM CDT documented as of this encounter Care Teams Epic Beacon Analyst Relationship Specialty Start Date End Date Aracelis Lindquist MD PCP - General Family Practice 05/26/20 Helen Weston MD Pediatric Endocrinology 05/26/20 Trish Cedeno MD [address] [place] [address] [phone] Pediatric Endocrinology 12/23/21 Trish Cedeno MD [address] [place] [address] [phone] Assigned Pediatric Specialist Provider 01/02/22 [place] [address] [place] [address] [phone] Pediatric Nephrology 11/07/22 Andressa Mauricio, CONFERENCE SERVICES MANAGER Lead Novelty Twister Tender Endocrinology, Diabetes, and Metabolism 08/27/24 10/03/24 documented as of this encounter
--- OUTSIDE RECORDS SUMMARY | 2025-06-18 17:23 | XMS_ITS | Encounter Summary ---
Author Organization [place] Address [address] [place] [address] 11822 Care Team Providers Care Fusion Operator Name Role Phone Helen Weston MD Unavailable Aracelis Lindquist MD Primary Care Provider Etta Lao MD Unavailable Trish Cedeno MD Unavailable [phone] Trish Cedeno MD Unavailable [phone] Andressa Mauricio ROUGH PATCHER Unavailable Jazz Stewart MD Unavailable Andressa Mauricio ROUGH PATCHER Unavailable Encounter Details Date Type Department Care Team (Late st Contact Info) Description 06/03/2022 [facility] Pediatric Specialty Clinic [facility] [address] 3rd Flr [address] [place] [phone] Rossy Haas, RN Social History Tobacco Use Types Packs/Day Years Used Date Smoking Tobacco: Never Smokeless Tobacco: Never PHQ-2 Answer Date Recorded PHQ-2 Score 0 02/05/2021 Comments Unknown Sex and Gender Information Value Date Recorded Sex Assigned at Female 10/23/2021 10:13 PM BUILDING CARPENTER HELPER Legal Sex Female 2:01 PM CDT Gender Identity Female 10/23/2021 10:13 PM BUILDING CARPENTER HELPER Sexual Orientation Straight 10/23/2021 10 :13 PM BUILDING CARPENTER HELPER documented as of this encounter Plan of Treatment Not on file documented as of this encounter Visit Diagnoses Not on filedocumented in this encounter Care Teams Fusion Operator Relationship Specialty Start Date End Date Aracelis Lindquist MD PCP - General Family Practice 05/26/20 Helen Weston MD Pediatric Endocrinology 05/26/20 Etta Lao MD [address] [place] [address] [phone] Assigned PCP 07/02/21 09/20/23 Trish Cedeno MD [address] [place] [address] 967484 Pediatric Endocrinology 12/23/21 Trish Cedeno MD [address] [place] [address] 28440 Assigned Pediatric Specialist Provider 01/02/22 Andressa Mauricio, [facility] Clinic Front End Engineer Endocrinology, Diabetes, and Metabolism 07/05/22 04/07/23 Jazz Stewart MD [address] [place] [address] [phone] Pediatric Nephrology 11/07/22 Andressa Mauricio LSW Lead Front End Engineer Endocrinology, Diabetes, and Metabolism 08/27/24 10/03/24 documented as of this encounter
--- OUTSIDE RECORDS SUMMARY | 2025-06-18 17:23 | XMS_ITS | Encounter Summary ---
Author Organization [place] Address [address] [place] [address] 00745 Care Team Providers Care Animal Researcher Name Role Phone Helen Weston MD Unavailable [phone] Aracelis Lindquist MD Primary Care Provider [phone] Etta Lao MD Unavailable Trish Cedeno MD Unavailable [phone] Trish Cedeno MD Unavailable [phone] Andressa Mauricio RESPIRATORY CARE TECHNICIAN Unavailable [phone] Jazz Stewart MD Unavailable Andressa Mauricio RESPIRATORY CARE TECHNICIAN Unavailable [phone] Encounter Details Date Type Department Care Team (Late st Contact Info) Description 02/02/2022 [facility] Medical Advice [facility] Pediatric Specialty Clinic [facility] [address], 3rd Flr [address] [place] [phone] Carin Pereira, RN Social History Tobacco Use Types Packs/Day Years Used Date Smoking Tobacco: Never Smokeless Tobacco: Never PHQ-2 Answer Date Recorded PHQ-2 Score 0 02/05/2021 Comments Unknown Sex and Gender Information Value Date Recorded Sex Assigned at Female 10/23/2021 10:13 PM RIBBON CLEANER Legal Sex Female 2:01 PM CDT Gender Identity Female 10/23/2021 10:13 PM RIBBON CLEANER Sexual Orientation Straight 10/23/2021 10 :13 PM RIBBON CLEANER documented as of this encounter Plan of Treatment Not on file documented as of this encounter Visit Diagnoses Not on filedocumented in this encounter Care Teams Animal Researcher Relationship Specialty Start Date End Date Aracelis Lindquist MD PCP - General Family Practice 05/26/20 Helen Weston MD Pediatric Endocrinology 05/26/20 Etta Lao MD [address] [place] [address] [phone] Assigned PCP 07/02/21 09/20/23 Trish Cedeno MD [address] [place] [address] [phone] Pediatric Endocrinology 12/23/21 Trish Cedeno MD [address] [place] [address] 51756 Assigned Pediatric Specialist Provider 01/02/22 Andressa Mauricio, [facility] Clinic Etl Database Developer Endocrinology, Diabetes, and Metabolism 07/05/22 04/07/23 Jazz Stewart MD [address] [place] [address] [phone] Pediatric Nephrology 11/07/22 Andressa Mauricio LSW Lead Etl Database Developer Endocrinology, Diabetes, and Metabolism 08/27/24 10/03/24 documented as of this encounter
--- OUTSIDE RECORDS SUMMARY | 2025-06-18 17:23 | XMS_ITS | Clinical Summary ---
Author Organization [facility] Address [address] [place] [id number] Care Team Providers Care Licensed Pesticide Applicator Name Role Phone Helen Weston MD Unavailable Aracelis Lindquist MD Primary Care Provider Trish Cedeno MD Unavailable [phone] Trish Cedeno MD Unavailable [phone] Jazz Stewart MD Unavailable Allergies Active Allergy Reactions Criticality Noted Date Comments Niacin Itching 08/04/2024 Medications escitalopram (LEXAPRO) 10 MG tablet Take 10 mg by mouth At Bedtime 06/13/20 20 Active fenofibrate (LOFIBRA) 54 MG tabletIndications: Hypertriglyceridem ia Take 1 tablet (54 mg) by mouth 2 times daily 60 tablet 5 12/24/19 23 Active Continuous Blood Gluc Stacker Tender (DEXCOM G6 PUBLIC SAFETY DISPATCHER) DEVIIndications:Ty pe 2 diabetes mellitus with hyperglycemia, with long-term current use of insulin (H) 1 each See Admin Instructions 1 each 07/05/20 23 Active Antiseptic Products, Misc. (UNI-SOLVE) PADSIndications:Ty pe 2 diabetes mellitus with hyperglycemia, with long-term current use of insulin (H) Externally apply 1 each topically every other day Use wipe to remove Dexcom and infusion set. 50 each 02/23/20 24 Active Ostomy Supplies (SKIN TAC ADHESIVE BARRIER WIPE) MISCIndications:Ty pe 2 diabetes mellitus with hyperglycemia, with long-term current use of insulin (H) 1 each every other day Apply prior to Dexcom and insulin pump site insertion. 50 each 02/23/20 24 Active BD ULTRA FINE PEN NEEDLESIndications :Type 2 diabetes mellitus with hyperglycemia, with long-term current use of insulin (H) Use up to 6 pen needles daily. 200 each 02/23/20 Active blood glucose (ACCU-CHEK GUIDE) test stripIndications:T ype 2 diabetes mellitus with hyperglycemia, with long-term current use of insulin (H) Use to test blood sugar 6 times daily or as directed. 200 strip 02/23/20 Active blood glucose monitoring (ACCU-CHEK FASTCLIX) lancetsIndications :Type 2 diabetes mellitus with hyperglycemia, with long-term current use of insulin (H) Use to test blood sugar 6 times daily. 204 each 02/23/20 24 Active Glucagon (GVOKE HYPOPEN 2-PACK) 1 MG/0.2ML penIndications:Typ e 2 diabetes mellitus with hyperglycemia, with long-term current use of insulin (H) Inject 0.2 mLs (1 mg) Subcutaneous as needed (in the event of unconscious hypoglycemia) 0.2 mL 02/23/20 Active insulin glargine (LANTUS PEN) 100 UNIT/ML penIndications:Typ e 2 diabetes mellitus with hyperglycemia, with long-term current use of insulin (H) Inject 35 units daily. 15 mL 02/23/20 24 Active levothyroxine (SYNTHROID/LEVOTHR OID) 100 MCG tabletIndications: Acquired hypothyroidism Take 1 tablet (100 mcg) by mouth daily 90 tablet 02/23/20 Active Continuous Glucose Transmitter (DEXCOM G6 TRANSMITTER) MISCIndications:Ty pe 2 diabetes mellitus with hyperglycemia, with long-term current use of insulin (H) 1 each every 3 months. Change every 3 months. 1 each 1 06/27/20 24 Active Insulin Infusion Pump Supplies (T:SLIM X2 3ML CARTRIDGE) MISCIndications:Ty pe 2 diabetes mellitus with hyperglycemia, with long-term current use of insulin (H) Inject 1 each subcutaneously every other day. Insulin cartridge to be used with pump, change every 2-3 days.Insulin cartridge to be used with pump, change every 2-3 days. 15 each 08/05/20 24 Active Insulin Infusion Pump Supplies (AUTOSOFT XC INFUSION SET) MISCIndications:Ty pe 2 diabetes mellitus with hyperglycemia, with long-term current use of insulin (H) 1 each every other day. Autosoft XC, 6mm, 23 inch 15 each 08/08/20 24 Active alcohol swab prep padsIndications:Ty pe 2 diabetes mellitus with hyperglycemia, with long-term current use of insulin (H) Use to swab area of injection/antwon as directed. 100 each 09/03/19 25 Active insulin aspart (NOVOLOG VIAL) 100 UNITS/ML vialIndications:Ty pe 2 diabetes mellitus with hyperglycemia, with long-term current use of insulin (H) Up to 80 units into pump per day 30 mL 1 09/03/19 25 Active Continuous Glucose Sensor (DEXCOM G6 SENSOR) MISCIndications:Ty pe 2 diabetes mellitus with hyperglycemia, with long-term current use of insulin (H) 1 each every 10 days. Change every 10 days. 3 each 09/03/19 25 Active Active Problems Problem Noted Date Diagnosed Date Obesity, unspecified 06/05/2021 Acute necrotizing pancreatitis 01/11/2021 Type 2 diabetes mellitus Hypertriglyceridemia Immunizations Immunization Administration Dates Next Due DTAP (<7y) 03/20/2009 DTaP/HepB/IPV 05/26/2006, 5,2005,04/20 Flu, Unspecified 07/05/2013, 6,06/27/2006,11/22,2005 [id number] Novel Flu 09/09/2009 HIB (PRP-T) 05/26/2006,2005,2005 HIB(PRP-OMP)(PedvaxHIB) 05/26/2006,2005, HPV Quadrivalent 06/12/2017,12/16/2016 HPV9 (Gardasil) 06/12/2017,12/16/2016 Hepatitis A (Vaqta/Havrix)(P eds 12m-18y) 02/22/2007,02/22/2006 Hepatitis B, Peds (Engerix-B/Recombivax HB) 2005 Influenza (H1N1) 09/09/2009 Influenza (IIV3) PF 07/25/2006,06/27/2006 Influenza (prior to 2023) 06/18/2009,09/03/2007 Influenza Vaccine >6 months,quad, PF ,05/18/2022,07/12/2021,07/15,07/06/2018,06/23/2017,07/05/2013 Influenza, Split Virus, Triv alent, Pf (Fluzone\Fluarix) 06/18/2009,09/03/2007,2005,08/24 MMR (MMRII) 03/20/2009,02/22/2006 Meningococcal ACWY (Menactra ) 12/16/2016 Meningococcal ACWY (Menveo ) 04/12/2021 Pneumococcal (PCV 7) 05/26/2006,08/24/20 05,2005,04/20 Pneumococcal 20 valent Conju gate (Prevnar 20) 08/16/2023 Poliovirus, inactivated (IPV) 03/20/2009 TDAP (Adacel,Boostrix) 03/09/2015 Varicella (Varivax) 03/20/2009,02/22/2006 Family History Medical History Relation Comments Diabetes Type 2 Brother Diabetes Type 2 Father Heart Disease Father Hypertension Father Leukemia Maternal Grandfather Diabetes Type 2 Maternal Grandmother Diabetes Type 2 Mother Hyperlipidemia Mother Diabetes Type 2 Paternal Grandmother Relation Status Comments Brother Father Maternal Grandfather Maternal Grandmother Mother Paternal Grandmother Social History Tobacco Use Types Packs/Day Years Used Date Smoking Tobacco: Never Passive Smoke Exposure: Never Smokeless Tobacco: Never Tobacco Cessation:Counseling Given: Not Answered PHQ-2 Answer Date Recorded PHQ-2 Score 0 08/30/2024 Adolescent Education Answer Date Record ed Getting School Help Needed Not on file 05/20 Comments Unknown Sex and Gender Information Value Date Recorded Sex Assigned at Female 10/23/2021 10:13 PM TERRAZZO SUPERVISOR Legal Sex Female 2:01 PM CDT Gender Identity Female 10/23/2021 10:13 PM TERRAZZO SUPERVISOR Sexual Orientation Straight 10/23/2021 10 :13 PM TERRAZZO SUPERVISOR Last Filed Vital Signs Vital Sign Reading Time Taken Comments Blood Pressure 113/75 08/30/2024 11:36 AM TERRAZZO SUPERVISOR Pulse 105 08/30/2024 11:36 AM TERRAZZO SUPERVISOR Temperature 36.5 C (97.7 F) 01/22/2021 3:14 PM CDT Respiratory Rate 16 01/22/2021 3:14 PM CDT Oxygen Saturation 99% 01/22/2021 3:14 PM CDT Inhaled Oxygen Concentration - - Weight 86.6 kg (190 lb 14.7 oz) 025 11:36 AM TERRAZZO SUPERVISOR Height 156.4 cm (5' 1.58) 08/30/2024 1 1:36 AM TERRAZZO SUPERVISOR Body Mass Index 35.4 08/30/2024 11:36 AM TERRAZZO SUPERVISOR Plan of Treatment Health Maintenance Due Date Last Done Comments ADVANCE CARE PLANNING 2005 ANNUAL REVIEW OF HM ORDERS 2005 MENINGITIS B VACCINE (1 of 2 - Standard) 2021 HEPATITIS C SCREENING 2023 YEARLY PREVENTIVE VISIT 07/24/2024 07/24/2023 A1C 11/28/2024 08/30/2024, 01/27, 12/01/2023, Additional history exists DIABETIC FOOT EXAM 11/30/2024 12/01/2023, 12/23/2022 CHLAMYDIA SCREENING 12/17/2024 12/18/2023 MICROALBUMIN 02/22/2025 02/23/2024, 11/27, 07/30/2021 DTAP/TDAP/TD VACCINE (7 - Td or Tdap) 03/09/2025 03/09/2015, 03/20/2009, 05/26/2006, Additional history exists COVID-19 VACCINE (6 - 2024-2 6 season) 2025 06/22/2023, 06/08/2022, 07/12/2021, Additional history exists INFLUENZA VACCINE (#1) 2025 , 05/18/2022, 07/12/2021, Additional history exists EYE EXAM 07/31/2025 07/31/2024, 08/01/2021, 07/20/2020 BMP 08/30/2025 08/30/2024, 10/2020, 01/21/2021, Additional history exists LIPID 08/30/2025 08/30/2024, 01/27, 07/30/2021, Additional history exists TSH W/FREE T4 REFLEX 08/30/2025 08/30/2024, 08/30/2024, 02/23/2024, Additional history exists ZOSTER VACCINE (1 of 2) 2055 HEPATITIS B VACCINE Completed 05/26/2006, 2005, 2005, Additional history exists HPV VACCINE Completed 06/12/2017, 05/28, 12/16/2016, Additional history exists MENINGITIS VACCINE Completed 04/12/2021, 12/16/2016 PNEUMOCOCCAL VACCINE: PEDIAT RICS (0 to 5 YEARS) AND AT-RISK PATIENTS (6 to 49 YEARS) Completed 08/16/2023, 05/26/2006, 2005, Additional history exists HIV SCREENING Completed 08/17/2024 PHQ-2 (once per calendar year) Completed 0 08/30/2024, 12/01/2023, 03/24/2023, Additional history exists Procedures Procedure Name Priority Date/Time Associated Diagnosis Comments T4 FREE Routine 08/30/2024 12:34 PM TERRAZZO SUPERVISOR Type 2 diabetes mellitus with hyperglycemia, with long-term current use of insulin (H) LIPID PROFILE Routine 08/30/2024 12:34 PM TERRAZZO SUPERVISOR Type 2 diabetes mellitus with hyperglycemia, with long-term current use of insulin (H) COMPREHENSIVE METABOLIC PANEL Routine 08/30/2024 12:34 PM TERRAZZO SUPERVISOR Type 2 diabetes mellitus with hyperglycemia, with long-term current use of insulin (H) AFINION HEMOGLOBIN A1C POCT Routine 08/30/2024 11:32 AM TERRAZZO SUPERVISOR ALBUMIN AND CREATININE WITH RATIO RANDOM URINE QUANTITATIVE Routine 02/23/2024 3:42 PM CDT Type 2 diabetes mellitus with hyperglycemia, with long-term current use of insulin (H) from Last 3 Months or Most Recently Relevant to Health Maintenance Results * T4 free (08/30/2024 12:34 PM TERRAZZO SUPERVISOR) Free T4 1.41 1.00 - 1.60 ng/dL 08/30/2024 1:13 PM TERRAZZO SUPERVISOR [facility] Blood STRUCTURE OF LEFT UPPER LIMB / Unknown Venipuncture / Unknown 08/30/2024 12:34 PM TERRAZZO SUPERVISOR 08/30/2024 12:34 PM TERRAZZO SUPERVISOR us Trish Cedeno MD LAB - BLOOD ORDERABLES Tessa l Result UR LABORATORY [facility] [address], [address] [place] [address] * (ABNORMAL) Lipid Profile (08/30/2024 12:34 PM TERRAZZO SUPERVISOR) Cholesterol 140 <170 mg/dL 08/30/2024 1:13 PM TERRAZZO SUPERVISOR [facility] Triglycerides 372(H) <90 mg/dL 08/30/2024 1:13 PM TERRAZZO SUPERVISOR [facility] Direct Measure HDL 35(L) >45 mg/dL 2024 1:13 PM TERRAZZO SUPERVISOR [facility] LDL Cholesterol Calculated 31 <110 mg/dL 08/30/2024 1:13 PM TERRAZZO SUPERVISOR [facility] Non HDL Cholesterol 105 <120 mg/dL 08/30/2024 1:13 PM TERRAZZO SUPERVISOR [facility] Patient Fasting > 8hrs? Yes 08/30/2024 1:13 PM TERRAZZO SUPERVISOR [facility] Blood STRUCTURE OF LEFT UPPER LIMB / Unknown Venipuncture / Unknown 08/30/2024 12:34 PM TERRAZZO SUPERVISOR 08/30/2024 12:34 PM TERRAZZO SUPERVISOR Narrative UR LAB[facility]ATORY - 08/30/2024 1:13 PM TERRAZZO SUPERVISOR Cholesterol Desirable: < 170 mg/dL Borderline High: 170 - 199 mg/dL High: >= 200 mg/dL Triglycerides Desirable: < 90 mg/dL Borderline High: 90 - 129 mg/dL High: >= 130 mg/dL Direct Measure HDL Desirable: > 45 mg/dL Borderline High: 40 - 45 mg/dL Low: < 40 mg/dL LDL Cholesterol Desirable: < 110 mg/dL Borderline High: 110 - 129 mg/dL High: >= 130 mg/dL Non HDL Cholesterol Desirable: < 120 mg/dL Borderline High: 120 - 144 mg/dL High: >= 145 mg/dL Trish Cedeno MD LAB - BLOOD ORDERABLES Tessa césar Result UR LABORATORY [facility] Lab [address] [place] [address], [facility] * (ABNORMAL) Comprehensive metabolic panel (08/30/2024 12:34 PM TERRAZZO SUPERVISOR) Pathologist [facility] Sodium 140 135 - 145 mmol/L 08/30/2024 1:13 PM TERRAZZO SUPERVISOR [facility]ORY Potassium 3.9 3.4 - 5.3 mmol/L 08/30/2024 1:13 PM TERRAZZO SUPERVISOR [facility] Carbon Dioxide (CO2) 21(L) 22 - 29 mmol/L 08/30/2024 1:13 PM TERRAZZO SUPERVISOR [facility] Anion Gap 13 7 - 15 mmol/L 08/30/2024 1:13 PM TERRAZZO SUPERVISOR [facility] Urea Nitrogen 10.6 6.0 - 20.0 mg/dL 08/30/2024 1:13 PM TERRAZZO SUPERVISOR [facility] Creatinine 0.47(L) 0.51 - 0.95 mg/dL 08/30/2024 1:13 PM TERRAZZO SUPERVISOR [facility] GFR Estimate >90 >60 mL/min/1.7 3m2 08/30/2024 1:13 PM TERRAZZO SUPERVISOR [facility] Comment:eGFR calculated usin 2020 CKD-EPI equation. Calcium 9.6 8.8 - 10.4 mg/dL 08/30/2024 1:13 PM TERRAZZO SUPERVISOR [facility] Comment:Reference intervals for this test were updated on 03/12/2024 to reflect our healthy population more accurately. There may be differences in the flagging of prior results with similar values performed with this method. Those prior results can be interpreted in the context of the updated reference intervals. Chloride 106 98 - 107 mmol/L 08/30/2024 1:13 PM TERRAZZO SUPERVISOR [facility] Glucose 116(H) 70 - 99 mg/dL 08/30/2024 1:13 PM TERRAZZO SUPERVISOR [facility] Alkaline Phosphatase 77 40 - 150 U/L 08/30/2024 1:13 PM TERRAZZO SUPERVISOR [facility] AST 20 0 - 35 U/L 08/30/2024 1:13 PM TERRAZZO SUPERVISOR [facility] ALT 37 0 - 50 U/L 08/30/2024 1:13 PM TERRAZZO SUPERVISOR [facility] Protein Total 7.2 6.4 - 8.3 g/dL 08/30/2024 1:13 PM TERRAZZO SUPERVISOR [facility] Albumin 4.2 3.5 - 5.2 g/dL 08/30/2024 1:13 PM TERRAZZO SUPERVISOR [facility] Bilirubin Total 0.2 <=1.2 mg/dL 08/30/2024 1:13 PM TERRAZZO SUPERVISOR [facility] Patient Fasting > 8hrs? Yes 08/30/2024 1:13 PM TERRAZZO SUPERVISOR [facility] Blood STRUCTURE OF LEFT UPPER LIMB / Unknown Venipuncture / Unknown 08/30/2024 12:34 PM TERRAZZO SUPERVISOR 08/30/2024 12:34 PM TERRAZZO SUPERVISOR us Trish Cedeno MD LAB - BLOOD ORDERABLES Tessa l Result Performing Organization Address [facility]/ZIP Co de Phone Number UR LABORATORY [facility] Lab [address] [place] [address], Room [address] * (ABNORMAL) AFINION HEMOGLOBIN A1C POCT (08/30/2024 11:32 AM TERRAZZO SUPERVISOR) Estimated Average Glucose POCT 180(H) <117 08/30/2024 11:42 AM TERRAZZO SUPERVISOR UR LABORATORY Afinion Hemoglobin A1c POCT 7.9(H) <=5.7 % 08/30/2024 11:42 AM TERRAZZO SUPERVISOR UR LAB[facility]ATORY POC Comment: Normal <5.7% Prediabetes 5.7-6.4% Diabetes 6.5% or higher Note: Adopted from ADA consensus guidelines. Blood, Capillary BLOOD SPECIMEN / Unknown 08/30/2024 11:32 AM TERRAZZO SUPERVISOR 08/30/2024 11:42 AM TERRAZZO SUPERVISOR us Trish Cedeno MD LAB - BEAKER POCT Final Res ult UR LABORATORY POC [facility] Lab [address] [place] [address], Room [place] [id number] [place] [address] UR LABORATORY [facility] Lab [address] [place] [address], [facility] * Albumin Random Urine Quantitative with Creat Ratio (02/23/2024 3:42 PM CDT) Creatinine Urine mg/dL 75.0 mg/dL 02/23/2024 6:26 PM CDT [facility] Comment:The reference ranges have not been established in urine creatinine. The results should be integrated into the clinical context for interpretation. Albumin Urine mg/L <12.0 mg/L 2023 6:26 PM CDT [facility] Comment:The reference ranges have not been established in urine albumin. The results should be integrated into the clinical context for interpretation. Albumin Urine mg/g Cr 02/23/2024 6:26 PM CDT [facility] Comment: Unable to calculate, urine albumin and/or urine creatinine is outside detectable limits. Microalbuminuria is defined as an albumin:creatinine ratio of 17 to 299 for males and 25 to 299 for females. A ratio of albumin:creatinine of 300 or higher is indicative of overt proteinuria. Due to biologic variability, positive results should be confirmed by a second, first-morning random or 24-hour timed urine specimen. If there is discrepancy, a third specimen is recommended. When 2 out of 3 results are in the microalbuminuria range, this is evidence for incipient nephropathy and warrants increased efforts at glucose control, blood pressure control, and institution of therapy with an xswbxhtuazv-bstdjkkdjy-oumdog (KORI) inhibitor (if the patient can tolerate it). Urine MID-STREAM URINE SPECIMEN / Unknown Non-blood Collection / Unknown 02/23/2024 3:42 PM CDT 02/23/2024 3:43 PM CDT us Trish Cedeno MD LAB - URINE ORDERABLES Tessa lindsey Result U LABORATORY [facility] Lab [address] [facility] [address] [facility], [address] [place] [address], [facility] from Last 3 Months or Most Recently Relevant to Health Maintenance Insurance [address] [facility] [address] [address] [place] [id number] [place] [id number] [employer] [place] * Guarantor: CAROLE CHAUHAN Account Type Relation to Patient Date of Phone Billing Address Personal/Family Mother [id number] [facility] [address] [address] [place] [id number] [address] [facility] [address] [place] [id number] [employer] [place] Advance Directives For more information, please contact: [phone] * Full Code (Latest Code Status on File) Date Activated Date Inactivated Comments 01/11/2021 6:45 AM 01/22/2021 10:59 PM All basic a nd advanced life-sustaining interventions are performed as appropriate Question Answer Comments Code status determined by: Unable to dis cuss and no AD/POLST on file; continue PREVIOUSLY ORDERED code status Care Teams Licensed Pesticide Applicator Relationship Specialty Start Date End Date Aracelis Lindquist MD PCP - General Family Practice 05/26/20 Helen Weston MD Pediatric Endocrinology 05/26/20 Trish Cedeno MD [facility] [address] [id number] Pediatric Endocrinology 12/23/21 Trish Cedeno MD [address] [place] [address] [phone] Assigned Pediatric Specialist Provider 01/02/22 Jazz Stewart MD [address] [place] [address] [phone] Pediatric Nephrology 11/07/22
--- OUTSIDE RECORDS SUMMARY | 2025-06-18 17:23 | XMS_ITS | Encounter Summary ---
Author Organization [facility] Address [address] [place] [address]. [place] [address] Care Team Providers Care Mechanical Engineering Coop Name Role Phone Helen Weston MD Unavailable [phone] Aracelis Lindquist MD Primary Care Provider Trish Cedeno MD Unavailable [phone] Trish Cedeno MD Unavailable [phone] Jazz Stewart MD Unavailable Andressa Mauricio [facility] Unavailable [phone] Encounter Details Date Type Department Care Team (Late st Contact Info) Description 10/01/2024 [facility] Services - Medical Specialties Service Line [address] [place] [phone] Grazyna Gr MD [address] [place] [address] Social History Tobacco Use Types Packs/Day Years Used Date Smoking Tobacco: Never Passive Smoke Exposure: Never Smokeless Tobacco: Never PHQ-2 Answer Date Recorded PHQ-2 Score 0 08/30/2024 Adolescent Education Answer Date Record ed Getting School Help Needed Not on file 05/20 Comments Unknown Sex and Gender Information Value Date Recorded Sex Assigned at Female 10/23/2021 10:13 PM MUNICIPAL CLERK Legal Sex Female 2:01 PM CDT Gender Identity Female 10/23/2021 10:13 PM MUNICIPAL CLERK Sexual Orientation Straight 10/23/2021 10 :13 PM MUNICIPAL CLERK documented as of this encounter Plan of Treatment Not on file documented as of this encounter Visit Diagnoses Not on filedocumented in this encounter Additional Health Concerns Assessment Noted Time PHQ-9 Depression Total Score: 13 023 2:07 PM CDT documented as of this encounter Care Teams Mechanical Engineering Coop Relationship Specialty Start Date End Date Aracelis Lindquist MD PCP - General Family Practice 05/26/20 Helen Weston MD Pediatric Endocrinology 05/26/20 Trish Cedeno MD [address] [address] Pediatric Endocrinology 12/23/21 Trish Cedeno MD [address] [address] Assigned Pediatric Specialist Provider 01/02/22 Jazz Stewart MD [address] [place] [address] Pediatric Nephrology 11/07/22 Andressa Mauricio, ADMISSIONS SUPERVISOR Lead [facility] Endocrinology, Diabetes, and Metabolism 08/27/24 10/03/24 documented as of this encounter
--- OUTSIDE RECORDS SUMMARY | 2025-06-18 17:23 | XMS_ITS | Encounter Summary ---
Author Organization [facility] Address [address] [place] [address] Care Team Providers Care Medical Officer Psychiatry Name Role Phone Helen Weston MD Unavailable Aracelis Lindquist MD Primary Care Provider Etta Lao MD Unavailable Trish Cedeno MD Unavailable [phone] Trish Cedeno MD Unavailable [phone] Andressa Mauricio ANALYTICS SENIOR MANAGER Unavailable Jazz Stewart MD Unavailable Andressa Mauricio ANALYTICS SENIOR MANAGER Unavailable Encounter Details Date Type Department Care Team (Late st Contact Info) Description 09/20/2022 [facility] [place] [facility] [address] [place] [address] [address] [place] [address] Jigna Sargent, CHIKA Social History Tobacco Use Types Packs/Day Years Used Date Smoking Tobacco: Never Smokeless Tobacco: Never PHQ-2 Answer Date Recorded PHQ-2 Score 0 02/05/2021 Comments Unknown Sex and Gender Information Value Date Recorded Sex Assigned at Female 10/23/2021 10:13 PM CATTLE CARE WORKER Legal Sex Female 2:01 PM CDT Gender Identity Female 10/23/2021 10:13 PM CATTLE CARE WORKER Sexual Orientation Straight 10/23/2021 10 :13 PM CATTLE CARE WORKER documented as of this encounter Plan of Treatment Not on file documented as of this encounter Visit Diagnoses Not on filedocumented in this encounter Care Teams Medical Officer Psychiatry Relationship Specialty Start Date End Date Aracelis Lindquist MD PCP - General Family Practice 05/26/20 Helen Weston MD Pediatric Endocrinology 05/26/20 Etta Lao MD [address] [place] [address] [place] [id number] Assigned PCP 07/02/21 09/20/23 Trish Cedeno MD [address] [place] [address] Pediatric Endocrinology 12/23/21 Trish Cedeno MD [address] [place] [address] Assigned Pediatric Specialist Provider 01/02/22 Andressa Mauricio, [facility] Clinic Traffic Routing Engineer Endocrinology, Diabetes, and Metabolism 07/05/22 04/07/23 Jazz Stewart MD [facility] [place], [place] [phone] Pediatric Nephrology 11/07/22 Andressa Mauricio LSW Lead Traffic Routing Engineer Endocrinology, Diabetes, and Metabolism 08/27/24 10/03/24 documented as of this encounter
--- OUTSIDE RECORDS SUMMARY | 2025-06-18 17:23 | XMS_ITS | Encounter Summary ---
Author Organization [place] Address [address] [place] [address] Care Team Providers Care Sales Department Clerk Name Role Phone Helen Weston MD Unavailable [phone] Aracelis Lindquist MD Primary Care Provider Trish Cedeno MD Unavailable [phone] Trish Cedeno MD Unavailable [phone] Jazz Stewart MD Unavailable Andressa Mauricio [facility] Unavailable [phone] Encounter Details Date Type Department Care Team (Late st Contact Info) Description 09/06/2024 [facility] [address] [place] [address] Jie Valdovinos RN Social History Tobacco Use Types Packs/Day Years Used Date Smoking Tobacco: Never Passive Smoke Exposure: Never Smokeless Tobacco: Never PHQ-2 Answer Date Recorded PHQ-2 Score 0 08/30/2024 Adolescent Education Answer Date Record ed Getting School Help Needed Not on file 05/20 Comments Unknown Sex and Gender Information Value Date Recorded Sex Assigned at Female 10/23/2021 10:13 PM DRAW IN HAND Legal Sex Female 2:01 PM CDT Gender Identity Female 10/23/2021 10:13 PM DRAW IN HAND Sexual Orientation Straight 10/23/2021 10 :13 PM DRAW IN HAND documented as of this encounter Plan of Treatment Not on file documented as of this encounter Visit Diagnoses Not on filedocumented in this encounter Additional Health Concerns Assessment Noted Time PHQ-9 Depression Total Score: 13 023 2:07 PM CDT documented as of this encounter Care Teams Sales Department Clerk Relationship Specialty Start Date End Date Aracelis Lindquist MD PCP - General Family Practice 05/26/20 Helen Weston MD Pediatric Endocrinology 05/26/20 [place] [address] [place] [address] Pediatric Endocrinology 12/23/21 Trish Cedeno MD [address] 490334 Assigned Pediatric Specialist Provider 01/02/22 [place] [address] [place] [address] Pediatric Nephrology 11/07/22 Andressa Mauricio, RIGGING FOREMAN Lead Invoice Clerk Endocrinology, Diabetes, and Metabolism 08/27/24 10/03/24 documented as of this encounter
--- OUTSIDE RECORDS SUMMARY | 2025-06-18 17:23 | XMS_ITS | Encounter Summary ---
Author Organization [place] Address [address] [place] [address] Care Team Providers Care Photographers' Model Name Role Phone Helen Weston MD Unavailable Aracelis Lindquist MD Primary Care Provider [phone] Etta Lao MD Unavailable [phone] Trish Cedeno MD Unavailable Trish Cedeno MD Unavailable Andressa Mauricio [facility] Unavailable Jazz Stewart MD Unavailable Andressa Mauricio SUPERVISOR PAPER MACHINE Unavailable Encounter Details Date Type Department Care Team (Late st Contact Info) Description 12/06/2022 [facility] Specialty Clinic [facility] 3rd Flr [address] [place] [phone] Trish Cedeno MD [address] [place] [address] [id number] Social History Tobacco Use Types Packs/Day Years Used Date Smoking Tobacco: Never Smokeless Tobacco: Never PHQ-2 Answer Date Recorded PHQ-2 Score 0 02/05/2021 Comments Unknown Sex and Gender Information Value Date Recorded Sex Assigned at Female 10/23/2021 10:13 PM BRANCH MAKER Legal Sex Female 2:01 PM CDT Gender Identity Female 10/23/2021 10:13 PM BRANCH MAKER Sexual Orientation Straight 10/23/2021 10 :13 PM BRANCH MAKER documented as of this encounter Plan of Treatment Not on file documented as of this encounter Visit Diagnoses Not on filedocumented in this encounter Care Teams Photographers' Model Relationship Specialty Start Date End Date Aracelis Lindquist MD PCP - General Family Practice 05/26/20 Helen Weston MD Pediatric Endocrinology 05/26/20 Etta Lao MD [address] [place] [address] Assigned PCP 07/02/21 09/20/23 Trish Cedeno MD [facility] [address]644 Pediatric Endocrinology 12/23/21 Trish Cedeno MD [address] [place] [address] Assigned Pediatric Specialist Provider 01/02/22 Andressa Mauricio LSW Clinic Night Coordinator Endocrinology, Diabetes, and Metabolism 07/05/22 04/07/23 Jazz Stewart MD [address] [place] [address] Pediatric Nephrology 11/07/22 Andressa Mauricio LSW Lead Night Coordinator Endocrinology, Diabetes, and Metabolism 08/27/24 10/03/24 documented as of this encounter
--- OUTSIDE RECORDS SUMMARY | 2025-06-18 17:24 | XMS_ITS | Encounter Summary ---
Author Organization [place] Address [address] [place] [address] Care Team Providers Care Database Analyst Name Role Phone Helen Weston MD Unavailable [phone] Aracelis Lindquist MD Primary Care Provider Trish Cedeno MD Unavailable [phone] Trish Cedeno MD Unavailable [phone] Jazz Stewart MD Unavailable Andressa Mauricio [facility] Unavailable [phone] Encounter Details Date Type Department Care Team (Late st Contact Info) Description 12/04/2023 [facility] Medical Advice [facility] Pediatric Specialty Clinic [facility] [address] [place] [address] Katt Patel, RN Social History Tobacco Use Types Packs/Day Years Used Date Smoking Tobacco: Never Smokeless Tobacco: Never PHQ-2 Answer Date Recorded PHQ-2 Score 0 12/01/2023 Adolescent Education Answer Date Record ed Getting School Help Needed Not on file 05/20 Comments Unknown Sex and Gender Information Value Date Recorded Sex Assigned at Female 10/23/2021 10:13 PM HOG KILLER Legal Sex Female 2:01 PM CDT Gender Identity Female 10/23/2021 10:13 PM HOG KILLER Sexual Orientation Straight 10/23/2021 10 :13 PM HOG KILLER documented as of this encounter Plan of Treatment Not on file documented as of this encounter Visit Diagnoses Not on filedocumented in this encounter Additional Health Concerns Assessment Noted Time PHQ-9 Depression Total Score: 13 023 2:07 PM CDT documented as of this encounter Care Teams Database Analyst Relationship Specialty Start Date End Date Aracelis Lindquist MD PCP - General Family Practice 05/26/20 Helen Weston MD Pediatric Endocrinology 05/26/20 Trish Cedeno MD [address] [place] [address] 522244 Pediatric Endocrinology 12/23/21 Trish Cedeno MD [address] [place] [address] [phone] Assigned Pediatric Specialist Provider 01/02/22 Jazz Stewart MD [address] [place] [address] [id number] Pediatric Nephrology 11/07/22 Andressa Mauricio, INSTRUMENT INSTALLER Lead Scale Manager Endocrinology, Diabetes, and Metabolism 08/27/24 10/03/24 documented as of this encounter
--- OUTSIDE RECORDS SUMMARY | 2025-06-18 17:24 | XMS_ITS | Encounter Summary ---
Author Organization [place] Address [address] [place] [address] Care Team Providers Care Superintendent Ammunition Storage Name Role Phone Helen Weston MD Unavailable [phone] Aracelis Lindquist MD Primary Care Provider Trish Cedeno MD Unavailable [phone] Trish Cedeno MD Unavailable [phone] Jazz Stewart MD Unavailable Andressa Mauricio [facility] Unavailable [phone] Encounter Details Date Type Department Care Team (Late st Contact Info) Description 12/01/2023 [facility] Medical Advice [facility] [address] [place] [address] Randal Fisher Social History Tobacco Use Types Packs/Day Years Used Date Smoking Tobacco: Never Smokeless Tobacco: Never PHQ-2 Answer Date Recorded PHQ-2 Score 0 12/01/2023 Adolescent Education Answer Date Record ed Getting School Help Needed Not on file 05/20 Comments Unknown Sex and Gender Information Value Date Recorded Sex Assigned at Female 10/23/2021 10:13 PM VEGETABLE THINNER Legal Sex Female 2:01 PM CDT Gender Identity Female 10/23/2021 10:13 PM VEGETABLE THINNER Sexual Orientation Straight 10/23/2021 10 :13 PM VEGETABLE THINNER documented as of this encounter Plan of Treatment Not on file documented as of this encounter Visit Diagnoses Not on filedocumented in this encounter Additional Health Concerns Assessment Noted Time PHQ-9 Depression Total Score: 13 12/23/ 023 2:07 PM CDT documented as of this encounter Care Teams Superintendent Ammunition Storage Relationship Specialty Start Date End Date Aracelis Lindquist MD PCP - General Family Practice 05/26/20 Helen Weston MD Pediatric Endocrinology 05/26/20 Trish Cedeno MD [address] [place] [address] Pediatric Endocrinology 12/23/21 Trish Cedeno MD [address] [place] [address] Assigned Pediatric Specialist Provider 01/02/22 Jazz Stewart MD [address] [place] [address] Pediatric Nephrology 11/07/22 Andressa Mauricio, ADVERTISING ACCOUNT EXECUTIVE Lead Rubber Stamp Dies Inspector Endocrinology, Diabetes, and Metabolism 08/27/24 10/03/24 documented as of this encounter
--- OUTSIDE RECORDS SUMMARY | 2025-06-18 17:24 | XMS_ITS | Encounter Summary ---
Author Organization [place] Address [facility] [place] [address] Care Team Providers Care Fabric Normalizer Name Role Phone Helen Weston MD Unavailable [phone] Aracelis Lindquist MD Primary Care Provider Trish Cedeno MD Unavailable [phone] Trish Cedeno MD Unavailable [phone] Jazz Stewart MD Unavailable Andressa Mauricio [facility] Unavailable [phone] Encounter Details Date Type Department Care Team (Late st Contact Info) Description 09/12/2024 [facility] Advice [facility] [address] [facility] [address] [address] Chasity Jefferson Social History Tobacco Use Types Packs/Day Years Used Date Smoking Tobacco: Never Passive Smoke Exposure: Never Smokeless Tobacco: Never PHQ-2 Answer Date Recorded PHQ-2 Score 0 08/30/2024 Adolescent Education Answer Date Record ed Getting School Help Needed Not on file 05/20 Comments Unknown Sex and Gender Information Value Date Recorded Sex Assigned at Female 10/23/2021 10:13 PM HARNESS INSTALLER Legal Sex Female 2:01 PM CDT Gender Identity Female 10/23/2021 10:13 PM HARNESS INSTALLER Sexual Orientation Straight 10/23/2021 10 :13 PM HARNESS INSTALLER documented as of this encounter Plan of Treatment Not on file documented as of this encounter Visit Diagnoses Not on filedocumented in this encounter Additional Health Concerns Assessment Noted Time PHQ-9 Depression Total Score: 13 023 2:07 PM CDT documented as of this encounter Care Teams Fabric Normalizer Relationship Specialty Start Date End Date Aracelis Lindquist MD PCP - General Family Practice 05/26/20 Helen Weston MD Pediatric Endocrinology 05/26/20 Trish Cedeno MD [address] [address] Pediatric Endocrinology 12/23/21 Trish Cedeno MD [address] [phone] Assigned Pediatric Specialist Provider 01/02/22 [place] [address] [place] [address] Pediatric Nephrology 11/07/22 Andressa Mauricio, PRIVACY OFFICER Lead Esthetician Spa Endocrinology, Diabetes, and Metabolism 08/27/24 10/03/24 documented as of this encounter
--- OUTSIDE RECORDS SUMMARY | 2025-06-18 17:24 | XMS_ITS | Encounter Summary ---
Author Organization [place] Address [address] [place] [address] Care Team Providers Care Flight Security Specialist Name Role Phone Helen Weston MD Unavailable Aracelis Lindquist MD Primary Care Provider Jazz Stewart MD Unavailable Trish Cedeno MD Unavailable [phone] Savannah Dudley MD Unavailable Donita Mckeon MD Unavailable [phone] Trish Cedeno MD Unavailable [phone] Etta Lao MD Unavailable [phone] Jazz Stewart MD Unavailable Trish Cedeno MD Unavailable [phone] Trish Cedeno MD Unavailable [phone] Andressa Mauricio MINES INSPECTOR Unavailable Jazz Stewart MD Unavailable Andressa Mauricio MINES INSPECTOR Unavailable Encounter Details Date Type Department Care Team (Late st Contact Info) Description 01/10/2021 External Order Results [facility] [address] [place] [address] Outside, Provider Social History Tobacco Use Types Packs/Day Years Used Date Smoking Tobacco: Never Smokeless Tobacco: Never Comments Unknown Sex and Gender Information Value Date Recorded Sex Assigned at Female 10/23/2021 10:13 PM HOT METAL MIXER OPERATOR HELPER Legal Sex Female 2:01 PM CDT Gender Identity Female 10/23/2021 10:13 PM HOT METAL MIXER OPERATOR HELPER Sexual Orientation Straight 10/23/2021 10 :13 PM HOT METAL MIXER OPERATOR HELPER documented as of this encounter Plan of Treatment Not on file documented as of this encounter Procedures Procedure Name Priority Date/Time Associated Diagnosis Comments COVID-19 VIRUS (CORONAVIRUS) BY PCR (EXTERNAL RESULT) Routine 01/10/2021 9:23 AM CDT documented in this encounter Results * COVID-19 Virus (Coronavirus) by PCR (External Result) (01/10/2021 9:23 AM CDT) COVID-19 Virus by PCR (External Result) Negative Negative COVID-19 EXTERNAL RESULTS 01/10/2021 9:23 AM CDT Narrative DEJUAN JOYCE - 02/03/2021 3:07 PM CDT Verified by Flor Ross on 02/03/2021. Performed by: [address] [address] [place] Patient Reported LABORATORY Edited Result - Final JASMINERIKA PFT COVID-19 EXTERNAL RESULTS COVID-19 External Result Scanned into Patient Record by [facility] Refer to Result Comment/Narrative for exact performing laboratory [place] [id number] documented in this encounter Visit Diagnoses Not on filedocumented in this encounter Care Teams Flight Security Specialist Relationship Specialty Start Date End Date Aracelis Lindquist MD PCP - General Family Practice 05/26/20 Helen Weston MD Pediatric Endocrinology 05/26/20 Jazz Stewart MD [address] [place] [address] Assigned Pediatric Specialist Provider 08/02/20 02/13/21 Trish Cedeno MD [facility] [address] [address] Assigned Pediatric Specialist Provider 02/14/21 04/03/21 Savannah Dudley MD [facility] [address] [address] Assigned Pediatric Specialist Provider 04/04/21 06/12/21 Donita Mckeon MD [facility] [address] [address] Assigned Pediatric Specialist Provider 06/13/21 08/07/21 Trish Cedeno MD [facility] [address] [address] Assigned Pediatric Specialist Provider 08/08/21 11/20/21 Etta Lao MD [address] [place] [address] Assigned PCP 07/02/21 09/20/23 Jazz Stewart MD [address] [place] [address] Assigned Pediatric Specialist Provider 11/21/21 01/01/22 Trish Cedeno MD [facility] [address] [address] Pediatric Endocrinology 12/23/21 Trish Cedeno MD [address] [address] Assigned Pediatric Specialist Provider 01/02/22 Andressa Mauricio LSW Clinic Landfill Grader Endocrinology, Diabetes, and Metabolism 07/05/22 04/07/23 Jazz Stewart MD [address] [place] [address] Pediatric Nephrology 11/07/22 Andressa Mauricio MINES INSPECTOR Lead Landfill Grader Endocrinology, Diabetes, and Metabolism 08/27/24 10/03/24 documented as of this encounter
--- OUTSIDE RECORDS SUMMARY | 2025-06-18 17:24 | XMS_ITS | Encounter Summary ---
Author Organization [place] Address [address] [place] [address] Care Team Providers Care Bee Worker Name Role Phone Helen Weston MD Unavailable [phone] Aracelis Lindquist MD Primary Care Provider Trish Cedeno MD Unavailable [phone] Trish Cedeno MD Unavailable [phone] Jazz Stewart MD Unavailable Andressa Mauricio [facility] Unavailable [phone] Encounter Details Date Type Department Care Team (Late st Contact Info) Description 11/01/2023 [facility] Medical Advice [facility] Pediatric Specialty Clinic [facility], 3rd Floor [facility] [address] [address] Divina Marsh Social History Tobacco Use Types Packs/Day Years Used Date Smoking Tobacco: Never Smokeless Tobacco: Never PHQ-2 Answer Date Recorded PHQ-2 Score 0 03/24/2023 Adolescent Education Answer Date Record ed Getting School Help Needed Not on file 05/20 Comments Unknown Sex and Gender Information Value Date Recorded Sex Assigned at Female 10/23/2021 10:13 PM AUTOMOTIVE INSTRUCTOR Legal Sex Female 2:01 PM CDT Gender Identity Female 10/23/2021 10:13 PM AUTOMOTIVE INSTRUCTOR Sexual Orientation Straight 10/23/2021 10 :13 PM AUTOMOTIVE INSTRUCTOR documented as of this encounter Plan of Treatment Not on file documented as of this encounter Visit Diagnoses Not on filedocumented in this encounter Additional Health Concerns Assessment Noted Time PHQ-9 Depression Total Score: 13 023 2:07 PM CDT documented as of this encounter Care Teams Bee Worker Relationship Specialty Start Date End Date Aracelis Lindquist MD PCP - General Family Practice 05/26/20 Helen Weston MD Pediatric Endocrinology 05/26/20 Trish Cedeno MD [address] [place] [address] 609174 Pediatric Endocrinology 12/23/21 Trish Cedeno MD [address] [place] [address] Assigned Pediatric Specialist Provider 01/02/22 Jazz Stewart MD [address] [place] [address] [phone] Pediatric Nephrology 11/07/22 Andressa Mauricio, BUTTON RECLAIMER Lead Freight Flagman Endocrinology, Diabetes, and Metabolism 08/27/24 10/03/24 documented as of this encounter
--- OUTSIDE RECORDS SUMMARY | 2025-06-18 17:24 | XMS_ITS | Clinical Summary ---
Author Organization [employer] Address [address] [place] [id number] Care Team Providers Care Engraver Flatware Name Role Phone Aracelis Herron MD Primary Care Provider Alisha Grant MD Unavailable [phone] Kathy Marin RN Unavailable Marcelo Naranjo MD Unavailable [phone] Allergies Active Allergy Reactions Criticality Noted Date Comments Haloperidol Anxiety 10/13/2024 Likely akathisia (10/13/24) Niacin Itching 08/04/2024 Medications polyethylene glycoL (Miralax) 17 gram/scoop powder Mix 1 scoop in liquid then take by mouth once daily if needed for Constipation. Active cholecalciferol, vitamin D3, (VITAMIN D3 ORAL) Take 1 Capsule by mouth once daily. Active glucagon 1 mg/0.2 mL atIn Inject 0.2 mL subcutaneous once daily if needed (Hypoglycemic event). Active alcohol swabs Apply topically to affected area(s). Use to swab area of injection/lancet as directed Active acetaminophen (TYLENOL EXTRA STRGTH) 500 mg tablet Take 1,000 mg by mouth every 6 hours if needed for Pain. Max acetaminophen dose: 4000mg in 24 hrs. Active pioglitazone (Actos) 15 mg tabletIndications :Type 2 diabetes mellitus without complication, with long-term current use of insulin (HC) Take 1 Tablet (15 mg) by mouth once daily. 30 Tablet 2 09/04/19 25 Active Omnipod 5 G6-G7 Intro Kt,Gen5, crtgIndications:T ype 2 diabetes mellitus with microalbuminuria, with long-term current use of insulin (HC) Inject subcutaneous. 1 Each 09/04/19 25 Active insulin pump cart,auto,BT,G6/7 (Omnipod 5 G6-G7 Pods, Gen 5,) crtgIndications:T ype 2 diabetes mellitus with microalbuminuria, with long-term current use of insulin (HC) Inject subcutaneous. via insulin pump. change pod every 3 days 10 Each 3 09/04/19 25 Active atorvastatin (LIPITOR) 80 mg tabletIndications :Mixed hyperlipidemia Take 1 Tablet (80 mg) by mouth once daily. 30 Tablet 3 09/24/19 25 Active buPROPion (WELLBUTRIN XL) 150 mg Extended-Release tabletIndications :Depression, unspecified depression type Take 1 Tablet (150 mg) by mouth once daily. 30 Tablet 3 09/24/19 25 Active escitalopram oxalate (LEXAPRO) 20 mg tabletIndications :Depression, unspecified depression type Take 1 Tablet (20 mg) by mouth once daily in the morning. 90 Tablet 3 09/24/19 25 Active ferrous sulfate 325 mg delayed release tabletIndications :Irregular periods Take 1 Tablet (325 mg) by mouth two times daily. 180 Tablet 3 09/24/19 25 Active insulin aspart, U-100, (NOVOLOG FLEXPEN) 100 unit/mL (3 mL) penIndications:Hy pertriglyceridemi a Inject 12 units subcutaneous three times daily with meals. 9 mL 3 09/24/19 25 Active levothyroxine (SYNTHROID) 100 mcg tabletIndications :Hypothyroidism, unspecified type Take 1 Tablet (100 mcg) by mouth before breakfast. 30 Tablet 3 09/24/19 25 Active insulin pump controller + pods INTRO KIT (OMNIPOD 5 DexcomG6-G7) (Omnipod 5 G6-G7 Intro Kt(Gen5))Indicati ons:Type 2 diabetes mellitus without complication, with long-term current use of insulin (HC) For use with insulin, change pod every 72 hours as directed. 1 Each 5 1:25 PM CDT 12/14/19 25 Active pen needle (Simi Pen Needle) 32 gauge x 5/32 (disposable insulin pen needle)Indication s:Type 2 diabetes mellitus without complication, with long-term current use of insulin (HC) For insulin injections four times a day. Remove the 2 covers on the pen needle before administering medication dose. 100 Each 11 5 1:25 PM CDT 12/14/19 25 Active fenofibrate 160 mg tabletIndications :Hypertriglycerid emia Take 1 Tablet (160 mg) by mouth once daily with a meal. 30 Tablet 3 01/11/20 25 Active omega-3 acid ethyl esters 1 gram capsuleIndication s:Hypertriglyceri demia, familial Take 2 Capsules (2 g) by mouth two times daily. 60 Capsule 5 01/11/20 25 Active vacuum kettle cook (Dexcom G7 Sprinkler Driver) for continuous blood glucose monitor (CGM)Indications: Type 2 diabetes mellitus without complication, with long-term current use of insulin (HC) This is for the glucose SLAT GRADER , also order the sensors. 1 Each 03/12/20 25 Active sensor (Dexcom G7 Sensor) for continuous blood glucose monitor (CGM)Indications: Type 2 diabetes mellitus without complication, with long-term current use of insulin (HC) To be used to read blood sugars, change sensor every 10 days. This is for the glucose SENSOR, also order the vacuum kettle cook. 9 Each 3 03/12/20 25 Active ondansetron (ZOFRAN ODT) 4 mg disintegrating tabletIndications :Abdominal pain, unspecified abdominal location,Nausea Place 1 Tablet (4 mg) on the tongue every 6 hours if needed for Nausea/Vomiting. 20 Tablet 1 03/31/20 25 Active omeprazole (PRILOSEC) 40 mg Delayed-Release capsuleIndication s:Chronic abdominal pain Take 1 Capsule (40 mg) by mouth once daily before a meal. 30 Capsule 1 03/31/20 25 Active hydrOXYzine HCL (ATARAX) 25 mg tabletIndications :Depression with anxiety Take 1 Tablet (25 mg) by mouth every 6 hours if needed for Anxiety. 30 Tablet 1 03/31/20 25 Active oxyCODONE-acetami nophen (PERCOCET) 5-325 mg per tabletIndications :Chronic abdominal pain,Acute on chronic pancreatitis (HC) Take 1 Tablet by mouth 3 times daily if needed for Pain. Max acetaminophen dose: 4000mg in 24 hrs. 20 Tablet 04/22/20 25 Active Additional Information Patient not taking.Reported on 06/10/2025 Lantus Solostar U-100 Insulin 100 unit/mL (3 mL) penIndications:Hy pertriglyceridemi a Inject 40 units subcutaneous before bedtime. Product desired: LANTUS SOLOSTAR 15 mL 05/13/20 25 Active insulin aspart U-100 (NOVOLOG) 100 unit/mL injectionIndicati ons:Type 2 diabetes mellitus without complication, with long-term current use of insulin (HC) Inject up to 100 units into pump per day 30 mL 5 05/19/20 25 Active oxyCODONE (ROXICODONE) 5 mg immediate release tabletIndications :Hypertriglycerid emia,Chronic recurrent pancreatitis (HC) Take 1 Tablet (5 mg) by mouth every 4 hours if needed for Pain. 5 Tablet 06/10/20 25 Active HYDROcodone-aceta minophen (5-325 mg/tablet)Indicat ions:Chronic recurrent pancreatitis (HC) Take 1 Tablet by mouth every 4 hours if needed for Pain. Max acetaminophen dose: 4000 mg in 24 hrs. 12 Tablet 03/31/20 25 025 Discontin ued(*Dyan ent states no longer taking) Active Problems Problem Noted Date Diagnosed Date Encounter for long-term (current) use of insulin 03/31/2025 Overview (03/31/2025): insulin aspart U-100 (NovoLOG) 100 unit/mL injection ... Inject up to 80 units into pump per day ... order date: 01/25/25, start date: 01/03/24 (reported by [facility]) insulin glargine (Lantus SoloStar) 100 UNIT/ML SOPN injection - pen ... Inject 35 Units into the skin nightly. ++ ONLY WHEN NOT ON INSULIN PUMP ++ ... order date: 01/25/25, start date: NA (reported by [facility]) insulin glargine (LANTUS PEN) 100 UNIT/ML pen ... Inject 35 units daily. ... order date: 01/25/25, start date: 02/23/24 (reported by [facility]) insulin aspart (NOVOLOG VIAL) 100 UNITS/ML vial ... Up to 80 units into pump per day ... order date: 01/25/25, start date: 09/03/24 (reported by [facility]) insulin glargine (LANTUS SOLOSTAR) 100 UNIT/ML pen ... Inject 25-35 Units subcutaneously daily. Indications: Diabetes Mellitus ... order date: 01/10/25, start date: 04/30/20 (reported by [facility]) insulin aspart (NOVOLOG FLEXPEN) 100 UNIT/ML pen injection ... Inject 1-10 Units subcutaneously three times daily before meals. Indications: Diabetes Mellitus ... order date: 01/10/25, start date: 04/30/20 (reported by [facility]) insulin aspart 100 unit/mL injection (NOVOLOG) ... Inject up to 100 units into pump per day ... order date: 01/10/25, start date: 01/10/25 insulin aspart (U-100) 100 unit/mL subcutaneous pen (NOVOLOG FLEXPEN) 3 mL ... Inject 12 units subcutaneous three times daily with meals. ... order date: 09/24/24, start date: 09/24/24 Novolog Flexpen U-100 Insulin aspart 100 unit/mL (3 mL) subcutaneous ... inject by subcutaneous route per prescriber's instructions. Insulin dosing requires individualization. ... order date: 08/01/24, start date: 08/04/20 (reported by [facility] [place]) insulin glargine 100 UNT/ML Injectable Solution [Lantus] ... inject 12 Units by subcutaneous route every day as per insulin protocol ... order date: 08/01/24, start date: 08/04/20 (reported by [facility] [place]) LANTUS SOLOSTAR U-100 INSULIN 100 UNIT/ML (3 ML) SUBCUTANEOUS PEN ... Inject 35 units subcutaneous before bedtime. Product desired: LANTUS SOLOSTAR ... order date: 05/22/24, start date: 05/22/24 AI Summary: The patient was admitted on 01/18/2025 for epigastric abdominal pain and has a history of type 1 diabetes mellitus, familial hypertriglyceridemia, hyperlipidemia, recurrent pancreatitis, and obesity. The patient also has type 2 diabetes mellitus with microalbuminuria and was diagnosed approximately 12 years ago. The patient uses long-term insulin and has an OmniPod 5 insulin delivery system and is planning on seeing diabetes education to get the pump set up. Recent encounter dx: 01/10/25: Appointment - Pending Sale To [facility] 12/13/24: Appointment - Pending Sale To [facility] 11/29/24: Discharge - [facility], 333, 333 / 1 11/23/24: Discharge - [facility], ED06, ED06 / 06 11/04/24: Discharge - [facility], 07, Acute on chronic pancreatitis 01/18/2025 Diabetic ketoacidosis withou t coma associated with type 1 diabetes mellitus 01/18/2025 Failure to thrive in child or adolescent 025 Chronic recurrent pancreatitis 11/03/2024 Overview (11/03/2024): AI Summary: As of 08/30/24: Chronic recurrent pancreatitis (H) noted on 08/30/2024. Recent notes: 08/30/24: Progress Notes by Trish Cedeno MD (from [facility]) ... [+] Chronic recurrent pancreatitis (H) 08/30/24: Consult - [facility], F/U TYPE 2 DIABETES, 08/30/2024 by ARACELIS HERRON ... [+] * Chronic recurrent pancreatitis (H) Hypertriglyceridemia Acquired hypothyroidism Elevated BP without diagnosis of hypertension Microalbuminuria Epigastric pain 06/18/2024 Hypomagnesemia 06/18/2024 Acute pancreatitis without infection or necrosis 03/23/2024 Hypothyroid 01/30/2024 Nausea and vomiting 12/24/2023 Hepatic steatosis 12/24/2023 Pancreatic pseudocyst 10/01/2023 Hypertriglyceridemia 05/30/2023 Hypocalcemia 05/30/2023 Depression with anxiety 05/29/2023 Type 2 diabetes mellitus wit h microalbuminuria, with long-term current use of insulin 10/26/2022 Acute pancreatitis 01/10/2021 Keratosis pilaris 10/14/2020 Metabolic acidosis 04/30/2020 Overview (06/11/2020): Bicarb chronically 19-21, managed by Jennifer Wade endocrine Aracelis Herron MD .................... 06/11/2020 4:19 AM Vitamin D deficiency 04/30/2020 Psychophysiological insomnia 09/02/2018 Chronic constipation 10/20/2016 Resolved Problems Problem Noted Date Diagnosed Date Resolved Date Epigastric pain 01/19/2025 03/31/2025 Type 1 diabetes mellitus without complication 01/19/2003/31/2025 Overview (06/06/2025): Diagnosis Code replaced due to regulatory update High anion gap metabolic acidosis 11/30/2024 03/31/2025 Pancreatitis 10/01/2024 03/31/2025 Pancreatitis 09/07/2024 03/31/2025 Abdominal pain 07/17/2024 03/31/2025 DKA, type 1 12/24/2023 12/24/2023 DKA, type 2 12/24/2023 05/16/2024 DKA (diabetic ketoacidosis) 05/30/2023 10/14/2023 Metabolic acidosis due to diabetes mellitus 05/29/2023 10/14/2023 Class 1 obesity due to exces s calories without serious comorbidity with body mass index (BMI) of 30.0 to 30.9 in adult 05/29/202311/2024 Suicide attempt 11/20/2020 12/06/2021 Type 2 diabetes mellitus wit h hyperosmolarity without coma 11/20/2020 12/06/2021 Hypertriglyceridemia 04/30/2020 024 BMI (body mass index) pediat theodore, > 99% for age, obese child, tertiary care intervention 04/30/2020 12/24/2023 Type 2 diabetes mellitus wit hout complication, without long-term current use of insulin 04/30/2020 06/11/2020 BMI 38.0-38.9,adult 07/06/2018 06/11/20 20 Current moderate episode of major depressive disorder without prior episode 12/06/2017 4 Controlled type 2 diabetes m ellitus without complication 09/22/2017 12/24/2023 Depression with anxiety 09/22/2017 04/2 09/2018 Encounters Date Type Department Care Team Description 06/18/[address] [place] [address] Nick Arreguin PA 06/17/[address] [place] [address] Nick Arreguin PA 06/13/[address] [place] [address] iNck Arreguin PA 06/12/[address] [place] [address] Nick Arreguin PA 06/11/[address] [place] [address] Nick Arreguin PA Results 06/10/2025 11:15 AM CDT Office Visit [address] [place] [address] Nick Arreguin PA Hospital F/U (abdominal pain and nausea- no improvement -constant sharp pain- tylenol helps) 06/10/2025 Travel 05/19/2025 Telephone Pending Sale To [facility] [address] [address] Marcelo Naranjo MD Results 05/19/2025 Refill Pending Sale To [facility] [address] [address] Marcelo Naranjo MD Refill Request 05/13/2025 3:55 PM CDT Office Visit Pending Sale To [facility] [address] [address] Marcelo Naranjo MD Diabetes 05/13/2025 Travel 05/12/2025 Orders Only [facility] [address] [facility] [address] [place] [address] Skyler Gustafson MD <No scans attached> 04/22/2025 2:30 PM CDT Office Visit [facility] [address] [place] [address] Adebayo Harrell MD Hospital F/U (04/15/2025 to 03/31/2025 Pancreatitis hyper tri glycemia [place]) 04/22/2025 Travel 03/31/2025 1:55 PM CDT Office Visit [facility] [address] [place] [address] Chante Shaw DO Hospital F/U 03/31/2025 Refill Pending Sale To [facility] [address] [address] Marcelo Naranjo MD Refill Request 03/31/2025 Travel 03/28/2025 12:00 PM CDT Office Visit [facility] [address] [place] [address] Sada Torre, RAULITO Abdominal Pain 03/28/2025 Travel 03/28/2025 Refill Pending Sale To [facility] [address] [address] Marcelo Naranjo MD Refill Request 03/20/2025 Telephone Pending Sale To [facility] [address] [address] Marcelo Naranjo MD Results from Last 3 Months Immunizations Immunization Administration Dates Next Due COVID-19 VACCINE SPIKEVAX (M ODERNA 50MCG/0.5ML) 12YO+ PFS 06/22/2023 COVID-19 vaccine (Pfizer-Bio NTech 30mcg/0.3mL) 12YO+ BIVALENT PF, MDV 06/08/2022 COVID-19 vaccine (Pfizer-Bio NTech 30mcg/0.3mL) PF, MDV 07/12/2021,03/03/2021,02/10/2021 DTaP 03/20/2009 UNeF-NavC-YIU (Pediarix) 05/26/2006,07/29,2005,04/20 HIB PRP-OMP (PedvaxHIB) 05/26/2006,2005, HIB PRP-T (ActHIB,Hiberix) 05/26/2006,2005 ,2005 HPV 9 (Gardasil 9) 06/12/2017,12/16/2016 Hepatitis A (Peds) 02/22/2007,02/22/2006 Hepatitis B (Peds) 2005 Human Papilloma Virus Vaccine 06/12/2017, 017 INFLUENZA, IIV3 PF (AGE >= 6 MO) 09/23/2024,05/30(),06/26/2024() Inactivated Polio Vaccine 03/20/2009 Influenza A (H1N1), Inactivated 09/09/2009 Influenza A (H1N1), Inactiva mami (Age >=3 Years) 09/09/2009 Influenza Virus, Unspecified 07/05/2013, 06/18/2009,09/03/2007,07/25,06/27/2006,2005,2005 Influenza, IIV3 (Age 6-35 mos) 9,09/03/2007,07/25/2006,06/27,2005,2005 Influenza, IIV3 (Age >=3 years) 07/25/2006,06/27 Influenza, IIV4 06/22/2023,,07/12/2021,07/15,07/06/2018,06/23/2017,07/05/2013 ,06/18/2009 MENINGOCOCCAL VACCINE 2 VIAL 2MO-55YO (MENVEO) 04/12/2021 MMR 03/20/2009,02/22/2006 Meningococcal Vaccine (Menactra) 12/16/2016 Pneumococcal Conj 20-valent (Prevnar 20) 08/16/2023 Pneumococcal conj 7-Valent (Prevnar 7) 0 05/26/2006,2005,2005,04/20 Tdap 03/09/2015 Varicella Vaccine 03/20/2009,02/22/2006 Family History Medical History Relation Name Comments Diabetes Brother Diabetes Father Hyperlipidemia Maternal Grandmother Diabetes type II Mother Relation Name Status Comments Brother Alive Father Alive Maternal Grandmother Mother Alive Social History Tobacco Use Types Packs/Day Years Used Date Smoking Tobacco: Passive Smo ke Exposure - Never Smoker Smokeless Tobacco: Never Tobacco Cessation:Counseling Given: Yes Alcohol Use Standard Drinks/Week Comments No 0 (1 standard drink = 0.6 oz pur e alcohol) PHQ-2 Answer Date Recorded PHQ-2 TOTAL SCORE 4 07/02/2024 Social Connections Answer Date Recorded Do you often feel lonely or isolated from those around you? 0 01/18/2025 Alcohol Use Answer Date Recorded How often do you have a drink containing alcohol ? 0 05/13/2025 Average Number of Drinks Not on file 025 Frequency of Binge Drinking Not on file 04/28 Financial Resource Strain Answer Date R ecorded Difficulty of Paying Living Expenses 3 07/08/2022 Difficulty of Paying Living Expenses Not on file 07/08/2022 Food Insecurity Answer Date Recorded Do you worry your food will run out before you are able to buy more? 1 01/18/2025 Transportation Needs Answer Date Record ed Does lack of transportation keep you from medica l appointments? 1 01/18/2025 Does lack of transportation keep you from work, meetings or getting things that you need? 1 01/18/2025 Housing Stability Answer Date Recorded What is your housing situation today? 1 01/18/2025 Interpersonal Safety Answer Date Record ed Are you being hit, kicked, p ushed or yelled at (see row info)? No 01/18/2025 Interpersonal Safety Abuse 12 - 18 Not on file 01/18/2025 Interpersonal Safety Ambulatory Vulnerability No t on file 01/18/2025 Utilities Answer Date Recorded Do you have trouble paying f or utilities (for example, heat, electricity, water, phone)? 1 01/18/2025 Comments No Sex and Gender Information Value Date Recorded Sex Assigned at Female 10/01/2024 2:47 PM [employer] Legal Sex Female 7:42 AM [employer] SAL[employer] Gender Identity Female 10/01/2024 2:47 PM [employer] Sexual Orientation Straight 01/18/2025 8: 19 AM CDT Obstetrics History Para Term AB IAB SAB Ectopic Multiple Livin g Live Births 0 0 0 0 0 0 0 0 0 0 0 Last Filed Vital Signs Vital Sign Reading Time Taken Comments Blood Pressure 114/62 06/10/2025 11:26 AM CDT Pulse 82 06/10/2025 11:26 AM CDT Temperature 36.3 C (97.3 F) 03/28/2025 12:04 PM CDT Respiratory Rate 12 06/10/2025 11:2 6 AM CDT Oxygen Saturation 98% 05/13/2025 3:51 PM CDT Inhaled Oxygen Concentration - - Weight 84.7 kg (186 lb 11.2 oz) 025 11:26 AM CDT Height 157.5 cm (5' 2) 04/22/2025 2:38 PM CDT Body Mass Index - - Plan of Treatment Upcoming Encounters Date Type Department Care Team (Late st Contact Info) Description 08/06/2025 9:30 AM [employer]IONAL SALES ASSOCIATE Office Visit [facility] [address] [facility] [address] [place] [phone] Skyler Gustafson MD [address] [place] [address] 08/06/2025 12:10 PM [employer] SALES ASSOCIATE Office Visit Pending Sale To [facility] [address] [facility] [address] [place] [address] [place] [address] [place], [place] [phone] Health Maintenance Due Date Last Done Comments Well Child Check for age 3-20 07/24/2024 07/24/2023, 01/11/2019 Tetanus booster 03/09/2025 03/09/2015 COVID-19 vaccine series ( season) 2025 06/22/2023, 06/08/2022, 07/12/2021, Additional history exists Influenza Vaccine (#1) 2025 , 06/22/2023, 05/18/2022, Additional history exists Depression screening for age 12+ 07/05/2025 07/05/2024, 07/02/2024, 07/01/2024, Additional history exists BMI (ht and wt on same day) for age 18+ 04/22/2026 04/22/2025, 08/19/2024, 01/03/2024, Additional history exists RSV vaccine for adults or (1 - 1-dose 75+ series) 02/22/2080 Hepatitis B series for 19+ Completed 05/26, 2005, 2005, Additional history exists HPV series for age 9-45 Completed 06/12/20 17, 06/12/2017, 12/16/2016, Additional history exists Meningococcal series for age 11-21 Completed 2020, 12/16/2016 Pneumococcal series for age 6-49 Completed 08/16/2023, 05/26/2006, 2005, Additional history exists HIV for age 15-65 Completed 08/17/2024 Hepatitis C screening for ag e 18-79 Completed 01/10/2025 Procedures Procedure Name Priority Date/Time Associated Diagnosis Comments TRIGLYCERIDES Routine 06/10/2025 11:54 AM CDT Hypertriglyceridemia COMP METABOLIC PANEL Routine 06/10/2025 11:54 AM CDT Hypertriglyceridemia TRIGLYCERIDES Routine 05/13/2025 4:44 PM CDT Hypertriglyceridemia THYROPEROXIDASE ANTIBODY Routine 05/13/2025 4:44 PM CDT Hypothyroidism (acquired) T4,FREE Routine 05/13/2025 4:44 PM CDT Hypothyroidism (acquired) TSH Routine 05/13/2025 4:44 PM CDT Hypothyroidism (acquired) LIPASE Routine 04/22/2025 3:32 PM CDT COMP METABOLIC PANEL Routine 04/22/2025 3:32 PM CDT CBC WITH AUTO DIFFERENTIAL Routine 04/22/2025 3:32 PM CDT LIPASE Routine 03/31/2025 2:50 PM CDT Chronic recurrent pancreatitis (HC) COMP METABOLIC PANEL Routine 03/31/2025 2:50 PM CDT Chronic recurrent pancreatitis (HC) Nausea Chronic abdominal pain TRIGLYCERIDES Routine 03/31/2025 2:50 PM CDT Chronic recurrent pancreatitis (HC) ANTI HCV Routine 01/10/2025 1:21 PM CDT Need for hepatitis C screening test ANTI HIV 1/2 Today 08/17/2024 1:27 AM [employer] SAL[employer]OCIATE Screening for HIV (human immunodeficiency virus) from Last 3 Months or Most Recently Relevant to Health Maintenance Results * (ABNORMAL) TRIGLYCERIDES (06/10/2025 11:54 AM CDT) Only the most recent of3 resultswithin the time period is included. TRIGLYCERIDES 4809(H) <150 mg/dL 06/11/2025 10:55 AM CDT [facility] Comment: Verified by repeat analysis. If a non-fasting specimen was collected, consider repeat triglyceride testing on a fasting specimen if clinically indicated. Mullins et al. J. of Clin. Lipidol. 2015;9:129-169. There is increased risk of pancreatitis when the triglyceride concentration is very high (> or = 500 mg/dL, especially if > or = 1000 mg/dL). Mullins et al. J. of Clin. Lipidol. 2015;9:129-169. Blood BLOOD SPECIMEN / Unknown [facility] / Unknown 06/10/2025 11:54 AM CDT 06/10/2025 11:54 AM CDT Nick ROSALES CHEMISTRY Tessa l Result [facility] [address] [place] [address], * (ABNORMAL) COMP METABOLIC PANEL (06/10/2025 11:54 AM CDT) Only the most recent of3 resultswithin the time period is included. SODIUM 137 135 - 146 mmol/L 06/11/2025 10:55 AM CDT [facility] POTASSIUM 4.2 3.5 - 5.3 mmol/L 06/11/2025 10:55 AM CDT [facility] CHLORIDE 101 98 - 110 mmol/L 06/11/2025 10:55 AM CDT [facility] CARBON DIOXIDE 21 20 - 32 mmol/L 06/11/2025 10:55 AM CDT [facility] GLUCOSE 281(H) 65 - 99 mg/dL 06/11/2025 10:55 AM CDT [facility] Comment: Specimen lipemic. Cholesterol, HDL and/or Triglyceride results (if ordered) were obtained from original specimen. Results for other analytes impacted by lipemia were obtained after ultracentrifugation of the specimen to remove interfering lipids. Fasting reference interval For someone without known diabetes, a glucose value >125 mg/dL indicates that they may have diabetes and this should be confirmed with a follow-up test. CALCIUM 9.4 8.6 - 10.2 mg/dL 06/11/2025 10:55 AM CDT [facility] CREATININE 0.51 0.50 - 0.96 mg/dL 06/11/2025 10:55 AM CDT [facility] BUN/CREATININE RATIO SEE NOTE: 6 - 22 (calc) 06/11/2025 10:55 AM CDT [facility] Comment: Not Reported: BUN and Creatinine are within reference range. EGFR 137 > OR = 60 mL/min/1 .73m2 06/11/2025 10:55 AM CDT [facility] ALBUMIN 4.4 3.6 - 5.1 g/dL 06/11/2025 10:55 AM CDT [facility] PROTEIN, TOTAL 7.7 6.1 - 8.1 g/dL 06/11/2025 10:55 AM CDT [facility] BILIRUBIN, TOTAL 0.4 0.2 - 1.2 mg/dL 06/11/2025 10:55 AM CDT [facility] ALKALINE PHOSPHATASE 73 31 - 125 U/L 06/11/2025 10:55 AM CDT [facility] ALT 21 6 - 29 U/L 06/11/2025 10:55 AM CDT [facility] AST 19 10 - 30 U/L 06/11/2025 10:55 AM CDT [facility] UREA NITROGEN (BUN) 10 7 - 25 mg/dL 06/11/2025 10:55 AM CDT [facility] GLOBULIN 3.3 1.9 - 3.7 g/dL (calc) 06/11/2025 10:55 AM CDT [facility] ALBUMIN/GLOBULIN RATIO 1.3 1.0 - 2.5 (calc) 06/11/2025 10:55 AM CDT [facility] Blood BLOOD SPECIMEN / Unknown [facility] / Unknown 06/10/2025 11:54 AM CDT 06/10/2025 11:54 AM CDT Nick ROSALES CHEMISTRY Tessa l Result Performing Organization Address City/[facility]/ZIP Co de Phone Number [facility] [address] [address], * TSH (05/13/2025 4:44 PM CDT) Pathologist [facility] TSH 1.58 mIU/L 05/14/2025 6:23 AM CDT [facility] Comment: Reference Range > or = 20 Years 0.40-4.50 Ranges First trimester 0.26-2.66 Second trimester 0.55-2.73 Third trimester 0.43-2.91 Blood BLOOD SPECIMEN / Unknown [facility] / Unknown 05/13/2025 4:44 PM CDT 05/13/2025 4:44 PM CDT Marcelo Naranjo MD CHEMISTRY Final Result [facility] [address] [address], [place] [phone] * THYROPEROXIDASE ANTIBODY (05/13/2025 4:44 PM CDT) Pathologist [facility] THYROID PEROXIDASE ANTIBODIES <1 <9 IU/mL 05/14/2025 6:14 PM CDT [facility] Blood BLOOD SPECIMEN / Unknown [facility] / Unknown 05/13/2025 4:44 PM CDT 05/13/2025 4:44 PM CDT us Marcelo Naranjo MD SEND OUTS Final Result Performing Organization Address City/[facility]/ZIP Co de Phone Number [facility] [address] [address], [place] [phone] * T4,FREE (05/13/2025 4:44 PM CDT) [facility] T4, FREE 1.3 0.8 - 1.4 ng/dL 05/14/2025 6:23 AM CDT [facility] Blood BLOOD SPECIMEN / Unknown [facility] / Unknown 05/13/2025 4:44 PM CDT 05/13/2025 4:44 PM CDT us Marcelo Naranjo MD CHEMISTRY Final Result Performing Organization Address [facility] de Phone Number [facility] [address] [address], [place] [phone] * (ABNORMAL) CBC AND DIFFERENTIAL (04/22/2025 3:32 PM CDT) [facility] WHITE BLOOD CELL COUNT 7.4 3.8 - 10.8 Thousand/u L [facility] RED BLOOD CELL COUNT 4.86 3.80 - 5.10 Million/uL [facility] HEMOGLOBIN 10.9(L) 11.7 - 15.5 g/dL [facility] HEMATOCRIT 34.5(L) 35.0 - 45.0 % [facility] MCV 71.0(L) 80.0 - 100.0 fL [facility] MCH 22.4(L) 27.0 - 33.0 pg [facility] MCHC 31.6(L) 32.0 - 36.0 g/dL [facility] Comment: For adults, a slight decrease in the calculated MCHC value (in the range of 30 to 32 g/dL) is most likely not clinically significant; however, it should be interpreted with caution in correlation with other red cell parameters and the patient's clinical condition. RDW 16.3(H) 11.0 - 15.0 % [facility] PLATELET COUNT 202 140 - 400 Thousand/u L [facility] MPV 10.8 7.5 - 12.5 fL [facility] ABSOLUTE NEUTROPHILS 4,322 1,500 - 7,800 cells/uL [facility] ABSOLUTE LYMPHOCYTES 2,338 850 - 3,900 cells/uL [facility] ABSOLUTE MONOCYTES 422 200 - 950 cells/uL [facility] ABSOLUTE EOSINOPHILS 259 15 - 500 cells/uL [facility] ABSOLUTE BASOPHILS 59 0 - 200 cells/uL [facility] NEUTROPHILS 58.4 % [facility] LYMPHOCYTES 31.6 % [facility] MONOCYTES 5.7 % [facility] EOSINOPHILS 3.5 % [facility] BASOPHILS 0.8 % [facility] 04/22/2025 3:32 PM CDT 04/22/2025 6:05 PM CDT Adebayo Harrell MD HEMATOLOGY Final Resul t Performing Organization Address City/[facility] Co de Phone Number [facility] [address] [place] [address], [facility] [address] [place] [address] * LIPASE (04/22/2025 3:32 PM CDT) Only the most recent of2 resultswithin the time period is included. LIPASE 45 7 - 60 U/L [facility] 04/22/2025 3:32 PM CDT 04/22/2025 6:05 PM CDT Adebayo Harrell MD CHEMISTRY Final Resul t [facility] [address] [place] [address], [facility] [address] [place] [address] * ANTI HCV (01/10/2025 1:21 PM CDT) HEPATITIS C ANTIBODY NON-REACTI VE NON-REACT MARK [facility] Comment: HCV antibody was non-reactive. There is no laboratory evidence of HCV infection. In most cases, no further action is required. However, if recent HCV exposure is suspected, a test for HCV RNA (test code 56942) is suggested. For additional information please refer to http://education.[employer]/faq/YNK75w5 (This link is being provided for informational/ educational purposes only.) Blood BLOOD SPECIMEN / Unknown 01/10/2025 1:21 PM CDT 01/10/2025 1:23 PM CDT Narrative [facility] - 01/14/2025 12:14 PM CDT FASTING:NO FASTING: NO Aracelis Herron MD SEND OUTS Final Result [facility] [address] [address], [facility] [address] [place] [address] * ANTI HIV 1/2 [96864.0] (08/17/2024 1:27 AM [employer]IONAL SALES ASSOCIATE) Pathologist [facility] HIV-1/HIV-2 SCREEN Non-Reacti ve Non-Reacti ve 08/20/2024 12:03 AM REGIONAL SALES ASSOCIATE [facility] Comment:HIV-1 p24 and HIV-1/ HIV-2 Ab Not Detected. Blood BLOOD SPECIMEN / Unknown Venipuncture / Unknown 08/17/2024 1:27 AM REGIONAL SALES ASSOCIATE 08/17/2024 1:38 AM REGIONAL SALES ASSOCIATE us Aracelis Herron MD SEND OUTS Final Result [facility] [address] [place] [address], from Last 3 Months or Most Recently Relevant to Health Maintenance Insurance [employer] [place] Advance Directives * Full Code (Latest Code Status on File) Date Activated Date Inactivated Comments 01/18/2025 10:21 PM 01/30/2025 8:33 PM Question Answer Comments Code Status Discussion: Reviewed Preferences * Full Code Date Activated Date Inactivated Comments 11/30/2024 7:50 AM 12/05/2024 12:51 PM Question Answer Comments Code Status Discussion: Reviewed Preferences * Full Code Date Activated Date Inactivated Comments 10/15/2024 8:10 AM 10/18/2024 1:41 PM Question Answer Comments Code Status Discussion: Reviewed Preferences * Full Code Date Activated Date Inactivated Comments 10/01/2024 3:37 PM 10/04/2024 4:44 PM Question Answer Comments Code Status Discussion: Reviewed Preferences * Full Code Date Activated Date Inactivated Comments 09/26/2024 2:45 PM 09/26/2024 8:34 PM Question Answer Comments Code Status Discussion: Reviewed Preferences Care Teams [employer] Relationship Specialty Start Date End Date Aracelis Herron MD [address] [place] [address] [facility] [place] [address] PCP - General Family Practice 06/28/18 Alisha Grant MD [address] [place] [phone] Endocrinology - Pediatric 04/19/20 Kathy Marin RN [address] [place] [id number] Registered Nurse Registered Nurse 01/03/24 [place] [address] [place] [address] Endocrinology Endocrinology 09/04/24
--- OUTSIDE RECORDS SUMMARY | 2025-06-18 17:24 | XMS_ITS | Clinical Summary ---
Author Organization [facility] Address [address] [place] [address] Care Team Providers Care Probation Supervisor Name Role Phone Elsewhere, Pcp Primary Care Provider Unavailabl e Source Comments Patient records contain information from all sites at [facility]. For routine questions regarding patient records, call [phone] during business hours, M-F 8:00 AM - 5:00 PM Central Time. Record requests for emergency care only can be directed to [phone] at any time.[facility] Allergies Active Allergy Reactions Criticality Noted Date Comments Haloperidol Anxiety 10/13/2024 Likely akathisia (10/13/24) Niacin Itching Low 03/21/2025 Itching and redness per patient Medications insulin aspart U-100 (NovoLOG) 100 unit/mL injection Inject up to 80 units into pump per day 4 Active fenofibrate (Lofibra) 160 mg tablet Take 160 mg by mouth daily. 3 Active atorvastatin (Lipitor) 80 mg tablet Take 80 mg by mouth daily. 7 Active glucagon (Gvoke Hypopen) 1 mg/0.2 mL auto-injector injection Inject 0.2 mL under the skin at bedtime as needed. 4 Active omega-3 acid ethyl esters (Lovaza) 1 gram capsule Take 2 g by mouth 2 (two) times a day. 5 Active omeprazole (PriLOSEC) [address] capsule Take 40 mg by mouth daily. before a meal 5 Active pioglitazone (Actos) 15 mg tablet Take 15 mg by mouth daily. 5 Active insulin aspart U-100 (NovoLOG FlexPen) 100 unit/mL (3 mL) pen Inject 12 Units under the skin 3 (three) times a day with meals. + correction scale (when NOT using pump) Active acetaminophen (TylenoL) 500 mg tablet Take 1,000 mg by mouth every 6 (six) hours as needed for pain. Active ferrous sulfate 325 mg (65 mg iron) DR tablet Take 1 tablet (65 mg of iron total) by mouth every other day. 15 tablet 2 5 06/22/20 25 Active cholecalciferol (Vitamin D3) 125 mcg (5,000 Unit) tablet Take 1 tablet (125 mcg total) by mouth daily. 30 each 2 5 Active hydrOXYzine (Atarax) 25 mg tablet Take 1 tablet by mouth every 6 (six) hours as needed for anxiety. 5 Active insulin glargine (Lantus Solostar U-100 Insulin) 100 unit/mL (3 mL) pen Inject 40 Units under the skin at bedtime. 5 Active levothyroxine 100 mcg tablet Take 100 mcg by mouth daily before morning meal. Active polyethylene glycol (Miralax) 17 gram powder packet Take 17 g by mouth daily as needed for constipation. Dissolve each 17 g dose in 240 mLs (8 ounces) of beverage. Active traZODone (DesyreL) 50 mg tablet Take 50 mg by mouth at bedtime as needed for sleep. Active Active Problems Problem Noted Date Diagnosed Date Abdominal Pain 05/19/2025 Pancreatitis Hypertriglyceridemic 04/16/2025 Thrombocytopenia 04/16/2025 Obesity Body Mass Index 30-39.9 Adult 04/16/2025 Long-Term Use Of Insulin Active 03/31/2025 Overview (04/16/2025): insulin aspart U-100 (NovoLOG) 100 unit/mL injection ... Inject up to 80 units into pump per day ... order date: 01/25/25, start date: 01/03/24 (reported by [facility]) insulin glargine (Lantus SoloStar) 100 UNIT/ML SOPN injection - pen ... Inject 35 Units into the skin nightly. ++ ONLY WHEN NOT ON INSULIN PUMP ++ ... order date: 01/25/25, start date: NA (reported by [facility]) insulin glargine (LANTUS PEN) 100 UNIT/ML pen ... Inject 35 units daily. ... order date: 01/25/25, start date: 02/23/24 (reported by [facility]) insulin aspart (NOVOLOG VIAL) 100 UNITS/ML vial ... Up to 80 units into pump per day ... order date: 01/25/25, start date: 09/03/24 (reported by [facility]) insulin glargine (LANTUS SOLOSTAR) 100 UNIT/ML pen ... Inject 25-35 Units subcutaneously daily. Indications: Diabetes Mellitus ... order date: 01/10/25, start date: 04/30/20 (reported by [facility]) insulin aspart (NOVOLOG FLEXPEN) 100 UNIT/ML pen injection ... Inject 1-10 Units subcutaneously three times daily before meals. Indications: Diabetes Mellitus ... order date: 01/10/25, start date: 04/30/20 (reported by [facility]) insulin aspart 100 unit/mL injection (NOVOLOG) ... [...] date: 08/01/24, start date: 08/04/20 (reported by [facility]) insulin glargine 100 UNT/ML Injectable Solution [Lantus] ... inject 12 Units by subcutaneous route every day as per insulin protocol ... order date: 08/01/24, start date: 08/04/20 (reported by [facility]) LANTUS SOLOSTAR U-100 INSULIN 100 UNIT/ML (3 [...] up. Recent encounter dx: 01/10/25: Appointment - [facility] 12/13/24: Appointment - [facility] 11/29/24: Discharge - [facility], 333, [id number] / 1 11/23/24: Discharge - [facility], ED06, ED06 / 06 11/04/24: Discharge - [facility], 07, 07 07 Pancreatitis Chronic 11/03/2024 Overview (04/16/2025): AI Summary: As of 08/30/24: Chronic recurrent pancreatitis (H) noted on 08/30/2024. Recent notes: 08/30/24: Progress Notes by Trish Cedeno MD (from [facility]) ... [+] Chronic recurrent pancreatitis (H) 08/30/24: Consult - [facility], F/U TYPE 2 DIABETES, 08/30/2024 by ARACELIS HERRON ... [+] * Chronic recurrent pancreatitis (H) Hypertriglyceridemia Acquired hypothyroidism Elevated BP without diagnosis of hypertension Microalbuminuria Hypothyroidism 01/30/2024 Pancreatitis Acute 01/15/2024 Fatty Liver 12/24/2023 Diabetes Mellitus Type 2 Neuropathy Autonomic Noncompliance With Treatment 12/17/2023 Depression Major Recurrent In Remission 12/17/19 Steatohepatitis Non Alcoholic 12/17/2023 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 Hypertriglyceridemia 05/30/2023 Other Specified Anxiety Disorders 05/29/2023 Deficiency Vitamin D 04/30/2020 Insomnia Psychophysiologic 09/02/2018 Other Constipation 10/20/2016 Resolved Problems Problem Noted Date Diagnosed Date Resolved Date Acidosis Unspecified 04/30/2020 025 Overview (04/16/2025): Bicarb chronically 19-21, managed by Jennifer Wade endocrine Aracelis Herron MD .................... 06/11/2020 4:19 AM Encounters Date Type Department Care Team Description 05/19/2025 6:18 PM CDT - 05/26/2025 3:56 PM CDT Hospital Encounter [facility], Fourth Floor [address] [place] [address] Howard Corona M.D. Liu, Bolun, M.D. Byrd, David W, M.D. Sekhon, Ajay S, M.B.B.S., M.D. Abdominal Pain (Primary Dx); Hypertriglyceridemia Discharge Disposition: Home or Self Care 04/15/2025 8:16 PM CDT - 04/20/2025 3:09 PM CDT Hospital Encounter [facility], Fourth Floor [address] [place] [address] Howard Corona M.D. Olson, Ashley M, D.O. Makki, Kassem M, D.ODaina Acosta APRN, C.N.P., M.S.N. Joseph Vitale M.D. Pancreatitis Hypertriglyceridemic (HCC) (Primary Dx) Discharge Disposition: Home or Self Care 03/21/2025 4:48 PM CDT - 03/24/2025 5:31 PM CDT Hospital Encounter [facility], Fourth Floor [address] [place] [address] Bj Oneil D.O. Villasenor, Andrew, D.O. Tapia Gomez, Mario A, M.D. Hypertriglyceridemia (Primary Dx); Pain Epigastric Discharge Disposition: Home or Self Care from Last 3 Months Immunizations Immunization Administration Dates Next Due 4vHPV (discontinued) 06/12/2017,12/16/2016 9vHPV 06/12/2017,12/16/2016 DTaP (Infanrix, [employer]edia) 03/20/2009 DTaP / Hep B / IPV (Pediarix) 05/26/2006 ,2005,2005,2004 H1N1 All Forms 09/09/2009 HepA Pediatric/Adolescent 02/22/2007,02/22/2006 HepB Pediatric/Adolescent 2005 Hib (PRP-T) (ACTHIB, HIBERIX) 05/26/2006, 005,2005 IPV 03/20/2009 Influenza, Unspecified 07/05/2013,2008,09/03/2007,2005,06/27/2006,2005,2005 MCV4 (Menactra)(Discontinued) 12/16/2016 MCV4 (Menveo) 04/12/2021 MMR 03/20/2009,02/22/2006 PCV20 08/16/2023 PCV7 (discontinued) 05/26/2006, 5,2005,2004 Tdap 03/09/2015 TERRI 03/20/2009,02/22/2006 influenza trivalent vaccine (6 months and older)(PF) 05/21/2025(Deferred: Patient Refused) influenza vaccine quad (FLUZONE/FLUARIX) (6 months and older)(PF) 06/22/2023,05/18/2022,07/12/2021,2018,07/06/2018,06/23/2017 Family History Medical History Relation Name Comments Leukemia Grandfather Maternal Diabetes Grandmother 1 Maternal Diabetes Grandmother 2 Paternal Depression Mother Ofe Obesity Mother Ofe Relation Name Status Comments Grandfather Maternal Grandmother 1 Maternal Grandmother 2 Paternal Mother Ofe Social History Tobacco Use Types Packs/Day Years [...] things needed for daily living? No 05/19/2025 [facility] Utilities Answer Date Recorded In the past 12 months has [employer] electric, gas, oil, or water company threatened to shut off services in your home? No 05/19/2025 Housing Stability Answer Date Recorded What is your living situation today? I have a [facility] place to live 05/19/2025 Comments No Sex and Gender Information Value Date Recorded Sex Assigned at Female 10/12/2024 3:01 AM CONTRACT WRITER Legal Sex Female 7:17 AM CONTRACT WRITER Gender Identity Female 10/12/2024 3:01 AM CONTRACT WRITER Sexual Orientation Not on file Last Filed Vital Signs Vital Sign Reading [...] Mass Index 34.35 05/19/2025 10:41 PM CDT Plan of Treatment Health Maintenance Due Date Last Done Comments Chlamydia and Gonorrhea Screening 2005 Depression Monitoring (PHQ-9) 2005 Diabetic Eye Exam 2005 Diabetic Office Visit with F oot Exam 2005 HIV Screening 2005 Hepatitis C Screening 2005 Office Visit for Blood Press ure Check / Re-check 2005 TB Screening during Well Chi ld Visit 2005 Urine Albumin 2005 1 week Well Child Check-Up 2005 1 month Well Child Check-Up 2005 2 month Well Child Check-Up 2005 4 month Well Child Check-Up 2005 9 month Well Child Check-Up 2005 15 month Well Child Check-Up 04/23/2006 18 month Well Child Check-Up 07/24/2006 2 year Well Child Check-Up 01/21/2007 30 month Well Child Check-Up 07/24/2007 3 year Well Child Check-Up 01/22/2008 Well Child Check-Up Complete d in Past Year 01/22/2008 5 year Well Child Check-Up 01/21/2010 6 year Well Child Check-Up 01/21/2011 7 year Well Child Check-Up 01/22/2012 8 year Well Child Check-Up 01/21/2013 10 year Well Child Check-Up 01/21/2015 12 year Well Child Check-Up 01/21/2017 13 year Well Child Check-Up 01/21/2018 14 year Well Child Check-Up 01/21/2019 Vision Screening during Well Child Visit 2019 15 year Well Child Check-Up 01/22/2020 17 year Well Child Check-Up 01/21/2022 18 year Well Child Check-Up 01/21/2023 19 year Well Child Check-Up 01/22/2024 Depression Monitoring (PHQ-9 for quality tracking) 08/28/2024 20 year Well Child Check-Up 01/21/2025 Well Child Check-Up (WCC) 01/21/2025 DTaP,Tdap,and Td Vaccines (7 - Td or Tdap) 03/09/2025 03/09/2015, 03/20/2009, 05/26/2006, Additional history exists COVID-19 Vaccine ( - 2024-2 6 season) 2025 06/22/2023, 06/08/2022, 07/12/2021, Additional history exists Influenza Vaccine (#1) 2025 , 06/22/2023, 05/18/2022, Additional history exists Hemoglobin A1C 06/22/2025 03/22/2025, 12/0 03/2024, 03/28/2024, Additional history exists Thyroid Stimulating Hormone (TSH) test for thyroid function 05/13/2026 05/13/2025, 04/16/2025, 03/23/2025, Additional history exists Creatinine Level (Kidney Fun ction Test) 05/26/2026 05/26/2025, 05/26/2025, 05/25/2025, Additional history exists Lipid (Cholesterol) Screening 03/22/2030, 03/22/2025, 12/08/2024, Additional history exists Hepatitis B Vaccines Completed 05/26/2006, 2005, 2005, Additional history exists Hepatitis A Vaccines Completed 02/22/2007, 02/23/20 06 IPV Vaccines Completed 03/20/2009, 04/29, 2005, Additional history exists Varicella Vaccines Completed 03/20/2009, 02/22/2006 HPV Vaccines Completed 06/12/2017, 05/28, 12/16/2016, Additional history exists Meningococcal Vaccine Completed 04/12/2021, 017 Pneumococcal vaccine (0-49 years) Completed 08/16/2023, 05/26/2006, 2005, Additional history exists Anemia/Iron Deficiency Scree mallorie During Well Child Visit (if High Risk Menstruating Female) Completed 05/21/2025, 05/19/2025, 04/22/2025, Additional history exists Procedures Procedure Name Priority [...] POCT, B Routine 05/24/2025 6:17 AM CDT BASIC METABOLIC PANEL, S/P Routine 05/24/2025 6:15 AM CDT TRIGLYCERIDES, S Routine 05/24/2025 6:15 AM CDT GLUCOSE POCT, [...] POCT, B Routine 05/23/2025 4:05 AM CDT BASIC METABOLIC PANEL, S/P Timed 05/23/2025 4:04 AM CDT PHOSPHORUS (INORGANIC), S Timed 05/23/2025 4:04 AM CDT MAGNESIUM, S Timed 05/23/2025 4:04 AM CDT GLUCOSE POCT, [...] POCT, B Routine 05/21/2025 5:23 AM CDT MAGNESIUM, S Timed 05/21/2025 4:26 AM CDT TRIGLYCERIDES, S Timed 05/21/2025 4:26 AM CDT BASIC [...] POCT, B Routine 05/19/2025 11:02 PM CDT COMPREHENSIVE METABOLIC PANEL, S/P STAT 05/19/2025 7:31 PM CDT TRIGLYCERIDES, S STAT 05/19/2025 7:31 PM CDT LIPASE, S/P STAT 05/19/2025 7:31 PM CDT TRIGLYCERIDES, S STAT 05/19/2025 6:40 PM CDT CBC WITH DIFFERENTIAL, B STAT 05/19/2025 6:40 PM CDT GLUCOSE POCT, B Routine 04/20/2025 1:26 PM CDT CBC WITHOUT DIFFERENTIAL, B Routine 04/20/2025 10:35 AM CDT COMPREHENSIVE METABOLIC PANEL, S/P Routine 04/20/2025 10:35 AM CDT GLUCOSE POCT, B Routine 04/20/2025 8:47 AM CDT GLUCOSE POCT, B Routine 04/19/2025 9:09 PM CDT GLUCOSE POCT, B Routine 04/19/2025 5:34 PM CDT GLUCOSE POCT, B Routine 04/19/2025 2:50 PM CDT GLUCOSE POCT, B Routine 04/19/2025 2:03 PM CDT GLUCOSE POCT, B Routine 04/19/2025 1:15 PM CDT GLUCOSE POCT, B Routine 04/19/2025 12:04 PM CDT GLUCOSE POCT, B Routine 04/19/2025 11:11 AM CDT GLUCOSE POCT, B Routine 04/19/2025 10:28 AM CDT GLUCOSE POCT, B Routine 04/19/2025 9:16 AM CDT GLUCOSE POCT, B Routine 04/19/2025 8:10 AM CDT CONTINUOUS PULSE OXIMETRY Routine 04/19/2025 8:01 AM CDT GLUCOSE POCT, B Routine 04/19/2025 7:08 AM CDT GLUCOSE POCT, B Routine 04/19/2025 6:30 AM CDT GLUCOSE POCT, B Routine 04/19/2025 6:10 AM CDT GLUCOSE POCT, B Routine 04/19/2025 5:10 AM CDT GLUCOSE POCT, B Routine 04/19/2025 4:24 AM CDT CBC WITHOUT DIFFERENTIAL, B Timed 04/19/2025 4:16 AM CDT TRIGLYCERIDES, S Timed 04/19/2025 4:16 AM CDT BASIC METABOLIC PANEL, S/P Timed 04/19/2025 4:15 AM CDT GLUCOSE POCT, B Routine 04/19/2025 3:58 AM CDT GLUCOSE POCT, B Routine 04/19/2025 3:05 AM CDT GLUCOSE POCT, B Routine 04/19/2025 2:30 AM CDT GLUCOSE POCT, B Routine 04/19/2025 2:10 AM CDT GLUCOSE POCT, B Routine 04/19/2025 1:09 AM CDT GLUCOSE POCT, B Routine 04/19/2025 12:44 AM CDT GLUCOSE POCT, B Routine 04/19/2025 12:10 AM CDT GLUCOSE POCT, B Routine 04/18/2025 11:15 PM CDT GLUCOSE POCT, B Routine 04/18/2025 10:11 PM CDT BASIC METABOLIC PANEL, S/P Timed 04/18/2025 9:58 PM CDT GLUCOSE POCT, B Routine 04/18/2025 9:08 PM CDT GLUCOSE POCT, B Routine 04/18/2025 8:12 PM CDT CONTINUOUS PULSE OXIMETRY Routine 04/18/2025 8:00 PM CDT GLUCOSE POCT, B Routine 04/18/2025 7:03 PM CDT GLUCOSE POCT, B Routine 04/18/2025 6:11 PM CDT GLUCOSE POCT, B Routine 04/18/2025 4:55 PM CDT TRIGLYCERIDES, S Timed 04/18/2025 4:27 PM CDT GLUCOSE POCT, B Routine 04/18/2025 4:09 PM CDT GLUCOSE POCT, B Routine 04/18/2025 3:10 PM CDT GLUCOSE POCT, B Routine 04/18/2025 2:05 PM CDT GLUCOSE POCT, B Routine 04/18/2025 1:02 PM CDT BASIC METABOLIC PANEL, S/P Timed 04/18/2025 12:27 PM CDT GLUCOSE POCT, B Routine 04/18/2025 12:16 PM CDT GLUCOSE POCT, B Routine 04/18/2025 11:10 AM CDT GLUCOSE POCT, B Routine 04/18/2025 10:11 AM CDT GLUCOSE POCT, B Routine 04/18/2025 9:04 AM CDT GLUCOSE POCT, B Routine 04/18/2025 8:05 AM CDT CONTINUOUS PULSE OXIMETRY Routine 04/18/2025 8:01 AM CDT GLUCOSE POCT, B Routine 04/18/2025 7:05 AM CDT BASIC METABOLIC PANEL, S/P Timed 04/18/2025 7:05 AM CDT HEMOGLOBIN, B Timed 04/18/2025 7:05 AM CDT GLUCOSE POCT, B Routine 04/18/2025 6:02 AM CDT GLUCOSE POCT, B Routine 04/18/2025 5:06 AM CDT TRIGLYCERIDES, S Timed 04/18/2025 4:33 AM CDT CBC WITHOUT DIFFERENTIAL, B Timed 04/18/2025 4:33 AM CDT BASIC METABOLIC PANEL, S/P Timed 04/18/2025 4:33 AM CDT GLUCOSE POCT, B Routine 04/18/2025 4:01 AM CDT GLUCOSE POCT, B Routine 04/18/2025 3:02 AM CDT GLUCOSE POCT, B Routine 04/18/2025 2:12 AM CDT GLUCOSE POCT, B Routine 04/18/2025 1:07 AM CDT GLUCOSE POCT, B Routine 04/18/2025 12:03 AM CDT BASIC METABOLIC PANEL, S/P Timed 04/17/2025 11:53 PM CDT GLUCOSE POCT, B Routine 04/17/2025 11:02 PM CDT GLUCOSE POCT, B Routine 04/17/2025 10:01 PM CDT GLUCOSE POCT, B Routine 04/17/2025 8:57 PM CDT HEMOGLOBIN, B Timed 04/17/2025 8:55 PM CDT BASIC METABOLIC PANEL, S/P Timed 04/17/2025 8:55 PM CDT CONTINUOUS PULSE OXIMETRY Routine 04/17/2025 8:01 PM CDT GLUCOSE POCT, B Routine 04/17/2025 7:58 PM CDT GLUCOSE POCT, B Routine 04/17/2025 6:54 PM CDT GLUCOSE POCT, B Routine 04/17/2025 6:01 PM CDT GLUCOSE POCT, B Routine 04/17/2025 5:08 PM CDT GLUCOSE POCT, B Routine 04/17/2025 4:09 PM CDT HEMOGLOBIN, B Timed 04/17/2025 3:57 PM CDT TRIGLYCERIDES, S Timed 04/17/2025 3:57 PM CDT BASIC METABOLIC PANEL, S/P Timed 04/17/2025 3:57 PM CDT GLUCOSE POCT, B Routine 04/17/2025 2:57 PM CDT GLUCOSE POCT, B Routine 04/17/2025 1:58 PM CDT GLUCOSE POCT, B Routine 04/17/2025 1:14 PM CDT BASIC METABOLIC PANEL, S/P Timed 04/17/2025 1:14 PM CDT GLUCOSE POCT, B Routine 04/17/2025 12:00 PM CDT GLUCOSE POCT, B Routine 04/17/2025 11:12 AM CDT GLUCOSE POCT, B Routine 04/17/2025 10:00 AM CDT BASIC METABOLIC PANEL, S/P Timed 04/17/2025 9:34 AM CDT GLUCOSE POCT, B Routine 04/17/2025 9:13 AM CDT CONTINUOUS PULSE OXIMETRY Routine 04/17/2025 8:01 AM CDT GLUCOSE POCT, B Routine 04/17/2025 7:58 AM CDT GLUCOSE POCT, B Routine 04/17/2025 7:03 AM CDT GLUCOSE POCT, B Routine 04/17/2025 6:00 AM CDT GLUCOSE POCT, B Routine 04/17/2025 5:20 AM CDT VITAMIN D, IMMUNOASSAY, TOTAL, S Timed 04/17/2025 4:10 AM CDT VENOUS BLOOD GAS W/COOX, B Timed 04/17/2025 4:10 AM CDT CBC WITHOUT DIFFERENTIAL, B Timed 04/17/2025 4:10 AM CDT MAGNESIUM, S Timed 04/17/2025 4:10 AM CDT FERRITIN, S Timed 04/17/2025 4:10 AM CDT VITAMIN B12 ASSAY, S Timed 04/17/2025 4:10 AM CDT FOLATE, S Timed 04/17/2025 4:10 AM CDT IRON AND TOT IRON-BINDING CAPACITY, S/P Timed 04/17/2025 4:10 AM CDT TRIGLYCERIDES, S Timed 04/17/2025 4:10 AM CDT BASIC METABOLIC PANEL, S/P Timed 04/17/2025 4:10 AM CDT GLUCOSE POCT, B Routine 04/17/2025 4:02 AM CDT GLUCOSE POCT, B Routine 04/17/2025 3:19 AM CDT GLUCOSE POCT, B Routine 04/17/2025 2:04 AM CDT GLUCOSE POCT, B Routine 04/17/2025 1:06 AM CDT GLUCOSE POCT, B Routine 04/17/2025 12:12 AM CDT VENOUS BLOOD GAS W/COOX, B Timed 04/16/2025 11:51 PM CDT BASIC METABOLIC PANEL, S/P Timed 04/16/2025 11:51 PM CDT GLUCOSE POCT, B Routine 04/16/2025 11:21 PM CDT GLUCOSE POCT, B Routine 04/16/2025 10:10 PM CDT GLUCOSE POCT, B Routine 04/16/2025 9:24 PM CDT GLUCOSE POCT, B Routine 04/16/2025 8:12 PM CDT THYROID FUNCTION CASCADE, S Routine 04/16/2025 8:12 PM CDT PATIENT STATUS Timed 04/16/2025 8:12 PM CDT LACTATE, B Routine 04/16/2025 8:12 PM CDT BASIC METABOLIC PANEL, S/P Timed 04/16/2025 8:12 PM CDT ECG Routine 04/16/2025 8:10 PM CDT CONTINUOUS PULSE OXIMETRY Routine 04/16/2025 8:01 PM CDT GLUCOSE POCT, B Routine 04/16/2025 6:56 PM CDT GLUCOSE POCT, B Routine 04/16/2025 5:57 PM CDT GLUCOSE POCT, B Routine 04/16/2025 5:04 PM CDT CONTINUOUS PULSE OXIMETRY Routine 04/16/2025 4:42 PM CDT CONTINUOUS PULSE OXIMETRY Routine 04/16/2025 4:42 PM CDT CONTINUOUS PULSE OXIMETRY Routine 04/16/2025 4:42 PM CDT GLUCOSE POCT, B Routine 04/16/2025 4:03 PM CDT TRIGLYCERIDES, S Timed 04/16/2025 3:53 PM CDT BASIC METABOLIC PANEL, S/P Timed 04/16/2025 3:53 PM CDT GLUCOSE POCT, B Routine 04/16/2025 3:01 PM CDT GLUCOSE POCT, B Routine 04/16/2025 1:59 PM CDT GLUCOSE POCT, B Routine 04/16/2025 1:07 PM CDT MAGNESIUM, S Routine 04/16/2025 12:20 PM CDT BASIC METABOLIC PANEL, S/P Routine 04/16/2025 12:20 PM CDT HEMOGLOBIN, B Timed 04/16/2025 12:20 PM CDT GLUCOSE POCT, B Routine 04/16/2025 11:13 AM CDT GLUCOSE POCT, B Routine 04/16/2025 10:02 AM CDT GLUCOSE POCT, B Routine 04/16/2025 9:09 AM CDT GLUCOSE POCT, B Routine 04/16/2025 8:01 AM CDT TRIGLYCERIDES, S Timed 04/16/2025 7:57 AM CDT BASIC METABOLIC PANEL, S/P STAT 04/16/2025 7:57 AM CDT GLUCOSE POCT, B Routine 04/16/2025 7:15 AM CDT GLUCOSE POCT, B Routine 04/16/2025 6:34 AM CDT GLUCOSE POCT, B Routine 04/16/2025 5:34 AM CDT GLUCOSE POCT, B Routine 04/16/2025 5:15 AM CDT GLUCOSE POCT, B Routine 04/16/2025 4:59 AM CDT GLUCOSE POCT, B Routine 04/16/2025 4:22 AM CDT GLUCOSE POCT, B Routine 04/16/2025 3:33 AM CDT GLUCOSE POCT, B Routine 04/16/2025 2:08 AM CDT ECG STAT 04/16/2025 1:54 AM CDT VENOUS BLOOD GAS W/COOX, B STAT 04/16/2025 12:59 AM CDT POTASSIUM, S/P Routine 04/16/2025 12:58 AM CDT GLUCOSE POCT, B Routine 04/16/2025 12:34 AM CDT GLUCOSE POCT, B Routine 04/15/2025 11:46 PM CDT GLUCOSE POCT, B Routine 04/15/2025 11:01 PM CDT VAGINITIS PANEL, AMPLIFIED RNA STAT 04/15/2025 8:42 PM CDT VENOUS BLOOD GAS W/COOX, B STAT 04/15/2025 8:33 PM CDT BETA-HYDOXYBUTYRATE, POCT, B STAT 04/15/2025 8:33 PM CDT LIPASE, S/P STAT 04/15/2025 8:33 PM CDT TRIGLYCERIDES, S STAT 04/15/2025 8:[address] ABDOMEN PELVIS WITH IV CONTRAST RAD - Semiurgent (Fast; most ED patients; some inpatients) 04/15/2025 7:23 PM CDT MORPHOLOGY EVALUATION STAT 04/15/2025 6:45 PM CDT COMPREHENSIVE METABOLIC PANEL, S/P STAT 04/15/2025 6:45 PM CDT CBC WITH DIFFERENTIAL, B STAT 04/15/2025 6:45 PM CDT HC URINALYSIS AUTO WO MICRO STAT 04/15/2025 6:40 PM CDT TEST, POCT, U (LAB) STAT 04/15/2025 6:40 PM CDT URINALYSIS WITH MICROSCOPIC IF INDICATED, U STAT 04/15/2025 6:40 PM CDT BASIC METABOLIC PANEL, S/P Timed 03/24/2025 4:15 PM CDT GLUCOSE POCT, B Routine 03/24/2025 1:23 PM CDT GLUCOSE POCT, B Routine 03/24/2025 12:31 PM CDT GLUCOSE POCT, B Routine 03/24/2025 12:11 PM CDT BASIC METABOLIC PANEL, S/P Timed 03/24/2025 11:43 AM CDT GLUCOSE POCT, B Routine 03/24/2025 11:21 AM CDT GLUCOSE POCT, B Routine 03/24/2025 10:18 AM CDT GLUCOSE POCT, B Routine 03/24/2025 9:23 AM CDT GLUCOSE POCT, B Routine 03/24/2025 8:28 AM CDT BASIC METABOLIC PANEL, S/P Timed 03/24/2025 8:09 AM CDT GLUCOSE POCT, B Routine 03/24/2025 7:11 AM CDT GLUCOSE POCT, B Routine 03/24/2025 6:04 AM CDT GLUCOSE POCT, B Routine 03/24/2025 5:07 AM CDT TRIGLYCERIDES, S Routine 03/24/2025 4:20 AM CDT COMPREHENSIVE METABOLIC PANEL, S/P Timed 03/24/2025 4:20 AM CDT CBC WITH DIFFERENTIAL, B Timed 03/24/2025 4:20 AM CDT GLUCOSE POCT, B Routine 03/24/2025 4:12 AM CDT GLUCOSE POCT, B Routine 03/24/2025 3:04 AM CDT GLUCOSE POCT, B Routine 03/24/2025 1:58 AM CDT GLUCOSE POCT, B Routine 03/24/2025 12:59 AM CDT GLUCOSE POCT, B Routine 03/23/2025 11:58 PM CDT BASIC METABOLIC PANEL, S/P Timed 03/23/2025 11:58 PM CDT GLUCOSE POCT, B Routine 03/23/2025 11:03 PM CDT GLUCOSE POCT, B Routine 03/23/2025 10:03 PM CDT GLUCOSE POCT, B Routine 03/23/2025 8:54 PM CDT BASIC METABOLIC PANEL, S/P Timed 03/23/2025 8:03 PM CDT GLUCOSE POCT, B Routine 03/23/2025 7:56 PM CDT GLUCOSE POCT, B Routine 03/23/2025 6:59 PM CDT GLUCOSE POCT, B Routine 03/23/2025 5:55 PM CDT GLUCOSE POCT, B Routine 03/23/2025 5:01 PM CDT BASIC METABOLIC PANEL, S/P Timed 03/23/2025 3:58 PM CDT TRIGLYCERIDES, S Timed 03/23/2025 3:58 PM CDT GLUCOSE POCT, B Routine 03/23/2025 3:42 PM CDT GLUCOSE POCT, B Routine 03/23/2025 2:38 PM CDT GLUCOSE POCT, B Routine 03/23/2025 1:43 PM CDT BASIC METABOLIC PANEL, S/P Timed 03/23/2025 12:13 PM CDT GLUCOSE POCT, B Routine 03/23/2025 11:30 AM CDT GLUCOSE POCT, B Routine 03/23/2025 11:00 AM CDT GLUCOSE POCT, B Routine 03/23/2025 10:01 AM CDT BASIC METABOLIC PANEL, S/P Timed 03/23/2025 8:06 AM CDT GLUCOSE POCT, B Routine 03/23/2025 7:55 AM CDT GLUCOSE POCT, B Routine 03/23/2025 6:55 AM CDT GLUCOSE POCT, B Routine 03/23/2025 6:03 AM CDT GLUCOSE POCT, B Routine 03/23/2025 5:01 AM CDT THYROID-STIMULATING HORMONE-SENSITIVE (S-TSH) Timed 03/23/2025 4:20 AM CDT TRIGLYCERIDES, S Timed 03/23/2025 4:20 AM CDT CBC WITH DIFFERENTIAL, B Timed 03/23/2025 4:20 AM CDT BASIC METABOLIC PANEL, S/P Timed 03/23/2025 4:20 AM CDT GLUCOSE POCT, B Routine 03/23/2025 4:06 AM CDT GLUCOSE POCT, B Routine 03/23/2025 3:02 AM CDT GLUCOSE POCT, B Routine 03/23/2025 2:05 AM CDT GLUCOSE POCT, B Routine 03/23/2025 12:44 AM CDT BASIC METABOLIC PANEL, S/P Timed 03/23/2025 12:20 AM CDT GLUCOSE POCT, B Routine 03/22/2025 11:40 PM CDT GLUCOSE POCT, B Routine 03/22/2025 10:47 PM CDT GLUCOSE POCT, B Routine 03/22/2025 9:59 PM CDT GLUCOSE POCT, B Routine 03/22/2025 8:47 PM CDT BASIC METABOLIC PANEL, S/P Timed 03/22/2025 8:10 PM CDT GLUCOSE POCT, B Routine 03/22/2025 7:47 PM CDT GLUCOSE POCT, B Routine 03/22/2025 6:36 PM CDT POTASSIUM, S/P STAT 03/22/2025 6:35 PM CDT GLUCOSE POCT, B Routine 03/22/2025 5:40 PM CDT GLUCOSE POCT, B Routine 03/22/2025 4:37 PM CDT HEPATIC FUNCTION PANEL, S Routine 03/22/2025 4:01 PM CDT LIPASE, S/P Routine 03/22/2025 4:01 PM CDT BASIC METABOLIC PANEL, S/P Timed 03/22/2025 4:01 PM CDT TRIGLYCERIDES, S Timed 03/22/2025 4:01 PM CDT GLUCOSE POCT, B Routine 03/22/2025 3:45 PM CDT GLUCOSE POCT, B Routine 03/22/2025 2:44 PM CDT GLUCOSE POCT, B Routine 03/22/2025 1:42 PM CDT GLUCOSE POCT, B Routine 03/22/2025 12:41 PM CDT BASIC METABOLIC PANEL, S/P Timed 03/22/2025 12:10 PM CDT GLUCOSE POCT, B Routine 03/22/2025 11:46 AM CDT GLUCOSE POCT, B Routine 03/22/2025 10:48 AM CDT GLUCOSE POCT, B Routine 03/22/2025 9:26 AM CDT GLUCOSE POCT, B Routine 03/22/2025 8:37 AM CDT IRON AND TOT IRON-BINDING CAPACITY, S/P Routine 03/22/2025 7:55 AM CDT FERRITIN, S Routine 03/22/2025 7:55 AM CDT BASIC METABOLIC PANEL, S/P Timed 03/22/2025 7:55 AM CDT GLUCOSE POCT, B Routine 03/22/2025 7:34 AM CDT GLUCOSE POCT, B Routine 03/22/2025 6:36 AM CDT GLUCOSE POCT, B Routine 03/22/2025 5:20 AM CDT LIPID PANEL, S Timed 03/22/2025 4:40 AM CDT CBC WITH DIFFERENTIAL, B Timed 03/22/2025 4:40 AM CDT COMPREHENSIVE METABOLIC PANEL, S/P Timed 03/22/2025 4:40 AM CDT GLUCOSE POCT, B Routine 03/22/2025 4:38 AM CDT GLUCOSE POCT, B Routine 03/22/2025 3:16 AM CDT GLUCOSE POCT, B Routine 03/22/2025 2:19 AM CDT GLUCOSE POCT, B Routine 03/22/2025 1:21 AM CDT HEMOGLOBIN A1C, B Timed 03/22/2025 12: 03 AM CDT BASIC METABOLIC PANEL, S/P Timed 03/22/2025 12:03 AM CDT LIPID PANEL, S Timed 03/22/2025 12:03 AM CDT GLUCOSE POCT, B Routine 03/21/2025 11:59 PM CDT GLUCOSE POCT, B Routine 03/21/2025 10:11 PM CDT BMP WITH HGB/HCT, POCT, B STAT 03/21/2025 8:48 PM CDT VENOUS BLOOD GAS W/O COOX STAT 03/21/2025 8:32 PM CDT MANUAL DIFFERENTIAL, B STAT 03/21/2025 6:11 PM CDT MORPHOLOGY EVALUATION STAT 03/21/2025 6:11 PM CDT HUMAN CHORIONIC GONADOTROPIN (HCG), MATILDE, STAT 03/21/2025 6:11 PM CDT LIPASE, S/P STAT 03/21/2025 6:11 PM CDT HEPATIC FUNCTION PANEL, S STAT 03/21/2025 6:11 PM CDT BASIC METABOLIC PANEL, S/P STAT 03/21/2025 6:11 PM CDT CBC WITH DIFFERENTIAL, B STAT 03/21/2025 6:11 PM CDT US GALLBLADDER AND OR BILIARY DUCTS RAD - Semiurgent (Fast; most ED patients; some inpatients) 03/21/2025 5:50 PM CDT from Last 3 Months Results * Glucose, POCT (05/26/2025 12:49 PM CDT) Only the most recent of265 resultswithin the time period is included. Glucose, POCT, B 93 70 - 140 mg/dL 05/26/2025 12:49 PM CDT [facility] Blood 05/26/2025 12:4 9 PM CDT 05/26/2025 12:59 PM CDT us Generic Rals LAB POCT ORDERABLES-MANUAL Final Result [facility] [address] [place] [address], [facility] [place] [address] * (ABNORMAL) Basic Metabolic Panel (05/26/2025 8:13 AM CDT) Only the most recent of69 resultswithin the time period is included. Potassium, P 3.5(L) 3.6 - 5.2 mmol/L [...] ADD-ON Fi nal Result Performing Organization Address [facility] de Phone Number [facility] [address] [place] [address], [facility] MKTO [facility] [place] [address] * (ABNORMAL) Triglycerides (05/26/2025 4:10 AM CDT) Only the most recent of24 resultswithin the time period is included. Triglycerides 1644(H) mg/dL 05/26/2025 4:47 AM CDT [facility] Comment: ----REFERENCE VALUE---- Normal: <150 mg/dL Borderline High: 150-199 mg/dL High: 200-499 mg/dL Very High: > or =500 mg/dL Fasting (8 HR or more) No 05/26/2025 4:10 AM CDT [facility] Blood (Blood, Venous) 05/26/2025 4:10 AM CDT 05/26/2025 4:14 AM CDT us Chris Camara M.D. LAB BLOOD ADD-ON Fi nal Result Performing Organization Address City/[facility] Co de Phone Number [facility] [address] [place] [address], [place] [address] * Potassium (05/25/2025 1:45 PM CDT) Only the most recent of5 resultswithin the time period is included. Potassium, P 4.0 3.6 - 5.2 mmol/L 05/25/2025 2:07 PM CDT [facility] Blood 05/25/2025 1:4 5 PM CDT 05/25/2025 1:49 PM CDT Chrsi Camara M.D. LAB BLOOD ADD-ON Fi nal Result Performing Organization Address City/[facility] Co de Phone Number [facility] [address] [place] [address], [place] [address] * Phosphorus Inorganic (05/23/2025 4:04 AM CDT) Phosphorus (Inorganic), P 3.7 2.5 - 4.5 mg/dL 05/23/2025 4:36 AM CDT [facility] Blood (Blood, Venous) 05/23/2025 4:04 AM CDT 05/23/2025 4:15 AM CDT Chris Camara M.D. LAB BLOOD ADD-ON Fi nal Result [facility] [address] [place] [address], [place] [address] * Magnesium (05/23/2025 4:04 AM CDT) Only the most recent of4 resultswithin the time period is included. Magnesium, P 1.7 1.7 - 2.3 mg/dL 05/23/2025 4:36 AM CDT [facility] Blood (Blood, Venous) 05/23/2025 4:04 AM CDT 05/23/2025 4:15 AM CDT us Chris Camara M.D. LAB BLOOD ADD-ON Fi nal Result Performing Organization Address [facility] Co de Phone Number [facility] [address] [place] [address], [place] [address] * (ABNORMAL) Morphology Evaluation (05/21/2025 5:46 AM CDT) Only the most recent of3 resultswithin the time period is included. RBC Morphology See Specific Findings 05/21/2025 7:06 [...] BLOOD ADD-ON Final Result Performing Organization Address [facility] Co de Phone Number [facility] [address] [place] [address], [address] [address] * (ABNORMAL) CBC with Differential, Blood (05/21/2025 5:46 AM CDT) Only the most recent of7 resultswithin the time period is included. Hemoglobin 12.3 11.6 - 15.0 g/dL 05/21/2025 [...] 5:46 AM CDT 05/21/2025 5:50 AM CDT Leela Downey M.D. LAB BLOOD ADD-ON Final Result [facility] [address] [place] [address], [facility] MK[facility] [place] [address] [place] [address] * Lipase (05/19/2025 7:31 PM CDT) Only the most recent of4 resultswithin the time period is included. Lipase, P 41 13 - 60 U/L 05/19/2025 8:49 PM CDT [facility] Comment:Visible lipemia, arely trifuged prior to analysis Blood 05/19/2025 7:31 PM CDT 05/19/2025 7:34 PM CDT us Howard Corona M.D. LAB BLOOD ADD-ON Final Res ult [facility] [place] [address], [facility] [place] [address] [place] [address] * (ABNORMAL) Comprehensive Metabolic Panel (05/19/2025 7:31 PM CDT) Only the most recent of5 resultswithin the time period is included. Potassium, P 4.2 3.6 - 5.2 mmol/L [...] M.D. LAB BLOOD ADD-ON Final Res ult [facility] [address] [place] [address], [facility] in [address] [address] * (ABNORMAL) CBC without Differential (04/20/2025 10:35 AM CDT) Only the most recent of4 resultswithin the time period is included. Hemoglobin 10.4(L) 11.6 - 15.0 g/dL 04/20/2025 10:45 AM CDT [facility] Hematocrit 30.5(L) 35.5 - 44.9 % 04/20/2025 10:45 AM CDT [facility] Erythrocytes 4.43 3.92 - 5.13 x10(12)/L 04/20/2025 10:45 AM CDT [facility] MCV 68.8(L) 78.2 - 97.9 fL 04/20/2025 10:45 AM CDT [facility] RBC Distrib Width 16.0 12.2 - 16.1 % 04/20/2025 10:45 AM CDT [facility] Platelet Count 189 157 - 371 x10(9)/L 04/20/2025 10:45 AM CDT [facility] Leukocytes 4.5 3.4 - 9.6 x10(9)/L 04/20/2025 10:45 AM CDT [facility] Blood (Blood, Venous) 04/20/2025 10:35 AM CDT 04/20/2025 10:42 AM CDT Joseph Vitale M.D. LAB BLOOD ADD-ON Final Result [facility] [address] [place] [address], [facility] in [address] [address] * (ABNORMAL) Hemoglobin (04/18/2025 7:05 AM CDT) Only the most recent of4 resultswithin the time period is included. Hemoglobin 9.8(L) 11.6 - 15.0 g/dL 04/18/2025 7:25 AM CDT [facility] Blood (Blood, Venous) 04/18/2025 7:05 AM CDT 04/18/2025 7:17 AM CDT us Joseph Vitale M.D. LAB BLOOD ADD-ON Final Result [facility] [address] [place] [address], [facility] [place] [address] [place] [address] * (ABNORMAL) Vitamin D, Immunoassay, Total, Serum (04/17/2025 4:10 AM CDT) Vitamin D, Immunoassay, Total, S 8(L) 20 - 80 ng/mL 04/17/2025 5:27 AM CDT [facility] Comment: Interpretation: <10 ng/mL (severe deficiency) Optimum levels within the healthy population are 20-50, patients with bone disease may benefit from high levels within this range Blood (Blood, Venous) 04/17/2025 4:10 AM CDT 04/17/2025 4:15 AM CDT us Daina Regalado APRN C.N.P., M.S.N. LAB BLO OD ADD-ON Final Result [facility] [address] [place] [address], [facility] [place] [address] * (ABNORMAL) Iron and Total Iron-Binding Capacity (04/17/2025 4:10 AM CDT) Only the most recent of2 resultswithin the time period is included. Iron 20(L) 35 - 145 mcg/dL 04/17/2025 5:19 AM CDT [facility] Total Iron Binding Capacity 385 250 - 400 mcg/dL 04/17/2025 6:12 AM CDT TO Comment:@[email or web address] Percent Saturation 5(L) 14 - 50 % 04/17/2025 6:12 AM CDT TO Comment:@[email or web address] Blood (Blood, Venous) 04/17/2025 4:10 AM CDT 04/17/2025 4:15 AM CDT us Daina Regalado APRN, C.N.P., M.S.N. LAB BLO OD ADD-ON Final Result [facility] [address] [place] [address], [facility] MK[facility] [place] [address] [place] [address] * (ABNORMAL) Blood Gas with Coox, Venous (04/17/2025 4:10 AM CDT) Only the most recent of4 resultswithin the time period is included. pO2, Venous 35 Not applicable mm Hg 04/17/2025 4:19 AM CDT [facility] pCO2, Venous 50 41 - 51 mm Hg 4:19 AM CDT [facility] pH, Venous 7.32 7.32 - 7.43 pH 04/17/2025 4:19 AM CDT [facility] Base Excess, Venous -1 Not applicable mmol/L 04/17/2025 4:19 AM CDT [facility] HCO3, Venous 25 Not applicable mmol/L 04/17/2025 4:19 AM CDT [facility] Hemoglobin, Venous 11.2(L) 11.6 - 15.0 g/dL 04/17/2025 4:19 AM CDT [facility] O2Hb, Venous 56.9 Not applicable % 04/17/2025 4:19 AM CDT [facility] COHb, Venous 0.7 <3.0 % 04/17/2025 4:19 AM CDT [facility] MetHb, Venous 3.9(H) <1.5 % 04/17/2025 4:19 AM CDT [facility] CtO2, Venous 9.0 Not Applicable vol % 04/17/2025 4:19 AM CDT [facility] Blood (Blood, Venous) 04/17/2025 4:10 AM CDT 04/17/2025 4:15 AM CDT us Evon Carrillo APRNNChau., M.S.N. LAB BLO OD NON ADD-ON Final Result Performing Organization Address City/[facility] Co de Phone Number [facility] [address] [place] [address] * Folate (04/17/2025 4:10 AM CDT) Folate, S >20.0 >=4.0 mcg/L 04/17/2025 5:35 AM CDT [facility] Comment: Biotin has been identified by the launch check out as a potential interfering substance. Higher concentrations of biotin may be found in multivitamins, hair/nail supplements, and workout supplements. If the result does not match clinical observations, repeat testing after patient refrains from the use of supplements for at least 12 hours. Blood (Blood, Venous) 04/17/2025 4:10 AM CDT 04/17/2025 4:15 AM CDT Evon Carrillo APRNNChau., M.S.N. LAB BLO OD ADD-ON Final Result Performing Organization Address [facility] Co de Phone Number [facility] [address] [place] [address] * Ferritin (04/17/2025 4:10 AM CDT) Only the most recent of2 resultswithin the time period is included. Ferritin, S 47 6 - 175 mcg/L 04/17/2025 5:19 AM CDT [facility] Comment: Biotin has been identified by the launch check out as a potential interfering substance. Higher concentrations of biotin may be found in multivitamins, hair/nail supplements, and workout supplements. If the result does not match clinical observations, repeat testing after patient refrains from the use of supplements for at least 12 hours. Blood (Blood, Venous) 04/17/2025 4:10 AM CDT 04/17/2025 4:15 AM CDT Ann-Marie Carrillo APRN.N.P., M.S.N. LAB BLO OD ADD-ON Final Result Performing Organization Address [facility] Co de Phone Number [facility] [address] [place] [address], [place] [address] * Vitamin B12 Assay (04/17/2025 4:10 AM CDT) Vitamin B12 Assay, S 435 232 - 1245 ng/L 04/17/2025 5:27 AM CDT [facility] Comment: Biotin has been identified by the launch check out as a potential interfering substance. Higher concentrations of biotin may be found in multivitamins, hair/nail supplements, and workout supplements. If the result does not match clinical observations, repeat testing after patient refrains from the use of supplements for at least 12 hours. Blood (Blood, Venous) 04/17/2025 4:10 AM CDT 04/17/2025 4:15 AM CDT Ann-Marie Carrillo APRN.N.P., M.S.N. LAB BLO OD ADD-ON Final Result Performing Organization Address [facility] Co de Phone Number [facility] [address] [place] [address], [address] [address] * Lactate, B (04/16/2025 8:12 PM CDT) Lactate, B 1.9 0.5 - 2.2 mmol/L 04/16/2025 8:32 PM CDT [facility] Blood (Blood, Venous) 04/16/2025 8:12 PM CDT 04/16/2025 8:16 PM CDT Daina Regalado APRN C.N.P., M.S.N. LAB BLO OD NON ADD-ON Final Result Performing Organization Address City/[facility]/ZIP Co de Phone Number [facility] [address] [place] [address], [facility] [place] [address] [place] [address] * Patient Status (04/16/2025 8:12 PM CDT) Temperature CANCELED deg C 04/16/2025 8:30 PM CDT [facility]TO Comment:Result canceled by t he ancillary. FIO2 CANCELED 04/16/2025 8:30 PM CDT [facility] Comment:Result canceled by t he ancillary. O2 Flow CANCELED L/min 04/16/2025 8:30 PM CDT [facility] Comment:Result canceled by t he ancillary. Device CANCELED 04/16/2025 8:30 PM CDT [facility] Comment:Result canceled by t he ancillary. Spont. breaths/min CANCELED 04/16/2025 8:30 PM CDT [facility] Comment:Result canceled by t he ancillary. Pulse Oximetry CANCELED % 04/16/2025 8:30 PM CDT [facility] Comment:Result canceled by t he ancillary. ETCO2:TcCO2 CANCELED % 04/16/2025 8:30 PM CDT [facility] Comment:Result canceled by t he ancillary. Blood 04/16/2025 8:12 PM CDT 04/16/2025 8:[address] [facility] - 04/16/2025 8:30 PM CDT Patient Status was cancelled on 04/16/2025 at 20:30; Interfering substance was present. us Daina Regalado APRN C.N.P., M.S.N. LAB BLO OD NON ADD-ON Edited Result - Final [facility] [address] [place] [address], [facility] [address] [place] [address] * Thyroid Function Giles (04/16/2025 8:12 PM CDT) TSH, Sensitive 3.1 0.3 - 4.2 mIU/L 04/16/2025 9:20 PM CDT [facility] Blood (Blood, Venous) 04/16/2025 8:12 PM CDT 04/16/2025 8:17 PM CDT us Daina Regalado APRN, C.N.P., M.S.N. LAB BLO OD ADD-ON Final Result [facility] [address] [place] [address], [facility] [address] [place] [address] * ECG 12 Lead (04/16/2025 8:10 PM CDT) Only the most recent of2 resultswithin the time period is included. Ventricular Rate ECG/Min 85 BPM MUSE FL Interval 136 ms MUSE QRSD Interval 82 ms MUSE QT Interval 406 ms MUSE QTC Interval 483 ms MUSE P [place] 41 degrees MUSE R [place] 36 degrees MUSE T Wave [place] 33 degrees MUSE 04/16/2025 8:10 PM CDT 04/16/2025 8:18 PM CDT Impressions MUSE - 04/16/2025 8:18 PM CDT Normal sinus rhythm Nonspecific ST abnormality T wave abnormality, consider anterior ischemia Prolonged QT When compared with ECG of 16-Apr-2025 01:54, T wave inversion less evident in Anterior leads QT has lengthened Reviewed by ABI Hitchcock Narrative Procedure Note Zia Boland Jr., M.D. - 04/16/2025 IMPRESSION: Normal sinus rhythm Nonspecific ST abnormality T wave abnormality, consider anterior ischemia Prolonged QT When compared with ECG of 16-Apr-2025 01:54, T wave inversion less evident in Anterior leads QT has lengthened Reviewed by ABI Hitchcock us Daina Chase Sabine TUTTLE, C.N.P., M.S.N. ECG ORD ERABLES Final Result Performing Organization Address City/[facility]/ZIP Co de Phone Number MUSE NA * (ABNORMAL) Vaginitis Panel, Amplified RNA (04/15/2025 8:42 PM CDT) Bacterial Vaginosis, Amplified RNA Negative Negative 04/15/2025 11:35 PM CDT [facility] Comment: A negative result does not exclude infection. Assay result is based on relative amounts of Lactobacillus (L. gasseri, L. crispatus, L. jensenii), Gardnerella vaginalis and Atopobium vaginae. Janneth species, Amplified RNA Positive(A) Negative 04/15/2025 11:30 PM CDT [facility] Comment: Janneth albicans, C. tropicalis, C. parapsilosis and/or C. dubliniensis RNA detected. Individual organisms are not identified or reported by this assay. Results should be interpreted alongside clinical presentation. Up to 21% of asymptomatic patients may be positive by this assay. Janneth glabrata, Amplified RNA Negative Negative 04/15/2025 11:30 PM CDT [facility] Comment: No RNA detected from Janneth glabrata. A negative result does not exclude infection. Trichomonas vaginalis Amplified RNA Negative Negative 04/15/2025 11:30 PM CDT [facility] Swab (Vagina) 04/15/2025 8:4 2 PM CDT 04/15/2025 8:44 PM CDT us Selam Akbar APRN, C.N.PTesha, D.N.P. LAB MICROBIOLOGY - GENERAL ORDERABLES Final Result [facility] [address] [place] [address], [facility] MK[facility] [address] [address] * Beta-hydroxybutyrate, Point of Care Testing, Blood (04/15/2025 8:33 PM CDT) Pathologist [facility] Beta-hydroxybut yrate, POCT, B 0.1 0.0 - 0.5 mmol/L 04/15/2025 8:38 PM CDT [facility] Blood (Blood, Venous) 04/15/2025 8:33 PM CDT 04/15/2025 8:36 PM CDT us Howard Corona M.D. LAB BLOOD NON ADD-ON Final Result [facility] [address] [place] [address], [place] [facility] [place] [address] [place] [address] * CT Abdomen Pelvis with IV Contrast (04/15/2025 7:23 PM CDT) Anatomical Region Laterality Modality Abdomen, Pelvis, Abdominal R ST LOS, Abdominal ARZ LOS, Abdominal FLA LOS N/A Computed Tomography 04/15/2025 7:23 PM CDT Impressions 04/15/2025 7:32 PM CDT Possible subtle stranding near the pancreas, which could reflect mild acute pancreatitis. No additional acute abnormality identified. Hepatic steatosis and enlargement. Narrative 04/15/2025 7:32 PM CDT EXAM: CT ABDOMEN PELVIS WITH IV CONTRAST COMPARISON: CT 11/22/2024 FINDINGS: Lower chest: Unremarkable apart from mild dependent atelectasis at the lung bases. Liver: Enlarged and diffusely low-attenuation. Gallbladder: No wall thickening or stones seen by CT. Spleen: No visible focal lesions. Pancreas: Possible subtle stranding near the pancreas. Adrenals: Unremarkable CT appearance. Kidneys and Ureters: No hydronephrosis, discrete stone, or solid mass lesion seen. Gastrointestinal Tract: No bowel obstruction. Moderate stool burden. Normal appendix. IVC/Abdominal Aorta: Unremarkable appearance of the IVC. No focal aneurysm or dissection seen of the abdominal aorta. Reproductive Organs: No acute abnormality seen by CT. Urinary Bladder: No stones seen in the bladder lumen. No definite bladder lesion. Abdominal/Pelvic Wall: No acute abnormality seen. Bones: No acute fracture or dislocation seen. Procedure Note Elder Ritter M.D. - 04/15/2025 EXAM: CT ABDOMEN PELVIS WITH IV CONTRAST COMPARISON: CT 11/22/2024 FINDINGS: Lower chest: Unremarkable apart from mild dependent atelectasisat the lung bases. Liver: Enlarged and diffusely low-attenuation. Gallbladder: No wall thickening or stones seen by CT. Spleen: No visible focal lesions. Pancreas: Possible subtle stranding near the pancreas. Adrenals: Unremarkable CT appearance. Kidneys and Ureters: No hydronephrosis, discrete stone, or solid masslesion seen. Gastrointestinal Tract: No bowel obstruction. Moderate stool burden.Normal appendix. IVC/Abdominal Aorta: Unremarkable appearance of the IVC. No focalaneurysm or dissection seen of the abdominal aorta. Reproductive Organs: No acute abnormality seen by CT. Urinary Bladder: No stones seen in the bladder lumen. No definitebladder lesion. Abdominal/Pelvic Wall: No acute abnormality seen. Bones: No acute fracture or dislocation seen. IMPRESSION: Possible subtle stranding near the pancreas, which could reflect mildacute pancreatitis. No additional acute abnormality identified. Hepatic steatosis and enlargement. Selam Akbar APRN, C.N.P., D.N.P. IMG CT PROCE ROGE Final Result * (ABNORMAL) Urinalysis with Microscopic if Indicated: Urine, Midstream (04/15/2025 6:40 PM CDT) Source Urine, Urine, Midstream 04/15/2025 6:58 PM CDT [facility] Clarity Clear Clear 04/15/2025 7:02 PM CDT [facility] Color Yellow 04/15/2025 7:02 PM CDT [facility] Comment: ----REFERENCE VALUE---- Colorless Yellow Bea Blood Negative Negative 04/15/2025 7:02 PM CDT [facility] Nitrite Negative Negative 04/15/2025 7:02 PM CDT [facility] Leukocyte Esterase Small(A) Negative 04/15/2025 7:02 PM CDT [facility] Protein Trace mg/dL 04/15/2025 7:02 PM CDT [facility] Comment: ----REFERENCE VALUE---- Negative Trace Glucose >=1000(A) Negative mg/dL 04/15/2025 7:02 PM CDT [facility] Ketone Negative Negative mg/dL 04/15/2025 7:02 PM CDT [facility] Bilirubin Negative Negative 04/15/2025 7:02 PM CDT [facility] pH 6.0 5.0 - 8.0 04/15/2025 7:02 PM CDT [facility] Specific [place] >1.035(A) 1.001 - 1.035 04/15/2025 7:02 PM CDT [facility] Urobilinogen 0.2 0.2 - 1.0 mg/dL 04/15/2025 7:02 PM CDT [facility] Urine (Urine, Midstream) 04/15/2025 6:40 PM CDT 04/15/2025 6:43 PM CDT us Selam Akbar APRN, C.N.P., D.N.P. LAB URINE OR DERABLES Final Result Performing Organization Address [facility]/ZIP Co de Phone Number [facility] [address] [place] [address], [facility] MK[facility] [place] [address] * (ABNORMAL) Microscopic Automated (04/15/2025 6:40 PM CDT) White Blood Cells 31-40(A) /hpf 04/15/2025 7:05 PM CDT [facility] Comment: ----REFERENCE VALUE---- Males: 0-3 Females: 0-10 Unknown: 0-10 Red Blood Cells Occ-2 0 - 2 /hpf 04/15/2025 7:05 PM CDT [facility] Squamous Cells Occ-3 /hpf 04/15/2025 7:05 PM CDT [facility] Bacteria Present(A) None Seen 04/15/2025 7:05 PM CDT [facility] Urine 04/15/2025 6:40 PM CDT 04/15/2025 6:43 PM CDT us Selam Akbar APRN, C.N.P., D.N.P. LAB URINE OR DERABLES Final Result [facility] [address] [place] [address], [place] [address] * Test, POCT, Urine (Lab) (04/15/2025 6:40 PM CDT) Test, POCT, U Negative 04/15/2025 7:04 PM CDT [facility] Urine (Urine, Midstream) 04/15/2025 6:40 PM CDT 04/15/2025 6:58 PM CDT us Selam Akbar APRN, C.N.P., D.N.P. LAB POCT ORD ERABLES - DEVICE Final Result Performing Organization Address [facility]/ZIP Co de Phone Number [facility] [address] [place] [address], [place] [address] * S-TSH (Thyroid-Stimulating Hormone - Sensitive) (03/23/2025 4:20 AM CDT) Pathologist [facility] TSH, Sensitive 1.3 0.3 - 4.2 mIU/L 03/23/2025 5:22 AM CDT [facility] Blood (Blood, Venous) 03/23/2025 4:20 AM CDT 03/23/2025 4:54 AM CDT us Bert Ac M.D. LAB BLOOD ADD-ON Final Result Performing Organization Address City/[facility]/ZIP Co de Phone Number [facility] [address] [place] [address], [place] [address] * (ABNORMAL) Hepatic Function Panel (03/22/2025 4:01 PM CDT) Only the most recent of2 resultswithin the time period is included. Bilirubin, Total, P 0.2 0.0 - 1.2 mg/dL 03/22/2025 5:49 PM CDT [facility] Bilirubin, Direct, P <0.1 0.0 - 0.3 mg/dL 03/22/2025 5:49 PM CDT [facility] Aspartate Aminotransferase (AST), P SEE COMMENT 8 - 43 U/L 03/22/2025 5:49 PM CDT [facility] Comment:Specimen was hemolyz ed. Alanine Aminotransferase (ALT), P 31 7 - 45 U/L 03/22/2025 5:49 PM CDT [facility] Alkaline Phosphatase, P 60 35 - 104 U/L 03/22/2025 4:54 PM CDT [facility] Albumin, P 3.8 3.5 - 5.0 g/dL 03/22/2025 5:49 PM CDT [facility] Protein, Total, P 4.5(L) 6.3 - 7.9 g/dL 03/22/2025 4:54 PM CDT [facility] Blood 03/22/2025 4:01 PM CDT 03/22/2025 4:35 PM CDT us Bert Ac M.D. LAB BLOOD ADD-ON Final Result [facility] [address] [place] [address], [facility] [place] [address] [place] [address] * (ABNORMAL) Lipid Panel (03/22/2025 4:40 AM CDT) Only the most recent of2 resultswithin the time period is included. Triglycerides >4425(H) mg/dL 03/22/2025 5:25 AM CDT MKTO Comment: ----REFERENCE VALUE---- Normal: <150 mg/dL Borderline High: 150-199 mg/dL High: 200-499 mg/dL Very High: > or =500 mg/dL Cholesterol, Total 628(H) mg/dL 2024 5:09 AM CDT MKTO Comment: ----REFERENCE VALUE---- Desirable: < 200 mg/dL Borderline High: 200 - 239 mg/dL High: > or = 240 mg/dL Cholesterol, LDL, Calculated SEE COMMENT mg/dL 03/22/2025 5:25 AM CDT MKTO Comment: Triglyceride >800 mg/dL. Calculated LDL cholesterol is not valid. Non-HDL cholesterol may be used for cardiovascular disease risk assessment when triglycerides are >800 mg/dL. ----REFERENCE VALUE---- Desirable: <100 mg/dL Above Desirable: 100-129 mg/dL Borderline High: 130-159 mg/dL High: 160-189 mg/dL Very High: >=190 mg/dL ----ADDITIONAL INFORMATION---- LDL cholesterol calculated using the Vann/NIH equation. Cholesterol, HDL CANCELED mg/dL 03/22/20 5:25 AM CDT MKTO Comment: Interfering substance was present. Result canceled by the ancillary. Cholesterol, Non-HDL, Calculated CANCELED mg/dL 03/22/2025 5:25 AM CDT TO Comment: Unable to calculate Result canceled by the ancillary. Fasting (8 HR or more) Unknown 03/22/2025 4:40 AM CDT [facility] Blood (Blood, Venous) 03/22/2025 4:40 AM CDT 03/22/2025 4:44 AM CDT us Casper Borges D.O. LAB BLOOD ADD-ON Final Re sult [facility] [address] [place] [address], [facility] [place] [address] [place] [address] * (ABNORMAL) Hemoglobin A1c (03/22/2025 12:03 AM CDT) Hemoglobin A1c, B 8.6(H) 4.2 - 5.6 % 03/22/2025 12:38 AM CDT TO Comment: Hemoglobin A1c values greater than or equal to 6.5 percent are diagnostic for diabetes mellitus. Diagnosis should be confirmed by repeat testing. In diabetic patients, HbA1c goals should be discussed with healthcare provider. Blood (Blood, Venous) 03/22/2025 12:03 AM CDT 03/22/2025 12:08 AM CDT us Casper Borges D.O. LAB BLOOD ADD-ON Final Re sult [facility] [address] [place] [address], [facility] MKTO [facility] [place] [address] [place] [address] * (ABNORMAL) BMP with Hgb/Hct, POCT (03/21/2025 8:48 PM CDT) BUN (Blood Urea Nitrogen), POCT, B 6 6 - 21 mg/dL 03/21/2025 8:49 PM CDT MKTO Chloride, POCT, B 107 98 - 107 mmol/L 03/21/2025 8:49 PM CDT MKTO Creatinine, POCT, B 0.4(L) 0.6 - 1.0 mg/dL 03/21/2025 8:49 PM CDT MKTO Comment: ----ADDITIONAL INFORMATION---- Performed at the Point of Care Estimated GFR (eGFR), POCT >90 >=60 mL/min/BSA 03/21/2025 8:53 PM CDT MKTO Comment: Estimated GFR calculated using the 2020 CKD_EPI creatinine equation. Glucose, POCT, B 201(H) 70 - 140 mg/dL 03/21/2025 8:49 PM CDT MKTO Calcium, Ionized, POCT, B 5.20 4.65 - 5.30 mg/dL 03/21/2025 8:49 PM CDT MKTO Potassium, POCT, B 3.7 3.6 - 5.2 mmol/L 03/21/2025 8:49 PM CDT MKTO Sodium, POCT, B 136 135 - 145 mmol/L 03/21/2025 8:49 PM CDT MKTO Total CO2, POCT, B 20(L) 22 - 29 mmol/L 03/21/2025 8:49 PM CDT MKTO Anion Gap, POCT, B 9 7 - 15 03/21/2025 8:49 PM CDT MKTO Hemoglobin, B 11.2(L) 11.6 - 15.0 g/dL 03/21/2025 8:49 PM CDT MKTO Hematocrit, POCT, B 33.0(L) 35.5 - 44.9 % 03/21/2025 8:49 PM CDT MKTO Blood (Blood, Venous) 03/21/2025 8:48 PM CDT 03/21/2025 8:53 PM CDT us Bj Oneil D.O. LAB POCT ORDERABLES - DEVICE Final Result Performing Organization Address [facility] Co de Phone Number [facility] [address] [place] [address], [place] [address] * Blood Gas without Coox, Venous (03/21/2025 8:32 PM CDT) pO2, Venous 41 Not applicable mm Hg 03/21/2025 8:55 PM CDT MKTO pCO2, Venous 42 41 - 51 mm Hg 8:55 PM CDT MKTO pH, Venous 7.34 7.32 - 7.43 pH 03/21/2025 8:55 PM CDT MKTO HCO3, Venous 22 Not applicable mmol/L 03/21/2025 8:55 PM CDT MKTO Blood (Blood, Venous) 03/21/2025 8:32 PM CDT 03/21/2025 8:35 PM CDT us Bj Oneil D.O. LAB BLOOD NON ADD-ON Final R esult Performing Organization Address City/[facility]/ZIP Co de Phone Number [facility] [address] [place] [address], [place] [address] * (ABNORMAL) Manual Differential, Blood (03/21/2025 6:11 PM CDT) Segmented Neutrophils 61 50 - 75 % 03/21/2025 9:33 PM CDT MKTO Lymphocytes % 34 18 - 42 % 03/21/2025 9:33 PM CDT MKTO Monocytes 1(L) 2 - 11 % 03/21/2025 9:33 PM CDT MKTO Eosinophils 2 1 - 3 % 03/21/2025 9:33 PM CDT MKTO Basophils 1 0 - 2 % 03/21/2025 9:33 PM CDT MKTO Metamyelocytes 1(H) <1 % 03/21/2025 9:33 PM CDT MKTO Manual Absolute Neutrophil Count 4.03 1.56 - 6.45 x10(9)/L 03/21/2025 9:33 PM CDT MKTO Comment: ----ADDITIONAL INFORMATION---- The manual absolute neutrophil count is derived from a manual differential count and therefore is not exactly comparable to the automated absolute neutrophil count. Blood 03/21/2025 6:11 PM CDT 03/21/2025 6:16 PM CDT us Bj Oneil D.O. LAB BLOOD ADD-ON Final Resul t Performing Organization Address City/[facility] Co de Phone Number [facility] [address] [place] [address] * hCG (Human Chorionic Gonadotropin), Quantitative, (03/21/2025 6:11 PM CDT) HCG, Quantitative, , P <1.0 <5 IU/L 03/21/2025 7:11 PM CDT MKTO Blood (Blood, Venous) 03/21/2025 6:11 PM CDT 03/21/2025 6:16 PM CDT us Bj Oneil D.O. LAB BLOOD ADD-ON Final Resul t Performing Organization Address City/[facility]/ZIP Co de Phone Number [facility] [address] [place] [address] * US Gallbladder and or Biliary Ducts (03/21/2025 5:50 PM CDT) Anatomical Region Laterality Modality Abdomen, Ultrasound RST LOS, Ultrasound ARZ LOS, Ultrasound FLA LOS N/A Ultrasound Impressions 03/21/2025 5:51 PM CDT No acute sonographic abnormality identified. Narrative 03/21/2025 5:51 PM CDT EXAM: US GALLBLADDER AND OR BILIARY DUCTS COMPARISON: CT abdomen pelvis dated 11/22/2024 FINDINGS: Gallbladder: Normal. No gallstones. No wall thickening or pericholecystic fluid. Negative sonographic Up sign. Intrahepatic ducts: Not dilated. Common duct: Not dilated. Aorta: Normal caliber. Incidental note is made of heterogeneous increased signal within the visualized liver consistent with fatty infiltration. Procedure Note Hemanth Lee M.D. - 03/21/2025 EXAM: US GALLBLADDER AND OR BILIARY DUCTS COMPARISON: CT abdomen pelvis dated 11/22/2024 FINDINGS: Gallbladder: Normal. No gallstones. No wall thickening or pericholecysticfluid. Negative sonographic Up sign. Intrahepatic ducts: Not dilated. Common duct: Not dilated. Aorta: Normal caliber. Incidental note is made of heterogeneous increased signal within thevisualized liver consistent with fatty infiltration. IMPRESSION: No acute sonographic abnormality identified. us Bj Oneil D.O. IMG US PROCEDURES Final Resu lt from Last [address] [facility] [place] [id number] Advance Directives For more information, please contact: [phone] * Full Code (Latest Code Status on File) Date Activated Date Inactivated Comments 05/19/2025 10:37 PM 05/26/2025 5:57 PM Question Answer Comments Full Code: Discussed * Full Code Date Activated Date Inactivated Comments 04/16/2025 4:42 PM 04/20/2025 5:20 PM Question Answer Comments Full Code: Not Discussed Due to: Not medically appropriate * Full Code Date Activated Date Inactivated Comments 03/21/2025 11:27 PM 03/24/2025 7:31 PM Question Answer Comments Full Code: Discussed * Full Code Date Activated Date Inactivated Comments 01/16/2024 2:02 AM 01/19/2024 7:30 PM Question Answer Comments Full Code: Discussed Care Teams Probation Supervisor Relationship Specialty Start Date End Date Elsewhere, Pcp PCP - General 09/16/19
--- OUTSIDE RECORDS SUMMARY | 2025-06-18 17:24 | XMS_ITS | Encounter Summary ---
Author Organization [place] Address [address] [place] [address] Care Team Providers Care Operation Agent Name Role Phone Helen Weston MD Unavailable [phone] Aracelis Lindquist MD Primary Care Provider Trish Cedeno MD Unavailable [phone] Trish Cedeno MD Unavailable [phone] Jazz Stewart MD Unavailable Andressa aMuricio [facility] Unavailable [phone] Encounter Details Date Type Department Care Team (Late st Contact Info) Description 09/21/2023 [facility] Adv[facility] Pediatric Specialty Clinic [facility], 3rd Floor [facility] [address] [address] Divina Marsh Social History Tobacco Use Types Packs/Day Years Used Date Smoking Tobacco: Never Smokeless Tobacco: Never PHQ-2 Answer Date Recorded PHQ-2 Score 0 03/24/2023 Adolescent Education Answer Date Record ed Getting School Help Needed Not on file 05/20 Comments Unknown Sex and Gender Information Value Date Recorded Sex Assigned at Female 10/23/2021 10:13 PM PLASTERER FOREMAN Legal Sex Female 2:01 PM CDT Gender Identity Female 10/23/2021 10:13 PM PLASTERER FOREMAN Sexual Orientation Straight 10/23/2021 10 :13 PM PLASTERER FOREMAN documented as of this encounter Plan of Treatment Not on file documented as of this encounter Visit Diagnoses Not on filedocumented in this encounter Additional Health Concerns Assessment Noted Time PHQ-9 Depression Total Score: 13 023 2:07 PM CDT documented as of this encounter Care Teams Operation Agent Relationship Specialty Start Date End Date Aracelis Lindquist MD PCP - General Family Practice 05/26/20 Helen Weston MD Pediatric Endocrinology 05/26/20 Trish Cedeno MD [address] [place] [address] [id number] Pediatric Endocrinology 12/23/21 Trish Cedeno MD [address] [place] [address] Assigned Pediatric Specialist Provider 01/02/22 Jazz Stewart MD [address] [place] [address] [id number] Pediatric Nephrology 11/07/22 Andressa Mauricio, GRAY TENDER Lead Porcelain Enamel Sprayer Endocrinology, Diabetes, and Metabolism 08/27/24 10/03/24 documented as of this encounter
--- OUTSIDE RECORDS SUMMARY | 2025-06-18 17:24 | XMS_ITS | Encounter Summary ---
Author Organization [place] Address [address] [place] [address] Care Team Providers Care Practice Lead Name Role Phone Helen Weston MD Unavailable Aracelis Lindquist MD Primary Care Provider [phone] Trish Cedeno MD Unavailable [phone] Trish Cedeno MD Unavailable [phone] Jazz Stewart MD Unavailable Andressa Mauricio [facility] Unavailable [phone] Reason for Visit * Reason Onset Date Comments Refill Request 02/22/2024 Encounter Details Date Type Department Care Team (Late st Contact Info) Description 02/22/2024 [facility] [address] [place] [address], [address] Floor [address] [place] [phone] Trish Cedeno MD [address] [place] [address] [phone] Refill Request Social History Tobacco Use Types Packs/Day Years Used Date Smoking Tobacco: Never Smokeless Tobacco: Never PHQ-2 Answer Date Recorded PHQ-2 Score 0 12/01/2023 Adolescent Education Answer Date Record ed Getting School Help Needed Not on file 05/20 Comments Unknown Sex and Gender Information Value Date Recorded Sex Assigned at Female 10/23/2021 10:13 PM AIRPORT REFUELING HANDLER Legal Sex Female 2:01 PM CDT Gender Identity Female 10/23/2021 10:13 PM AIRPORT REFUELING HANDLER Sexual Orientation Straight 10/23/2021 10 :13 PM AIRPORT REFUELING HANDLER documented as of this encounter Miscellaneous Notes * Telephone Encounter - Carin Pereira RN - 02/23/2024 7:48 AM CDT duplicate documented in this encounter Plan of Treatment Not on file documented as of this encounter Visit Diagnoses Diagnosis Type 2 diabetes mellitus with hyperglycemia, with long-term current use of insulin (H) documented in this encounter Additional Health Concerns Assessment Noted Time PHQ-9 Depression Total Score: 13 023 2:07 PM CDT documented as of this encounter Care Teams Practice Lead Relationship Specialty Start Date End Date Aracelis Lindquist MD PCP - General Family Practice 05/26/20 Helen Weston MD Pediatric Endocrinology 05/26/20 Trish Cedeno MD [address] [address] Pediatric Endocrinology 12/23/21 Trish Cedeno MD [address] [place] [address] Assigned Pediatric Specialist Provider 01/02/22 Jazz Stewart MD [address] [place] [address] Pediatric Nephrology 11/07/22 Andressa Mauricio, LACHO Lead Exchange Architect Endocrinology, Diabetes, and Metabolism 08/27/24 10/03/24 documented as of this encounter
--- OUTSIDE RECORDS SUMMARY | 2025-06-18 17:24 | XMS_ITS | Encounter Summary ---
Author Organization [place] Address [address] [place] [address] Care Team Providers Care Marketing Database Coordinator Name Role Phone Helen Weston MD Unavailable Aracelis Lindquist MD Primary Care Provider [phone] Trish Cedeno MD Unavailable [phone] Trish Cedeno MD Unavailable [phone] Jazz Stewart MD Unavailable Andressa Mauricio [facility] Unavailable Encounter Details Date Type Department Care Team (Late st Contact Info) Description 12/01/2023 [facility] [place] [facility] 3rd Flr [address] [place] [phone] Trish Cedeno MD [address] [place] [address] Social History Tobacco Use Types Packs/Day Years Used Date Smoking Tobacco: Never Smokeless Tobacco: Never PHQ-2 Answer Date Recorded PHQ-2 Score 0 12/01/2023 Adolescent Education Answer Date Record ed Getting School Help Needed Not on file 05/20 Comments Unknown Sex and Gender Information Value Date Recorded Sex Assigned at Female 10/23/2021 10:13 PM SENIOR STORAGE ADMINISTRATOR Legal Sex Female 2:01 PM CDT Gender Identity Female 10/23/2021 10:13 PM SENIOR STORAGE ADMINISTRATOR Sexual Orientation Straight 10/23/2021 10 :13 PM SENIOR STORAGE ADMINISTRATOR documented as of this encounter Plan of Treatment Not on file documented as of this encounter Visit Diagnoses Not on filedocumented in this encounter Additional Health Concerns Assessment Noted Time PHQ-9 Depression Total Score: 13 023 2:07 PM CDT documented as of this encounter Care Teams Marketing Database Coordinator Relationship Specialty Start Date End Date Aracelis Lindquist MD PCP - General Family Practice 05/26/20 Helen Weston MD Pediatric Endocrinology 05/26/20 Trish Cedeno MD [address] [address] Pediatric Endocrinology 12/23/21 Trish Cedeno MD [address] [address] Assigned Pediatric Specialist Provider 01/02/22 Jazz Stewart MD [address] [place] [address] Pediatric Nephrology 11/07/22 Andressa Mauricio, CLINICAL REHABILITATION AIDE Lead Integrated Circuits Inspector Endocrinology, Diabetes, and Metabolism 08/27/24 10/03/24 documented as of this encounter
--- OUTSIDE RECORDS SUMMARY | 2025-06-18 17:24 | XMS_ITS | Encounter Summary ---
Author Organization [place] Address [address] [place] [address] Care Team Providers Care Engineering Mechanic Name Role Phone Helen Weston MD Unavailable [phone] Aracelis Lindquist MD Primary Care Provider Trish Cedeno MD Unavailable [phone] Trish Cedeno MD Unavailable [phone] Jazz Stewart MD Unavailable Andressa Mauricio [facility] Unavailable [phone] Encounter Details Date Type Department Care Team (Late st Contact Info) Description 11/15/2023 [facility] [place] Medical Advice [facility] Pediatric Specialty Clinic [facility] [address] [place] [phone] Nayana Harper, CHIKA Social History Tobacco Use Types Packs/Day Years Used Date Smoking Tobacco: Never Smokeless Tobacco: Never PHQ-2 Answer Date Recorded PHQ-2 Score 0 03/24/2023 Adolescent Education Answer Date Record ed Getting School Help Needed Not on file 05/20 Comments Unknown Sex and Gender Information Value Date Recorded Sex Assigned at Female 10/23/2021 10:13 PM J2EE SOFTWARE ENGINEER Legal Sex Female 2:01 PM CDT Gender Identity Female 10/23/2021 10:13 PM J2EE SOFTWARE ENGINEER Sexual Orientation Straight 10/23/2021 10 :13 PM J2EE SOFTWARE ENGINEER documented as of this encounter Plan of Treatment Not on file documented as of this encounter Visit Diagnoses Not on filedocumented in this encounter Additional Health Concerns Assessment Noted Time PHQ-9 Depression Total Score: 13 023 2:07 PM CDT documented as of this encounter Care Teams Engineering Mechanic Relationship Specialty Start Date End Date Aracelis Lindquist MD PCP - General Family Practice 05/26/20 Helen Weston MD Pediatric Endocrinology 05/26/20 Trish Cedeno MD [facility][note 3][address] [address] Pediatric Endocrinology 12/23/21 Trish Cedeno MD [facility][note 3][address] [address] Assigned Pediatric Specialist Provider 01/02/22 [place] [address] [place] [phone] Pediatric Nephrology 11/07/22 Andressa Mauricio, SAND MILL OPERATOR FACING SAND Lead Compliance Testing Analyst Endocrinology, Diabetes, and Metabolism 08/27/24 10/03/24 documented as of this encounter
[2025-06-18 17:42] VITALS: BP 132/81; PULSE 97; RESP 16; TEMP 36.6; O2SAT 98
--- NOTE | 2025-06-18 18:02 | ED.GENADULT ---
HPI - General Adult General Time Seen by Provider: 18:02 Date Seen: 06/18/25 Chief complaint: Unspecified Complaint, Adult Stated complaint: elevated cholesterol Time Seen by Provider: 06/18/25 18:02 Source: patient, family, RN notes reviewed and old records reviewed Mode of arrival: ambulatory Limitations: no limitations History of Present Illness HPI narrative: This 20-year-old female is coming in at request of her primary care provider to rule out pancreatitis. Patient has been having left upper quadrant abdominal pain since she was discharged from [facility] at the end of April. She was admitted in April at [facility] for triglycerides greater than 10,000. Her triglycerides were 4800 at an office visit 2 days ago with her primary care provider per patient report. She states she was also told her liver labs are elevated. Patient did have pancreatitis 2 months ago. Patient tells me that she has been eating and drinking fine, no problems with appetite. She denies any diarrhea, no urinary symptoms. She has had no fevers. She states there is no chance for . As I am leaving the room, she does ask me if I can give her pain meds. I reviewed with her that we certainly could try some Toradol, she declined this. Did review with her that I really think we should wait to see if the lipase is elevated before instituting any narcotic pain medicines. I did ask her again if she did want to try the Toradol but she declined. She did confirm that this left upper quadrant abdominal pain has been present since she left the hospital in [place]. This patient is known to have chronic constipation, vitamin-D deficiency, obesity, recurrent pancreatitis, hypothyroidism, hypertriglyceridemia, type 2 diabetes. Related Data Home Medications ?Medication ?Instructions ?Recorded ?Confirmed atorvastatin 40 mg tablet 40 mg PO QPM 06/18/25 06/18/25 atorvastatin 80 mg tablet 80 mg PO DAILY 06/18/25 06/18/25 escitalopram oxalate 20 mg tablet 20 mg PO DAILY 06/18/25 06/18/25 fenofibrate 160 mg tablet 160 mg PO DAILY 06/18/25 06/18/25 Allergies Allergy/AdvReac Type Severity Reaction Status Date / Time niacin AdvReac Severe Agitated Verified 06/18/25 17:40 haloperidol AdvReac Intermediate agitated, Verified 06/18/25 17:40 restless movements Review of Systems Status of ROS: Reports: 6 or more systems reviewed and unremarkable except as noted in History and below [facility] Medical History Chronic constipation ?K59.09 - Other constipation (ICD-10) Vitamin D deficiency ?E55.9 - Vitamin D deficiency, unspecified (ICD-10) Exogenous obesity ?E66.09 - Other obesity due to excess calories (ICD-10) Recurrent pancreatitis Hypothyroidism ?E03.9 - Hypothyroidism, unspecified (ICD-10) Hypertriglyceridemia ?E78.1 - Pure hyperglyceridemia (ICD-10) Type 2 diabetes mellitus, with long-term current use of insulin ?E11.9 - Type 2 diabetes mellitus without complications (ICD-10) ?Z79.4 - residential (current) use of insulin (ICD-10) Surgical History History of tonsillectomy and adenoidectomy ?Z90.89 - Acquired absence of other organs (ICD-10) Family History Mother Diabetes Social History Narrative: Single, no kids Exam Const: Vital Signs, click to edit/add: Vital Signs - 24 hr 06/18/25 17:42 Temperature 97.9 F Pulse Rate [Pulse Oximeter] 97 Respiratory Rate 16 Blood Pressure [Ri ght Upper Arm] 132/81 Pulse Oximetry 98 Oxygen Delivery Me thod Room Air This 20-year-old female seen in exam room 3, she is lying in the bed, pleasant and comfortable. Sclera clear, face atraumatic, speech normal. Lungs are clear, no wheezing or crackles, no tachypnea, no accessory muscle use. CV regular rate and rhythm come no murmur, normal S1-S2, no S3-S4. She grimaces and winces when I gently palpate the left upper quadrant, the epigastric area or the right upper quadrant area. Lower abdomen seems to be better. There is no rebound or guarding, no organomegaly, no masses noted, bowel sounds are present and sound normal. Documenting provider has reviewed patient's vital signs: yes Course Course ED Course: Did offer patient Toradol initially for pain control which she declines. Will place an IV in case we do need to do imaging or further treatments. Will get full complement of labs including lipase, lactate, liver enzymes as well as basic metabolic panel and CBC. Patient looks clinically stable right now, afebrile. Will not be doing any imaging at this time, await lab results to guide whether or not we will do imaging. Reevaluation(s) Time of Reevaluation #1: 18:38 Reevaluation #1: Patient is requesting to leave, she has signed AMA paperwork. Her blood has not been drawn yet. Vital Signs Vital signs: Initial Vital Signs Temperature 97.9 F 06/18/25 17:42 Temperature Source Temporal Artery Scan 06/18/25 17:42 Pulse Rate 97 06/18/25 17:42 Respiratory Rate 16 06/18/25 17:42 Blood Pressure 132/81 06/18/25 17:42 Blood Pressure Mean 98 06/18/25 17:42 Blood Pressure Position Sitting 06/18/25 17:42 Pulse Oximetry 98 06/18/25 17:42 Oxygen Delivery Method Room Air 06/18/25 17:42 Vital Signs Temperature 97.9 F 06/18/25 17:42 Pulse Rate 97 06/18/25 17:42 Respiratory Rate 16 06/18/25 17:42 Blood Pressure 132/81 06/18/25 17:42 Pulse Oximetry 98 06/18/25 17:42 Oxygen Delivery Method Room Air 06/18/25 17:42 Temperature 97.9 F 06/18/25 17:42 Pulse Rate 97 06/18/25 17:42 Respiratory Rate 16 06/18/25 17:42 Blood Pressure 132/81 06/18/25 17:42 Pulse Oximetry 98 06/18/25 17:42 Oxygen Delivery Method Room Air 06/18/25 17:42 Discharge Plan Discharge Clinical Impression: Upper abdominal pain, Hypertriglyceridemia Patient Disposition: Left Against Medical Advice Prescriptions: No Action atorvastatin 40 mg tablet 40 mg PO QPM atorvastatin 80 mg tablet 80 mg PO DAILY escitalopram oxalate 20 mg tablet 20 mg PO DAILY fenofibrate 160 mg tablet 160 mg PO DAILY Follow Up/Referrals: Aracelis Lindquist MD [Primary Care Provider, Family Practice] Stand Alone Forms: [employer] Info Instructions
== END 2025-06-18 18:49 | disposition left against medical advice (07) ==
LOC: ED 18:43
PROVIDERS: Emergency Provider Family Medicine; PCP Family Medicine
DX: R10.12 Left upper quadrant pain (principal); E78.1 Pure hyperglyceridemia; Z53.29 Procedure and treatment not carried out because of patient's decision for other reasons
CPT/HCPCS: 80048; 80076; 83605; 83690; 85025; 86140; 99281; 99283